=== PATIENT | female | born 1965 | race African-American/Black ===

== ENCOUNTER 2019-09-07 00:58 | Inpatient (IN) | payer MEDICAID ==
[~2019-09-07] VITALS: Ht 162.6 cm; Wt 121.7 kg
--- NOTE | 2019-09-07 01:00 | NUR ---
ED Nurse Note: Pt brought in by ambulance from home c/o SOB/resp distress, pt read her o2 at home @75% on NC, arrived on cpap @90% spo2. Pt awake and oriented x4, pt placed on court recording monitor, continuous o2 monitor and BP c Addendum: 09/07/19 at 0122 by KDEARING *cuff, IV inserted RAC 20g without complications, 16F stovall inserted, pt tolerated well. Blood and urine sent to lab. will continue to monitor.
--- NOTE | 2019-09-07 01:05 | NUR ---
RESPIRATORY NOTE: Pt arrived in ED with SOB. Placed pt on Bipap settings 10/5, back up rate 12, 60% FiO2 via Dr. Nicolas's orders. Vitals WNL. Alarms on and audible. Ambubag present at bedside. Will continue to monitor.
--- NOTE | 2019-09-07 01:13 | NUR ---
Patients son called left his and his brother phone numbers to be called if needed: Oskar AlejandreObdqm-[phone] [place] - [phone] They would like to know patients disposition/room location.
[2019-09-07 01:14] VITALS: BP 153/68
--- NOTE | 2019-09-07 01:14 | Emergency Room Report ---
History of Present Illness General Chief Complaint: Dyspnea/Respdistress Source: Patient, EMS Present Illness HPI Is a 63-year-old female who is morbidly obese. She has a history of CHF, high blood pressure and diabetes. She presents with chief complaint of shortness of breath. She had multiple admissions for shortness of breath and respiratory distress. She called 911 because she could not breathe tonight. Per EMS she was hypoxic and was wheezing. Also has some rales. EMS put her on CPAP and gave her breathing treatment. They also gave her a spray of nitroglycerin ( 0.4 mg). She says she felt better now. No fever chills but no nausea no vomiting. Has chest tightness because of this. Similar symptom in the past. Allergies: Coded Allergies: No Known Allergies (Unverified , 09/07/19) Patient History Past Medical History: see triage record, old chart reviewed, DM, HTN, CHF Past Surgical History: other Pertinent Family History: none Social History: Denies: smoking Last Menstrual Period: n/a Now: No Immunizations: other Reviewed Nursing Documentation: PMH: Agreed; PSxH: Agreed Nursing Documentation-PMH Past Medical History: No History, Except For Hx Hypertension: Yes Hx Diabetes: Yes Review of Systems Eye: Denies: eye pain, blurred vision ENT: Denies: ear pain, nose congestion, throat swelling Respiratory: Reports: cough, shortness of breath, wheezing Cardiovascular: Denies: chest pain, palpitations Gastrointestinal: Denies: abdominal pain, diarrhea, nausea, vomiting Musculoskeletal: Denies: back pain, joint pain Skin: Denies: rash Neurological: Denies: headache, numbness Endocrine: Denies: increased thirst, increased urine Hematologic/Lymphatic: Denies: easy bruising All Other Systems: negative except mentioned in HPI Physical Exam Vital Signs Date Time Temp Pulse Resp B/P (MAP) Pulse Ox O2 Delivery O2 Flow Rate FiO2 09/07/19 00:52 88 29 153/68 (96) 90 Non-Rebreather Vitals with hypoxia Sp02 EP Interpretation: reviewed, abnormal General Appearance: well appearing, alert, moderate distress, obese Head: normocephalic, atraumatic Eyes: bilateral eye PERRL, bilateral eye EOMI ENT: hearing grossly normal, normal pharynx Neck: full range of motion, supple, no meningismus Respiratory: chest non-tender, respiratory distress, decreased breath sounds, accessory muscle use, rales Cardiovascular #1: regular rate, rhythm, no murmur Gastrointestinal: normal bowel sounds, non tender, no mass, no organomegaly, no bruit, non-distended Musculoskeletal: back normal, normal range of motion, other - 2+ pitting edema Neurologic: alert, oriented x3 Psychiatric: mood/affect normal Procedures Critical Care Time Critical Care Time Critical care is mandated in this patient who presented with this with respiratory distress. Patient require my urgent intervention to attenuate the risks of metabolic collapse which may lead to cardiovascular collapse and . Critical care time is 35 minutes excluding any reportable procedure. Critical care time included evaluation, multiple reevaluation, looking at old charts, interpreting laboratory and diagnostic data, discussing case with patient and family and consultants, and charting. Medical Decision Making Diagnostic Impression: Primary Impression: Respiratory failure with hypoxia and hypercapnia Qualified Codes: J96.21 - Acute and chronic respiratory failure with hypoxia; J96.22 - Acute and chronic respiratory failure with hypercapnia Additional Impressions: Acute exacerbation of CHF (congestive heart failure) Qualified Codes: I50.9 - Heart failure, unspecified Hypertension Qualified Codes: I10 - Essential (primary) hypertension Morbid obesity with BMI of 40.0-44.9, adult Anemia Qualified Codes: D64.9 - Anemia, unspecified Hyperglycemia due to type 2 diabetes mellitus Qualified Codes: E11.65 - Type 2 diabetes mellitus with hyperglycemia ER Course Patient presents with acute on chronic respiratory failure. Clinically, she appeared to be in CHF with fluid overloaded. Chest x-ray showed cardiomegaly with CHF. She has rales and 2+ pitting edema. She diuresed well with Lasix. Her BNP is only 121. She is comfortable on BiPAP. I try to wean her off of it but she became dyspneic. She said she uses BiPAP at home. Because I am unable to wean her off of the BiPAP, she is unstable for transfer. Patient will be admitted here. No evidence of ACS, PE, dissection to name a few. Contacted Dr. Jacobo for admission. Lab Results Impression Labs unremarkable EKG Diagnostic Results Rate: normal Rhythm: NSR ST Segments: other - NSST changes Rhythm Strip Diag. Results EP Interpretation: yes Rate: 93 Rhythm: NSR, no PVC's, no ectopy Chest X-Ray Diagnostic Results Chest X-Ray Diagnostic Results : Chest X-Ray Ordered: Yes # of Views/Limited/Complete: 1 View Indication: Shortness of Breath EP Interpretation: Yes Interpretation: no consolidation, no pneumothorax, other - CM with chf Impression: Other - chf Electronically Signed by: Braden Nicolas MD Last Vital Signs Date Time Temp Pulse Resp B/P (MAP) Pulse Ox O2 Delivery O2 Flow Rate FiO2 09/07/19 00:52 88 29 153/68 (96) 90 Non-Rebreather Status: improved Disposition: ADMITTED INPATIENT Condition: Serious Braden Nicolas MD Sep 07, 2019 01:14
[2019-09-07 01:16] LABS: HEMATOCRIT 29.5 % (37.0-47.0); HEMOGLOBIN 9.8 G/DL (12.0-16.0); MEAN CORPUSCULAR VOLUME 90 FL (80-99); PLATELET COUNT 353 K/UL (150-450); RED BLOOD COUNT 3.27 M/UL (4.20-5.40); RED CELL DISTRIBUTION WIDTH 14.4 % (11.6-14.8); WHITE BLOOD COUNT 12.4 K/UL (4.8-10.8)
[2019-09-07 01:21] LABS: APPEARANCE,URINE CLEAR; BILIRUBIN, URINE NEGATIVE (NEGATIVE); COLOR,URINE PALE YELLOW; GLUCOSE, URINE (UA) 2+ (NEGATIVE); KETONES,URINE NEGATIVE (NEGATIVE); LEUKOCYTE ESTERASE ,URINE NEGATIVE (NEGATIVE); NITRITE,URINE NEGATIVE (NEGATIVE); PH,URINE 5 (4.5-8.0); UROBILINOGEN,URINE NORMAL MG/DL (0.0-1.0)
[2019-09-07 01:22] LABS: PROTEIN,URINE NEGATIVE (NEGATIVE)
[2019-09-07] MEDS ORDERED: DIGOXIN125 MCG ORAL (01:27)
[2019-09-07] MEDS ORDERED: GLUCOTROL10 MG ORAL (01:27)
[2019-09-07] MEDS ORDERED: HYDRALAZINE HCL50 MG ORAL (01:27)
[2019-09-07] MEDS ORDERED: FUROSEMIDE40 MG ORAL (01:27)
[2019-09-07] MEDS ORDERED: FERROUS SULFAT325 MG ORAL (01:27)
[2019-09-07] MEDS ORDERED: METOPROLOL SUCC25 MG ORAL (01:27)
[2019-09-07] MEDS ORDERED: ALLOPURINOL300 M1 ORAL (01:27)
[2019-09-07] MEDS ORDERED: CHLORTHALIDONE25 MG ORAL (01:27)
[2019-09-07] MEDS ORDERED: POTASSIUM CHLO10 MEQ ORAL (01:27)
[2019-09-07] MEDS ORDERED: METFORMIN HCL1000 M1 ORAL (01:27)
[2019-09-07] MEDS ORDERED: AMLODIPINE BESY10 MG ORAL (01:27)
[2019-09-07 01:29] LABS: ANION GAP 5 mmol/L (5-15); BLOOD UREA NITROGEN 17 mg/dL (7-18); CALCIUM 9.1 MG/DL (8.5-10.1); CARBON DIOXIDE 39 MMOL/L (21-32); CHLORIDE 97 MMOL/L (98-107); POTASSIUM 4.1 MMOL/L (3.5-5.1); SODIUM 141 MMOL/L (136-145)
[2019-09-07] MEDS ORDERED: ENTRESTO 24 MG1 EACH PO (01:32)
[2019-09-07] MEDS ORDERED: ASPIR 8181 MG ORAL (01:32)
[2019-09-07] MEDS ORDERED: CALCIUM 500 +1 EAC3 PO (01:32)
[2019-09-07 01:43] LABS: ALANINE AMINOTRANSFERASE 20 U/L (12-78); ALBUMIN 3.2 G/DL (3.4-5.0); ALBUMIN/GLOBULIN RATIO 0.7 (1.0-2.7); ALKALINE PHOSPHATASE 71 U/L (46-116); ASPARTATE AMINO TRANSFERASE 10 U/L (15-37); BILIRUBIN,TOTAL 0.3 MG/DL (0.2-1.0)
[2019-09-07] MEDS ORDERED: Insulin Human Regular 100units/ml 3ml SUBQ ONE (02:00)
[2019-09-07] MEDS ORDERED: Albuterol ud Inhalation HHN PRN (03:15)
--- NOTE | 2019-09-07 04:00 | NUR ---
TRANSFER TO FLOOR: Patient transferred to as ordered, per Dr Jacobo. Report given to TEDDY Gavin. Belongings and medications given to . Family and or S/O informed of transfer.
--- NOTE | 2019-09-07 04:40 | NUR ---
NURSE NOTES: Admitted pt from ED with SOB; CHF. Pt is awake, alert, oriented x4 currently on the Bipap but denies any chest pains.Obese. Pt has a HL on RAC g 20 which is patent. FC Fr [address] and draining pale yellow urine. c/o SOB on minimal exertion. Upon arriving pt refused the Bipap and RT placed her on Non rebreather mask. Sats 95-96%. Plan of care explained to pt. Call placed to Dr Jacobo, awaiting response.
[2019-09-07 04:45] VITALS: BP 151/75
--- NOTE | 2019-09-07 06:28 | NUR ---
NURSE NOTES: Dr Jacobo called back with orders.
[2019-09-07] MEDS ORDERED: HYDROcodone/Acetamin 5/325 tab ORAL PRN (06:30)
[2019-09-07] MEDS ORDERED: Morphine Sulfate 2mg/ml Inj(IV/IM USE ONLY) IVP PRN (06:30)
--- NOTE | 2019-09-07 07:13 | NUR ---
ELOPEMENT: Addendum: 09/07/19 at 0714 by MILLER DUMONT RN wrong entry
--- NOTE | 2019-09-07 07:14 | NUR ---
HAND-OFF: Report given to Scott Perdue RN.
--- NOTE | 2019-09-07 07:30 | NUR ---
NURSE NOTES: Received report from TEDDY Segura. Patient is sitting on side of bed, eating breakfast. Patient is refusing ordered Bipap, RT aware. Patient is on non rebreather 40% FiO2 SpO2 95%. Bed is in lowest position, brakes engaged. Call light is kept within easy reach. Will continue to monitor patient.
[2019-09-07 08:00] VITALS: BP 130/63
[2019-09-07] MEDS: NovoLOG Insulin Flexpen SUBQ SCH ×4 (08:25→21:19)
[2019-09-07] MEDS ORDERED: Metoprolol Succinate XL 25mg tab ORAL SCH (09:00)
[2019-09-07] MEDS ORDERED: Digoxin 0.125mg tab ORAL SCH (09:00)
[2019-09-07] MEDS ORDERED: Aspirin EC 81mg tab ORAL SCH (09:00)
[2019-09-07] MEDS ORDERED: Enoxaparin 40mg Inj SUBQ SCH (09:00)
--- NOTE | 2019-09-07 09:50 | NUR ---
NURSE NOTES: Dr. Aguirre seen and examined patient at bedside, explained to patient importance of BiPAP. Patient is agreeable to BiPAP. Dr. Aguirre ordered BiPAP 10/5 40% FiO2 QHS and PRN, no ABGs ordered at this time. Order entered, noted, and carried out. Made RT aware. Noted. Will continue to monitor patient.
[2019-09-07 10:15] LABS: CHOLESTEROL 130 MG/DL (< 200); HDL CHOLESTEROL 55 MG/DL (40-60); TRIGLYCERIDES 86 MG/DL (30-150)
[2019-09-07] MEDS ORDERED: Hydromorphone 0.5mg/0.5ml inj IVP PRN ×2 (10:45→15:30)
--- NOTE | 2019-09-07 10:46 | NUR ---
NURSE NOTES: Contacted and informed Dr. Jacobo that patient states they are allergic to morphine sulfate. Dr. Jacobo acknowledged and ordered Dilaudid 0.5 mg IV BID PRN for severe pain. Morphine Sulfate 2 mg IV PRN discontinued. Noted. Will continue to monitor patient.
--- NOTE | 2019-09-07 10:50 | Diagnostic Imaging Report ---
Indication: Shortness of breath for one day Technique: One view of the chest Comparison: none Findings: The heart is enlarged. There are bilateral right greater than left pleural effusions. There is fairly extensive bilateral interstitial and airspace opacities present. Surgical clips are seen in the lower neck Impression: Cardiomegaly Bilateral interstitial infiltrates infiltrates versus edema Bilateral right greater than left pleural effusions
--- NOTE | 2019-09-07 11:11 | NUR ---
*-* NO INSURANCE INFORMATION IN THE BAR UNABLE TO SEND CLINICALS OR REVIEWS *-*
--- NOTE | 2019-09-07 11:16 | Consultation ---
Consult Note Consult Note asked to eval at the request of Dr Jacobo Is a 63-year-old female who is morbidly obese. She has a history of CHF, high blood pressure and diabetes. She presents with chief complaint of shortness of breath. She had multiple admissions for shortness of breath and respiratory distress. She called 911 because she could not breathe tonight. Per EMS she was hypoxic and was wheezing. Also has some rales. EMS put her on CPAP and gave her breathing treatment. They also gave her a spray of nitroglycerin ( 0.4 mg). She says she felt better now. No fever chills but no nausea no vomiting. Has chest tightness because of this. Similar symptom in the past. No Known Allergies (Unverified , 09/07/19) Past Medical History: see triage record, old chart reviewed, DM, HTN, CHF Past Medical History: No History, Except For Hx Hypertension: Yes Hx Diabetes: Yes interviewed examined on BIPAP . Assessment/Plan Acute Respiratory Failure Morbid Obesity LAYO Anemia DM OOC HTN Respiratory support, BIPAP 2D Echo , BP and BS management monitor Gino Varela MD Sep 07, 2019 11:16
[2019-09-07 12:00] VITALS: BP 144/75
[2019-09-07] MEDS ORDERED: LEVOTHYROXINE175 MCG ORAL (12:09)
--- NOTE | 2019-09-07 14:23 | History & Physical ---
History and Physical History & Physicial seen and examined. Full Dictation completed Marcela Jacobo MD Sep 07, 2019 14:23
[2019-09-07] MEDS ORDERED: NIFEdipine 10mg cap ORAL SCH (14:30)
--- NOTE | 2019-09-07 14:47 | Infectious Diseases Prog Note ---
Assessment/Plan Problems: (1) Community acquired pneumonia Assessment & Plan: with productive cough tinged with blood , continue ceftriaxone and azithromycin empirically (2) Acute exacerbation of CHF (congestive heart failure) Assessment & Plan: continue dieuresis as per renal (3) Respiratory failure with hypoxia and hypercapnia Assessment & Plan: on BIPAP, continue nebulizers and diuretics (4) Hyperglycemia due to type 2 diabetes mellitus Assessment & Plan: poorly controled, continue insulin to achieve tight glycemic control to keep blood glucose between 100-140 Subjective Allergies: Uncoded Allergies: Morphine sulfate (Allergy, Severe, 09/07/19) Objective Vital Signs Last 24 Hour Vital Signs Date Time Temp Pulse Resp B/P (MAP) Pulse Ox O2 Delivery O2 Flow Rate FiO2 09/07/19 12:00 Bi-pap 09/07/19 12:00 87 09/07/19 12:00 40 09/07/19 12:00 98.1 91 29 144/75 (98) 95 09/07/19 10:54 87 09/07/19 10:39 90 33 92 Facial 60 09/07/19 09:40 80 21 93 Facial 60 09/07/19 08:24 102 130/63 09/07/19 08:23 102 130/63 09/07/19 08:00 40 09/07/19 08:00 Bi-pap 09/07/19 08:00 102 09/07/19 08:00 97.9 102 29 130/63 (85) 95 09/07/19 04:45 97.0 09/07/19 04:45 Bi-pap 09/07/19 04:45 98.2 97 28 151/75 (100) 93 09/07/19 04:31 97 09/07/19 04:00 98.8 88 38 153/68 91 40 09/07/19 03:25 99 38 91 Bi-Pap 40 09/07/19 03:15 99 38 91 Facial 40 09/07/19 01:14 98.8 88 29 153/68 90 Bi-pap 60 09/07/19 01:14 88 29 Bi-pap 60 09/07/19 01:05 88 35 92 Facial 60 09/07/19 00:52 98.8 88 29 153/68 (96) 90 Non-Rebreather Height (Feet): 5 Height (Inches): 4.00 Weight (Pounds): 268 Laboratory Tests Test 09/07/19 01:00 09/07/19 01:10 09/07/19 09:10 White Blood Count 12.4 K/UL (4.8-10.8) H Red Blood Count 3.27 M/UL (4.20-5.40) L Hemoglobin 9.8 G/DL (12.0-16.0) L Hematocrit 29.5 % (37.0-47.0) L Mean Corpuscular Volume 90 FL (80-99) Mean Corpuscular Hemoglobin 30.0 PG (27.0-31.0) Mean Corpuscular Hemoglobin Concent 33.3 G/DL (32.0-36.0) Red Cell Distribution Width 14.4 % (11.6-14.8) Platelet Count 353 K/UL (150-450) Mean Platelet Volume 5.5 FL (6.5-10.1) L Neutrophils (%) (Auto) % (45.0-75.0) Lymphocytes (%) (Auto) % (20.0-45.0) Monocytes (%) (Auto) % (1.0-10.0) Eosinophils (%) (Auto) % (0.0-3.0) Basophils (%) (Auto) % (0.0-2.0) Sodium Level 141 MMOL/L (136-145) Potassium Level 4.1 MMOL/L (3.5-5.1) Chloride Level 97 MMOL/L (98-107) L Carbon Dioxide Level 39 MMOL/L (21-32) H Anion Gap 5 mmol/L (5-15) Blood Urea Nitrogen 17 mg/dL (7-18) Creatinine 1.0 MG/DL (0.55-1.30) Estimat Glomerular Filtration Rate 56.4 mL/min (>60) Glucose Level 358 MG/DL (74-106) H Calcium Level 9.1 MG/DL (8.5-10.1) Total Bilirubin 0.3 MG/DL (0.2-1.0) Aspartate Amino Transf (AST/SGOT) 10 U/L (15-37) L Alanine Aminotransferase (ALT/SGPT) 20 U/L (12-78) Alkaline Phosphatase 71 U/L (46-116) Troponin I 0.000 ng/mL (0.000-0.056) 0.000 ng/mL (0.000-0.056) Pro-B-Type Natriuretic Peptide 121 pg/mL (0-125) Total Protein 8.0 G/DL (6.4-8.2) Albumin 3.2 G/DL (3.4-5.0) L Globulin 4.8 g/dL Albumin/Globulin Ratio 0.7 (1.0-2.7) L Urine Color Pale yellow Urine Appearance Clear Urine pH 5 (4.5-8.0) Urine Specific [place] 1.010 (1.005-1.035) Urine Protein Negative (NEGATIVE) Urine Glucose (UA) 2+ (NEGATIVE) H Urine Ketones Negative (NEGATIVE) Urine Blood Negative (NEGATIVE) Urine Nitrite Negative (NEGATIVE) Urine Bilirubin Negative (NEGATIVE) Urine Urobilinogen Normal MG/DL (0.0-1.0) Urine Leukocyte Esterase Negative (NEGATIVE) Urine Opiates Screen Negative (NEGATIVE) Urine Barbiturates Screen Negative (NEGATIVE) Phencyclidine (PCP) Screen Negative (NEGATIVE) Urine Amphetamines Screen Negative (NEGATIVE) Urine Benzodiazepines Screen Negative (NEGATIVE) Urine Cocaine Screen Negative (NEGATIVE) Urine Marijuana (THC) Screen Negative (NEGATIVE) Hemoglobin A1c 8.1 % (4.3-6.0) H Triglycerides Level 86 MG/DL (30-150) Cholesterol Level 130 MG/DL (< 200) LDL Cholesterol 49 mg/dL (<100) HDL Cholesterol 55 MG/DL (40-60) Cholesterol/HDL Ratio 2.4 (3.3-4.4) L Thyroid Stimulating Hormone (TSH) 2.134 uiU/mL (0.358-3.740) Digoxin Level 0.7 NG/ML (0.9-2.0) L Current Medications Medications (Trade) Dose Ordered Sig/Yue Route PRN Reason Start Time Stop Time Status Last Admin Dose Admin Acetaminophen (Tylenol) 650 mg Q6H PRN ORAL Mild Pain/Temp > 100.5 09/07/19 06:30 10/07/19 06:29 Acetaminophen/ Hydrocodone Bitart (Purchase 5/325) 1 tab Q6H PRN ORAL moderate pain, 4-6 09/07/19 06:30 09/14/19 06:29 Albuterol Sulfate (Proventil) 2.5 mg Q4HR PRN HHN Shortness of Breath 09/07/19 03:15 09/12/19 03:14 Allopurinol (Allopurinol) 300 mg DAILY ORAL 09/07/19 09:00 10/07/19 08:59 09/07/19 08:23 Aspirin (Ecotrin) 81 mg DAILY ORAL 09/07/19 09:00 10/07/19 08:59 09/07/19 08:23 Azithromycin 500 mg/Dextrose 275 ml @ 275 mls/hr Q24HRS IV 09/07/19 16:00 09/13/19 16:59 Ceftriaxone Sodium 2 gm/ Dextrose 55 ml @ 110 mls/hr Q24H IVPB 09/07/19 17:00 09/14/19 16:59 Dextrose (Dextrose 50%) 25 ml Q30M PRN IV Hypoglycemia 09/07/19 06:30 10/07/19 06:29 Dextrose (Dextrose 50%) 50 ml Q30M PRN IV Hypoglycemia 09/07/19 06:30 10/07/19 06:29 Digoxin (Lanoxin) 0.125 mg DAILY ORAL 09/07/19 09:00 10/07/19 08:59 09/07/19 10:54 Enoxaparin Sodium (Lovenox) 40 mg DAILY SUBQ 09/07/19 09:00 10/07/19 08:59 09/07/19 08:26 Furosemide (Lasix) 40 mg DAILY IV 09/07/19 09:00 10/07/19 08:59 09/07/19 08:29 Hydromorphone HCl (Dilaudid) 0.5 mg BID PRN IVP Severe Pain (Pain Scale 7-10) 09/07/19 10:45 09/14/19 10:44 Insulin Aspart (NovoLOG) BEFORE MEALS AND HS SUBQ 09/07/19 06:30 10/07/19 06:29 09/07/19 12:06 Insulin Detemir (Levemir) 12 units Q24H SUBQ 09/07/19 16:00 10/07/19 15:59 Levothyroxine Sodium (Synthroid) 150 mcg DAILY@0630 ORAL 09/08/19 06:30 10/08/19 06:29 Nateglinide (Starlix) 120 mg TIAC ORAL 09/07/19 11:30 10/07/19 11:29 09/07/19 12:05 Nifedipine (Adalat) 20 mg Q8HR ORAL 09/07/19 14:30 10/07/19 14:29 Katlyn Richard M.D. Sep 07, 2019 14:47
--- NOTE | 2019-09-07 15:10 | NUR ---
TRANSFER TO FLOOR: Patient transferred to Telemetry WH362-1, per Dr. Aguirre. Report given to TEDDY Kerns. Belongings and medications given to TEDDY Kerns. Endorsed to TEDDY Kerns that patient stated they came in with their personal oxygen tank, [facility], consulted belonging's list, none seen, informed TEDDY Kerns that this nurse inquired ER charge nurse, TEDDY Ashford - awaiting call back. TEDDY Kerns acknowledged. Son at bedside informed of transfer.
--- NOTE | 2019-09-07 15:15 | NUR ---
NURSE NOTES: Received report from TEDDY Alfaro. Patient in bed resting, no active s/s cardiac distress noticed at this time. Patient on 15L oxygen via non-rebreather. AOx4. Endorsed patient stating missing oxygen tank and awaiting for callback from ED nurse. BIPAP at the bedside. Belonging list checked. IV on right AC 20G, asymptomatic, patent, intact. Bed in lowest position, side rails upx3, call light within reach. Will continue to monitor.
[2019-09-07 16:00] VITALS: BP 126/65
[2019-09-07] MEDS ORDERED: Azithromycin 500 MG in D5W 275 ML IV SCH (16:00)
[2019-09-07] MEDS ORDERED: Levemir Flexpen SUBQ SCH (16:00)
--- NOTE | 2019-09-07 16:00 | History and Physical Report ---
DATE OF ADMISSION: 09/07/2019 SOURCE OF INFORMATION: Patient and EMR. HISTORY OF PRESENT ILLNESS: The patient is a 54-year-old female with a history of asthma, who presented with worsening of shortness of breath for the last three days. At the time of evaluation, the patient denies having any interruption in taking the medication. Heart failure in the past. Denies any nausea, vomiting, diarrhea, or constipation. Reported that shortness of breath does not make a difference with walking or sitting. Denies any fever, chills. PAST MEDICAL HISTORY: Including but not limited to asthma, hypertension, atrial fibrillation, CHF, hypothyroidism, hypertension. ALLERGIES: Morphine sulfate. MEDICATIONS: Current hospital medications including, but not limited to , amlodipine, digoxin, Lasix, sliding scale insulin, levothyroxine, metoprolol. FAMILY HISTORY: Reviewed, noncontributory. SOCIAL HISTORY: The patient reported that living with her children. Denies any smoking, illicit drug, or alcohol abuse. PHYSICAL EXAMINATION: VITAL SIGNS: Blood pressure 150/80, temperature 98.2, pulse rate 29, temperature 98.5. HEAD AND NECK: Atraumatic, normocephalic. CHEST: Clear to auscultation. HEART: S1, S2. Regular rate and rhythm. ABDOMEN: Soft. No organomegaly. MUSCULOSKELETAL: No gross focal deficit. NEUROLOGIC: The patient is awake, alert, oriented x3. LABORATORY DATA: Labs dated 09/07/2019 shows WBC 12.4, hemoglobin of 9.8. BUN 17, creatinine 1. AST 10 and TSH of 2.1. Glucose of 358, A1c 8.1. Chest x-ray dated 09/07/2019 shows cardiomegaly with bilateral interstitial infiltrates. ASSESSMENT: 1. Acute hypoxemic respiratory failure. 2. Community-acquired pneumonia. 3. CHF exacerbation. 4. Morbid obesity. 5. Asthma. 6. Severe pulmonary arterial hypertension. 7. GI and DVT prophylaxis. PLAN OF CARE: I will continue with breathing treatment. I will add the empiric antibiotic treatment. I will send the blood cultures. I will increase the Lasix and optimize the blood pressure. Pulmonary, Dr. Aguirre and Cardiology, Dr. Funez have been consulted. Marcela Jacobo M.D. DR: MEGAN JOB#: [id number] CC:
[2019-09-07] MEDS ORDERED: cefTRIAXone 2 GM in D5W 55 ML IVPB SCH (17:00)
[2019-09-07] MEDS: Azithromycin 500 MG in D5W 275 ML IV SCH (17:29)
[2019-09-07] MEDS: Levemir Flexpen SUBQ SCH (17:38)
[2019-09-07] MEDS: cefTRIAXone 2 GM in D5W 55 ML IVPB SCH (18:40)
[2019-09-07] MEDS: HYDROcodone/Acetamin 5/325 tab ORAL PRN (18:47)
--- NOTE | 2019-09-07 18:57 | NUR ---
CASE MANAGEMENT: REVIEW 54Y/FEMALE BIBA FROM HOME CC: SOB . SAT 75% ROOM AIR . PATIENT ARRIVED ON CPAP 90% SI: CHF T 98.8 HR 88 RR 29 BP 153/68 SAT 90% BIPAP FIO2 60 WBC 12.4 H/H 9.8/29.5 GLUCOSE 358 CO2 39 IS: LASIX IV X1 PATIENT ADMITTED TO TELEMETRY UNIT 09/07/2019 DCP: PATIENT IS FROM HOME
--- NOTE | 2019-09-07 19:36 | NUR ---
HAND-OFF: Report given to TEDDY Sheehan.
--- NOTE | 2019-09-07 19:42 | Cardiology Progress Note ---
Assessment/Plan Assessment/Plan The patient is seen and examined, full consult note will be dictated. Objective Last 24 Hour Vital Signs Date Time Temp Pulse Resp B/P (MAP) Pulse Ox O2 Delivery O2 Flow Rate FiO2 09/07/19 16:00 95 09/07/19 16:00 97.2 87 25 126/65 (85) 93 09/07/19 16:00 40 09/07/19 16:00 Bi-pap 09/07/19 14:48 87 144/75 09/07/19 12:00 Bi-pap 09/07/19 12:00 87 09/07/19 12:00 40 09/07/19 12:00 98.1 91 29 144/75 (98) 95 09/07/19 10:54 87 09/07/19 10:39 90 33 92 Facial 60 09/07/19 09:40 80 21 93 Facial 60 09/07/19 08:24 102 130/63 09/07/19 08:23 102 130/63 09/07/19 08:00 40 09/07/19 08:00 Bi-pap 09/07/19 08:00 102 09/07/19 08:00 97.9 102 29 130/63 (85) 95 09/07/19 04:45 97.0 09/07/19 04:45 Bi-pap 09/07/19 04:45 98.2 97 28 151/75 (100) 93 09/07/19 04:31 97 09/07/19 04:00 98.8 88 38 153/68 91 40 09/07/19 03:25 99 38 91 Bi-Pap 40 09/07/19 03:15 99 38 91 Facial 40 09/07/19 01:14 98.8 88 29 153/68 90 Bi-pap 60 09/07/19 01:14 88 29 Bi-pap 60 09/07/19 01:05 88 35 92 Facial 60 09/07/19 00:52 98.8 88 29 153/68 (96) 90 Non-Rebreather Intake and Output 09/06/19 09/07/19 18:59 06:59 Output Total 500 ml Balance -500 ml Output Urine Total 500 ml Laboratory Tests Test 09/07/19 01:00 09/07/19 01:10 09/07/19 09:10 09/07/19 17:15 White Blood Count 12.4 K/UL (4.8-10.8) H Red Blood Count 3.27 M/UL (4.20-5.40) L Hemoglobin 9.8 G/DL (12.0-16.0) L Hematocrit 29.5 % (37.0-47.0) L Mean Corpuscular Volume 90 FL (80-99) Mean Corpuscular Hemoglobin 30.0 PG (27.0-31.0) Mean Corpuscular Hemoglobin Concent 33.3 G/DL (32.0-36.0) Red Cell Distribution Width 14.4 % (11.6-14.8) Platelet Count 353 K/UL (150-450) Mean Platelet Volume 5.5 FL (6.5-10.1) L Neutrophils (%) (Auto) % (45.0-75.0) Lymphocytes (%) (Auto) % (20.0-45.0) Monocytes (%) (Auto) % (1.0-10.0) Eosinophils (%) (Auto) % (0.0-3.0) Basophils (%) (Auto) % (0.0-2.0) Sodium Level 141 MMOL/L (136-145) Potassium Level 4.1 MMOL/L (3.5-5.1) Chloride Level 97 MMOL/L (98-107) L Carbon Dioxide Level 39 MMOL/L (21-32) H Anion Gap 5 mmol/L (5-15) Blood Urea Nitrogen 17 mg/dL (7-18) Creatinine 1.0 MG/DL (0.55-1.30) Estimat Glomerular Filtration Rate 56.4 mL/min (>60) Glucose Level 358 MG/DL (74-106) H Calcium Level 9.1 MG/DL (8.5-10.1) Total Bilirubin 0.3 MG/DL (0.2-1.0) Aspartate Amino Transf (AST/SGOT) 10 U/L (15-37) L Alanine Aminotransferase (ALT/SGPT) 20 U/L (12-78) Alkaline Phosphatase 71 U/L (46-116) Troponin I 0.000 ng/mL (0.000-0.056) 0.000 ng/mL (0.000-0.056) 0.000 ng/mL (0.000-0.056) Pro-B-Type Natriuretic Peptide 121 pg/mL (0-125) Total Protein 8.0 G/DL (6.4-8.2) Albumin 3.2 G/DL (3.4-5.0) L Globulin 4.8 g/dL Albumin/Globulin Ratio 0.7 (1.0-2.7) L Urine Color Pale yellow Urine Appearance Clear Urine pH 5 (4.5-8.0) Urine Specific [place] 1.010 (1.005-1.035) Urine Protein Negative (NEGATIVE) Urine Glucose (UA) 2+ (NEGATIVE) H Urine Ketones Negative (NEGATIVE) Urine Blood Negative (NEGATIVE) Urine Nitrite Negative (NEGATIVE) Urine Bilirubin Negative (NEGATIVE) Urine Urobilinogen Normal MG/DL (0.0-1.0) Urine Leukocyte Esterase Negative (NEGATIVE) Urine Opiates Screen Negative (NEGATIVE) Urine Barbiturates Screen Negative (NEGATIVE) Phencyclidine (PCP) Screen Negative (NEGATIVE) Urine Amphetamines Screen Negative (NEGATIVE) Urine Benzodiazepines Screen Negative (NEGATIVE) Urine Cocaine Screen Negative (NEGATIVE) Urine Marijuana (THC) Screen Negative (NEGATIVE) Hemoglobin A1c 8.1 % (4.3-6.0) H Triglycerides Level 86 MG/DL (30-150) Cholesterol Level 130 MG/DL (< 200) LDL Cholesterol 49 mg/dL (<100) HDL Cholesterol 55 MG/DL (40-60) Cholesterol/HDL Ratio 2.4 (3.3-4.4) L Thyroid Stimulating Hormone (TSH) 2.134 uiU/mL (0.358-3.740) Digoxin Level 0.7 NG/ML (0.9-2.0) L Bryce Funez MD Sep 07, 2019 19:42
--- NOTE | 2019-09-07 19:54 | NUR ---
NURSE NOTES: Received report from TEDDY Kerns. Patient is in bed, awake and responsive. Breathing regular on a Non-rebreather mask with saturation between 94-96%. Patient denies any pain or discomfort at this time. Patient's IV is intact and saline locked at the moment. Patient stated that her son will be visiting because he cares for her at home and he will come in to assist her. Patient also previously told the morning RN that she brought the Oxygen tank along with her when she was in the ED, but when ED was contacted there was no records of that. Bed is in lowest position, breaks engaged, and call light within reach at all times. Will continue to monitor.
[2019-09-07 20:00] VITALS: BP 124/56
[2019-09-07] MEDS ORDERED: Metoprolol 25mg tab ORAL SCH (21:00)
[2019-09-07] MEDS: NIFEdipine 10mg cap ORAL SCH (21:18)
--- NOTE | 2019-09-07 21:30 | Consultation ---
DATE OF CONSULTATION: 09/07/2019 CARDIOLOGY CONSULTATION CONSULTING PHYSICIAN: Bryce Funez M.D. REFERRING PHYSICIAN: Marceal Jacobo M.D. REASON FOR CONSULTATION: Management of congestive heart failure/shortness of breath. HISTORY OF PRESENT ILLNESS: The patient is a very pleasant 54-year-old female morbidly obese with history of congestive heart failure, hypertension, and diabetes mellitus. She presents to this hospital with progressive worsening of shortness of breath. She has had multiple admissions for shortness of breath and respiratory distress in the past. At the time of arrival of EMS, she was hypoxic and was having respiratory rhonchi. The patient also had some crackles reported by EMS. She was placed on CPAP and breathing treatment as well as a spray of nitroglycerin, which helped her condition. At the time of arrival to the hospital, she was complaining of chest tightness. She had similar symptoms in the past. Blood pressure in the emergency department was 153/60 mmHg and heart rate was 88. She was on non-rebreather mask and pulse ox of 90%. PAST MEDICAL HISTORY: Includes congestive heart failure, hypertension, diabetes mellitus, morbid obesity. PAST SURGICAL HISTORY: None. FAMILY HISTORY: No premature coronary artery disease in the first-degree relatives. ALLERGIES: No known drug allergies. REVIEW OF SYSTEMS: A 12-system review done essentially negative except what was mentioned in the history of present illness. SOCIAL HISTORY: Denies any tobacco, alcohol, or illicit drug use. MEDICATIONS: List of medications at home allopurinol 300 mg p.o. daily, amlodipine 10 mg p.o. daily, aspirin 81 mg p.o. daily, calcium carbonate and vitamin D3 one tablet daily, chlorthalidone 25 mg p.o. daily, digoxin 125 mcg p.o. daily, ferrous sulfate 325 mg p.o. daily, Lasix 40 mg p.o. daily, glipizide 5 mg p.o. daily, hydralazine 50 mg p.o. q.8 hours, levothyroxine 150 mg p.o. daily, metformin 1000 mg p.o. daily, metoprolol 25 mg p.o. daily, potassium chloride 10 mEq p.o. daily, Entresto 24/26 one tablet twice daily. PHYSICAL EXAMINATION: VITAL SIGNS: Blood pressure is 153/68, pulse of 88, respirations 28, O2 saturation 98% on non-rebreather mask. GENERAL: The patient is a very unfortunate 54-year-old, morbidly obese lady, in mild respiratory distress on facemask. HEENT: Atraumatic and normocephalic. Anicteric. Pupils are equal, round, and reactive to light and accommodation. Extraocular muscles intact. NECK: Cannot assess JVP due to morbid obesity and short neck. CARDIOVASCULAR: Normal S1, S2. Regular rate and rhythm. No murmurs, gallops, or rubs. PMI is at fourth intercostal space in the midclavicular line. LUNGS: Bilateral basal crackles. EXTREMITIES: 1+ bilateral lower extremity edema. LABORATORY FINDINGS: WBC was 12.4, hemoglobin 9.8, hematocrit 29.5, and platelet count is 353. Sodium was 141, potassium is 4.1, chloride is 97, bicarbonate 39, BUN of 17, creatinine 1.0, glucose 358. Hemoglobin A1c is 8.1. Calcium is 9.1. Troponin I x3 is negative. LDL is 29, HDL is 55, triglycerides 86. Toxicology was negative. Chest x-ray, cardiomegaly with bilateral pulmonary edema, bilateral pleural effusion. Preliminary 2D echocardiography shows normal left ventricular systolic function with LVEF of about 60% with normal LV diastolic dysfunction. Mild to moderate tricuspid regurgitation with right ventricular systolic pressure measured 101 mmHg consistent with severe pulmonary hypertension. ASSESSMENT AND PLAN: The patient is a very unfortunate 54-year-old lady who is seen in Cardiology consultation. 1. Severe pulmonary hypertension with right ventricular systolic pressure as high as 101 mmHg. We will like to review 2D echocardiography. Apparently, this patient's proBNP is within normal limits. However she takes Lasix at home. 2. Morbid obesity. 3. Normal LV systolic function with LVEF approximately 60%. I do not note the role of Entresto, which was given to her as an outpatient. Again, we like to review of 2D echocardiography images before this had making decision about discontinuing Entresto. 4. History of diabetes mellitus. 5. History of hypertension. I would probably stay away from calcium channel abdiel as tend to cause peripheral edema. We will like to use a combination of diuretic, angiotensin receptor abdiel, beta-blockers, and possibly alpha blockers. I would like to thank, Dr. Jacobo, for the courtesy of this consultation. Bryce Funez M.D. DR: BETHANY JOB#: [id number] CC:
[2019-09-08] VITALS: BP 107/59
--- NOTE | 2019-09-08 00:25 | NUR ---
NURSE NOTES: Upon assessment of patient's vitals, patient was saturating between 90-91% on the BIPAP. Called respiratory to have them come in and adjust the BIPAP settings per the patient's request. Respiratory was not able to come in because they were busy on a different unit. Patient started complaining of SOB while on the BIPAP, sat the patient up, changed the patient from the BIPAP to the high flow mask she was on previously, had the patient do deep breathing and the oxygen saturation was between 94-96%. Patient requested to have a breathing treatment, called RT. Waiting for RT to give patient breathing treatment. Patient is not in acute distress and denies SOB at the moment. Will continue to monitor.
[2019-09-08] MEDS: Albuterol ud Inhalation HHN PRN ×2 (01:32→10:35)
--- NOTE | 2019-09-08 02:47 | NUR ---
NURSE NOTES: Patient requested to have her Stovall discontinued because she was uncomfortable with it. Explained to the patient of the reasons why the Stovall catheter was placed in the first place, but patient was adamant on having it removed. The charge nurse Kandace also spoke to the patient and explained the benefits as well, but patient still wanted it out and requested to have a bed-side commode instead. The charge nurse Kandace removed the stovall per the patient's request. Will notify the MD about the patient's wishes. Patient is in bed with no acute distress noted at this time. Will continue to monitor.
--- NOTE | 2019-09-08 03:30 | Consultation ---
DATE OF CONSULTATION: 09/07/2019 PULMONARY CONSULTATION HISTORY OF PRESENT ILLNESS: The patient is a 54-year-old female with morbid obesity and CHF. She was brought in from home with shortness of breath. The patient reported she could . In the ER, she was diuresed and placed on a BiPAP. The patient reports history of hypertension and diabetes as well. She also history of LAYO and is on CPAP at home. On my evaluation, she reports dyspnea but denies chest pain. REVIEW OF SYSTEMS: Denies any headaches, hematemesis, melena, hematochezia, night sweats, or weight loss. PAST MEDICAL HISTORY: Hypertension, CHF, diabetes mellitus, LAYO, obesity. PAST SURGICAL HISTORY: None reported. HOME MEDICATIONS: Reviewed and reconciled in the chart. PHYSICAL EXAMINATION: GENERAL: Reveals a 54-year-old female. VITAL SIGNS: Blood pressure 150/60, heart rate is 84, respirations 22, afebrile. HEENT: Unremarkable. CHEST: Clear breath sounds bilaterally. HEART: Normal heart sounds. ABDOMEN: Soft. EXTREMITIES: There is 2+ edema. NEUROLOGIC: Nonfocal. LABORATORY AND DIAGNOSTIC DATA: Lab testing shows white count 63818, hemoglobin 9.8. Creatinine of 1.0. Toxicology is negative. Urinalysis is negative. IMAGING STUDIES: X-ray of chest was obtained which shows bilateral pleural effusions, pulmonary edema. IMPRESSION: 1. Decompensated congestive heart failure, suspect acute on chronic systolic heart failure. 2. Respiratory failure on BiPAP. 3. Hypertension. 4. Diabetes mellitus. DISCUSSION: We will start on BiPAP. I agree with current medications and care. The patient will need aggressive diuresis, nitrates, breathing treatments. Avoidance of nephrotoxic medications. We will follow carefully. Sohail Aguirre M.D. DR: Homer JOB#: [id number] CC:
[2019-09-08 04:00] VITALS: BP 146/69
[2019-09-08] MEDS: NIFEdipine 10mg cap ORAL SCH ×3 (06:07→21:00)
[2019-09-08] MEDS: NovoLOG Insulin Flexpen SUBQ SCH ×4 (06:08→21:02)
[2019-09-08 06:32] LABS: HEMATOCRIT 28.7 % (37.0-47.0); HEMOGLOBIN 9.1 G/DL (12.0-16.0); MEAN CORPUSCULAR VOLUME 92 FL (80-99); PLATELET COUNT 292 K/UL (150-450); RED BLOOD COUNT 3.12 M/UL (4.20-5.40)
--- NOTE | 2019-09-08 06:36 | NUR ---
NURSE NOTES: Called Dr. Aguirre to inform him about the patient's Oxygen therapy orders that needed to be added or adjusted. Dr Aguirre said "I will do it when i make rounds."
--- NOTE | 2019-09-08 06:37 | NUR ---
NURSE NOTES: Notified Dr. Jacobo about patient's Piper catheter removal request, awaiting response. Will endorse to morning shift.
[2019-09-08 06:57] LABS: % IRON SATURATION 11 % (15-50); IRON 35 ug/dL (50-175); TOTAL IRON BINDING CAPACITY 312 ug/dL (250-450)
[2019-09-08 07:10] LABS: ALANINE AMINOTRANSFERASE 21 U/L (12-78); ALBUMIN 3.1 G/DL (3.4-5.0); ALBUMIN/GLOBULIN RATIO 0.6 (1.0-2.7); ALKALINE PHOSPHATASE 64 U/L (46-116); ANION GAP 6 mmol/L (5-15); ASPARTATE AMINO TRANSFERASE 13 U/L (15-37); BILIRUBIN,TOTAL 0.4 MG/DL (0.2-1.0); BLOOD UREA NITROGEN 22 mg/dL (7-18); CALCIUM 8.9 MG/DL (8.5-10.1); CARBON DIOXIDE 39 MMOL/L (21-32); CHLORIDE 97 MMOL/L (98-107); FERRITIN 74 NG/ML (8-388); POTASSIUM 3.8 MMOL/L (3.5-5.1); SODIUM 144 MMOL/L (136-145)
[2019-09-08 07:11] LABS: GAMMA GLUTAMYL TRANSPEPTIDASE 26 U/L (5-85); PHOSPHORUS 3.7 MG/DL (2.5-4.9)
--- NOTE | 2019-09-08 07:38 | NUR ---
NURSE NOTES: Dr. Jacobo said it was ok to DC the stovall, orders noted.
--- NOTE | 2019-09-08 07:39 | NUR ---
HAND-OFF: Report given to TEDDY Tony. Patient in stable condition.
--- NOTE | 2019-09-08 07:40 | NUR ---
NURSE NOTES: Received report from TEDDY Sheehan. sitting in bed, awake and responsive. Patient is breathing normal and regular on a Non-rebreather mask with saturation at 96%. Patient denies any pain or discomfort at this time. IV is intact and saline locked. Family at bedside. Bed is in lowest position, breaks engaged for safety.Call light within reach at all times. Will continue with the plan of care.
[2019-09-08 08:00] VITALS: BP 131/57
[2019-09-08] MEDS: Aspirin EC 81mg tab ORAL SCH (08:30)
[2019-09-08] MEDS: Enoxaparin 40mg Inj SUBQ SCH (08:32)
[2019-09-08] MEDS ORDERED: Digoxin 0.125mg tab ORAL SCH (09:00)
--- NOTE | 2019-09-08 10:18 | Pulmonology Progress Note ---
Assessment/Plan Assessment/Plan ASSESSMENT Pulmonary edema LAYO History of asthma DISCUSSION: Continue BiPAP q pm. I agree with current medications and care. The patient will need aggressive diuresis, nitrates, breathing treatments. Avoidance of nephrotoxic medications. I will follow carefully. Sohail Aguirre M.D. Subjective Interval Events: Feeling better; still on NRBM Constitutional: Reports: no symptoms HEENT: Repors: no symptoms Respiratory: Reports: no symptoms Cardiovascular: Reports: no symptoms Gastrointestinal/Abdominal: Reports: no symptoms Allergies: Uncoded Allergies: Morphine sulfate (Allergy, Severe, 09/07/19) Objective Last 24 Hour Vital Signs Date Time Temp Pulse Resp B/P (MAP) Pulse Ox O2 Delivery O2 Flow Rate FiO2 09/08/19 09:00 Bi-pap 09/08/19 08:31 89 09/08/19 08:00 40 09/08/19 08:00 97.9 89 18 131/57 (81) 98 09/08/19 08:00 86 09/08/19 06:07 89 144/73 09/08/19 04:00 98.4 89 18 146/69 (94) 97 09/08/19 04:00 40 09/08/19 04:00 87 09/08/19 01:37 88 20 93 Non-Rebreather 15.0 100 88 20 92 09/08/19 00:00 98.1 87 20 107/59 (75) 94 09/08/19 00:00 86 09/07/19 22:15 87 27 94 Facial 60 09/07/19 21:18 88 124/66 09/07/19 21:00 40 09/07/19 20:00 91 09/07/19 20:00 98.9 88 22 124/56 (78) 94 09/07/19 16:00 95 09/07/19 16:00 97.2 87 25 126/65 (85) 93 09/07/19 16:00 40 09/07/19 16:00 Bi-pap 09/07/19 14:48 87 144/75 09/07/19 12:00 Bi-pap 11/18/19 12:00 87 09/07/19 12:00 40 09/07/19 12:00 98.1 91 29 144/75 (98) 95 09/07/19 10:54 87 09/07/19 10:39 90 33 92 Facial 60 Intake and Output 09/07/19 09/08/19 19:00 07:00 Intake Total 150 ml 120 ml Output Total 1100 ml Balance -950 ml 120 ml Intake Oral 150 ml Other 120 ml Output Urine Total 1100 ml General Appearance: no acute distress HEENT: normocephalic Respiratory/Chest: chest wall non-tender, lungs clear Cardiovascular: normal peripheral pulses, normal rate Abdomen: normal bowel sounds Laboratory Tests 09/07/19 17:15: Troponin I 0.000 09/08/19 04:55: Troponin I 0.000, White Blood Count 10.0, Red Blood Count 3.12L, Hemoglobin 9.1L , Hematocrit 28.7L, Mean Corpuscular Volume 92, Mean Corpuscular Hemoglobin 29.3 , Mean Corpuscular Hemoglobin Concent 31.9L, Red Cell Distribution Width 14.0, Platelet Count 292, Mean Platelet Volume 5.6L, Neutrophils (%) (Auto) , Lymphocytes (%) (Auto) , Monocytes (%) (Auto) , Eosinophils (%) (Auto) , Basophils (%) (Auto) , Sodium Level 144, Potassium Level 3.8, Chloride Level 97L , Carbon Dioxide Level 39H, Anion Gap 6, Blood Urea Nitrogen 22H, Creatinine 1.0 , Estimat Glomerular Filtration Rate > 60, Glucose Level 222#H, Uric Acid 3.5, Calcium Level 8.9, Phosphorus Level 3.7, Magnesium Level 1.5L, Iron Level 35L, Total Iron Binding Capacity 312, Percent Iron Saturation 11L, Unsaturated Iron Binding 277, Ferritin 74, Total Bilirubin 0.4, Gamma Glutamyl Transpeptidase 26 , Aspartate Amino Transf (AST/SGOT) 13L, Alanine Aminotransferase (ALT/SGPT) 21 , Alkaline Phosphatase 64, C-Reactive Protein, Quantitative 6.9H, Pro-B-Type Natriuretic Peptide 264H, Total Protein 7.9, Albumin 3.1L, Globulin 4.8, Albumin /Globulin Ratio 0.6L, Vitamin B12 Level 431, Folate 17.9 Current Medications Medications (Trade) Dose Ordered Sig/Yue Route PRN Reason Start Time Stop Time Status Last Admin Dose Admin Acetaminophen (Tylenol) 650 mg Q6H PRN ORAL Mild Pain/Temp > 100.5 09/07/19 15:30 10/07/19 15:29 Acetaminophen/ Hydrocodone Bitart ([place] 5/325) 1 tab Q6H PRN ORAL moderate pain, 4-6 09/07/19 15:30 09/14/19 15:29 09/07/19 18:47 Albuterol Sulfate (Proventil) 2.5 mg Q4H PRN HHN Shortness of Breath 09/07/19 15:30 09/12/19 15:29 09/08/19 01:32 Allopurinol (Zyloprim) 100 mg DAILY ORAL 09/09/19 09:00 10/09/19 08:59 Aspirin (Ecotrin) 81 mg DAILY ORAL 09/08/19 09:00 10/07/19 08:59 09/08/19 08:30 Azithromycin 500 mg/Dextrose 275 ml @ 275 mls/hr Q24HRS IV 09/07/19 16:00 09/13/19 16:59 09/07/19 17:29 Ceftriaxone Sodium 2 gm/ Dextrose 55 ml @ 110 mls/hr Q24H IVPB 09/07/19 17:00 09/14/19 16:59 09/07/19 18:40 Dextrose (Dextrose 50%) 25 ml Q30M PRN IV Hypoglycemia 09/07/19 15:30 10/07/19 06:29 Dextrose (Dextrose 50%) 50 ml Q30M PRN IV Hypoglycemia 09/07/19 15:30 10/07/19 06:29 Digoxin (Lanoxin) 0.125 mg DAILY ORAL 09/08/19 09:00 10/07/19 08:59 09/08/19 08:31 Enoxaparin Sodium (Lovenox) 40 mg DAILY SUBQ 09/08/19 09:00 10/07/19 08:59 09/08/19 08:32 Furosemide (Lasix) 40 mg DAILY IV 09/08/19 09:00 10/07/19 08:59 09/08/19 09:01 Hydromorphone HCl (Dilaudid) 0.5 mg BIDPRN PRN IVP Severe Pain (Pain Scale 7-10) 09/07/19 15:30 09/14/19 15:29 Insulin Aspart (NovoLOG) BEFORE MEALS AND HS SUBQ 09/07/19 16:30 10/07/19 06:29 09/08/19 06:08 Insulin Detemir (Levemir) 12 units Q24H SUBQ 09/07/19 16:00 10/07/19 15:59 09/07/19 17:38 Levothyroxine Sodium (Synthroid) 150 mcg DAILY@0630 ORAL 09/08/19 06:30 10/08/19 06:29 09/08/19 06:06 Magnesium Sulfate 100 ml @ 100 mls/hr Q1H IVPB 09/08/19 10:00 09/08/19 13:59 Nateglinide (Starlix) 120 mg TIAC ORAL 09/07/19 16:30 10/07/19 11:29 09/08/19 06:07 Nifedipine (Adalat) 20 mg Q8HR ORAL 09/07/19 22:00 10/07/19 14:29 09/08/19 06:07 Sohail Aguirre MD Sep 08, 2019 10:18
--- NOTE | 2019-09-08 10:35 | General Progress Note ---
Assessment/Plan Assessment/Plan: S: I am feeling better O: on O2, denies chest pain . limited activity PHYSICAL EXAMINATION:HEAD AND NECK: Atraumatic, normocephalic. CHEST: Clear to auscultation.HEART: S1, S2. Regular rate and rhythm. ABDOMEN: Soft. No organomegaly.MUSCULOSKELETAL: No gross focal deficit. NEUROLOGIC: The patient is awake, alert, oriented x3. LABORATORY DATA: Labs dated 09/08 reviewed ASSESSMENT: 1. Acute Asthma exacerbation 2. Community-acquired pneumonia. 3. CHF exacerbation. 4. Morbid obesity. 5. Asthma. 6. Severe pulmonary arterial hypertension. 7. GI and DVT prophylaxis. Plan: current IV medication pending cultures Subjective Allergies: Uncoded Allergies: Morphine sulfate (Allergy, Severe, 09/07/19) Objective Last 24 Hour Vital Signs Date Time Temp Pulse Resp B/P (MAP) Pulse Ox O2 Delivery O2 Flow Rate FiO2 09/08/19 09:00 Bi-pap 09/08/19 08:31 89 09/08/19 08:00 40 09/08/19 08:00 97.9 89 18 131/57 (81) 98 09/08/19 08:00 86 09/08/19 06:07 89 144/73 09/08/19 04:00 98.4 89 18 146/69 (94) 97 09/08/19 04:00 40 09/08/19 04:00 87 09/08/19 01:37 88 20 93 Non-Rebreather 15.0 100 88 20 92 09/08/19 00:00 98.1 87 20 107/59 (75) 94 09/08/19 00:00 86 09/07/19 22:15 87 27 94 Facial 60 09/07/19 21:18 88 124/66 09/07/19 21:00 40 09/07/19 20:00 91 09/07/19 20:00 98.9 88 22 124/56 (78) 94 09/07/19 16:00 95 09/07/19 16:00 97.2 87 25 126/65 (85) 93 09/07/19 16:00 40 09/07/19 16:00 Bi-pap 09/07/19 14:48 87 144/75 09/07/19 12:00 Bi-pap 09/07/19 12:00 87 09/07/19 12:00 40 09/07/19 12:00 98.1 91 29 144/75 (98) 95 09/07/19 10:54 87 09/07/19 10:39 90 33 92 Facial 60 Intake and Output 09/07/19 09/08/19 19:00 07:00 Intake Total 150 ml 120 ml Output Total 1100 ml Balance -950 ml 120 ml Intake Oral 150 ml Other 120 ml Output Urine Total 1100 ml Laboratory Tests 09/07/19 17:15: Troponin I 0.000 09/08/19 04:55: Troponin I 0.000, White Blood Count 10.0, Red Blood Count 3.12L, Hemoglobin 9.1L , Hematocrit 28.7L, Mean Corpuscular Volume 92, Mean Corpuscular Hemoglobin 29.3 , Mean Corpuscular Hemoglobin Concent 31.9L, Red Cell Distribution Width 14.0, Platelet Count 292, Mean Platelet Volume 5.6L, Neutrophils (%) (Auto) , Lymphocytes (%) (Auto) , Monocytes (%) (Auto) , Eosinophils (%) (Auto) , Basophils (%) (Auto) , Sodium Level 144, Potassium Level 3.8, Chloride Level 97L , Carbon Dioxide Level 39H, Anion Gap 6, Blood Urea Nitrogen 22H, Creatinine 1.0 , Estimat Glomerular Filtration Rate > 60, Glucose Level 222#H, Uric Acid 3.5, Calcium Level 8.9, Phosphorus Level 3.7, Magnesium Level 1.5L, Iron Level 35L, Total Iron Binding Capacity 312, Percent Iron Saturation 11L, Unsaturated Iron Binding 277, Ferritin 74, Total Bilirubin 0.4, Gamma Glutamyl Transpeptidase 26 , Aspartate Amino Transf (AST/SGOT) 13L, Alanine Aminotransferase (ALT/SGPT) 21 , Alkaline Phosphatase 64, C-Reactive Protein, Quantitative 6.9H, Pro-B-Type Natriuretic Peptide 264H, Total Protein 7.9, Albumin 3.1L, Globulin 4.8, Albumin /Globulin Ratio 0.6L, Vitamin B12 Level 431, Folate 17.9 Height (Feet): 5 Height (Inches): 4.00 Weight (Pounds): 268 Marcela Jacobo MD Sep 08, 2019 10:35
--- NOTE | 2019-09-08 11:44 | NUR ---
*-* INSURANCE *-* ALL CLINICALS AND REVIEWS HAVE BEEN FAXED TO: [employer] Ref# [id number] CM: [place] ph#[phone] fax#[phone] also send to [employer] No ref# or CM yet fax#[phone] Addendum: 09/08/19 at 1611 by KAYLEIGH KIM CM [employer] Ref# [id number] CM: [place] ph#[phone] fax#[phone] also send to [employer] Ref#[id number] CM: Aleks [phone] fax#[phone]
[2019-09-08 12:00] VITALS: BP 135/55
--- NOTE | 2019-09-08 12:12 | Nephrology Progress Note ---
Assessment/Plan Problem List: (1) Morbid obesity with BMI of 40.0-44.9, adult (2) Anemia (3) Hyperglycemia due to type 2 diabetes mellitus (4) Hypertension (5) Respiratory failure with hypoxia and hypercapnia Assessment Acute Respiratory Failure Morbid Obesity LAYO Anemia DM OOC HTN Plan add metformin to starlix Respiratory support, BIPAP 2D Echo , BP and BS management monitor lytes Subjective ROS Limited/Unobtainable: No Constitutional: Reports: malaise Objective Objective Last 24 Hour Vital Signs Date Time Temp Pulse Resp B/P (MAP) Pulse Ox O2 Delivery O2 Flow Rate FiO2 09/08/19 10:35 94 20 93 Non-Rebreather 15.0 100 94 20 91 09/08/19 09:00 Bi-pap 09/08/19 08:31 89 09/08/19 08:00 40 09/08/19 08:00 97.9 89 18 131/57 (81) 98 09/08/19 08:00 86 09/08/19 06:07 89 144/73 09/08/19 04:00 98.4 89 18 146/69 (94) 97 09/08/19 04:00 40 09/08/19 04:00 87 09/08/19 01:37 88 20 93 Non-Rebreather 15.0 100 88 20 92 09/08/19 00:00 98.1 87 20 107/59 (75) 94 09/08/19 00:00 86 09/07/19 22:15 87 27 94 Facial 60 09/07/19 21:18 88 124/66 09/07/19 21:00 40 09/07/19 20:00 91 09/07/19 20:00 98.9 88 22 124/56 (78) 94 09/07/19 16:00 95 09/07/19 16:00 97.2 87 25 126/65 (85) 93 09/07/19 16:00 40 09/07/19 16:00 Bi-pap 09/07/19 14:48 87 144/75 Intake and Output 09/07/19 09/08/19 19:00 07:00 Intake Total 150 ml 120 ml Output Total 1100 ml Balance -950 ml 120 ml Intake Oral 150 ml Other 120 ml Output Urine Total 1100 ml Laboratory Tests 09/07/19 17:15: Troponin I 0.000 09/08/19 04:55: Troponin I 0.000, White Blood Count 10.0, Red Blood Count 3.12L, Hemoglobin 9.1L , Hematocrit 28.7L, Mean Corpuscular Volume 92, Mean Corpuscular Hemoglobin 29.3 , Mean Corpuscular Hemoglobin Concent 31.9L, Red Cell Distribution Width 14.0, Platelet Count 292, Mean Platelet Volume 5.6L, Neutrophils (%) (Auto) , Lymphocytes (%) (Auto) , Monocytes (%) (Auto) , Eosinophils (%) (Auto) , Basophils (%) (Auto) , Sodium Level 144, Potassium Level 3.8, Chloride Level 97L , Carbon Dioxide Level 39H, Anion Gap 6, Blood Urea Nitrogen 22H, Creatinine 1.0 , Estimat Glomerular Filtration Rate > 60, Glucose Level 222#H, Uric Acid 3.5, Calcium Level 8.9, Phosphorus Level 3.7, Magnesium Level 1.5L, Iron Level 35L, Total Iron Binding Capacity 312, Percent Iron Saturation 11L, Unsaturated Iron Binding 277, Ferritin 74, Total Bilirubin 0.4, Gamma Glutamyl Transpeptidase 26 , Aspartate Amino Transf (AST/SGOT) 13L, Alanine Aminotransferase (ALT/SGPT) 21 , Alkaline Phosphatase 64, C-Reactive Protein, Quantitative 6.9H, Pro-B-Type Natriuretic Peptide 264H, Total Protein 7.9, Albumin 3.1L, Globulin 4.8, Albumin /Globulin Ratio 0.6L, Vitamin B12 Level 431, Folate 17.9 Height (Feet): 5 Height (Inches): 4.00 Weight (Pounds): 268 General Appearance: mild distress Cardiovascular: tachycardia Respiratory/Chest: decreased breath sounds Abdomen: distended Gino Longoria MD Sep 08, 2019 12:12
--- NOTE | 2019-09-08 14:03 | Infectious Diseases Prog Note ---
Assessment/Plan Problems: (1) Community acquired pneumonia Assessment & Plan: with productive cough tinged with blood , continue ceftriaxone and azithromycin empirically (2) Acute exacerbation of CHF (congestive heart failure) Assessment & Plan: continue dieuresis as per renal (3) Respiratory failure with hypoxia and hypercapnia Assessment & Plan: on BIPAP, continue nebulizers and diuretics (4) Hyperglycemia due to type 2 diabetes mellitus Assessment & Plan: poorly controled, continue insulin to achieve tight glycemic control to keep blood glucose between 100-140 (5) Pleural effusion Assessment & Plan: R>L may benefit from thoracentesis Subjective Constitutional: Reports: fatigue HEENT: Reports: no symptoms Respiratory: Reports: productive cough Breasts: Reports: no symptoms Cardiovascular: Reports: no symptoms Gastrointestinal/Abdominal: Reports: no symptoms Genitourinary: Reports: no symptoms Neurologic: Reports: no symptoms Psychiatric: Reports: no symptoms Skin: Reports: no symptoms Endocrine: Reports: no symptoms Hematologic: Reports: no symptoms Musculoskeletal: Reports: no symptoms Allergies: Uncoded Allergies: Morphine sulfate (Allergy, Severe, 09/07/19) Objective Vital Signs Last 24 Hour Vital Signs Date Time Temp Pulse Resp B/P (MAP) Pulse Ox O2 Delivery O2 Flow Rate FiO2 09/08/19 13:19 95 135/55 09/08/19 12:00 40 09/08/19 12:00 98.2 95 20 135/55 (81) 95 09/08/19 12:00 95 09/08/19 10:35 94 20 93 Non-Rebreather 15.0 100 94 20 91 09/08/19 09:00 Bi-pap 09/08/19 08:31 89 09/08/19 08:00 40 09/08/19 08:00 97.9 89 18 131/57 (81) 98 09/08/19 08:00 86 09/08/19 06:07 89 144/73 09/08/19 04:00 98.4 89 18 146/69 (94) 97 09/08/19 04:00 40 09/08/19 04:00 87 09/08/19 01:37 88 20 93 Non-Rebreather 15.0 100 88 20 92 09/08/19 00:00 98.1 87 20 107/59 (75) 94 09/08/19 00:00 86 09/07/19 22:15 87 27 94 Facial 60 09/07/19 21:18 88 124/66 09/07/19 21:00 40 09/07/19 20:00 91 09/07/19 20:00 98.9 88 22 124/56 (78) 94 09/07/19 16:00 95 09/07/19 16:00 97.2 87 25 126/65 (85) 93 09/07/19 16:00 40 09/07/19 16:00 Bi-pap 09/07/19 14:48 87 144/75 Height (Feet): 5 Height (Inches): 4.00 Weight (Pounds): 268 General Appearance: WD/WN, no acute distress HEENT: normocephalic, atraumatic, anicteric, mucous membranes moist Respiratory/Chest: chest wall non-tender, lungs clear, normal breath sounds, no respiratory distress, no accessory muscle use Cardiovascular: normal peripheral pulses, normal rate, regular rhythm, no gallop/murmur, no JVD Abdomen: normal bowel sounds, soft, non tender, no organomegaly, non distended , no mass, no scars Extremities: no cyanosis, no clubbing Skin: no rash, no lesions, no ulcers 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, no motor/sensory deficits, alert, responsive Lymphatic: no neck adenopathy, no groin adenopathy Musculoskeletal: normal muscle bulk, no effusion Laboratory Tests Test 09/07/19 17:15 09/08/19 04:55 Troponin I 0.000 ng/mL (0.000-0.056) 0.000 ng/mL (0.000-0.056) White Blood Count 10.0 K/UL (4.8-10.8) Red Blood Count 3.12 M/UL (4.20-5.40) L Hemoglobin 9.1 G/DL (12.0-16.0) L Hematocrit 28.7 % (37.0-47.0) L Mean Corpuscular Volume 92 FL (80-99) Mean Corpuscular Hemoglobin 29.3 PG (27.0-31.0) Mean Corpuscular Hemoglobin Concent 31.9 G/DL (32.0-36.0) L Red Cell Distribution Width 14.0 % (11.6-14.8) Platelet Count 292 K/UL (150-450) Mean Platelet Volume 5.6 FL (6.5-10.1) L Neutrophils (%) (Auto) % (45.0-75.0) Lymphocytes (%) (Auto) % (20.0-45.0) Monocytes (%) (Auto) % (1.0-10.0) Eosinophils (%) (Auto) % (0.0-3.0) Basophils (%) (Auto) % (0.0-2.0) Sodium Level 144 MMOL/L (136-145) Potassium Level 3.8 MMOL/L (3.5-5.1) Chloride Level 97 MMOL/L (98-107) L Carbon Dioxide Level 39 MMOL/L (21-32) H Anion Gap 6 mmol/L (5-15) Blood Urea Nitrogen 22 mg/dL (7-18) H Creatinine 1.0 MG/DL (0.55-1.30) Estimat Glomerular Filtration Rate > 60 mL/min (>60) Glucose Level 222 MG/DL (74-106) #H Uric Acid 3.5 MG/DL (2.6-7.2) Calcium Level 8.9 MG/DL (8.5-10.1) Phosphorus Level 3.7 MG/DL (2.5-4.9) Magnesium Level 1.5 MG/DL (1.8-2.4) L Iron Level 35 ug/dL (50-175) L Total Iron Binding Capacity 312 ug/dL (250-450) Percent Iron Saturation 11 % (15-50) L Unsaturated Iron Binding 277 ug/dL (112-346) Ferritin 74 NG/ML (8-388) Total Bilirubin 0.4 MG/DL (0.2-1.0) Gamma Glutamyl Transpeptidase 26 U/L (5-85) Aspartate Amino Transf (AST/SGOT) 13 U/L (15-37) L Alanine Aminotransferase (ALT/SGPT) 21 U/L (12-78) Alkaline Phosphatase 64 U/L (46-116) C-Reactive Protein, Quantitative 6.9 mg/dL (0.00-0.90) H Pro-B-Type Natriuretic Peptide 264 pg/mL (0-125) H Total Protein 7.9 G/DL (6.4-8.2) Albumin 3.1 G/DL (3.4-5.0) L Globulin 4.8 g/dL Albumin/Globulin Ratio 0.6 (1.0-2.7) L Vitamin B12 Level 431 PG/ML (193-986) Folate 17.9 NG/ML (8.6-58.9) Current Medications Medications (Trade) Dose Ordered Sig/Yue Route PRN Reason Start Time Stop Time Status Last Admin Dose Admin Acetaminophen (Tylenol) 650 mg Q6H PRN ORAL Mild Pain/Temp > 100.5 09/07/19 15:30 10/07/19 15:29 Acetaminophen/ Hydrocodone Bitart ([place] 5/325) 1 tab Q6H PRN ORAL moderate pain, 4-6 09/07/19 15:30 09/14/19 15:29 09/07/19 18:47 Albuterol Sulfate (Proventil) 2.5 mg Q4H PRN HHN Shortness of Breath 09/07/19 15:30 09/12/19 15:29 09/08/19 10:35 Allopurinol (Zyloprim) 100 mg DAILY ORAL 09/09/19 09:00 10/09/19 08:59 Aspirin (Ecotrin) 81 mg DAILY ORAL 09/08/19 09:00 10/07/19 08:59 09/08/19 08:30 Azithromycin 500 mg/Dextrose 275 ml @ 275 mls/hr Q24HRS IV 09/07/19 16:00 09/13/19 16:59 09/07/19 17:29 Ceftriaxone Sodium 2 gm/ Dextrose 55 ml @ 110 mls/hr Q24H IVPB 09/07/19 17:00 09/14/19 16:59 09/07/19 18:40 Dextrose (Dextrose 50%) 25 ml Q30M PRN IV Hypoglycemia 09/07/19 15:30 10/07/19 06:29 Dextrose (Dextrose 50%) 50 ml Q30M PRN IV Hypoglycemia 09/07/19 15:30 10/07/19 06:29 Digoxin (Lanoxin) 0.125 mg DAILY ORAL 09/08/19 09:00 10/07/19 08:59 09/08/19 08:31 Enoxaparin Sodium (Lovenox) 40 mg DAILY SUBQ 09/08/19 09:00 10/07/19 08:59 09/08/19 08:32 Furosemide (Lasix) 40 mg DAILY IV 09/08/19 09:00 10/07/19 08:59 09/08/19 09:01 Hydromorphone HCl (Dilaudid) 0.5 mg BIDPRN PRN IVP Severe Pain (Pain Scale 7-10) 09/07/19 15:30 09/14/19 15:29 Insulin Aspart (NovoLOG) BEFORE MEALS AND HS SUBQ 09/07/19 16:30 10/07/19 06:29 09/08/19 12:08 Insulin Detemir (Levemir) 12 units Q24H SUBQ 09/07/19 16:00 10/07/19 15:59 09/07/19 17:38 Levothyroxine Sodium (Synthroid) 150 mcg DAILY@0630 ORAL 09/08/19 06:30 10/08/19 06:29 09/08/19 06:06 Magnesium Sulfate 100 ml @ 100 mls/hr Q1H IVPB 09/08/19 15:00 09/08/19 15:59 Metformin HCl (Glucophage) 500 mg TIAC ORAL 09/08/19 16:30 10/08/19 16:29 Nateglinide (Starlix) 120 mg TIAC ORAL 09/07/19 16:30 10/07/19 11:29 09/08/19 12:06 Nifedipine (Adalat) 20 mg Q8HR ORAL 09/07/19 22:00 10/07/19 14:29 09/08/19 13:19 Katlyn Richard M.D. Sep 08, 2019 14:03
--- NOTE | 2019-09-08 15:35 | NUR ---
CASE MANAGEMENT: REVIEW 09/08/19 SI: COMMUNITY ACQUIRED PNA. CHF . RESP FAILURE 97.9 89 18 131/57 98% BIPAP MG 1.5 FE 35 C- REC PROT 6.9 BNP 264 IS: IV AZITHROMYCIN Q24 x7 bags IV CEFTRIAXONE IV MG SULFATE X4 BAGS NIFEDIPINE PO Q8HR IV LASIX QD LOVENOX SQ QD DIGOXIN PO QD : 2TELE UNIT DCP: PATIENT IS FROM HOME PLAN: 2D ECHO CONT IV ABX BREATHING TX
[2019-09-08 16:00] VITALS: BP 143/69
[2019-09-08] MEDS: Azithromycin 500 MG in D5W 275 ML IV SCH (16:53)
[2019-09-08] MEDS: Levemir Flexpen SUBQ SCH (16:58)
[2019-09-08] MEDS: cefTRIAXone 2 GM in D5W 55 ML IVPB SCH (16:59)
[2019-09-08] MEDS: metFORMIN 500mg tab ORAL SCH (16:59)
--- NOTE | 2019-09-08 17:30 | Consultation ---
DATE OF CONSULTATION: 09/07/2019 INFECTIOUS DISEASE CONSULTATION CONSULTING PHYSICIAN: Katlyn Richard M.D. REQUESTING PHYSICIAN: Marcela Jacobo M.D. REASON FOR CONSULTATION: Pneumonia with bilateral interstitial infiltrates and productive cough tinged with blood. Recommendation for antibiotics treatment. HISTORY OF PRESENT ILLNESS: The patient is a 54-year-old female with past medical history significant for morbid obesity, congestive heart failure, asthma, diabetes, and hypertension, presented to [facility] emergency room with progressive shortness of breath associated with productive cough tinged with blood sometimes. The patient had no fever or chills. No runny nose or sore throat or earache. No recent travel or sick contact. She had multiple episodes of shortness of breath and exacerbation of her congestive heart failure and asthma recently, which required multiple hospitalizations. The patient was hypoxic and wheezy on the scene when paramedics arrived and she also had rales. She was started on CPAP and received nebulizer treatment, which improved her respiratory status and was feeling better by the time she arrived to the emergency room. The patient had some mild chest tightness at that time. In the ER, she was hypoxemic with pulse ox of 90% on non-rebreathable. Chest x-ray showed bilateral interstitial infiltrates concerning for pneumonia, so she was started on ceftriaxone and azithromycin by the admitting physician and Infectious Disease consultation was requested for antibiotics treatment and further care. REVIEW OF SYSTEMS: A 14-point of system reviewed were all negative apart from the one I mentioned above in my History and Physical. PAST MEDICAL HISTORY: Significant for congestive heart failure, morbid obesity, hypertension, diabetes, poorly controlled, and asthma. PAST SURGICAL HISTORY: Not on record. MEDICATIONS: Currently, she is on ceftriaxone and azithromycin. For the rest of her medications, please refer to MAR. ALLERGIES: No known drug allergy. FAMILY HISTORY: Not contributory. SOCIAL HISTORY: The patient is retired. Never smoked in the past. Denied using any drugs or tobacco. Lives with family. LABORATORY DATA: Labs showed white count of 12.4, hemoglobin of 9., and platelet count of 353,000. BUN of 22 and creatinine of 1. AST of 13 and ALT of 21. Urinalysis negative for infection. Toxicology screening was negative. IMAGING: Chest x-ray showed bilateral interstitial infiltrates versus edema and bilateral pleural effusion, right greater than left. PHYSICAL EXAMINATION: VITAL SIGNS: Temperature 97.2, pulse 87, respirations 25, blood pressure 126/65, and saturation 93% on BiPAP with FiO2 of 40%. GENERAL: Morbidly obese female, lying in bed with mild shortness of breath, not in acute distress, anxious a little. HEENT: Normocephalic and atraumatic. Pupils are reactive to light. Pale sclerae. Unable to assess oral mucosa due to BiPAP. NECK: Supple and obese. Midline trach. CARDIOVASCULAR: Regular rate and rhythm. No murmur or gallop. LUNGS: She had diminished breathing sounds on both lung mayer with wheezing at the bases and some crackles. Normal breathing efforts. ABDOMEN: Soft, obese, nontender, and nondistended. Normal bowel sounds. No hepatosplenomegaly or ascites. EXTREMITY: No edema or cyanosis. No clubbing. SKIN: No rash. No hives. No ulceration. GENITOURINARY: Normal genitalia. No Piper. MUSCULOSKELETAL: Normal muscle. ASSESSMENT AND RECOMMENDATION: 1. Community-acquired pneumonia with bilateral interstitial infiltrate and productive cough of phlegm tinged with blood. We will continue ceftriaxone and azithromycin empiric coverage for now. Send sputum culture. Monitor chest x-ray. Continue inhalers. 2. Acute exacerbation of congestive heart failure. Continue diuretics as per Renal. Monitor urine output. 3. Acute respiratory failure with hypoxemia and hypercapnia, on BiPAP. Continue nebulizer and diuretics as needed. Pulmonary is following. Monitor chest x-ray and ABG. 4. Hyperglycemia due to poorly controlled diabetes. Continue insulin to achieve tight glycemic control to keep blood glucose between 100 to 140. Thank you for the consult. ID will continue to follow. Please feel free to call with any question. Katlyn Richard M.D. DR: DENISE JOB#: [id number] CC:
--- NOTE | 2019-09-08 19:41 | NUR ---
HAND-OFF: Report given to TEDDY Gray.
--- NOTE | 2019-09-08 19:45 | NUR ---
NURSE NOTES: Received report from TEDDY Tony. Patient sitting up in bed side showing no signs of acute distress. Respiration even and non labored on non rebreathing mask. No sob noted. IV noted on right AC 20g SL patent and intact. Bed in lowest position, wheels locked and call button within reach. All needs attended and met. Will continue plan of care.
[2019-09-08 20:00] VITALS: BP 135/66
[2019-09-08] MEDS: HYDROcodone/Acetamin 5/325 tab ORAL PRN (21:01)
--- NOTE | 2019-09-08 23:45 | Cardiology Progress Note ---
Assessment/Plan Assessment/Plan 1. Severe pulmonary hypertension with right ventricular systolic pressure as high as 101 mmHg by echo. Probably needs right heart cath to confirm pulmonary HTN. RA/RV cavity is not enlarged. No evidence of RV failure. 2. Morbid obesity. 3. Normal LV systolic function with LVEF approximately 60%. 4. History of diabetes mellitus. 5. History of hypertension. Subjective Subjective Sinus rhythm at rate of 98. Objective Last 24 Hour Vital Signs Date Time Temp Pulse Resp B/P (MAP) Pulse Ox O2 Delivery O2 Flow Rate FiO2 09/08/19 21:00 98 135/66 09/08/19 21:00 Bi-pap 09/08/19 20:00 95 09/08/19 20:00 40 09/08/19 20:00 98.1 98 19 135/66 (89) 96 09/08/19 16:00 40 09/08/19 16:00 90 09/08/19 16:00 97.9 90 20 143/69 (93) 93 09/08/19 13:19 95 135/55 09/08/19 12:00 40 09/08/19 12:00 98.2 95 20 135/55 (81) 95 09/08/19 12:00 95 09/08/19 10:35 94 20 93 Non-Rebreather 15.0 100 94 20 91 09/08/19 09:00 Bi-pap 09/08/19 08:31 89 09/08/19 08:00 40 09/08/19 08:00 97.9 89 18 131/57 (81) 98 09/08/19 08:00 86 09/08/19 06:07 89 144/73 09/08/19 04:00 98.4 89 18 146/69 (94) 97 09/08/19 04:00 40 09/08/19 04:00 87 09/08/19 01:37 88 20 93 Non-Rebreather 15.0 100 88 20 92 09/08/19 00:00 98.1 87 20 107/59 (75) 94 09/08/19 00:00 86 Intake and Output 09/07/19 09/08/19 19:00 07:00 Intake Total 150 ml 120 ml Output Total 1100 ml Balance -950 ml 120 ml Intake Oral 150 ml Other 120 ml Output Urine Total 1100 ml 2D Echo: LVEF 60%, Hi RAP at 15 mmHg, RVSP 101 mmHg, Normal LV diastolic Fxn Laboratory Tests Test 09/08/19 04:55 White Blood Count 10.0 K/UL (4.8-10.8) Red Blood Count 3.12 M/UL (4.20-5.40) L Hemoglobin 9.1 G/DL (12.0-16.0) L Hematocrit 28.7 % (37.0-47.0) L Mean Corpuscular Volume 92 FL (80-99) Mean Corpuscular Hemoglobin 29.3 PG (27.0-31.0) Mean Corpuscular Hemoglobin Concent 31.9 G/DL (32.0-36.0) L Red Cell Distribution Width 14.0 % (11.6-14.8) Platelet Count 292 K/UL (150-450) Mean Platelet Volume 5.6 FL (6.5-10.1) L Neutrophils (%) (Auto) % (45.0-75.0) Lymphocytes (%) (Auto) % (20.0-45.0) Monocytes (%) (Auto) % (1.0-10.0) Eosinophils (%) (Auto) % (0.0-3.0) Basophils (%) (Auto) % (0.0-2.0) Sodium Level 144 MMOL/L (136-145) Potassium Level 3.8 MMOL/L (3.5-5.1) Chloride Level 97 MMOL/L (98-107) L Carbon Dioxide Level 39 MMOL/L (21-32) H Anion Gap 6 mmol/L (5-15) Blood Urea Nitrogen 22 mg/dL (7-18) H Creatinine 1.0 MG/DL (0.55-1.30) Estimat Glomerular Filtration Rate > 60 mL/min (>60) Glucose Level 222 MG/DL (74-106) #H Uric Acid 3.5 MG/DL (2.6-7.2) Calcium Level 8.9 MG/DL (8.5-10.1) Phosphorus Level 3.7 MG/DL (2.5-4.9) Magnesium Level 1.5 MG/DL (1.8-2.4) L Iron Level 35 ug/dL (50-175) L Total Iron Binding Capacity 312 ug/dL (250-450) Percent Iron Saturation 11 % (15-50) L Unsaturated Iron Binding 277 ug/dL (112-346) Ferritin 74 NG/ML (8-388) Total Bilirubin 0.4 MG/DL (0.2-1.0) Gamma Glutamyl Transpeptidase 26 U/L (5-85) Aspartate Amino Transf (AST/SGOT) 13 U/L (15-37) L Alanine Aminotransferase (ALT/SGPT) 21 U/L (12-78) Alkaline Phosphatase 64 U/L (46-116) Troponin I 0.000 ng/mL (0.000-0.056) C-Reactive Protein, Quantitative 6.9 mg/dL (0.00-0.90) H Pro-B-Type Natriuretic Peptide 264 pg/mL (0-125) H Total Protein 7.9 G/DL (6.4-8.2) Albumin 3.1 G/DL (3.4-5.0) L Globulin 4.8 g/dL Albumin/Globulin Ratio 0.6 (1.0-2.7) L Vitamin B12 Level 431 PG/ML (193-986) Folate 17.9 NG/ML (8.6-58.9) Objective HEENT: Atraumatic and normocephalic. Anicteric. Pupils are equal, round, and reactive to light and accommodation. Extraocular muscles intact. NECK: Cannot assess JVP due to morbid obesity and short neck. CARDIOVASCULAR: Normal S1, S2. Regular rate and rhythm. No murmurs, gallops, or rubs. PMI is at fourth intercostal space in the midclavicular line. LUNGS: Bilateral basal crackles. ABDOMEN: Soft, non-tender, non-distended, + BS. EXTREMITIES: 1+ bilateral lower extremity edema. Bryce Funez MD Sep 08, 2019 23:45
[2019-09-09] VITALS: BP 141/76
[2019-09-09 04:00] VITALS: BP 137/67
[2019-09-09] MEDS: metFORMIN 500mg tab ORAL SCH ×3 (05:28→16:44)
[2019-09-09] MEDS: NovoLOG Insulin Flexpen SUBQ SCH ×4 (06:38→21:00)
--- NOTE | 2019-09-09 07:17 | NUR ---
HAND-OFF: Report given to TEDDY Broussard.
--- NOTE | 2019-09-09 07:20 | NUR ---
NURSE NOTES: Received report from Isaac/RN, Patient is on 15L Non-rebreather mask, no distress at this time. AAO x 4, Able to make needs known. denies pain at this time. IV site on Left FA, patent, no bleeding or infiltration noted. Bed in low position and locked, Bed alarm engaged, side rails up x2. Call light within reach, Encouraged to use call light when needed. Will continue plan of care.
[2019-09-09 07:26] LABS: HEMATOCRIT 28.6 % (37.0-47.0); HEMOGLOBIN 8.9 G/DL (12.0-16.0); MEAN CORPUSCULAR VOLUME 94 FL (80-99); PLATELET COUNT 269 K/UL (150-450); RED BLOOD COUNT 3.05 M/UL (4.20-5.40); RED CELL DISTRIBUTION WIDTH 15.4 % (11.6-14.8); WHITE BLOOD COUNT 10.9 K/UL (4.8-10.8)
[2019-09-09 07:58] LABS: ALANINE AMINOTRANSFERASE 19 U/L (12-78); ALBUMIN/GLOBULIN RATIO 0.7 (1.0-2.7); ALKALINE PHOSPHATASE 61 U/L (46-116); ANION GAP 4 mmol/L (5-15); ASPARTATE AMINO TRANSFERASE 15 U/L (15-37); BILIRUBIN,TOTAL 0.4 MG/DL (0.2-1.0); BLOOD UREA NITROGEN 24 mg/dL (7-18); CALCIUM 8.8 MG/DL (8.5-10.1); CARBON DIOXIDE 39 MMOL/L (21-32); CHLORIDE 99 MMOL/L (98-107); CREATININE 0.8 MG/DL (0.55-1.30); POTASSIUM 3.5 MMOL/L (3.5-5.1); SODIUM 142 MMOL/L (136-145)
[2019-09-09 08:00] VITALS: BP 135/83
[2019-09-09 08:17] LABS: PHOSPHORUS 4.1 MG/DL (2.5-4.9)
--- NOTE | 2019-09-09 08:23 | Cardiology Report ---
APPROVED REPORT EXAM: Two-dimensional and M-mode echocardiogram with Doppler and color Doppler. INDICATION Congestive Heart Failure M-Mode DIMENSIONS IVSd1.3 (0.7-1.1cm)Left Atrium (MM)3.6 (1.6-4.0cm) LVDd4.5 (3.5-5.6cm)Aortic Root3.6 (2.0-3.7cm) PWd1.1 (0.7-1.1cm)Aortic Cusp Exc.1.7 (1.5-2.0cm) IVSs1.6 cm LVDs2.1 (2.5-4.0cm) PWs1.2 cm Technically difficult study due to poor acoustical windows. Normal left ventricular chamber size, systolic function and wall motion to extent visualized. Left ventricular ejection fraction estimated to be 60 %. No evidence of left ventricular hypertrophy. All other cardiac chamber sizes are within normal limits. Focal aortic valve sclerosis with adequate cusp excursion. Thickened mitral valve leaflets with normal excursion. Mitral annulus and aortic root calcification. Normal pulmonic valve structure. Normal tricuspid valve structure. IVC dilated at 2.2cm without physiologic collapse suggestive of increased RA pressure. A color flow and spectral Doppler study was performed and revealed: Trace mitral regurgitation. Mitral inflow indicates normal left ventricular diastolic function. Mild to moderate tricuspid regurgitation. Tricuspid systolic velocities suggests peak right ventricular systolic pressure of 101 mmHg,consistent with severe pulmonary hypertension.
--- NOTE | 2019-09-09 08:28 | Cardiology Report ---
APPROVED REPORT EKG Measurement Heart [id number] Sinus rhythm Septal infarct, age undetermined Prolonged QT Abnormal ECG
--- NOTE | 2019-09-09 08:43 | Pulmonology Progress Note ---
Assessment/Plan Assessment/Plan ASSESSMENT Pulmonary edema LAYO History of asthma DISCUSSION: Continue BiPAP q pm. I agree with current medications and care. The patient will need aggressive diuresis, nitrates, breathing treatments. Avoidance of nephrotoxic medications. I will follow carefully. Sohail Aguirre M.D. Subjective Interval Events: Remains on BiPAP or NRBM; overall better Constitutional: Reports: no symptoms HEENT: Repors: no symptoms Respiratory: Reports: no symptoms Cardiovascular: Reports: no symptoms Gastrointestinal/Abdominal: Reports: no symptoms Allergies: Uncoded Allergies: Morphine sulfate (Allergy, Severe, 09/07/19) Objective Last 24 Hour Vital Signs Date Time Temp Pulse Resp B/P (MAP) Pulse Ox O2 Delivery O2 Flow Rate FiO2 09/09/19 08:08 94 20 97 Non-Rebreather 15.0 100 09/09/19 08:00 98.1 86 19 135/83 (100) 97 09/09/19 04:00 91 09/09/19 04:00 40 09/09/19 04:00 98.2 97 21 137/67 (90) 92 09/09/19 00:00 98 09/09/19 00:00 98.1 101 22 141/76 (97) 96 09/08/19 23:10 89 26 95 Facial 60 09/08/19 21:00 98 135/66 09/08/19 21:00 Bi-pap 09/08/19 20:00 95 09/08/19 20:00 40 09/08/19 20:00 98.1 98 19 135/66 (89) 96 09/08/19 16:00 40 09/08/19 16:00 90 09/08/19 16:00 97.9 90 20 143/69 (93) 93 09/08/19 13:19 95 135/55 09/08/19 12:00 40 09/08/19 12:00 98.2 95 20 135/55 (81) 95 09/08/19 12:00 95 09/08/19 10:35 94 20 93 Non-Rebreather 15.0 100 94 20 91 09/08/19 09:00 Bi-pap Intake and Output 09/08/19 09/09/19 19:00 07:00 Intake Total 630 ml Output Total 900 ml Balance -270 ml Intake Oral 630 ml Output Urine Total 900 ml # Voids 2 General Appearance: no acute distress HEENT: normocephalic Respiratory/Chest: chest wall non-tender, lungs clear Cardiovascular: normal peripheral pulses Abdomen: normal bowel sounds Microbiology Date/Time Source Procedure Growth Status 09/07/19 17:35 Blood Blood Culture - Preliminary NO GROWTH AFTER 24 HOURS Resulted 09/07/19 17:15 Blood Blood Culture - Preliminary NO GROWTH AFTER 24 HOURS Resulted Laboratory Tests 09/09/19 06:50: White Blood Count 10.9H, Red Blood Count 3.05L, Hemoglobin 8.9L, Hematocrit 28.6L, Mean Corpuscular Volume 94, Mean Corpuscular Hemoglobin 29.3, Mean Corpuscular Hemoglobin Concent 31.2L, Red Cell Distribution Width 15.4H, Platelet Count 269, Mean Platelet Volume 6.1L, Neutrophils (%) (Auto) , Lymphocytes (%) (Auto) , Monocytes (%) (Auto) , Eosinophils (%) (Auto) , Basophils (%) (Auto) , Neutrophils % (Manual) [Pending], Lymphocytes % (Manual) [Pending], Platelet Estimate [Pending], Platelet Morphology [Pending], Sodium Level 142, Potassium Level 3.5, Chloride Level 99, Carbon Dioxide Level 39H, Anion Gap 4L, Blood Urea Nitrogen 24H, Creatinine 0.8, Estimat Glomerular Filtration Rate > 60, Glucose Level 237H, Calcium Level 8.8, Phosphorus Level 4.1, Magnesium Level 2.1, Total Bilirubin 0.4, Aspartate Amino Transf (AST/SGOT ) 15, Alanine Aminotransferase (ALT/SGPT) 19, Alkaline Phosphatase 61, Total Protein 7.6, Albumin 3.0L, Globulin 4.6, Albumin/Globulin Ratio 0.7L, Free Thyroxine 1.04, Free Triiodothyronine 1.2L Current Medications Medications (Trade) Dose Ordered Sig/Yue Route PRN Reason Start Time Stop Time Status Last Admin Dose Admin Acetaminophen (Tylenol) 650 mg Q6H PRN ORAL Mild Pain/Temp > 100.5 09/07/19 15:30 10/07/19 15:29 Acetaminophen/ Hydrocodone Bitart ([place] 5/325) 1 tab Q6H PRN ORAL moderate pain, 4-6 09/07/19 15:30 09/14/19 15:29 09/08/19 21:01 Albuterol Sulfate (Proventil) 2.5 mg Q4H PRN HHN Shortness of Breath 09/07/19 15:30 09/12/19 15:29 09/08/19 10:35 Allopurinol (Zyloprim) 100 mg DAILY ORAL 09/09/19 09:00 10/09/19 08:59 Aspirin (Ecotrin) 81 mg DAILY ORAL 09/08/19 09:00 10/07/19 08:59 09/08/19 08:30 Azithromycin 500 mg/Dextrose 275 ml @ 275 mls/hr Q24HRS IV 09/07/19 16:00 09/13/19 16:59 09/08/19 16:53 Ceftriaxone Sodium 2 gm/ Dextrose 55 ml @ 110 mls/hr Q24H IVPB 09/07/19 17:00 09/14/19 16:59 09/08/19 16:59 Chlorthalidone (Chlorthalidone) 25 mg DAILY ORAL 09/09/19 09:00 10/09/19 08:59 Dextrose (Dextrose 50%) 25 ml Q30M PRN IV Hypoglycemia 09/07/19 15:30 10/07/19 06:29 Dextrose (Dextrose 50%) 50 ml Q30M PRN IV Hypoglycemia 09/07/19 15:30 10/07/19 06:29 Enoxaparin Sodium (Lovenox) 40 mg DAILY SUBQ 09/08/19 09:00 10/07/19 08:59 09/08/19 08:32 Hydromorphone HCl (Dilaudid) 0.5 mg BIDPRN PRN IVP Severe Pain (Pain Scale 7-10) 09/07/19 15:30 09/14/19 15:29 Insulin Aspart (NovoLOG) BEFORE MEALS AND HS SUBQ 09/07/19 16:30 10/07/19 06:29 09/09/19 06:38 Insulin Detemir (Levemir) 12 units Q24H SUBQ 09/07/19 16:00 10/07/19 15:59 09/08/19 16:58 Irbesartan (Avapro) 150 mg DAILY ORAL 09/09/19 09:00 10/09/19 08:59 Levothyroxine Sodium (Synthroid) 150 mcg DAILY@0630 ORAL 09/08/19 06:30 10/08/19 06:29 09/09/19 05:28 Metformin HCl (Glucophage) 500 mg TIAC ORAL 09/08/19 16:30 10/08/19 16:29 09/09/19 05:28 Nateglinide (Starlix) 120 mg TIAC ORAL 09/07/19 16:30 10/07/19 11:29 09/09/19 05:28 Sohail Aguirre MD Sep 09, 2019 08:43
[2019-09-09] MEDS ORDERED: Irbesartan 150mg tablet ORAL SCH (09:00)
[2019-09-09] MEDS: Allopurinol 100mg Tab ORAL SCH (09:07)
[2019-09-09] MEDS: Aspirin EC 81mg tab ORAL SCH (09:08)
[2019-09-09] MEDS: Enoxaparin 40mg Inj SUBQ SCH (09:14)
--- NOTE | 2019-09-09 09:31 | General Progress Note ---
Assessment/Plan Assessment/Plan: S: I am feeling the same O: on O2, denies chest pain . limited activity reported. Low threshold for exertional sob. PHYSICAL EXAMINATION:HEAD AND NECK: Atraumatic, normocephalic. CHEST: Clear to auscultation.HEART: S1, S2. Regular rate and rhythm. ABDOMEN: Soft. No organomegaly.MUSCULOSKELETAL: No gross focal deficit. NEUROLOGIC: The patient is awake, alert, oriented x3. LABORATORY DATA: Labs dated 09/08 reviewed ASSESSMENT: 1. Acute Asthma exacerbation 2. Community-acquired pneumonia. 3. CHF exacerbation. 4. Morbid obesity. 5. Asthma. 6. Severe pulmonary arterial hypertension. 7. GI and DVT prophylaxis. Plan: current IV medication Electrolyte supplement Iron supply stool test OT/PT Subjective Allergies: Uncoded Allergies: Morphine sulfate (Allergy, Severe, 09/07/19) Objective Last 24 Hour Vital Signs Date Time Temp Pulse Resp B/P (MAP) Pulse Ox O2 Delivery O2 Flow Rate FiO2 09/09/19 09:08 135/83 09/09/19 08:08 94 20 97 Non-Rebreather 15.0 100 09/09/19 08:00 98.1 86 19 135/83 (100) 97 09/09/19 04:00 91 09/09/19 04:00 40 09/09/19 04:00 98.2 97 21 137/67 (90) 92 09/09/19 00:00 98 09/09/19 00:00 98.1 101 22 141/76 (97) 96 09/08/19 23:10 89 26 95 Facial 60 09/08/19 21:00 98 135/66 09/08/19 21:00 Bi-pap 09/08/19 20:00 95 09/08/19 20:00 40 09/08/19 20:00 98.1 98 19 135/66 (89) 96 09/08/19 16:00 40 09/08/19 16:00 90 09/08/19 16:00 97.9 90 20 143/69 (93) 93 09/08/19 13:19 95 135/55 09/08/19 12:00 40 09/08/19 12:00 98.2 95 20 135/55 (81) 95 09/08/19 12:00 95 09/08/19 10:35 94 20 93 Non-Rebreather 15.0 100 94 20 91 Intake and Output 09/08/19 09/09/19 19:00 07:00 Intake Total 630 ml Output Total 900 ml Balance -270 ml Intake Oral 630 ml Output Urine Total 900 ml # Voids 2 Laboratory Tests 09/09/19 06:50: White Blood Count 10.9H, Red Blood Count 3.05L, Hemoglobin 8.9L, Hematocrit 28.6L, Mean Corpuscular Volume 94, Mean Corpuscular Hemoglobin 29.3, Mean Corpuscular Hemoglobin Concent 31.2L, Red Cell Distribution Width 15.4H, Platelet Count 269, Mean Platelet Volume 6.1L, Neutrophils (%) (Auto) , Lymphocytes (%) (Auto) , Monocytes (%) (Auto) , Eosinophils (%) (Auto) , Basophils (%) (Auto) , Neutrophils % (Manual) [Pending], Lymphocytes % (Manual) [Pending], Platelet Estimate [Pending], Platelet Morphology [Pending], Sodium Level 142, Potassium Level 3.5, Chloride Level 99, Carbon Dioxide Level 39H, Anion Gap 4L, Blood Urea Nitrogen 24H, Creatinine 0.8, Estimat Glomerular Filtration Rate > 60, Glucose Level 237H, Calcium Level 8.8, Phosphorus Level 4.1, Magnesium Level 2.1, Total Bilirubin 0.4, Aspartate Amino Transf (AST/SGOT ) 15, Alanine Aminotransferase (ALT/SGPT) 19, Alkaline Phosphatase 61, Total Protein 7.6, Albumin 3.0L, Globulin 4.6, Albumin/Globulin Ratio 0.7L, Free Thyroxine 1.04, Free Triiodothyronine 1.2L Height (Feet): 5 Height (Inches): 4.00 Weight (Pounds): 267 Marcela Jacobo MD Sep 09, 2019 09:31
--- NOTE | 2019-09-09 11:49 | Nephrology Progress Note ---
Assessment/Plan Problem List: (1) Morbid obesity with BMI of 40.0-44.9, adult (2) Anemia (3) Hyperglycemia due to type 2 diabetes mellitus (4) Hypertension (5) Respiratory failure with hypoxia and hypercapnia Assessment Acute Respiratory Failure Morbid Obesity LAYO Anemia DM OOC HTN Plan add metformin to starlix add cytomel Respiratory support, BIPAP 2D Echo , BP and BS management monitor lytes Subjective ROS Limited/Unobtainable: No Constitutional: Reports: malaise Objective Objective Last 24 Hour Vital Signs Date Time Temp Pulse Resp B/P (MAP) Pulse Ox O2 Delivery O2 Flow Rate FiO2 09/09/19 09:08 135/83 09/09/19 08:08 94 20 97 Non-Rebreather 15.0 100 09/09/19 08:00 40 09/09/19 08:00 93 09/09/19 08:00 98.1 86 19 135/83 (100) 97 09/09/19 04:00 91 09/09/19 04:00 40 09/09/19 04:00 98.2 97 21 137/67 (90) 92 09/09/19 00:00 98 09/09/19 00:00 98.1 101 22 141/76 (97) 96 09/08/19 23:10 89 26 95 Facial 60 09/08/19 21:00 98 135/66 09/08/19 21:00 Bi-pap 09/08/19 20:00 95 09/08/19 20:00 40 09/08/19 20:00 98.1 98 19 135/66 (89) 96 09/08/19 16:00 40 09/08/19 16:00 90 09/08/19 16:00 97.9 90 20 143/69 (93) 93 09/08/19 13:19 95 135/55 09/08/19 12:00 40 09/08/19 12:00 98.2 95 20 135/55 (81) 95 09/08/19 12:00 95 Intake and Output 09/08/19 09/09/19 19:00 07:00 Intake Total 630 ml Output Total 900 ml Balance -270 ml Intake Oral 630 ml Output Urine Total 900 ml # Voids 2 Laboratory Tests 09/09/19 06:50: White Blood Count 10.9H, Red Blood Count 3.05L, Hemoglobin 8.9L, Hematocrit 28.6L, Mean Corpuscular Volume 94, Mean Corpuscular Hemoglobin 29.3, Mean Corpuscular Hemoglobin Concent 31.2L, Red Cell Distribution Width 15.4H, Platelet Count 269, Mean Platelet Volume 6.1L, Neutrophils (%) (Auto) , Lymphocytes (%) (Auto) , Monocytes (%) (Auto) , Eosinophils (%) (Auto) , Basophils (%) (Auto) , Differential Total Cells Counted 100, Neutrophils % ( Manual) 89H, Lymphocytes % (Manual) 4L, Monocytes % (Manual) 7, Eosinophils % ( Manual) 0, Basophils % (Manual) 0, Band Neutrophils 0, Platelet Estimate Adequate, Platelet Morphology Normal, Sodium Level 142, Potassium Level 3.5, Chloride Level 99, Carbon Dioxide Level 39H, Anion Gap 4L, Blood Urea Nitrogen 24H, Creatinine 0.8, Estimat Glomerular Filtration Rate > 60, Glucose Level 237H , Calcium Level 8.8, Phosphorus Level 4.1, Magnesium Level 2.1, Total Bilirubin 0.4, Aspartate Amino Transf (AST/SGOT) 15, Alanine Aminotransferase (ALT/SGPT) 19, Alkaline Phosphatase 61, Total Protein 7.6, Albumin 3.0L, Globulin 4.6, Albumin/Globulin Ratio 0.7L, Free Thyroxine 1.04, Free Triiodothyronine 1.2L Height (Feet): 5 Height (Inches): 4.00 Weight (Pounds): 267 EENT: other - BIPAP Respiratory/Chest: decreased breath sounds Abdomen: other - obese Gino Longoria MD Sep 09, 2019 11:49
--- NOTE | 2019-09-09 11:55 | NUR ---
PT EVALUATION NOTE Patient seen for initial evaluation, see complete evaluation for details. Patient presents with generalized weakness and decreased endurance which impairs patient's ability to perform mobility tasks safely. Patient requires SBA and cueing for safety with transfers. Gait deferred due to patient c/o SOB. Patient will benefit from skilled inpatient PT intervention to address strength, balance, endurance and safety with education in proper breathing techniques for improved level of functional mobility. Patient may benefit from use of FWW for ambulation for improved balance and energy conservation. Recommend discharge home once medically cleared by MD. Addendum: 09/09/19 at 1230 by HAKEEM WYATT PT Amended: Links added.
[2019-09-09 12:00] VITALS: BP 130/80
--- NOTE | 2019-09-09 12:00 | NUR ---
RD ASSESSMENT & RECOMMENDATIONS SEE CARE ACTIVITY FOR COMPLETE ASSESSMENT DAILY ESTIMATED NEEDS: Needs based on Pulmonarym cardiac, obese 71kg abw 20-25 kcals/kg 0499-3155 total kcals 1-1.5 g protein/kg 71-107 g total protein Fluid per MD, on diuretics NUTRITION DIAGNOSIS: Decreased fat and sodium needs r/t CHF and morbid obesity as evidenced by pt w/ edema, on diuretics, w/ severe pulmonary arterial hypertension per MD, BMI >40, @223% of [place] Body Weight (CURRENT DIET: Cardiac/ ccho med) PO DIET RECOMMENDATIONS: Cardiac (Low Fat, Low Na)/ CCHO LOW ADDITIONAL RECOMMENDATIONS: 1) Obtain daily weights on diuretics 2) Add B-complex qdaily 3) Add high protein snack in b/w meals w/ current fair po intake 4) Check lytes daily on diuretics/ replete as needed
--- NOTE | 2019-09-09 13:04 | NUR ---
CASE MANAGEMENT: REVIEW 09/09/19 SI: COMMUNITY ACQUIRED PNA. CHF . RESP FAILURE 98.1 86 19 135/83 97% BIPAP CO2 39 BUN 24 BG 237 IS: IV AZITHROMYCIN Q24 2 OF 7 BAG IV CEFTRIAXONE IV MG SULFATE X1 BAGS LOVENOX SQ QD DIGOXIN PO QD FEOSOL PO TID NOVOLOG SQ AC&HS STARLIX PO TIAC LEVEMIR SQ Q24HR METFORMIN PO TIAC ASPIRIN PO QD : 2TELE UNIT DCP: PATIENT IS FROM HOME PLAN: 2D ECHO-RESULT CONT IV ABX BREATHING TX OT/PT
--- NOTE | 2019-09-09 14:05 | Infectious Diseases Prog Note ---
Assessment/Plan Problems: (1) Community acquired pneumonia Assessment & Plan: with productive cough , now brownish , and not tinged with blood , continue ceftriaxone and azithromycin empirically , nebulizer treatment , titrate oxygen (2) Acute exacerbation of CHF (congestive heart failure) Assessment & Plan: continue dieuresis as per renal (3) Respiratory failure with hypoxia and hypercapnia Assessment & Plan: on BIPAP, continue nebulizers and diuretics (4) Hyperglycemia due to type 2 diabetes mellitus Assessment & Plan: poorly controled, continue insulin to achieve tight glycemic control to keep blood glucose between 100-140 (5) Pleural effusion Assessment & Plan: R>L may benefit from thoracentesis Subjective Constitutional: Reports: fatigue HEENT: Reports: no symptoms Respiratory: Reports: shortness of breath, productive cough Breasts: Reports: no symptoms Cardiovascular: Reports: no symptoms Gastrointestinal/Abdominal: Reports: no symptoms Genitourinary: Reports: no symptoms Neurologic: Reports: no symptoms Psychiatric: Reports: no symptoms Skin: Reports: no symptoms Endocrine: Reports: no symptoms Hematologic: Reports: no symptoms Musculoskeletal: Reports: no symptoms Allergies: Uncoded Allergies: Morphine sulfate (Allergy, Severe, 09/07/19) Objective Vital Signs Last 24 Hour Vital Signs Date Time Temp Pulse Resp B/P (MAP) Pulse Ox O2 Delivery O2 Flow Rate FiO2 09/09/19 12:38 79 21 94 Facial 60 09/09/19 12:00 94 09/09/19 12:00 97.8 83 17 130/80 (97) 98 09/09/19 12:00 40 09/09/19 09:08 135/83 09/09/19 09:00 Bi-pap 09/09/19 08:08 94 20 97 Non-Rebreather 15.0 100 09/09/19 08:00 40 09/09/19 08:00 93 09/09/19 08:00 98.1 86 19 135/83 (100) 97 09/09/19 04:00 91 09/09/19 04:00 40 09/09/19 04:00 98.2 97 21 137/67 (90) 92 09/09/19 00:00 98 09/09/19 00:00 98.1 101 22 141/76 (97) 96 09/08/19 23:10 89 26 95 Facial 60 09/08/19 21:00 98 135/66 09/08/19 21:00 Bi-pap 09/08/19 20:00 95 09/08/19 20:00 40 09/08/19 20:00 98.1 98 19 135/66 (89) 96 09/08/19 16:00 40 09/08/19 16:00 90 09/08/19 16:00 97.9 90 20 143/69 (93) 93 Height (Feet): 5 Height (Inches): 4.00 Weight (Pounds): 267 General Appearance: WD/WN, no acute distress HEENT: normocephalic, atraumatic, anicteric, mucous membranes moist, PERRL Respiratory/Chest: chest wall non-tender, no respiratory distress, no accessory muscle use, decreased breath sounds, expiratory wheezing Cardiovascular: normal peripheral pulses, normal rate, regular rhythm, no gallop/murmur, no JVD Abdomen: normal bowel sounds, soft, non tender, no organomegaly, non distended , no mass, no scars Genitourinary: normal external genitalia Extremities: no cyanosis, no clubbing Skin: no rash, no lesions, no ulcers Neurologic/Psychiatric: deputy assessor II-XII grossly normal, no motor/sensory deficits, alert, oriented x 3 Lymphatic: no neck adenopathy, no groin adenopathy Musculoskeletal: normal muscle bulk, no effusion Microbiology Date/Time Source Procedure Growth Status 09/07/19 17:35 Blood Blood Culture - Preliminary NO GROWTH AFTER 24 HOURS Resulted 09/07/19 17:15 Blood Blood Culture - Preliminary NO GROWTH AFTER 24 HOURS Resulted Laboratory Tests Test 09/09/19 06:50 White Blood Count 10.9 K/UL (4.8-10.8) H Red Blood Count 3.05 M/UL (4.20-5.40) L Hemoglobin 8.9 G/DL (12.0-16.0) L Hematocrit 28.6 % (37.0-47.0) L Mean Corpuscular Volume 94 FL (80-99) Mean Corpuscular Hemoglobin 29.3 PG (27.0-31.0) Mean Corpuscular Hemoglobin Concent 31.2 G/DL (32.0-36.0) L Red Cell Distribution Width 15.4 % (11.6-14.8) H Platelet Count 269 K/UL (150-450) Mean Platelet Volume 6.1 FL (6.5-10.1) L Neutrophils (%) (Auto) % (45.0-75.0) Lymphocytes (%) (Auto) % (20.0-45.0) Monocytes (%) (Auto) % (1.0-10.0) Eosinophils (%) (Auto) % (0.0-3.0) Basophils (%) (Auto) % (0.0-2.0) Differential Total Cells Counted 100 Neutrophils % (Manual) 89 % (45-75) H Lymphocytes % (Manual) 4 % (20-45) L Monocytes % (Manual) 7 % (1-10) Eosinophils % (Manual) 0 % (0-3) Basophils % (Manual) 0 % (0-2) Band Neutrophils 0 % (0-8) Platelet Estimate Adequate Platelet Morphology Normal Sodium Level 142 MMOL/L (136-145) Potassium Level 3.5 MMOL/L (3.5-5.1) Chloride Level 99 MMOL/L (98-107) Carbon Dioxide Level 39 MMOL/L (21-32) H Anion Gap 4 mmol/L (5-15) L Blood Urea Nitrogen 24 mg/dL (7-18) H Creatinine 0.8 MG/DL (0.55-1.30) Estimat Glomerular Filtration Rate > 60 mL/min (>60) Glucose Level 237 MG/DL (74-106) H Calcium Level 8.8 MG/DL (8.5-10.1) Phosphorus Level 4.1 MG/DL (2.5-4.9) Magnesium Level 2.1 MG/DL (1.8-2.4) Total Bilirubin 0.4 MG/DL (0.2-1.0) Aspartate Amino Transf (AST/SGOT) 15 U/L (15-37) Alanine Aminotransferase (ALT/SGPT) 19 U/L (12-78) Alkaline Phosphatase 61 U/L (46-116) Total Protein 7.6 G/DL (6.4-8.2) Albumin 3.0 G/DL (3.4-5.0) L Globulin 4.6 g/dL Albumin/Globulin Ratio 0.7 (1.0-2.7) L Free Thyroxine 1.04 NG/DL (0.76-1.46) Free Triiodothyronine 1.2 pg/mL (2.3-4.2) L Current Medications Medications (Trade) Dose Ordered Sig/Yue Route PRN Reason Start Time Stop Time Status Last Admin Dose Admin Acetaminophen (Tylenol) 650 mg Q6H PRN ORAL Mild Pain/Temp > 100.5 09/07/19 15:30 10/07/19 15:29 Acetaminophen/ Hydrocodone Bitart ([place] 5/325) 1 tab Q6H PRN ORAL moderate pain, 4-6 09/07/19 15:30 09/14/19 15:29 09/08/19 21:01 Albuterol Sulfate (Proventil) 2.5 mg Q4H PRN HHN Shortness of Breath 09/07/19 15:30 09/12/19 15:29 09/08/19 10:35 Allopurinol (Zyloprim) 100 mg DAILY ORAL 09/09/19 09:00 10/09/19 08:59 09/09/19 09:07 Aspirin (Ecotrin) 81 mg DAILY ORAL 09/08/19 09:00 10/07/19 08:59 09/09/19 09:08 Azithromycin 500 mg/Dextrose 275 ml @ 275 mls/hr Q24HRS IV 09/07/19 16:00 09/13/19 16:59 09/08/19 16:53 Ceftriaxone Sodium 2 gm/ Dextrose 55 ml @ 110 mls/hr Q24H IVPB 09/07/19 17:00 09/14/19 16:59 09/08/19 16:59 Chlorthalidone (Chlorthalidone) 25 mg DAILY ORAL 09/09/19 09:00 10/09/19 08:59 09/09/19 09:07 Dextrose (Dextrose 50%) 25 ml Q30M PRN IV Hypoglycemia 09/07/19 15:30 10/07/19 06:29 Dextrose (Dextrose 50%) 50 ml Q30M PRN IV Hypoglycemia 09/07/19 15:30 10/07/19 06:29 Enoxaparin Sodium (Lovenox) 40 mg DAILY SUBQ 09/08/19 09:00 10/07/19 08:59 09/09/19 09:14 Ferrous Sulfate (Feosol) 325 mg THREE TIMES A DAY ORAL 09/09/19 09:45 10/09/19 09:44 09/09/19 12:42 Hydromorphone HCl (Dilaudid) 0.5 mg BIDPRN PRN IVP Severe Pain (Pain Scale 7-10) 09/07/19 15:30 09/14/19 15:29 Insulin Aspart (NovoLOG) BEFORE MEALS AND HS SUBQ 09/07/19 16:30 10/07/19 06:29 09/09/19 12:41 Insulin Detemir (Levemir) 12 units Q24H SUBQ 09/07/19 16:00 10/07/19 15:59 09/08/19 16:58 Irbesartan (Avapro) 150 mg DAILY ORAL 09/09/19 09:00 10/09/19 08:59 09/09/19 09:08 Levothyroxine Sodium (Synthroid) 150 mcg DAILY@0630 ORAL 09/08/19 06:30 10/08/19 06:29 09/09/19 05:28 Liothyronine Sodium (Cytomel) 5 mcg DAILY ORAL 09/10/19 09:00 10/10/19 08:59 Metformin HCl (Glucophage) 500 mg TIAC ORAL 09/08/19 16:30 10/08/19 16:29 09/09/19 12:37 Nateglinide (Starlix) 120 mg TIAC ORAL 09/07/19 16:30 10/07/19 11:29 09/09/19 12:37 Katlyn Richard M.D. Sep 09, 2019 14:05
[2019-09-09 16:00] VITALS: BP 141/71
[2019-09-09] MEDS ORDERED: Azithromycin 500 MG in NS 275 ML IV SCH (16:00)
--- NOTE | 2019-09-09 16:01 | NUR ---
*-* INSURANCE *-* ALL CLINICALS AND REVIEWS HAVE BEEN FAXED TO: [employer] Ref# [id number] CM: [place] ph#[phone] fax#[phone] also send to [employer] No ref# or CM yet fax#[phone] Addendum: 09/08/19 at 1611 by KAYLEIGH KIM CM [employer] Ref# [id number] CM: [place] ph#[phone] fax#[phone] also send to [employer] Ref#[id number] CM: Aleks [phone] fax#[phone]
[2019-09-09] MEDS: Azithromycin 500 MG in D5W 275 ML IV SCH (16:44)
[2019-09-09] MEDS: Levemir Flexpen SUBQ SCH (16:47)
[2019-09-09] MEDS: cefTRIAXone 2 GM in NS 55 ML IVPB SCH (17:59)
[2019-09-09] MEDS: HYDROcodone/Acetamin 5/325 tab ORAL PRN (18:10)
--- NOTE | 2019-09-09 19:43 | NUR ---
HAND-OFF: Report given to Ed/RN, Patient is in stable condition. Endorsed plan of care.
--- NOTE | 2019-09-09 19:45 | NUR ---
NURSE NOTES: Pt received from TEDDY Broussard alert and oriented x4 with no acute s/s of distress. IV site asymptomatic and patent. Bed in lowest position, bed alarm on. Call light and belongings within reach.
[2019-09-09] MEDS: Albuterol ud Inhalation HHN PRN (19:46)
[2019-09-09 20:00] VITALS: BP 141/66
--- NOTE | 2019-09-09 23:55 | Cardiology Progress Note ---
Assessment/Plan Assessment/Plan 1. Severe pulmonary hypertension with right ventricular systolic pressure as high as 101 mmHg by echo. Probably needs right heart cath to confirm pulmonary HTN. RA/RV cavity not enlarged. No evidence of RV failure. 2. Morbid obesity. 3. Normal LV systolic function with LVEF approximately 60%. 4. History of diabetes mellitus. 5. History of hypertension, increase Irbesartan to 300mg daily, continue chlorthalidone. Subjective Subjective Sinus rhythm at rate of 94. Objective Last 24 Hour Vital Signs Date Time Temp Pulse Resp B/P (MAP) Pulse Ox O2 Delivery O2 Flow Rate FiO2 09/09/19 21:00 Bi-pap 09/09/19 20:00 89 09/09/19 20:00 98.2 92 19 141/66 (91) 92 09/09/19 20:00 40 09/09/19 19:55 93 20 96 Non-Rebreather 15.0 100 09/09/19 19:45 92 20 96 Non-Rebreather 15.0 100 09/09/19 19:45 96 Non-Rebreather 15.0 100 09/09/19 19:45 92 20 96 Non-Rebreather 15.0 100 09/09/19 16:00 97 09/09/19 16:00 99.0 93 18 141/71 (94) 95 09/09/19 16:00 40 09/09/19 12:38 79 21 94 Facial 60 09/09/19 12:00 94 09/09/19 12:00 97.8 83 17 130/80 (97) 98 09/09/19 12:00 40 09/09/19 09:08 135/83 09/09/19 09:00 Bi-pap 09/09/19 08:08 94 20 97 Non-Rebreather 15.0 100 09/09/19 08:00 40 09/09/19 08:00 93 09/09/19 08:00 98.1 86 19 135/83 (100) 97 09/09/19 04:00 91 09/09/19 04:00 40 09/09/19 04:00 98.2 97 21 137/67 (90) 92 09/09/19 00:00 98 09/09/19 00:00 98.1 101 22 141/76 (97) 96 Intake and Output 09/08/19 09/09/19 18:59 06:59 Intake Total 630 ml Output Total 900 ml Balance -270 ml Intake Oral 630 ml Output Urine Total 900 ml # Voids 2 2D Echo: LVEF 60%, Hi RAP at 15 mmHg, RVSP 101 mmHg, Normal LV diastolic Fxn Laboratory Tests Test 09/09/19 06:50 White Blood Count 10.9 K/UL (4.8-10.8) H Red Blood Count 3.05 M/UL (4.20-5.40) L Hemoglobin 8.9 G/DL (12.0-16.0) L Hematocrit 28.6 % (37.0-47.0) L Mean Corpuscular Volume 94 FL (80-99) Mean Corpuscular Hemoglobin 29.3 PG (27.0-31.0) Mean Corpuscular Hemoglobin Concent 31.2 G/DL (32.0-36.0) L Red Cell Distribution Width 15.4 % (11.6-14.8) H Platelet Count 269 K/UL (150-450) Mean Platelet Volume 6.1 FL (6.5-10.1) L Neutrophils (%) (Auto) % (45.0-75.0) Lymphocytes (%) (Auto) % (20.0-45.0) Monocytes (%) (Auto) % (1.0-10.0) Eosinophils (%) (Auto) % (0.0-3.0) Basophils (%) (Auto) % (0.0-2.0) Differential Total Cells Counted 100 Neutrophils % (Manual) 89 % (45-75) H Lymphocytes % (Manual) 4 % (20-45) L Monocytes % (Manual) 7 % (1-10) Eosinophils % (Manual) 0 % (0-3) Basophils % (Manual) 0 % (0-2) Band Neutrophils 0 % (0-8) Platelet Estimate Adequate Platelet Morphology Normal Sodium Level 142 MMOL/L (136-145) Potassium Level 3.5 MMOL/L (3.5-5.1) Chloride Level 99 MMOL/L (98-107) Carbon Dioxide Level 39 MMOL/L (21-32) H Anion Gap 4 mmol/L (5-15) L Blood Urea Nitrogen 24 mg/dL (7-18) H Creatinine 0.8 MG/DL (0.55-1.30) Estimat Glomerular Filtration Rate > 60 mL/min (>60) Glucose Level 237 MG/DL (74-106) H Calcium Level 8.8 MG/DL (8.5-10.1) Phosphorus Level 4.1 MG/DL (2.5-4.9) Magnesium Level 2.1 MG/DL (1.8-2.4) Total Bilirubin 0.4 MG/DL (0.2-1.0) Aspartate Amino Transf (AST/SGOT) 15 U/L (15-37) Alanine Aminotransferase (ALT/SGPT) 19 U/L (12-78) Alkaline Phosphatase 61 U/L (46-116) Total Protein 7.6 G/DL (6.4-8.2) Albumin 3.0 G/DL (3.4-5.0) L Globulin 4.6 g/dL Albumin/Globulin Ratio 0.7 (1.0-2.7) L Free Thyroxine 1.04 NG/DL (0.76-1.46) Free Triiodothyronine 1.2 pg/mL (2.3-4.2) L Microbiology Date/Time Source Procedure Growth Status 09/07/19 17:35 Blood Blood Culture - Preliminary NO GROWTH AFTER 24 HOURS Resulted 09/07/19 17:15 Blood Blood Culture - Preliminary NO GROWTH AFTER 24 HOURS Resulted Objective HEENT: Atraumatic and normocephalic. Anicteric. Pupils are equal, round, and reactive to light and accommodation. Extraocular muscles intact. NECK: Cannot assess JVP due to morbid obesity and short neck. CARDIOVASCULAR: Normal S1, S2. Regular rate and rhythm. No murmurs, gallops, or rubs. PMI is at fourth intercostal space in the midclavicular line. LUNGS: Bilateral basal crackles. ABDOMEN: Soft, non-tender, non-distended, + BS. EXTREMITIES: 1+ bilateral lower extremity edema. Bryce Funez MD Sep 09, 2019 23:55
[2019-09-10] VITALS: BP 136/70
[2019-09-10 04:00] VITALS: BP 146/70
[2019-09-10] MEDS: metFORMIN 500mg tab ORAL SCH ×3 (06:42→17:11)
[2019-09-10] MEDS: NovoLOG Insulin Flexpen SUBQ SCH ×4 (06:44→21:16)
[2019-09-10] MEDS: Albuterol ud Inhalation HHN PRN ×2 (06:50→13:38)
[2019-09-10 07:02] LABS: HEMATOCRIT 29.5 % (37.0-47.0); MEAN CORPUSCULAR VOLUME 95 FL (80-99); PLATELET COUNT 229 K/UL (150-450); RED CELL DISTRIBUTION WIDTH 15.8 % (11.6-14.8); WHITE BLOOD COUNT 12.1 K/UL (4.8-10.8)
[2019-09-10 07:24] LABS: ALANINE AMINOTRANSFERASE 20 U/L (12-78); ALBUMIN/GLOBULIN RATIO 0.6 (1.0-2.7); ALKALINE PHOSPHATASE 62 U/L (46-116); ANION GAP 2 mmol/L (5-15); ASPARTATE AMINO TRANSFERASE 14 U/L (15-37); BILIRUBIN,TOTAL 0.4 MG/DL (0.2-1.0); BLOOD UREA NITROGEN 20 mg/dL (7-18); CALCIUM 8.6 MG/DL (8.5-10.1); CARBON DIOXIDE 39 MMOL/L (21-32); CHLORIDE 101 MMOL/L (98-107); CREATININE 0.7 MG/DL (0.55-1.30); POTASSIUM 3.4 MMOL/L (3.5-5.1); SODIUM 142 MMOL/L (136-145)
--- NOTE | 2019-09-10 07:26 | NUR ---
NURSE NOTES: Received report from Ed/RN, Patient is on Non-rebreather mask, no distress/SOB noted at this time. AAO x 4, Able to make needs known. Denies pain at this time. IV site on Left FA, patent, no bleeding or infiltration noted. Bed in low position and locked, Bed alarm engaged, side rails up x2. Call light within reach, Encouraged to use call light when needed. Will continue plan of care.
--- NOTE | 2019-09-10 07:27 | NUR ---
HAND-OFF: Report given to TEDDY Broussard. Plan of care endorsed.
[2019-09-10 08:00] VITALS: BP 146/69
--- NOTE | 2019-09-10 08:22 | Cardiology Progress Note ---
Assessment/Plan Assessment/Plan 1. Severe pulmonary hypertension with right ventricular systolic pressure as high as 101 mmHg by echo. Needs right heart cath to confirm pulmonary HTN. RA/ RV cavity not enlarged. No evidence of RV failure. 2. Morbid obesity. 3. Normal LV systolic function with LVEF approximately 60%. 4. History of diabetes mellitus. 5. History of hypertension, continue Irbesartan and chlorthalidone. Subjective Subjective Sinus rhythm at rate of 88. Objective Last 24 Hour Vital Signs Date Time Temp Pulse Resp B/P (MAP) Pulse Ox O2 Delivery O2 Flow Rate FiO2 09/10/19 06:50 94 Non-Rebreather 15.0 100 09/10/19 04:45 98 27 97 Facial 80 09/10/19 04:00 40 09/10/19 04:00 80 09/10/19 04:00 97.0 91 22 146/70 (95) 97 09/10/19 00:05 93 27 99 Facial 80 09/10/19 00:00 98.2 82 19 136/70 (92) 98 09/10/19 00:00 91 09/09/19 21:00 Bi-pap 09/09/19 20:00 89 09/09/19 20:00 98.2 92 19 141/66 (91) 92 09/09/19 20:00 40 09/09/19 19:55 93 20 96 Non-Rebreather 15.0 100 09/09/19 19:45 92 20 96 Non-Rebreather 15.0 100 09/09/19 19:45 96 Non-Rebreather 15.0 100 09/09/19 19:45 92 20 96 Non-Rebreather 15.0 100 09/09/19 16:00 97 09/09/19 16:00 99.0 93 18 141/71 (94) 95 09/09/19 16:00 40 09/09/19 12:38 79 21 94 Facial 60 09/09/19 12:00 94 09/09/19 12:00 97.8 83 17 130/80 (97) 98 09/09/19 12:00 40 09/09/19 09:08 135/83 09/09/19 09:00 Bi-pap Intake and Output 09/09/19 09/10/19 19:00 07:00 Intake Total 200 ml 200 ml Balance 200 ml 200 ml Intake Oral 200 ml Other 200 ml # Voids 5 2D Echo: LVEF 60%, Hi RAP at 15 mmHg, RVSP 101 mmHg, Normal LV diastolic Fxn Laboratory Tests Test 09/10/19 05:44 White Blood Count 12.1 K/UL (4.8-10.8) H Red Blood Count 3.10 M/UL (4.20-5.40) L Hemoglobin 9.0 G/DL (12.0-16.0) L Hematocrit 29.5 % (37.0-47.0) L Mean Corpuscular Volume 95 FL (80-99) Mean Corpuscular Hemoglobin 29.0 PG (27.0-31.0) Mean Corpuscular Hemoglobin Concent 30.4 G/DL (32.0-36.0) L Red Cell Distribution Width 15.8 % (11.6-14.8) H Platelet Count 229 K/UL (150-450) Mean Platelet Volume 6.0 FL (6.5-10.1) L Neutrophils (%) (Auto) % (45.0-75.0) Lymphocytes (%) (Auto) % (20.0-45.0) Monocytes (%) (Auto) % (1.0-10.0) Eosinophils (%) (Auto) % (0.0-3.0) Basophils (%) (Auto) % (0.0-2.0) Neutrophils % (Manual) Pending Lymphocytes % (Manual) Pending Platelet Estimate Pending Platelet Morphology Pending Sodium Level 142 MMOL/L (136-145) Potassium Level 3.4 MMOL/L (3.5-5.1) L Chloride Level 101 MMOL/L (98-107) Carbon Dioxide Level 39 MMOL/L (21-32) H Anion Gap 2 mmol/L (5-15) L Blood Urea Nitrogen 20 mg/dL (7-18) H Creatinine 0.7 MG/DL (0.55-1.30) Estimat Glomerular Filtration Rate > 60 mL/min (>60) Glucose Level 217 MG/DL (74-106) H Calcium Level 8.6 MG/DL (8.5-10.1) Total Bilirubin 0.4 MG/DL (0.2-1.0) Aspartate Amino Transf (AST/SGOT) 14 U/L (15-37) L Alanine Aminotransferase (ALT/SGPT) 20 U/L (12-78) Alkaline Phosphatase 62 U/L (46-116) Total Protein 7.7 G/DL (6.4-8.2) Albumin 3.0 G/DL (3.4-5.0) L Globulin 4.7 g/dL Albumin/Globulin Ratio 0.6 (1.0-2.7) L Microbiology Date/Time Source Procedure Growth Status 09/07/19 17:35 Blood Blood Culture - Preliminary NO GROWTH AFTER 48 HOURS Resulted 09/07/19 17:15 Blood Blood Culture - Preliminary NO GROWTH AFTER 48 HOURS Resulted Objective HEENT: Atraumatic and normocephalic. Anicteric. Pupils are equal, round, and reactive to light and accommodation. Extraocular muscles intact. NECK: Cannot assess JVP due to morbid obesity and short neck. CARDIOVASCULAR: Normal S1, S2. Regular rate and rhythm. No murmurs, gallops, or rubs. PMI is at fourth intercostal space in the midclavicular line. LUNGS: Bilateral basal crackles. ABDOMEN: Soft, non-tender, non-distended, + BS. EXTREMITIES: 1+ bilateral lower extremity edema. Bryce Funez MD Sep 10, 2019 08:22
[2019-09-10] MEDS: Liothyronine 5mcg tab ORAL SCH (08:54)
[2019-09-10] MEDS: Irbesartan 150mg tablet ORAL SCH (08:55)
[2019-09-10] MEDS: Aspirin EC 81mg tab ORAL SCH (08:55)
[2019-09-10] MEDS: Allopurinol 100mg Tab ORAL SCH (08:57)
[2019-09-10] MEDS: Azithromycin 250mg tab ORAL SCH (08:57)
[2019-09-10] MEDS: Enoxaparin 40mg Inj SUBQ SCH (09:04)
--- NOTE | 2019-09-10 09:24 | General Progress Note ---
Assessment/Plan Assessment/Plan: S: I am feeling the same O: on O2, denies chest pain . limited activity reported. Low threshold for exertional sob. PHYSICAL EXAMINATION:HEAD AND NECK: Atraumatic, normocephalic. CHEST: Clear to auscultation.HEART: S1, S2. Regular rate and rhythm. ABDOMEN: Soft. No organomegaly.MUSCULOSKELETAL: No gross focal deficit. NEUROLOGIC: The patient is awake, alert, oriented x3. LABORATORY DATA: Labs dated 09/08 reviewed ASSESSMENT: 1. Acute Asthma exacerbation 2. Community-acquired pneumonia. 3. CHF exacerbation. 4. Morbid obesity. 5. Asthma. 6. Severe pulmonary arterial hypertension. 7. DM 2- uncontrolled 8. GI and DVT prophylaxis. Plan: Poor overall physicl performance, with limited ADLS Consult PMR Notes from Nephro and Pulmonary reviewed Subjective Allergies: Coded Allergies: MORPHINE (Verified Allergy, Intermediate, 09/09/19) Headach, Dizziness Objective Last 24 Hour Vital Signs Date Time Temp Pulse Resp B/P (MAP) Pulse Ox O2 Delivery O2 Flow Rate FiO2 09/10/19 08:55 146/69 09/10/19 08:00 98.4 92 20 146/69 (94) 95 09/10/19 06:50 94 Non-Rebreather 15.0 100 09/10/19 04:45 98 27 97 Facial 80 09/10/19 04:00 40 09/10/19 04:00 80 09/10/19 04:00 97.0 91 22 146/70 (95) 97 09/10/19 00:05 93 27 99 Facial 80 09/10/19 00:00 98.2 82 19 136/70 (92) 98 09/10/19 00:00 91 09/09/19 21:00 Bi-pap 09/09/19 20:00 89 09/09/19 20:00 98.2 92 19 141/66 (91) 92 09/09/19 20:00 40 09/09/19 19:55 93 20 96 Non-Rebreather 15.0 100 09/09/19 19:45 92 20 96 Non-Rebreather 15.0 100 09/09/19 19:45 96 Non-Rebreather 15.0 100 09/09/19 19:45 92 20 96 Non-Rebreather 15.0 100 09/09/19 16:00 97 09/09/19 16:00 99.0 93 18 141/71 (94) 95 09/09/19 16:00 40 09/09/19 12:38 79 21 94 Facial 60 09/09/19 12:00 94 09/09/19 12:00 97.8 83 17 130/80 (97) 98 09/09/19 12:00 40 Intake and Output 09/09/19 09/10/19 19:00 07:00 Intake Total 200 ml 200 ml Balance 200 ml 200 ml Intake Oral 200 ml Other 200 ml # Voids 5 Laboratory Tests 09/10/19 05:44: White Blood Count 12.1H, Red Blood Count 3.10L, Hemoglobin 9.0L, Hematocrit 29.5L, Mean Corpuscular Volume 95, Mean Corpuscular Hemoglobin 29.0, Mean Corpuscular Hemoglobin Concent 30.4L, Red Cell Distribution Width 15.8H, Platelet Count 229, Mean Platelet Volume 6.0L, Neutrophils (%) (Auto) , Lymphocytes (%) (Auto) , Monocytes (%) (Auto) , Eosinophils (%) (Auto) , Basophils (%) (Auto) , Neutrophils % (Manual) [Pending], Lymphocytes % (Manual) [Pending], Platelet Estimate [Pending], Platelet Morphology [Pending], Sodium Level 142, Potassium Level 3.4L, Chloride Level 101, Carbon Dioxide Level 39H, Anion Gap 2L, Blood Urea Nitrogen 20H, Creatinine 0.7, Estimat Glomerular Filtration Rate > 60, Glucose Level 217H, Uric Acid [Pending], Calcium Level 8.6 , Phosphorus Level [Pending], Magnesium Level [Pending], Total Bilirubin 0.4, Aspartate Amino Transf (AST/SGOT) 14L, Alanine Aminotransferase (ALT/SGPT) 20, Alkaline Phosphatase 62, Total Protein 7.7, Albumin 3.0L, Globulin 4.7, Albumin/ Globulin Ratio 0.6L Height (Feet): 5 Height (Inches): 4.00 Weight (Pounds): 267 Marcela Jacobo MD Sep 10, 2019 09:24
[2019-09-10 09:32] LABS: PHOSPHORUS 3.9 MG/DL (2.5-4.9)
--- NOTE | 2019-09-10 10:18 | Pulmonology Progress Note ---
Assessment/Plan Assessment/Plan ASSESSMENT Pulmonary edema LAYO History of asthma Pulmonary hypertension DISCUSSION: Continue BiPAP q pm. I agree with current medications and care. The patient will need aggressive diuresis, nitrates, breathing treatments. Consider heart cath per cardiology. Avoidance of nephrotoxic medications. I will follow carefully. Sohail Aguirre M.D. Subjective Interval Events: Moved to 205; Constitutional: Reports: no symptoms HEENT: Repors: no symptoms Respiratory: Reports: shortness of breath Cardiovascular: Reports: no symptoms Allergies: Coded Allergies: MORPHINE (Verified Allergy, Intermediate, 09/09/19) Headach, Dizziness Objective Last 24 Hour Vital Signs Date Time Temp Pulse Resp B/P (MAP) Pulse Ox O2 Delivery O2 Flow Rate FiO2 09/10/19 08:55 146/69 09/10/19 08:00 98.4 92 20 146/69 (94) 95 09/10/19 06:55 93 24 95 Non-Rebreather 15.0 100 92 24 94 09/10/19 06:50 94 Non-Rebreather 15.0 100 09/10/19 04:45 98 27 97 Facial 80 09/10/19 04:00 40 09/10/19 04:00 80 09/10/19 04:00 97.0 91 22 146/70 (95) 97 09/10/19 00:05 93 27 99 Facial 80 09/10/19 00:00 98.2 82 19 136/70 (92) 98 09/10/19 00:00 91 09/09/19 21:00 Bi-pap 09/09/19 20:00 89 09/09/19 20:00 98.2 92 19 141/66 (91) 92 09/09/19 20:00 40 09/09/19 19:55 93 20 96 Non-Rebreather 15.0 100 09/09/19 19:45 92 20 96 Non-Rebreather 15.0 100 09/09/19 19:45 96 Non-Rebreather 15.0 100 09/09/19 19:45 92 20 96 Non-Rebreather 15.0 100 09/09/19 16:00 97 09/09/19 16:00 99.0 93 18 141/71 (94) 95 09/09/19 16:00 40 09/09/19 12:38 79 21 94 Facial 60 09/09/19 12:00 94 09/09/19 12:00 97.8 83 17 130/80 (97) 98 09/09/19 12:00 40 Intake and Output 09/09/19 09/10/19 19:00 07:00 Intake Total 200 ml 200 ml Balance 200 ml 200 ml Intake Oral 200 ml Other 200 ml # Voids 5 General Appearance: no acute distress HEENT: normocephalic Respiratory/Chest: chest wall non-tender, decreased breath sounds Cardiovascular: normal peripheral pulses, normal rate Abdomen: normal bowel sounds Microbiology Date/Time Source Procedure Growth Status 09/07/19 17:35 Blood Blood Culture - Preliminary NO GROWTH AFTER 48 HOURS Resulted 09/07/19 17:15 Blood Blood Culture - Preliminary NO GROWTH AFTER 48 HOURS Resulted Laboratory Tests 09/10/19 05:44: White Blood Count 12.1H, Red Blood Count 3.10L, Hemoglobin 9.0L, Hematocrit 29.5L, Mean Corpuscular Volume 95, Mean Corpuscular Hemoglobin 29.0, Mean Corpuscular Hemoglobin Concent 30.4L, Red Cell Distribution Width 15.8H, Platelet Count 229, Mean Platelet Volume 6.0L, Neutrophils (%) (Auto) , Lymphocytes (%) (Auto) , Monocytes (%) (Auto) , Eosinophils (%) (Auto) , Basophils (%) (Auto) , Neutrophils % (Manual) [Pending], Lymphocytes % (Manual) [Pending], Platelet Estimate [Pending], Platelet Morphology [Pending], Sodium Level 142, Potassium Level 3.4L, Chloride Level 101, Carbon Dioxide Level 39H, Anion Gap 2L, Blood Urea Nitrogen 20H, Creatinine 0.7, Estimat Glomerular Filtration Rate > 60, Glucose Level 217H, Uric Acid 3.9, Calcium Level 8.6, Phosphorus Level 3.9, Magnesium Level 2.1, Total Bilirubin 0.4, Aspartate Amino Transf (AST/SGOT) 14L, Alanine Aminotransferase (ALT/SGPT) 20, Alkaline Phosphatase 62, Total Protein 7.7, Albumin 3.0L, Globulin 4.7, Albumin/Globulin Ratio 0.6L Current Medications Medications (Trade) Dose Ordered Sig/Yue Route PRN Reason Start Time Stop Time Status Last Admin Dose Admin Acetaminophen (Tylenol) 650 mg Q6H PRN ORAL Mild Pain/Temp > 100.5 09/07/19 15:30 10/07/19 15:29 Acetaminophen/ Hydrocodone Bitart ([place] 5/325) 1 tab Q6H PRN ORAL moderate pain, 4-6 09/07/19 15:30 09/14/19 15:29 09/09/19 18:10 Albuterol Sulfate (Proventil) 2.5 mg Q4H PRN HHN Shortness of Breath 09/07/19 15:30 09/12/19 15:29 09/10/19 06:50 Allopurinol (Zyloprim) 100 mg DAILY ORAL 09/09/19 09:00 10/09/19 08:59 09/10/19 08:57 Aspirin (Ecotrin) 81 mg DAILY ORAL 09/08/19 09:00 10/07/19 08:59 09/10/19 08:55 Azithromycin (Zithromax) 500 mg DAILY ORAL 09/10/19 09:00 09/13/19 23:59 09/10/19 08:57 Ceftriaxone Sodium 2 gm/ Sodium Chloride 55 ml @ 110 mls/hr Q24H IVPB 09/09/19 18:00 09/14/19 17:59 09/09/19 17:59 Chlorthalidone (Chlorthalidone) 25 mg DAILY ORAL 09/09/19 09:00 10/09/19 08:59 09/10/19 08:54 Dextrose (Dextrose 50%) 25 ml Q30M PRN IV Hypoglycemia 09/07/19 15:30 10/07/19 06:29 Dextrose (Dextrose 50%) 50 ml Q30M PRN IV Hypoglycemia 09/07/19 15:30 10/07/19 06:29 Enoxaparin Sodium (Lovenox) 40 mg DAILY SUBQ 09/08/19 09:00 10/07/19 08:59 09/10/19 09:04 Hydromorphone HCl (Dilaudid) 0.5 mg BIDPRN PRN IVP Severe Pain (Pain Scale 7-10) 09/07/19 15:30 09/14/19 15:29 Insulin Aspart (NovoLOG) BEFORE MEALS AND HS SUBQ 09/07/19 16:30 10/07/19 06:29 09/10/19 06:44 Insulin Detemir (Levemir) 12 units Q12H SUBQ 09/10/19 16:00 10/07/19 15:59 Irbesartan (Avapro) 300 mg DAILY ORAL 09/10/19 09:00 10/10/19 08:59 09/10/19 08:55 Levothyroxine Sodium (Synthroid) 150 mcg DAILY@0630 ORAL 09/08/19 06:30 10/08/19 06:29 09/10/19 06:42 Liothyronine Sodium (Cytomel) 5 mcg DAILY ORAL 09/10/19 09:00 10/10/19 08:59 09/10/19 08:54 Metformin HCl (Glucophage) 500 mg TIAC ORAL 09/08/19 16:30 10/08/19 16:29 09/10/19 06:42 Nateglinide (Starlix) 120 mg TIAC ORAL 09/07/19 16:30 10/07/19 11:29 09/10/19 06:42 Potassium Chloride (K-Dur) 20 meq TWICE A DAY ORAL 09/10/19 09:15 09/11/19 09:14 09/10/19 09:09 Sohail Aguirre MD Sep 10, 2019 10:18
[2019-09-10 12:00] VITALS: BP 135/69
--- NOTE | 2019-09-10 12:04 | NUR ---
CASE MANAGEMENT: REVIEW 09/10/19 SI: COMMUNITY ACQUIRED PNA. CHF . RESP FAILURE WITH HYPERCAPNIA. DM PLEURAL EFFUSION 98.4 92 20 146/69 95% BIPAP WBC 12.1 K+3.5 CO2 39 BUN 20 BG 217 IS: AZITHROMYCIN PO QD IV CEFTRIAXONE Q24HR K-DUR PO BID CHLORTHALIDONE PO QD AVAPRO PO QD LOVENOX SQ QD DIGOXIN PO QD NOVOLOG SQ AC&HS STARLIX PO TIAC METFORMIN PO TIAC ASPIRIN PO QD : 2TELE UNIT DCP: PATIENT IS FROM HOME PLAN: Consider heart cath per cardiology Continue BiPAP q pm
--- NOTE | 2019-09-10 12:32 | Nephrology Progress Note ---
Assessment/Plan Problem List: (1) Morbid obesity with BMI of 40.0-44.9, adult (2) Anemia (3) Hyperglycemia due to type 2 diabetes mellitus (4) Hypertension (5) Respiratory failure with hypoxia and hypercapnia Assessment Acute Respiratory Failure Morbid Obesity LAYO Anemia DM OOC HTN Plan add metformin to starlix adjust Levemir add cytomel Respiratory support, BIPAP 2D Echo , BP and BS management monitor lytes Subjective ROS Limited/Unobtainable: No Constitutional: Reports: malaise Objective Objective Last 24 Hour Vital Signs Date Time Temp Pulse Resp B/P (MAP) Pulse Ox O2 Delivery O2 Flow Rate FiO2 09/10/19 12:00 97.5 91 22 135/69 (91) 96 09/10/19 12:00 40 09/10/19 09:00 Bi-pap 09/10/19 08:55 146/69 09/10/19 08:00 98.4 92 20 146/69 (94) 95 09/10/19 08:00 86 09/10/19 08:00 40 09/10/19 06:55 93 24 95 Non-Rebreather 15.0 100 92 24 94 09/10/19 06:50 94 Non-Rebreather 15.0 100 09/10/19 04:45 98 27 97 Facial 80 09/10/19 04:00 40 09/10/19 04:00 80 09/10/19 04:00 97.0 91 22 146/70 (95) 97 09/10/19 00:05 93 27 99 Facial 80 09/10/19 00:00 98.2 82 19 136/70 (92) 98 09/10/19 00:00 91 09/09/19 21:00 Bi-pap 09/09/19 20:00 89 09/09/19 20:00 98.2 92 19 141/66 (91) 92 09/09/19 20:00 40 09/09/19 19:55 93 20 96 Non-Rebreather 15.0 100 09/09/19 19:45 92 20 96 Non-Rebreather 15.0 100 09/09/19 19:45 96 Non-Rebreather 15.0 100 09/09/19 19:45 92 20 96 Non-Rebreather 15.0 100 09/09/19 16:00 97 11/20/19 16:00 99.0 93 18 141/71 (94) 95 09/09/19 16:00 40 09/09/19 12:38 79 21 94 Facial 60 Intake and Output 09/09/19 09/10/19 19:00 07:00 Intake Total 200 ml 200 ml Balance 200 ml 200 ml Intake Oral 200 ml Other 200 ml # Voids 5 Laboratory Tests 09/10/19 05:44: White Blood Count 12.1H, Red Blood Count 3.10L, Hemoglobin 9.0L, Hematocrit 29.5L, Mean Corpuscular Volume 95, Mean Corpuscular Hemoglobin 29.0, Mean Corpuscular Hemoglobin Concent 30.4L, Red Cell Distribution Width 15.8H, Platelet Count 229, Mean Platelet Volume 6.0L, Neutrophils (%) (Auto) , Lymphocytes (%) (Auto) , Monocytes (%) (Auto) , Eosinophils (%) (Auto) , Basophils (%) (Auto) , Differential Total Cells Counted 100, Neutrophils % ( Manual) 91H, Lymphocytes % (Manual) 4L, Monocytes % (Manual) 5, Eosinophils % ( Manual) 0, Basophils % (Manual) 0, Band Neutrophils 0, Platelet Estimate Adequate, Platelet Morphology Normal, Hypochromasia 2+, Anisocytosis 1+, Sodium Level 142, Potassium Level 3.4L, Chloride Level 101, Carbon Dioxide Level 39H, Anion Gap 2L, Blood Urea Nitrogen 20H, Creatinine 0.7, Estimat Glomerular Filtration Rate > 60, Glucose Level 217H, Uric Acid 3.9, Calcium Level 8.6, Phosphorus Level 3.9, Magnesium Level 2.1, Total Bilirubin 0.4, Aspartate Amino Transf (AST/SGOT) 14L, Alanine Aminotransferase (ALT/SGPT) 20, Alkaline Phosphatase 62, Total Protein 7.7, Albumin 3.0L, Globulin 4.7, Albumin/Globulin Ratio 0.6L Height (Feet): 5 Height (Inches): 4.00 Weight (Pounds): 267 EENT: other - O2mask Cardiovascular: tachycardia Respiratory/Chest: decreased breath sounds Abdomen: other - obese Gino Longoria MD Sep 10, 2019 12:32
--- NOTE | 2019-09-10 13:19 | NUR ---
*-* INSURANCE *-* ALL CLINICALS AND REVIEWS HAVE BEEN FAXED TO: [employer] Ref# [id number] CM: [place] #[phone] fax#[phone] also send to [employer] [facility] ref# or ANSON maradiaga #[phone] fax#[phone]
--- NOTE | 2019-09-10 13:33 | Infectious Diseases Prog Note ---
Assessment/Plan Problems: (1) Leukocytosis Assessment & Plan: will send blood culture and repeat CXR , continue current antibiotics for now (2) Community acquired pneumonia Assessment & Plan: with productive cough , brownish , not tinged with blood , continue ceftriaxone and azithromycin empirically , nebulizer treatment , titrate oxygen , repeat CXR (3) Acute exacerbation of CHF (congestive heart failure) Assessment & Plan: continue dieuresis as per renal (4) Respiratory failure with hypoxia and hypercapnia Assessment & Plan: on BIPAP, continue nebulizers and diuretics (5) Hyperglycemia due to type 2 diabetes mellitus Assessment & Plan: poorly controled, continue insulin to achieve tight glycemic control to keep blood glucose between 100-140 (6) Pleural effusion Assessment & Plan: R>L may benefit from thoracentesis Subjective Constitutional: Reports: fatigue HEENT: Reports: no symptoms Respiratory: Reports: shortness of breath, productive cough Breasts: Reports: no symptoms Cardiovascular: Reports: no symptoms Gastrointestinal/Abdominal: Reports: no symptoms Genitourinary: Reports: no symptoms Neurologic: Reports: no symptoms Psychiatric: Reports: no symptoms Skin: Reports: no symptoms Endocrine: Reports: no symptoms Hematologic: Reports: no symptoms Musculoskeletal: Reports: no symptoms Allergies: Coded Allergies: MORPHINE (Verified Allergy, Intermediate, 09/09/19) Headach, Dizziness Objective Vital Signs Last 24 Hour Vital Signs Date Time Temp Pulse Resp B/P (MAP) Pulse Ox O2 Delivery O2 Flow Rate FiO2 09/10/19 12:00 97.5 91 22 135/69 (91) 96 09/10/19 12:00 40 09/10/19 12:00 96 09/10/19 09:00 Bi-pap 09/10/19 08:55 146/69 09/10/19 08:00 98.4 92 20 146/69 (94) 95 09/10/19 08:00 86 09/10/19 08:00 40 09/10/19 06:55 93 24 95 Non-Rebreather 15.0 100 92 24 94 09/10/19 06:50 94 Non-Rebreather 15.0 100 09/10/19 04:45 98 27 97 Facial 80 09/10/19 04:00 40 09/10/19 04:00 80 09/10/19 04:00 97.0 91 22 146/70 (95) 97 09/10/19 00:05 93 27 99 Facial 80 09/10/19 00:00 98.2 82 19 136/70 (92) 98 09/10/19 00:00 91 09/09/19 21:00 Bi-pap 09/09/19 20:00 89 09/09/19 20:00 98.2 92 19 141/66 (91) 92 09/09/19 20:00 40 09/09/19 19:55 93 20 96 Non-Rebreather 15.0 100 09/09/19 19:45 92 20 96 Non-Rebreather 15.0 100 09/09/19 19:45 96 Non-Rebreather 15.0 100 09/09/19 19:45 92 20 96 Non-Rebreather 15.0 100 09/09/19 16:00 97 09/09/19 16:00 99.0 93 18 141/71 (94) 95 09/09/19 16:00 40 Height (Feet): 5 Height (Inches): 4.00 Weight (Pounds): 267 General Appearance: WD/WN, no acute distress HEENT: normocephalic, atraumatic, anicteric, mucous membranes moist, PERRL Respiratory/Chest: chest wall non-tender, no respiratory distress, no accessory muscle use, decreased breath sounds, expiratory wheezing Cardiovascular: normal peripheral pulses, normal rate, regular rhythm, no gallop/murmur, no JVD Abdomen: normal bowel sounds, soft, non tender, no organomegaly, non distended , no mass, no scars Genitourinary: normal external genitalia Extremities: no cyanosis, no clubbing Skin: no rash, no lesions, no ulcers Neurologic/Psychiatric: track leader II-XII grossly normal, no motor/sensory deficits, alert, oriented x 3, responsive Lymphatic: no neck adenopathy, no groin adenopathy Musculoskeletal: normal muscle bulk, no effusion Microbiology Date/Time Source Procedure Growth Status 09/07/19 17:35 Blood Blood Culture - Preliminary NO GROWTH AFTER 48 HOURS Resulted 09/07/19 17:15 Blood Blood Culture - Preliminary NO GROWTH AFTER 48 HOURS Resulted Laboratory Tests Test 09/10/19 05:44 White Blood Count 12.1 K/UL (4.8-10.8) H Red Blood Count 3.10 M/UL (4.20-5.40) L Hemoglobin 9.0 G/DL (12.0-16.0) L Hematocrit 29.5 % (37.0-47.0) L Mean Corpuscular Volume 95 FL (80-99) Mean Corpuscular Hemoglobin 29.0 PG (27.0-31.0) Mean Corpuscular Hemoglobin Concent 30.4 G/DL (32.0-36.0) L Red Cell Distribution Width 15.8 % (11.6-14.8) H Platelet Count 229 K/UL (150-450) Mean Platelet Volume 6.0 FL (6.5-10.1) L Neutrophils (%) (Auto) % (45.0-75.0) Lymphocytes (%) (Auto) % (20.0-45.0) Monocytes (%) (Auto) % (1.0-10.0) Eosinophils (%) (Auto) % (0.0-3.0) Basophils (%) (Auto) % (0.0-2.0) Differential Total Cells Counted 100 Neutrophils % (Manual) 91 % (45-75) H Lymphocytes % (Manual) 4 % (20-45) L Monocytes % (Manual) 5 % (1-10) Eosinophils % (Manual) 0 % (0-3) Basophils % (Manual) 0 % (0-2) Band Neutrophils 0 % (0-8) Platelet Estimate Adequate Platelet Morphology Normal Hypochromasia 2+ Anisocytosis 1+ Sodium Level 142 MMOL/L (136-145) Potassium Level 3.4 MMOL/L (3.5-5.1) L Chloride Level 101 MMOL/L (98-107) Carbon Dioxide Level 39 MMOL/L (21-32) H Anion Gap 2 mmol/L (5-15) L Blood Urea Nitrogen 20 mg/dL (7-18) H Creatinine 0.7 MG/DL (0.55-1.30) Estimat Glomerular Filtration Rate > 60 mL/min (>60) Glucose Level 217 MG/DL (74-106) H Uric Acid 3.9 MG/DL (2.6-7.2) Calcium Level 8.6 MG/DL (8.5-10.1) Phosphorus Level 3.9 MG/DL (2.5-4.9) Magnesium Level 2.1 MG/DL (1.8-2.4) Total Bilirubin 0.4 MG/DL (0.2-1.0) Aspartate Amino Transf (AST/SGOT) 14 U/L (15-37) L Alanine Aminotransferase (ALT/SGPT) 20 U/L (12-78) Alkaline Phosphatase 62 U/L (46-116) Total Protein 7.7 G/DL (6.4-8.2) Albumin 3.0 G/DL (3.4-5.0) L Globulin 4.7 g/dL Albumin/Globulin Ratio 0.6 (1.0-2.7) L Current Medications Medications (Trade) Dose Ordered Sig/Yue Route PRN Reason Start Time Stop Time Status Last Admin Dose Admin Acetaminophen (Tylenol) 650 mg Q6H PRN ORAL Mild Pain/Temp > 100.5 09/07/19 15:30 10/07/19 15:29 Acetaminophen/ Hydrocodone Bitart ([place] 5/325) 1 tab Q6H PRN ORAL moderate pain, 4-6 09/07/19 15:30 09/14/19 15:29 09/09/19 18:10 Albuterol Sulfate (Proventil) 2.5 mg Q4H PRN HHN Shortness of Breath 09/07/19 15:30 09/12/19 15:29 09/10/19 06:50 Allopurinol (Zyloprim) 100 mg DAILY ORAL 09/09/19 09:00 10/09/19 08:59 09/10/19 08:57 Aspirin (Ecotrin) 81 mg DAILY ORAL 09/08/19 09:00 10/07/19 08:59 09/10/19 08:55 Azithromycin (Zithromax) 500 mg DAILY ORAL 09/10/19 09:00 09/13/19 23:59 09/10/19 08:57 Ceftriaxone Sodium 2 gm/ Sodium Chloride 55 ml @ 110 mls/hr Q24H IVPB 09/09/19 18:00 09/14/19 17:59 09/09/19 17:59 Chlorthalidone (Chlorthalidone) 25 mg DAILY ORAL 09/09/19 09:00 10/09/19 08:59 09/10/19 08:54 Dextrose (Dextrose 50%) 25 ml Q30M PRN IV Hypoglycemia 09/07/19 15:30 10/07/19 06:29 Dextrose (Dextrose 50%) 50 ml Q30M PRN IV Hypoglycemia 09/07/19 15:30 10/07/19 06:29 Enoxaparin Sodium (Lovenox) 40 mg DAILY SUBQ 09/08/19 09:00 10/07/19 08:59 09/10/19 09:04 Hydromorphone HCl (Dilaudid) 0.5 mg BIDPRN PRN IVP Severe Pain (Pain Scale 7-10) 09/07/19 15:30 09/14/19 15:29 Insulin Aspart (NovoLOG) BEFORE MEALS AND HS SUBQ 09/07/19 16:30 10/07/19 06:29 09/10/19 12:00 Insulin Detemir (Levemir) 12 units Q12H SUBQ 09/10/19 20:00 10/07/19 15:59 Irbesartan (Avapro) 300 mg DAILY ORAL 09/10/19 09:00 10/10/19 08:59 09/10/19 08:55 Levothyroxine Sodium (Synthroid) 150 mcg DAILY@0630 ORAL 09/08/19 06:30 10/08/19 06:29 09/10/19 06:42 Liothyronine Sodium (Cytomel) 5 mcg DAILY ORAL 09/10/19 09:00 10/10/19 08:59 09/10/19 08:54 Metformin HCl (Glucophage) 500 mg TIAC ORAL 09/08/19 16:30 10/08/19 16:29 09/10/19 11:55 Nateglinide (Starlix) 120 mg TIAC ORAL 09/07/19 16:30 10/07/19 11:29 09/10/19 11:55 Potassium Chloride (K-Dur) 20 meq TWICE A DAY ORAL 09/10/19 09:15 09/11/19 09:14 09/10/19 09:09 Katlyn Richard M.D. Sep 10, 2019 13:33
--- NOTE | 2019-09-10 13:48 | NUR ---
RESPIRATORY NOTE: Per pt's request, placed pt on Bipap with the current settings: 10/5- 80%FiO2 after breathing treatment prn given. Gel tape in place to prevent redness or skin breakdown. Alarms are set and audible, Bipap is plugged into the red outlet, ambu bag is at bedside. Pt's resting on the chair comfortably, no resp distress noted. PEGGY Caldwell made aware. Will continue to monitor.
[2019-09-10 16:00] VITALS: BP 126/57
[2019-09-10] MEDS ORDERED: Levemir Flexpen SUBQ SCH (16:00)
[2019-09-10] MEDS ORDERED: Azithromycin 500 MG in NS 275 ML IV SCH (16:00)
[2019-09-10] MEDS: cefTRIAXone 2 GM in NS 55 ML IVPB SCH (17:12)
[2019-09-10] MEDS: HYDROcodone/Acetamin 5/325 tab ORAL PRN (17:38)
--- NOTE | 2019-09-10 19:30 | NUR ---
HAND-OFF: Report given to Sissy/RN, Patient is sitting on chair, in stable condition. Endorsed plan of care.
--- NOTE | 2019-09-10 19:34 | NUR ---
NURSE NOTES: Received report from TEDDY Broussard. Patient is sitting in a chair, awake and responsive. Patient has the non-rebreather mask on, breathing regular and unlabored with no SOB noted at this time. Patient denies any pain or discomfort at this time. IV is intact and saline locked. Call light is within reach at all times, will continue to monitor.
[2019-09-10 20:00] VITALS: BP 137/66
[2019-09-10] MEDS: Levemir Flexpen SUBQ SCH (21:16)
--- NOTE | 2019-09-10 23:31 | NUR ---
RESPIRATORY NOTE: Pt placed on BiPAP for nightly use. Pt now on BiPAP 10/, backup rate 14, 100%. Pt on a Facial mask, skin intact, no redness/breakdowns noted. Pt refuses to use foam tape despite telling her pros & cons for wearing it. B/S shimon. diminished, nonproductive cough. Family present at bedside. BiPAP plugged into red outlet, alarms on & audible. Pt in no apparent distress at this time. Will continue plan of care.
[2019-09-11] VITALS: BP 142/69
[2019-09-11] MEDS: Albuterol ud Inhalation HHN PRN ×2 (00:22→18:43)
[2019-09-11 04:00] VITALS: BP 155/51
[2019-09-11] MEDS: metFORMIN 500mg tab ORAL SCH ×3 (06:14→17:19)
[2019-09-11] MEDS: NovoLOG Insulin Flexpen SUBQ SCH ×4 (06:16→21:21)
--- NOTE | 2019-09-11 07:14 | NUR ---
HAND-OFF: Report given to TEDDY Holm. Patient in stable condition.
--- NOTE | 2019-09-11 07:43 | NUR ---
NURSE NOTES: Received patient from Rashid Sheehan. Patient is awake sitting up in bed. Son at bedside. patient on non-rebreather mask 15 L. denies SOB. no complain of pain or discomfort at this time. Reminded patient re: safety precautions. will continue to monitor.
[2019-09-11] MEDS: Irbesartan 150mg tablet ORAL SCH (08:25)
[2019-09-11] MEDS: Aspirin EC 81mg tab ORAL SCH (08:25)
[2019-09-11] MEDS: Liothyronine 5mcg tab ORAL SCH (08:25)
[2019-09-11] MEDS: Azithromycin 250mg tab ORAL SCH (08:25)
[2019-09-11] MEDS: Allopurinol 100mg Tab ORAL SCH (08:26)
[2019-09-11] MEDS: Enoxaparin 40mg Inj SUBQ SCH (08:27)
[2019-09-11] MEDS: Levemir Flexpen SUBQ SCH ×2 (08:28→21:20)
[2019-09-11 09:00] VITALS: BP 136/70
--- NOTE | 2019-09-11 09:33 | NUR ---
RESPIRATORY NOTE: placed pt on bipap per pt request. bipap settings as followed 07/25 on fio2 50%. pt was currently on NRB with spo2 96% with no signs of resp distress. pt asked to be removed off bipap in 2 hours. she also refused foam tape and gel for skin barrier with facial mask. no redness or skin wounds prior to placing pt on bipap. will cont to monitor throughout the day.
--- NOTE | 2019-09-11 10:00 | NUR ---
DISCHARGE PLANNING: PATIENT IS REQUESTING DME ITEMS: [facility] PLEASE ASK MD TO REQUEST THIS ITEM SO I MAY PLACE AN ORDER
--- NOTE | 2019-09-11 10:07 | Diagnostic Imaging Report ---
Indication: Cough Technique: One view of the chest Comparison: 09/07/2019 Findings: The heart is enlarged. The aorta is tortuous and ectatic. There is bilateral interstitial and airspace infiltrates versus edema again demonstrated. This appears slightly worse on the right. Right-sided pleural effusion is probably unchanged. The heart is borderline enlarged. Impression: Bilateral right greater than left interstitial and airspace disease, worsening on the right since prior study.
--- NOTE | 2019-09-11 10:25 | NUR ---
CASE MANAGEMENT: REVIEW 09/11/19 SI: COMMUNITY ACQUIRED PNA. CHF . RESP FAILURE WITH HYPERCAPNIA. DM PLEURAL EFFUSION 96.8 69 33 136/70 96% ON NON-REBREATHER 15L IS: IV CEFTRIAXONE Q24HR AZITHROMYCIN PO QD CHLORTHALIDONE PO QD AVAPRO PO QD LOVENOX SQ QD DIGOXIN PO QD NOVOLOG SQ AC&HS STARLIX PO TIAC METFORMIN PO TIAC ASPIRIN PO QD PROVENTIL Q4HR/PRN : 2TELE UNIT DCP: PATIENT IS FROM HOME PLAN: BL CX- PENDING HEMATOLOGY CONSULT Consider heart cath per cardiology Continue BiPAP q pm
--- NOTE | 2019-09-11 11:43 | Pulmonology Progress Note ---
Assessment/Plan Assessment/Plan ASSESSMENT Pulmonary edema LAYO History of asthma Pulmonary hypertension DISCUSSION: Continue BiPAP q pm. I agree with current medications and care. The patient will need aggressive diuresis, nitrates, breathing treatments. Consider heart cath per cardiology. Avoidance of nephrotoxic medications. I will follow carefully. Sohail Aguirre M.D. Subjective Interval Events: None new; using BiPAP q pm; still on NRBM Constitutional: Reports: no symptoms HEENT: Repors: no symptoms Respiratory: Reports: no symptoms Cardiovascular: Reports: no symptoms Gastrointestinal/Abdominal: Reports: no symptoms Allergies: Coded Allergies: MORPHINE (Verified Allergy, Intermediate, 09/09/19) Headach, Dizziness Objective Last 24 Hour Vital Signs Date Time Temp Pulse Resp B/P (MAP) Pulse Ox O2 Delivery O2 Flow Rate FiO2 09/11/19 09:00 96.8 89 20 136/70 (92) 96 09/11/19 09:00 Bi-pap 09/11/19 08:38 69 33 96 Facial 50 09/11/19 08:38 96 Non-Rebreather 15.0 100 09/11/19 08:25 136/70 09/11/19 08:00 89 09/11/19 08:00 15.0 09/11/19 04:31 87 27 96 Facial 100 09/11/19 04:00 40 09/11/19 04:00 86 09/11/19 04:00 98.0 91 21 155/51 (85) 95 09/11/19 02:30 94 26 95 Facial 100 09/11/19 00:37 94 31 95 Facial 100 09/11/19 00:32 95 20 94 Non-Rebreather 15.0 100 09/11/19 00:22 95 20 95 Non-Rebreather 15.0 100 09/11/19 00:00 85 09/11/19 00:00 98.0 94 20 142/69 (93) 95 09/10/19 23:30 91 33 93 Facial 100 09/10/19 21:00 Bi-pap 09/10/19 20:00 40 09/10/19 20:00 92 09/10/19 20:00 98.2 91 24 137/66 (89) 95 09/10/19 19:30 93 Non-Rebreather 15.0 100 09/10/19 16:00 40 09/10/19 16:00 98.1 86 20 126/57 (80) 97 09/10/19 16:00 91 09/10/19 14:38 92 09/10/19 13:48 87 28 94 Facial 80 09/10/19 13:45 87 28 94 Non-Rebreather 15.0 100 91 32 91 09/10/19 12:00 97.5 91 22 135/69 (91) 96 09/10/19 12:00 40 09/10/19 12:00 96 Intake and Output 09/10/19 09/11/19 19:00 07:00 Intake Total 360 ml 380 ml Output Total 150 ml Balance 210 ml 380 ml Intake Oral 360 ml 380 ml Output Urine Total 150 ml # Voids 2 General Appearance: no acute distress HEENT: normocephalic Respiratory/Chest: chest wall non-tender, lungs clear Cardiovascular: normal peripheral pulses Abdomen: normal bowel sounds Current Medications Medications (Trade) Dose Ordered Sig/Yue Route PRN Reason Start Time Stop Time Status Last Admin Dose Admin Acetaminophen (Tylenol) 650 mg Q6H PRN ORAL Mild Pain/Temp > 100.5 09/07/19 15:30 10/07/19 15:29 Acetaminophen/ Hydrocodone Bitart ([place] 5/325) 1 tab Q6H PRN ORAL moderate pain, 4-6 09/07/19 15:30 09/14/19 15:29 09/10/19 17:38 Albuterol Sulfate (Proventil) 2.5 mg Q4H PRN HHN Shortness of Breath 09/07/19 15:30 09/12/19 15:29 09/11/19 00:22 Allopurinol (Zyloprim) 100 mg DAILY ORAL 09/09/19 09:00 10/09/19 08:59 09/11/19 08:26 Aspirin (Ecotrin) 81 mg DAILY ORAL 09/08/19 09:00 10/07/19 08:59 09/11/19 08:25 Azithromycin (Zithromax) 500 mg DAILY ORAL 09/10/19 09:00 09/13/19 23:59 09/11/19 08:25 Ceftriaxone Sodium 2 gm/ Sodium Chloride 55 ml @ 110 mls/hr Q24H IVPB 09/09/19 18:00 09/14/19 17:59 09/10/19 17:12 Chlorthalidone (Chlorthalidone) 25 mg DAILY ORAL 09/09/19 09:00 10/09/19 08:59 09/11/19 08:25 Dextrose (Dextrose 50%) 25 ml Q30M PRN IV Hypoglycemia 09/07/19 15:30 10/07/19 06:29 Dextrose (Dextrose 50%) 50 ml Q30M PRN IV Hypoglycemia 09/07/19 15:30 10/07/19 06:29 Enoxaparin Sodium (Lovenox) 40 mg DAILY SUBQ 09/08/19 09:00 10/07/19 08:59 09/11/19 08:27 Hydromorphone HCl (Dilaudid) 0.5 mg BIDPRN PRN IVP Severe Pain (Pain Scale 7-10) 09/07/19 15:30 09/14/19 15:29 Insulin Aspart (NovoLOG) BEFORE MEALS AND HS SUBQ 09/07/19 16:30 10/07/19 06:29 09/11/19 06:16 Insulin Detemir (Levemir) 12 units Q12H SUBQ 09/10/19 20:00 10/07/19 15:59 09/11/19 08:28 Irbesartan (Avapro) 300 mg DAILY ORAL 09/10/19 09:00 10/10/19 08:59 09/11/19 08:25 Levothyroxine Sodium (Synthroid) 150 mcg DAILY@0630 ORAL 09/08/19 06:30 10/08/19 06:29 09/11/19 06:14 Liothyronine Sodium (Cytomel) 5 mcg DAILY ORAL 09/10/19 09:00 10/10/19 08:59 09/11/19 08:25 Metformin HCl (Glucophage) 500 mg TIAC ORAL 09/08/19 16:30 10/08/19 16:29 09/11/19 06:14 Nateglinide (Starlix) 120 mg TIAC ORAL 09/07/19 16:30 10/07/19 11:29 09/11/19 06:14 Sohail Aguirre MD Sep 11, 2019 11:43
--- NOTE | 2019-09-11 11:47 | General Progress Note ---
Assessment/Plan Assessment/Plan: S: I am feeling the same O: on O2, denies chest pain . limited activity reported. Low threshold for exertional sob. PHYSICAL EXAMINATION:HEAD AND NECK: Atraumatic, normocephalic. CHEST: Clear to auscultation.HEART: S1, S2. Regular rate and rhythm. ABDOMEN: Soft. No organomegaly.MUSCULOSKELETAL: No gross focal deficit. NEUROLOGIC: The patient is awake, alert, oriented x3. LABORATORY DATA: Labs dated 09/08 reviewed ASSESSMENT: 1. Acute Asthma exacerbation 2. Community-acquired pneumonia. 3. CHF exacerbation. 4. Morbid obesity. 5. Asthma. 6. Severe pulmonary arterial hypertension. 7. DM 2- uncontrolled 8. GI and DVT prophylaxis. Plan: Poor overall physicl performance, with limited ADLS Reported that is not willing to go to Rehab Rebound Leukocytosis, Not clinically volume over load Notes from Nephro and Pulmonary reviewed Subjective Allergies: Coded Allergies: MORPHINE (Verified Allergy, Intermediate, 09/09/19) Headach, Dizziness Objective Last 24 Hour Vital Signs Date Time Temp Pulse Resp B/P (MAP) Pulse Ox O2 Delivery O2 Flow Rate FiO2 09/11/19 09:00 96.8 89 20 136/70 (92) 96 09/11/19 09:00 Bi-pap 09/11/19 08:38 69 33 96 Facial 50 09/11/19 08:38 96 Non-Rebreather 15.0 100 09/11/19 08:25 136/70 09/11/19 08:00 89 09/11/19 08:00 15.0 09/11/19 04:31 87 27 96 Facial 100 09/11/19 04:00 40 09/11/19 04:00 86 09/11/19 04:00 98.0 91 21 155/51 (85) 95 09/11/19 02:30 94 26 95 Facial 100 09/11/19 00:37 94 31 95 Facial 100 09/11/19 00:32 95 20 94 Non-Rebreather 15.0 100 09/11/19 00:22 95 20 95 Non-Rebreather 15.0 100 09/11/19 00:00 85 09/11/19 00:00 98.0 94 20 142/69 (93) 95 09/10/19 23:30 91 33 93 Facial 100 09/10/19 21:00 Bi-pap 09/10/19 20:00 40 09/10/19 20:00 92 09/10/19 20:00 98.2 91 24 137/66 (89) 95 09/10/19 19:30 93 Non-Rebreather 15.0 100 09/10/19 16:00 40 09/10/19 16:00 98.1 86 20 126/57 (80) 97 09/10/19 16:00 91 09/10/19 14:38 92 09/10/19 13:48 87 28 94 Facial 80 09/10/19 13:45 87 28 94 Non-Rebreather 15.0 100 91 32 91 09/10/19 12:00 97.5 91 22 135/69 (91) 96 09/10/19 12:00 40 09/10/19 12:00 96 Intake and Output 09/10/19 09/11/19 19:00 07:00 Intake Total 360 ml 380 ml Output Total 150 ml Balance 210 ml 380 ml Intake Oral 360 ml 380 ml Output Urine Total 150 ml # Voids 2 Height (Feet): 5 Height (Inches): 4.00 Weight (Pounds): 267 Marcela Jacobo MD Sep 11, 2019 11:47
[2019-09-11 12:00] VITALS: BP 134/74
--- NOTE | 2019-09-11 14:42 | Nephrology Progress Note ---
Assessment/Plan Problem List: (1) Morbid obesity with BMI of 40.0-44.9, adult (2) Anemia (3) Hyperglycemia due to type 2 diabetes mellitus (4) Hypertension (5) Respiratory failure with hypoxia and hypercapnia Assessment Acute Respiratory Failure Morbid Obesity LAYO Anemia DM OOC HTN Plan add metformin to starlix adjust Levemir to 15 Q12 add cytomel Respiratory support, BIPAP 2D Echo , BP and BS management monitor lytes Subjective ROS Limited/Unobtainable: No Constitutional: Reports: malaise Objective Objective Last 24 Hour Vital Signs Date Time Temp Pulse Resp B/P (MAP) Pulse Ox O2 Delivery O2 Flow Rate FiO2 09/11/19 12:00 96.8 88 19 134/74 (94) 94 09/11/19 09:00 96.8 89 20 136/70 (92) 96 09/11/19 09:00 Bi-pap 09/11/19 08:38 69 33 96 Facial 50 09/11/19 08:38 96 Non-Rebreather 15.0 100 09/11/19 08:25 136/70 09/11/19 08:00 89 09/11/19 08:00 15.0 09/11/19 04:31 87 27 96 Facial 100 09/11/19 04:00 40 09/11/19 04:00 86 09/11/19 04:00 98.0 91 21 155/51 (85) 95 09/11/19 02:30 94 26 95 Facial 100 09/11/19 00:37 94 31 95 Facial 100 09/11/19 00:32 95 20 94 Non-Rebreather 15.0 100 09/11/19 00:22 95 20 95 Non-Rebreather 15.0 100 09/11/19 00:00 85 09/11/19 00:00 98.0 94 20 142/69 (93) 95 09/10/19 23:30 91 33 93 Facial 100 09/10/19 21:00 Bi-pap 09/10/19 20:00 40 09/10/19 20:00 92 09/10/19 20:00 98.2 91 24 137/66 (89) 95 09/10/19 19:30 93 Non-Rebreather 15.0 100 09/10/19 16:00 40 09/10/19 16:00 98.1 86 20 126/57 (80) 97 11/21/19 16:00 91 Intake and Output 09/10/19 09/11/19 19:00 07:00 Intake Total 360 ml 380 ml Output Total 150 ml Balance 210 ml 380 ml Intake Oral 360 ml 380 ml Output Urine Total 150 ml # Voids 2 Height (Feet): 5 Height (Inches): 4.00 Weight (Pounds): 267 General Appearance: mild distress EENT: other - O2 Mask Respiratory/Chest: decreased breath sounds Abdomen: other - obese Gino Longoria MD Sep 11, 2019 14:42
--- NOTE | 2019-09-11 15:08 | NUR ---
*-* INSURANCE *-* ALL CLINICALS AND REVIEWS HAVE BEEN FAXED TO: [facility] Ref# [id number] CM: [place]ina #[phone] fax#[phone] also send to [facility] ref# or ANSON maradiaga #[phone] fax#[phone]
--- NOTE | 2019-09-11 15:40 | NUR ---
P.T. NOTES S/P: APPROACHED PATIENT'S ROOM IN THE PM. PATIENT FOUND SITTING UIC UPON ARRIVAL. PATIENT DECLINED P.T. TX. PATIENT STATED, "I'M NOT FEELING WELL.TODAY. I'LL TRY TOMORROW." RN AWARE OF PATIENT' S STATUS. WILL F/U NEXT TX. TIME AND CONT WITH P.T. PLAN. RSABADO.
[2019-09-11 16:30] VITALS: BP 138/66
[2019-09-11] MEDS: cefTRIAXone 2 GM in NS 55 ML IVPB SCH (17:29)
--- NOTE | 2019-09-11 18:55 | Cardiology Progress Note ---
Assessment/Plan Assessment/Plan 1. Severe pulmonary hypertension with right ventricular systolic pressure as high as 101 mmHg by echo. Discussed need of right heart cath as an outpatient. 2. Morbid obesity. 3. Normal LV systolic function with LVEF approximately 60%. 4. History of diabetes mellitus. 5. History of hypertension, stage I, continue Irbesartan and chlorthalidone. Will add metoprolol XL 25mg daily. Subjective Subjective Sinus rhythm at rate of 88. Objective Last 24 Hour Vital Signs Date Time Temp Pulse Resp B/P (MAP) Pulse Ox O2 Delivery O2 Flow Rate FiO2 09/11/19 18:46 88 20 98 Non-Rebreather 15.0 100 88 20 96 09/11/19 18:45 98 Non-Rebreather 15.0 100 09/11/19 16:30 96.6 88 18 138/66 (90) 96 09/11/19 12:00 96.8 88 19 134/74 (94) 94 09/11/19 09:00 96.8 89 20 136/70 (92) 96 09/11/19 09:00 Bi-pap 09/11/19 08:38 69 33 96 Facial 50 09/11/19 08:38 96 Non-Rebreather 15.0 100 09/11/19 08:25 136/70 09/11/19 08:00 89 09/11/19 08:00 15.0 09/11/19 04:31 87 27 96 Facial 100 09/11/19 04:00 40 09/11/19 04:00 86 09/11/19 04:00 98.0 91 21 155/51 (85) 95 09/11/19 02:30 94 26 95 Facial 100 09/11/19 00:37 94 31 95 Facial 100 09/11/19 00:32 95 20 94 Non-Rebreather 15.0 100 09/11/19 00:22 95 20 95 Non-Rebreather 15.0 100 09/11/19 00:00 85 09/11/19 00:00 98.0 94 20 142/69 (93) 95 09/10/19 23:30 91 33 93 Facial 100 09/10/19 21:00 Bi-pap 09/10/19 20:00 40 09/10/19 20:00 92 09/10/19 20:00 98.2 91 24 137/66 (89) 95 09/10/19 19:30 93 Non-Rebreather 15.0 100 Intake and Output 09/10/19 09/11/19 19:00 07:00 Intake Total 360 ml 380 ml Output Total 150 ml Balance 210 ml 380 ml Intake Oral 360 ml 380 ml Output Urine Total 150 ml # Voids 2 2D Echo: LVEF 60%, Hi RAP at 15 mmHg, RVSP 101 mmHg, Normal LV diastolic Fxn Objective HEENT: Atraumatic and normocephalic. Anicteric. Pupils are equal, round, and reactive to light and accommodation. Extraocular muscles intact. NECK: Cannot assess JVP due to morbid obesity and short neck. CARDIOVASCULAR: Normal S1, S2. Regular rate and rhythm. No murmurs, gallops, or rubs. PMI is at fourth intercostal space in the midclavicular line. LUNGS: Bilateral basal crackles. ABDOMEN: Soft, non-tender, non-distended, + BS. EXTREMITIES: 1+ bilateral lower extremity edema. Bryce Funez MD Sep 11, 2019 18:55
[2019-09-11] MEDS: Metoprolol Succinate XL 25mg tab ORAL SCH (19:07)
--- NOTE | 2019-09-11 19:38 | NUR ---
HAND-OFF: Report given to Rashid Sheehan. Plan of care endorsed.
--- NOTE | 2019-09-11 19:43 | NUR ---
NURSE NOTES: Received report from TEDDY Holm. Patient is sitting in the chair, awake and responsive. Breathing regular and unlabored with no s/s of SOB noted at this time. Patient denies pain at this time. IV is intact and saline locked at this time. Patient is on a non-rebreather at this time and saturations are between 94-96%. Will continue to monitor.
[2019-09-11 20:00] VITALS: BP 138/73
--- NOTE | 2019-09-11 20:48 | Infectious Diseases Prog Note ---
Assessment/Plan Problems: (1) Leukocytosis Assessment & Plan: with worsening right lung infiltrates , will switch her antibiotics to zosyn empirically and send sputum culture , await repeated blood culture , monitor CXR . (2) Community acquired pneumonia Assessment & Plan: with productive cough , brownish , not tinged with blood , will broden her coverage to zosyn and stop ceftriaxone and azithromycin empirically , continue nebulizer treatment , titrate oxygen , monitor CXR (3) Acute exacerbation of CHF (congestive heart failure) Assessment & Plan: continue dieuresis as per renal (4) Respiratory failure with hypoxia and hypercapnia Assessment & Plan: on BIPAP, continue nebulizers and diuretics (5) Hyperglycemia due to type 2 diabetes mellitus Assessment & Plan: poorly controled, continue insulin to achieve tight glycemic control to keep blood glucose between 100-140 (6) Pleural effusion Assessment & Plan: R>L may benefit from thoracentesis Subjective Constitutional: Reports: no symptoms HEENT: Reports: no symptoms Respiratory: Reports: productive cough Breasts: Reports: no symptoms Cardiovascular: Reports: no symptoms Gastrointestinal/Abdominal: Reports: no symptoms Genitourinary: Reports: no symptoms Neurologic: Reports: no symptoms Psychiatric: Reports: no symptoms Skin: Reports: no symptoms Endocrine: Reports: no symptoms Hematologic: Reports: no symptoms Musculoskeletal: Reports: no symptoms Allergies: Coded Allergies: MORPHINE (Verified Allergy, Intermediate, 09/09/19) Headach, Dizziness Objective Vital Signs Last 24 Hour Vital Signs Date Time Temp Pulse Resp B/P (MAP) Pulse Ox O2 Delivery O2 Flow Rate FiO2 09/11/19 19:07 88 138/66 09/11/19 18:46 88 20 98 Non-Rebreather 15.0 100 88 20 96 09/11/19 18:45 98 Non-Rebreather 15.0 100 09/11/19 16:30 96.6 88 18 138/66 (90) 96 09/11/19 16:00 15.0 09/11/19 16:00 96 09/11/19 12:00 96.8 88 19 134/74 (94) 94 09/11/19 12:00 93 09/11/19 09:00 96.8 89 20 136/70 (92) 96 09/11/19 09:00 Bi-pap 09/11/19 08:38 69 33 96 Facial 50 09/11/19 08:38 96 Non-Rebreather 15.0 100 09/11/19 08:25 136/70 09/11/19 08:00 89 09/11/19 08:00 15.0 09/11/19 04:31 87 27 96 Facial 100 09/11/19 04:00 40 09/11/19 04:00 86 09/11/19 04:00 98.0 91 21 155/51 (85) 95 09/11/19 02:30 94 26 95 Facial 100 09/11/19 00:37 94 31 95 Facial 100 09/11/19 00:32 95 20 94 Non-Rebreather 15.0 100 09/11/19 00:22 95 20 95 Non-Rebreather 15.0 100 09/11/19 00:00 85 09/11/19 00:00 98.0 94 20 142/69 (93) 95 09/10/19 23:30 91 33 93 Facial 100 09/10/19 21:00 Bi-pap Height (Feet): 5 Height (Inches): 4.00 Weight (Pounds): 267 General Appearance: WD/WN, no acute distress HEENT: normocephalic, atraumatic, anicteric, mucous membranes moist, PERRL Respiratory/Chest: chest wall non-tender, no respiratory distress, no accessory muscle use, decreased breath sounds, crackles/rales Cardiovascular: normal peripheral pulses, normal rate, regular rhythm, no gallop/murmur, no JVD Abdomen: normal bowel sounds, soft, non tender, no organomegaly, non distended , no mass, no scars Genitourinary: normal external genitalia Extremities: no cyanosis, no clubbing Skin: no rash, no lesions, no ulcers Neurologic/Psychiatric: line up worker II-XII grossly normal, no motor/sensory deficits, alert, oriented x 3, responsive Lymphatic: no neck adenopathy, no groin adenopathy Current Medications Medications (Trade) Dose Ordered Sig/Yue Route PRN Reason Start Time Stop Time Status Last Admin Dose Admin Acetaminophen (Tylenol) 650 mg Q6H PRN ORAL Mild Pain/Temp > 100.5 09/07/19 15:30 10/07/19 15:29 Acetaminophen/ Hydrocodone Bitart ([place] 5/325) 1 tab Q6H PRN ORAL moderate pain, 4-6 09/07/19 15:30 11/25/19 15:29 09/10/19 17:38 Albuterol Sulfate (Proventil) 2.5 mg Q4H PRN HHN Shortness of Breath 09/07/19 15:30 09/12/19 15:29 09/11/19 18:43 Allopurinol (Zyloprim) 100 mg DAILY ORAL 09/09/19 09:00 10/09/19 08:59 09/11/19 08:26 Aspirin (Ecotrin) 81 mg DAILY ORAL 09/08/19 09:00 10/07/19 08:59 09/11/19 08:25 Azithromycin (Zithromax) 500 mg DAILY ORAL 09/10/19 09:00 09/13/19 23:59 09/11/19 08:25 Ceftriaxone Sodium 2 gm/ Sodium Chloride 55 ml @ 110 mls/hr Q24H IVPB 09/09/19 18:00 09/14/19 17:59 09/11/19 17:29 Chlorthalidone (Chlorthalidone) 25 mg DAILY ORAL 09/09/19 09:00 10/09/19 08:59 09/11/19 08:25 Dextrose (Dextrose 50%) 25 ml Q30M PRN IV Hypoglycemia 09/07/19 15:30 10/07/19 06:29 Dextrose (Dextrose 50%) 50 ml Q30M PRN IV Hypoglycemia 09/07/19 15:30 10/07/19 06:29 Enoxaparin Sodium (Lovenox) 40 mg DAILY SUBQ 09/08/19 09:00 10/07/19 08:59 09/11/19 08:27 Hydromorphone HCl (Dilaudid) 0.5 mg BIDPRN PRN IVP Severe Pain (Pain Scale 7-10) 09/07/19 15:30 09/14/19 15:29 Insulin Aspart (NovoLOG) BEFORE MEALS AND HS SUBQ 09/07/19 16:30 10/07/19 06:29 09/11/19 17:23 Insulin Detemir (Levemir) 15 units Q12H SUBQ 09/11/19 20:00 10/07/19 15:59 Irbesartan (Avapro) 300 mg DAILY ORAL 09/10/19 09:00 10/10/19 08:59 09/11/19 08:25 Levothyroxine Sodium (Synthroid) 150 mcg DAILY@0630 ORAL 09/08/19 06:30 10/08/19 06:29 09/11/19 06:14 Liothyronine Sodium (Cytomel) 5 mcg DAILY ORAL 09/10/19 09:00 10/10/19 08:59 09/11/19 08:25 Metformin HCl (Glucophage) 500 mg TIAC ORAL 09/08/19 16:30 10/08/19 16:29 09/11/19 17:19 Metoprolol Succinate (Toprol XL) 25 mg DAILY ORAL 09/11/19 18:55 10/11/19 18:54 09/11/19 19:07 Nateglinide (Starlix) 120 mg TIAC ORAL 09/07/19 16:30 10/07/19 11:29 09/11/19 17:19 Katlyn Richard M.D. Sep 11, 2019 20:48
--- NOTE | 2019-09-11 21:30 | NUR ---
NURSE NOTES: Patient complained of not being able to have a bowel movement for a few days now. Contacted the doctor about the patient's concerns and received orders for the patient. Orders noted at carried out.
[2019-09-11] MEDS: Piperacillin/Tazobactam 3.375 GM in NS 110 ML IVPB SCH (22:20)
[2019-09-11] MEDS ORDERED: Docusate 250mg cap ORAL ONE (23:00)
[2019-09-12] VITALS: BP 136/57
--- NOTE | 2019-09-12 01:32 | NUR ---
NURSE NOTES: Patient is C/O cough and phlegm. Upon assessment of patient the phlegm was clean and no SOB was noted. Patient requested to have something to ease the cough so she can sleep better. Notified the doctor about the patient's concerns. Awaiting response.
[2019-09-12 04:00] VITALS: BP 150/70
[2019-09-12] MEDS: metFORMIN 500mg tab ORAL SCH ×3 (05:55→18:19)
[2019-09-12] MEDS: Piperacillin/Tazobactam 3.375 GM in NS 110 ML IVPB SCH ×3 (05:56→22:11)
[2019-09-12] MEDS: NovoLOG Insulin Flexpen SUBQ SCH ×4 (05:57→20:34)
--- NOTE | 2019-09-12 06:59 | NUR ---
HAND-OFF: Report given to TEDDY Holm. Patient in stable condition, plan of care endorsed.
--- NOTE | 2019-09-12 07:45 | NUR ---
NURSE NOTES: Received report from Rashid Sheehan. Patient sitting up in chair sleeping comfortably. non- rebreather @ 15L. no signs and symptoms of distress. son at bedside. call ayon placed within patients reach. will follow.
[2019-09-12 08:00] VITALS: BP 125/63
[2019-09-12 08:07] LABS: HEMATOCRIT 28.1 % (37.0-47.0); HEMOGLOBIN 8.7 G/DL (12.0-16.0); MEAN CORPUSCULAR VOLUME 95 FL (80-99); PLATELET COUNT 189 K/UL (150-450); RED BLOOD COUNT 2.95 M/UL (4.20-5.40); RED CELL DISTRIBUTION WIDTH 15.6 % (11.6-14.8); WHITE BLOOD COUNT 11.3 K/UL (4.8-10.8)
[2019-09-12 08:28] LABS: ANION GAP 1 mmol/L (5-15); BLOOD UREA NITROGEN 17 mg/dL (7-18); CALCIUM 8.9 MG/DL (8.5-10.1); CARBON DIOXIDE 40 MMOL/L (21-32); CHLORIDE 100 MMOL/L (98-107); CREATININE 0.8 MG/DL (0.55-1.30); POTASSIUM 3.5 MMOL/L (3.5-5.1); SODIUM 141 MMOL/L (136-145)
[2019-09-12] MEDS: Docusate 250mg cap ORAL SCH ×3 (09:39→18:19)
[2019-09-12] MEDS: Liothyronine 5mcg tab ORAL SCH (09:39)
[2019-09-12] MEDS: Aspirin EC 81mg tab ORAL SCH (09:40)
[2019-09-12] MEDS: Metoprolol Succinate XL 25mg tab ORAL SCH (09:40)
[2019-09-12] MEDS: Allopurinol 100mg Tab ORAL SCH (09:40)
[2019-09-12] MEDS: Irbesartan 150mg tablet ORAL SCH (09:40)
[2019-09-12] MEDS: Enoxaparin 40mg Inj SUBQ SCH (09:41)
[2019-09-12] MEDS: Levemir Flexpen SUBQ SCH ×2 (09:42→20:35)
--- NOTE | 2019-09-12 10:39 | Pulmonology Progress Note ---
Assessment/Plan Assessment/Plan ASSESSMENT Pulmonary edema LAYO History of asthma Pulmonary hypertension DISCUSSION: Continue BiPAP q pm. I agree with current medications and care. Continue diuresis, nitrates, breathing treatments. Consider heart cath per cardiology. Avoidance of nephrotoxic medications. Antibiotics broadened but no clear source on infection I will follow carefully. Sohail Aguirre M.D. Subjective Interval Events: Used BiPAP last night; feeling better Constitutional: Reports: no symptoms HEENT: Repors: no symptoms Respiratory: Reports: no symptoms Cardiovascular: Reports: no symptoms Gastrointestinal/Abdominal: Reports: no symptoms Allergies: Coded Allergies: MORPHINE (Verified Allergy, Intermediate, 09/09/19) Headach, Dizziness Objective Last 24 Hour Vital Signs Date Time Temp Pulse Resp B/P (MAP) Pulse Ox O2 Delivery O2 Flow Rate FiO2 09/12/19 09:40 78 125/63 09/12/19 09:40 125/63 09/12/19 09:00 Bi-pap 09/12/19 08:00 15.0 09/12/19 08:00 98.7 78 20 125/63 (83) 97 09/12/19 08:00 73 09/12/19 04:00 15.0 09/12/19 04:00 82 09/12/19 04:00 97.4 84 20 150/70 (96) 98 09/12/19 00:00 90 09/12/19 00:00 98.2 90 20 136/57 (83) 96 09/12/19 00:00 15.0 09/11/19 21:00 Bi-pap 09/11/19 20:00 15.0 09/11/19 20:00 97 09/11/19 20:00 99.4 98 20 138/73 (94) 94 09/11/19 19:07 88 138/66 09/11/19 18:46 88 20 98 Non-Rebreather 15.0 100 88 20 96 09/11/19 18:45 98 Non-Rebreather 15.0 100 09/11/19 16:30 96.6 88 18 138/66 (90) 96 09/11/19 16:00 15.0 09/11/19 16:00 96 09/11/19 12:00 96.8 88 19 134/74 (94) 94 09/11/19 12:00 93 Intake and Output 09/11/19 09/12/19 19:00 07:00 Intake Total 240 ml Balance 240 ml Intake Oral 240 ml # Voids 1 General Appearance: no acute distress HEENT: normocephalic Respiratory/Chest: chest wall non-tender Cardiovascular: normal peripheral pulses Abdomen: normal bowel sounds Microbiology Date/Time Source Procedure Growth Status 09/10/19 16:45 Blood Blood Culture - Preliminary NO GROWTH AFTER 24 HOURS Resulted 09/10/19 16:40 Blood Blood Culture - Preliminary NO GROWTH AFTER 24 HOURS Resulted Laboratory Tests 09/12/19 07:02: White Blood Count 11.3H, Red Blood Count 2.95L, Hemoglobin 8.7L, Hematocrit 28.1L, Mean Corpuscular Volume 95, Mean Corpuscular Hemoglobin 29.4, Mean Corpuscular Hemoglobin Concent 30.8L, Red Cell Distribution Width 15.6H, Platelet Count 189, Mean Platelet Volume 6.3L, Neutrophils (%) (Auto) , Lymphocytes (%) (Auto) , Monocytes (%) (Auto) , Eosinophils (%) (Auto) , Basophils (%) (Auto) , Neutrophils % (Manual) [Pending], Lymphocytes % (Manual) [Pending], Platelet Estimate [Pending], Platelet Morphology [Pending], Sodium Level 141, Potassium Level 3.5, Chloride Level 100, Carbon Dioxide Level 40H, Anion Gap 1L, Blood Urea Nitrogen 17, Creatinine 0.8, Estimat Glomerular Filtration Rate > 60, Glucose Level 188H, Calcium Level 8.9 Current Medications Medications (Trade) Dose Ordered Sig/Yue Route PRN Reason Start Time Stop Time Status Last Admin Dose Admin Acetaminophen (Tylenol) 650 mg Q6H PRN ORAL Mild Pain/Temp > 100.5 09/07/19 15:30 10/07/19 15:29 Acetaminophen/ Hydrocodone Bitart (Pierson 5/325) 1 tab Q6H PRN ORAL moderate pain, 4-6 09/07/19 15:30 09/14/19 15:29 09/10/19 17:38 Albuterol Sulfate (Proventil) 2.5 mg Q4H PRN HHN Shortness of Breath 09/07/19 15:30 09/12/19 15:29 09/11/19 18:43 Allopurinol (Zyloprim) 100 mg DAILY ORAL 09/09/19 09:00 10/09/19 08:59 09/12/19 09:40 Aspirin (Ecotrin) 81 mg DAILY ORAL 09/08/19 09:00 10/07/19 08:59 09/12/19 09:40 Chlorthalidone (Chlorthalidone) 25 mg DAILY ORAL 09/09/19 09:00 10/09/19 08:59 09/12/19 09:39 Dextrose (Dextrose 50%) 25 ml Q30M PRN IV Hypoglycemia 09/07/19 15:30 10/07/19 06:29 Dextrose (Dextrose 50%) 50 ml Q30M PRN IV Hypoglycemia 09/07/19 15:30 10/07/19 06:29 Docusate Sodium (Colace) 250 mg TID ORAL 09/12/19 09:00 10/12/19 08:59 09/12/19 09:39 Enoxaparin Sodium (Lovenox) 40 mg DAILY SUBQ 09/08/19 09:00 10/07/19 08:59 09/12/19 09:41 Hydromorphone HCl (Dilaudid) 0.5 mg BIDPRN PRN IVP Severe Pain (Pain Scale 7-10) 09/07/19 15:30 09/14/19 15:29 Insulin Aspart (NovoLOG) BEFORE MEALS AND HS SUBQ 09/07/19 16:30 10/07/19 06:29 09/12/19 05:57 Insulin Detemir (Levemir) 15 units Q12H SUBQ 09/11/19 20:00 10/07/19 15:59 09/12/19 09:42 Irbesartan (Avapro) 300 mg DAILY ORAL 09/10/19 09:00 10/10/19 08:59 09/12/19 09:40 Levothyroxine Sodium (Synthroid) 150 mcg DAILY@0630 ORAL 09/08/19 06:30 10/08/19 06:29 09/12/19 05:55 Liothyronine Sodium (Cytomel) 5 mcg DAILY ORAL 09/10/19 09:00 10/10/19 08:59 09/12/19 09:39 Metformin HCl (Glucophage) 500 mg TIAC ORAL 09/08/19 16:30 10/08/19 16:29 09/12/19 05:55 Metoprolol Succinate (Toprol XL) 25 mg DAILY ORAL 09/11/19 18:55 10/11/19 18:54 09/12/19 09:40 Nateglinide (Starlix) 120 mg TIAC ORAL 09/07/19 16:30 10/07/19 11:29 09/12/19 05:55 Piperacillin Sod/ Tazobactam Sod 3.375 gm/Sodium Chloride 110 ml @ 27.5 mls/hr EVERY 8 HOURS IVPB 09/11/19 22:00 09/18/19 21:59 09/12/19 05:56 Sohail Aguirre MD Sep 12, 2019 10:39
[2019-09-12 12:00] VITALS: BP 139/68
[2019-09-12] MEDS: HYDROcodone/Acetamin 5/325 tab ORAL PRN (12:18)
--- NOTE | 2019-09-12 13:33 | Infectious Diseases Prog Note ---
Assessment/Plan Problems: (1) Leukocytosis Assessment & Plan: with worsening right lung infiltrates , continue zosyn empirically to cover for pneumonia pending sputum culture , repeated blood culture is negative on 09/10 , monitor CXR . (2) Community acquired pneumonia Assessment & Plan: with productive cough , now on zosyn empirically due to worsening right side lung infiltrates and WBC , continue nebulizer treatment , titrate oxygen , monitor CXR (3) Acute exacerbation of CHF (congestive heart failure) Assessment & Plan: continue dieuresis as per renal (4) Respiratory failure with hypoxia and hypercapnia Assessment & Plan: on BIPAP, continue nebulizers and diuretics (5) Hyperglycemia due to type 2 diabetes mellitus Assessment & Plan: poorly controled, continue insulin to achieve tight glycemic control to keep blood glucose between 100-140 (6) Pleural effusion Assessment & Plan: R>L may benefit from thoracentesis Subjective Constitutional: Reports: no symptoms HEENT: Reports: no symptoms Respiratory: Reports: shortness of breath, productive cough Breasts: Reports: no symptoms Cardiovascular: Reports: no symptoms Gastrointestinal/Abdominal: Reports: no symptoms Genitourinary: Reports: no symptoms Neurologic: Reports: no symptoms Psychiatric: Reports: no symptoms Skin: Reports: no symptoms Endocrine: Reports: no symptoms Hematologic: Reports: no symptoms Musculoskeletal: Reports: no symptoms Allergies: Coded Allergies: MORPHINE (Verified Allergy, Intermediate, 09/09/19) Headach, Dizziness Objective Vital Signs Last 24 Hour Vital Signs Date Time Temp Pulse Resp B/P (MAP) Pulse Ox O2 Delivery O2 Flow Rate FiO2 09/12/19 12:48 98.7 09/12/19 12:00 15.0 09/12/19 12:00 97.8 78 18 139/68 (91) 99 09/12/19 09:40 78 125/63 09/12/19 09:40 125/63 09/12/19 09:00 Bi-pap 09/12/19 08:00 15.0 09/12/19 08:00 98.7 78 20 125/63 (83) 97 09/12/19 08:00 73 09/12/19 04:00 15.0 09/12/19 04:00 82 09/12/19 04:00 97.4 84 20 150/70 (96) 98 09/12/19 00:00 90 09/12/19 00:00 98.2 90 20 136/57 (83) 96 09/12/19 00:00 15.0 09/11/19 21:00 Bi-pap 09/11/19 20:00 15.0 09/11/19 20:00 97 09/11/19 20:00 99.4 98 20 138/73 (94) 94 09/11/19 19:07 88 138/66 09/11/19 18:46 88 20 98 Non-Rebreather 15.0 100 88 20 96 09/11/19 18:45 98 Non-Rebreather 15.0 100 09/11/19 16:30 96.6 88 18 138/66 (90) 96 09/11/19 16:00 15.0 09/11/19 16:00 96 Height (Feet): 5 Height (Inches): 4.00 Weight (Pounds): 267 General Appearance: WD/WN, no acute distress HEENT: normocephalic, atraumatic, anicteric, mucous membranes moist, PERRL Respiratory/Chest: chest wall non-tender, no respiratory distress, no accessory muscle use, decreased breath sounds, crackles/rales Cardiovascular: normal peripheral pulses, normal rate, regular rhythm, no gallop/murmur, no JVD Abdomen: normal bowel sounds, soft, non tender, no organomegaly, non distended , no mass, no scars Genitourinary: normal external genitalia Extremities: no cyanosis, no clubbing Skin: no rash, no lesions, no ulcers Neurologic/Psychiatric: vice president of engineering II-XII grossly normal, no motor/sensory deficits, alert, oriented x 3, responsive Lymphatic: no neck adenopathy, no groin adenopathy Musculoskeletal: normal muscle bulk, no effusion Microbiology Date/Time Source Procedure Growth Status 09/10/19 16:45 Blood Blood Culture - Preliminary NO GROWTH AFTER 24 HOURS Resulted 09/10/19 16:40 Blood Blood Culture - Preliminary NO GROWTH AFTER 24 HOURS Resulted Laboratory Tests Test 09/12/19 07:02 White Blood Count 11.3 K/UL (4.8-10.8) H Red Blood Count 2.95 M/UL (4.20-5.40) L Hemoglobin 8.7 G/DL (12.0-16.0) L Hematocrit 28.1 % (37.0-47.0) L Mean Corpuscular Volume 95 FL (80-99) Mean Corpuscular Hemoglobin 29.4 PG (27.0-31.0) Mean Corpuscular Hemoglobin Concent 30.8 G/DL (32.0-36.0) L Red Cell Distribution Width 15.6 % (11.6-14.8) H Platelet Count 189 K/UL (150-450) Mean Platelet Volume 6.3 FL (6.5-10.1) L Neutrophils (%) (Auto) % (45.0-75.0) Lymphocytes (%) (Auto) % (20.0-45.0) Monocytes (%) (Auto) % (1.0-10.0) Eosinophils (%) (Auto) % (0.0-3.0) Basophils (%) (Auto) % (0.0-2.0) Differential Total Cells Counted 100 Neutrophils % (Manual) 92 % (45-75) H Lymphocytes % (Manual) 3 % (20-45) L Monocytes % (Manual) 4 % (1-10) Eosinophils % (Manual) 1 % (0-3) Basophils % (Manual) 0 % (0-2) Band Neutrophils 0 % (0-8) Platelet Estimate Adequate Platelet Morphology Normal Hypochromasia 2+ Anisocytosis 1+ Sodium Level 141 MMOL/L (136-145) Potassium Level 3.5 MMOL/L (3.5-5.1) Chloride Level 100 MMOL/L (98-107) Carbon Dioxide Level 40 MMOL/L (21-32) H Anion Gap 1 mmol/L (5-15) L Blood Urea Nitrogen 17 mg/dL (7-18) Creatinine 0.8 MG/DL (0.55-1.30) Estimat Glomerular Filtration Rate > 60 mL/min (>60) Glucose Level 188 MG/DL (74-106) H Calcium Level 8.9 MG/DL (8.5-10.1) Current Medications Medications (Trade) Dose Ordered Sig/Yue Route PRN Reason Start Time Stop Time Status Last Admin Dose Admin Acetaminophen (Tylenol) 650 mg Q6H PRN ORAL Mild Pain/Temp > 100.5 09/07/19 15:30 10/07/19 15:29 Acetaminophen/ Hydrocodone Bitart (Waddy 5/325) 1 tab Q6H PRN ORAL moderate pain, 4-6 09/07/19 15:30 09/14/19 15:29 09/12/19 12:18 Albuterol Sulfate (Proventil) 2.5 mg Q4H PRN HHN Shortness of Breath 09/07/19 15:30 09/12/19 15:29 09/11/19 18:43 Allopurinol (Zyloprim) 100 mg DAILY ORAL 09/09/19 09:00 10/09/19 08:59 09/12/19 09:40 Aspirin (Ecotrin) 81 mg DAILY ORAL 09/08/19 09:00 10/07/19 08:59 09/12/19 09:40 Chlorthalidone (Chlorthalidone) 25 mg DAILY ORAL 09/09/19 09:00 10/09/19 08:59 09/12/19 09:39 Dextrose (Dextrose 50%) 25 ml Q30M PRN IV Hypoglycemia 09/07/19 15:30 10/07/19 06:29 Dextrose (Dextrose 50%) 50 ml Q30M PRN IV Hypoglycemia 09/07/19 15:30 10/07/19 06:29 Docusate Sodium (Colace) 250 mg TID ORAL 09/12/19 09:00 10/12/19 08:59 09/12/19 13:24 Enoxaparin Sodium (Lovenox) 40 mg DAILY SUBQ 09/08/19 09:00 10/07/19 08:59 09/12/19 09:41 Hydromorphone HCl (Dilaudid) 0.5 mg BIDPRN PRN IVP Severe Pain (Pain Scale 7-10) 09/07/19 15:30 09/14/19 15:29 Insulin Aspart (NovoLOG) BEFORE MEALS AND HS SUBQ 09/07/19 16:30 10/07/19 06:29 09/12/19 12:20 Insulin Detemir (Levemir) 15 units Q12H SUBQ 09/11/19 20:00 10/07/19 15:59 09/12/19 09:42 Irbesartan (Avapro) 300 mg DAILY ORAL 09/10/19 09:00 10/10/19 08:59 09/12/19 09:40 Levothyroxine Sodium (Synthroid) 150 mcg DAILY@0630 ORAL 09/08/19 06:30 10/08/19 06:29 09/12/19 05:55 Liothyronine Sodium (Cytomel) 5 mcg DAILY ORAL 09/10/19 09:00 10/10/19 08:59 09/12/19 09:39 Metformin HCl (Glucophage) 500 mg TIAC ORAL 09/08/19 16:30 10/08/19 16:29 09/12/19 12:17 Metoprolol Succinate (Toprol XL) 25 mg DAILY ORAL 09/11/19 18:55 10/11/19 18:54 09/12/19 09:40 Nateglinide (Starlix) 120 mg TIAC ORAL 09/07/19 16:30 10/07/19 11:29 09/12/19 12:17 Piperacillin Sod/ Tazobactam Sod 3.375 gm/Sodium Chloride 110 ml @ 27.5 mls/hr EVERY 8 HOURS IVPB 09/11/19 22:00 09/18/19 21:59 09/12/19 05:56 Katlyn Richard M.D. Sep 12, 2019 13:33
--- NOTE | 2019-09-12 15:40 | Nephrology Progress Note ---
Assessment/Plan Problem List: (1) Morbid obesity with BMI of 40.0-44.9, adult (2) Anemia (3) Hyperglycemia due to type 2 diabetes mellitus (4) Hypertension (5) Respiratory failure with hypoxia and hypercapnia Assessment Acute Respiratory Failure Morbid Obesity LAYO Anemia DM OOC HTN Plan add metformin to starlix adjust Levemir to 15 Q12 add cytomel Respiratory support, BIPAP 2D Echo , BP and BS management monitor lytes Subjective ROS Limited/Unobtainable: No Constitutional: Reports: malaise Objective Objective Last 24 Hour Vital Signs Date Time Temp Pulse Resp B/P (MAP) Pulse Ox O2 Delivery O2 Flow Rate FiO2 09/12/19 12:48 98.7 09/12/19 12:00 15.0 09/12/19 12:00 97.8 78 18 139/68 (91) 99 09/12/19 09:40 78 125/63 09/12/19 09:40 125/63 09/12/19 09:00 Bi-pap 09/12/19 08:00 15.0 09/12/19 08:00 98.7 78 20 125/63 (83) 97 09/12/19 08:00 73 09/12/19 04:00 15.0 09/12/19 04:00 82 09/12/19 04:00 97.4 84 20 150/70 (96) 98 09/12/19 00:00 90 09/12/19 00:00 98.2 90 20 136/57 (83) 96 09/12/19 00:00 15.0 09/11/19 21:00 Bi-pap 09/11/19 20:00 15.0 09/11/19 20:00 97 09/11/19 20:00 99.4 98 20 138/73 (94) 94 09/11/19 19:07 88 138/66 09/11/19 18:46 88 20 98 Non-Rebreather 15.0 100 88 20 96 09/11/19 18:45 98 Non-Rebreather 15.0 100 09/11/19 16:30 96.6 88 18 138/66 (90) 96 09/11/19 16:00 15.0 09/11/19 16:00 96 Intake and Output 09/11/19 09/12/19 19:00 07:00 Intake Total 240 ml Balance 240 ml Intake Oral 240 ml # Voids 1 Laboratory Tests 09/12/19 07:02: White Blood Count 11.3H, Red Blood Count 2.95L, Hemoglobin 8.7L, Hematocrit 28.1L, Mean Corpuscular Volume 95, Mean Corpuscular Hemoglobin 29.4, Mean Corpuscular Hemoglobin Concent 30.8L, Red Cell Distribution Width 15.6H, Platelet Count 189, Mean Platelet Volume 6.3L, Neutrophils (%) (Auto) , Lymphocytes (%) (Auto) , Monocytes (%) (Auto) , Eosinophils (%) (Auto) , Basophils (%) (Auto) , Differential Total Cells Counted 100, Neutrophils % ( Manual) 92H, Lymphocytes % (Manual) 3L, Monocytes % (Manual) 4, Eosinophils % ( Manual) 1, Basophils % (Manual) 0, Band Neutrophils 0, Platelet Estimate Adequate, Platelet Morphology Normal, Hypochromasia 2+, Anisocytosis 1+, Sodium Level 141, Potassium Level 3.5, Chloride Level 100, Carbon Dioxide Level 40H, Anion Gap 1L, Blood Urea Nitrogen 17, Creatinine 0.8, Estimat Glomerular Filtration Rate > 60, Glucose Level 188H, Calcium Level 8.9 Height (Feet): 5 Height (Inches): 4.00 Weight (Pounds): 267 General Appearance: no apparent distress Cardiovascular: normal rate Respiratory/Chest: decreased breath sounds Abdomen: other - obese Gino Longoria MD Sep 12, 2019 15:40
[2019-09-12 16:00] VITALS: BP 133/59
--- NOTE | 2019-09-12 16:39 | General Progress Note ---
Assessment/Plan Assessment/Plan: S: I am feeling the same O: on O2, denies chest pain . limited activity reported. Low threshold for exertional sob. PHYSICAL EXAMINATION:HEAD AND NECK: Atraumatic, normocephalic. CHEST: Clear to auscultation.HEART: S1, S2. Regular rate and rhythm. ABDOMEN: Soft. No organomegaly.MUSCULOSKELETAL: No gross focal deficit. NEUROLOGIC: The patient is awake, alert, oriented x3. LABORATORY and Imaging DATA: dated 09/11 reviewed ASSESSMENT: 1. Acute Asthma exacerbation 2. Community-acquired pneumonia. 3. CHF exacerbation. 4. Morbid obesity. 5. Asthma. 6. Severe pulmonary arterial hypertension. 7. DM 2- uncontrolled 8. GI and DVT prophylaxis. Plan: Poor overall physial performance, with limited ADLS Reported that is not willing to go to Rehab Rebound Leukocytosis, Not clinically volume over load Notes from Nephro and Pulmonary reviewed Given new leukocytosis, Abx is optimized Negative culture as of yet Subjective Allergies: Coded Allergies: MORPHINE (Verified Allergy, Intermediate, 09/09/19) Headach, Dizziness Objective Last 24 Hour Vital Signs Date Time Temp Pulse Resp B/P (MAP) Pulse Ox O2 Delivery O2 Flow Rate FiO2 09/12/19 16:00 98.5 84 20 133/59 (83) 99 09/12/19 16:00 15.0 09/12/19 12:48 98.7 09/12/19 12:00 15.0 09/12/19 12:00 97.8 78 18 139/68 (91) 99 09/12/19 09:40 78 125/63 09/12/19 09:40 125/63 09/12/19 09:00 Bi-pap 09/12/19 08:00 15.0 09/12/19 08:00 98.7 78 20 125/63 (83) 97 09/12/19 08:00 73 09/12/19 07:00 95 Non-Rebreather 15.0 100 09/12/19 07:00 89 22 95 Non-Rebreather 15.0 100 09/12/19 04:00 15.0 09/12/19 04:00 82 09/12/19 04:00 97.4 84 20 150/70 (96) 98 09/12/19 00:00 90 09/12/19 00:00 98.2 90 20 136/57 (83) 96 09/12/19 00:00 15.0 09/11/19 21:00 Bi-pap 09/11/19 20:00 15.0 09/11/19 20:00 97 09/11/19 20:00 99.4 98 20 138/73 (94) 94 09/11/19 19:07 88 138/66 09/11/19 18:46 88 20 98 Non-Rebreather 15.0 100 88 20 96 09/11/19 18:45 98 Non-Rebreather 15.0 100 Intake and Output 09/11/19 09/12/19 19:00 07:00 Intake Total 240 ml Balance 240 ml Intake Oral 240 ml # Voids 1 Laboratory Tests 09/12/19 07:02: White Blood Count 11.3H, Red Blood Count 2.95L, Hemoglobin 8.7L, Hematocrit 28.1L, Mean Corpuscular Volume 95, Mean Corpuscular Hemoglobin 29.4, Mean Corpuscular Hemoglobin Concent 30.8L, Red Cell Distribution Width 15.6H, Platelet Count 189, Mean Platelet Volume 6.3L, Neutrophils (%) (Auto) , Lymphocytes (%) (Auto) , Monocytes (%) (Auto) , Eosinophils (%) (Auto) , Basophils (%) (Auto) , Differential Total Cells Counted 100, Neutrophils % ( Manual) 92H, Lymphocytes % (Manual) 3L, Monocytes % (Manual) 4, Eosinophils % ( Manual) 1, Basophils % (Manual) 0, Band Neutrophils 0, Platelet Estimate Adequate, Platelet Morphology Normal, Hypochromasia 2+, Anisocytosis 1+, Sodium Level 141, Potassium Level 3.5, Chloride Level 100, Carbon Dioxide Level 40H, Anion Gap 1L, Blood Urea Nitrogen 17, Creatinine 0.8, Estimat Glomerular Filtration Rate > 60, Glucose Level 188H, Calcium Level 8.9 Height (Feet): 5 Height (Inches): 4.00 Weight (Pounds): 267 Marcela Jacobo MD Sep 12, 2019 16:38
--- NOTE | 2019-09-12 19:44 | NUR ---
HAND-OFF: Report given to Rashid Muro. Plan of care endorsed.
--- NOTE | 2019-09-12 19:45 | NUR ---
NURSE NOTES: Received patient from TEDDY Holm. Patient sitting in chair, awake and talkative. No signs of distress, shortness of breath, or pain noted. Patient able to make needs known. Son at bedside. IV site checked, intact and patent, no signs of redness, infiltration, or bleeding noted. Call light within reach. Will continue with plan of care.
[2019-09-12 20:00] VITALS: BP 129/65
--- NOTE | 2019-09-12 20:10 | NUR ---
CASE MANAGEMENT: REVIEW SI: PNA . CHF EXACERBATION . ACUTE ASTHMA EXACERBATION T 98.5 HR 76 RR 20 BP 133/59 SAT 97% BIPAP FLOW RATE 15.0 WBC 11.3 H/H 8.7/28.1 IS: ZOSYN IV Q8HR LOVENOX SQ QD NOVOLOG SUBQ AC+HS ALBUTEROL HHN Q4HR CHLORTHALIDONE PO QD TELEMETRY UNIT STATUS DCP: PATIENT IS FROM HOME
[2019-09-12] MEDS: Albuterol ud Inhalation HHN PRN (20:34)
--- NOTE | 2019-09-12 21:47 | NUR ---
NURSE NOTES: Attempted to give night time meds to patient 3 times, but patient refused each time, stating "Leave me alone! Leave me alone!" each time with increased agitation. Patient physically use hands to push nurse hands away. Will continue to monitor. Addendum: 09/12/19 at 2150 by Jina De La Paz RN WRONG PATIENT.
--- NOTE | 2019-09-12 23:17 | Cardiology Progress Note ---
Assessment/Plan Assessment/Plan 1. Severe pulmonary hypertension with right ventricular systolic pressure as high as 101 mmHg by echo. Discussed need of right heart cath as an outpatient. 2. Morbid obesity. 3. Normal LV systolic function with LVEF approximately 60%. 4. History of diabetes mellitus. 5. History of hypertension, stage I, continue Irbesartan and chlorthalidone. Optimize metoprolol XL. Subjective Subjective Sinus rhythm at rate of 91. Objective Last 24 Hour Vital Signs Date Time Temp Pulse Resp B/P (MAP) Pulse Ox O2 Delivery O2 Flow Rate FiO2 09/12/19 21:00 Non-Rebreather 09/12/19 20:34 91 20 97 Non-Rebreather 15.0 100 88 20 94 09/12/19 20:00 15.0 09/12/19 20:00 98.9 87 20 129/65 (86) 93 09/12/19 20:00 87 09/12/19 19:33 88 20 94 Non-Rebreather 15.0 100 09/12/19 19:33 94 Non-Rebreather 15.0 100 09/12/19 16:00 98.5 84 20 133/59 (83) 99 09/12/19 16:00 76 09/12/19 16:00 15.0 09/12/19 12:48 98.7 09/12/19 12:00 78 09/12/19 12:00 15.0 09/12/19 12:00 97.8 78 18 139/68 (91) 99 09/12/19 09:40 78 125/63 09/12/19 09:40 125/63 09/12/19 09:00 Bi-pap 09/12/19 08:00 15.0 09/12/19 08:00 98.7 78 20 125/63 (83) 97 09/12/19 08:00 73 09/12/19 07:00 95 Non-Rebreather 15.0 100 09/12/19 07:00 89 22 95 Non-Rebreather 15.0 100 09/12/19 04:00 15.0 09/12/19 04:00 82 09/12/19 04:00 97.4 84 20 150/70 (96) 98 09/12/19 00:00 90 09/12/19 00:00 98.2 90 20 136/57 (83) 96 09/12/19 00:00 15.0 Intake and Output 09/11/19 09/12/19 19:00 07:00 Intake Total 240 ml Balance 240 ml Intake Oral 240 ml # Voids 1 2D Echo: LVEF 60%, Hi RAP at 15 mmHg, RVSP 101 mmHg, Normal LV diastolic Fxn Laboratory Tests Test 09/12/19 07:02 White Blood Count 11.3 K/UL (4.8-10.8) H Red Blood Count 2.95 M/UL (4.20-5.40) L Hemoglobin 8.7 G/DL (12.0-16.0) L Hematocrit 28.1 % (37.0-47.0) L Mean Corpuscular Volume 95 FL (80-99) Mean Corpuscular Hemoglobin 29.4 PG (27.0-31.0) Mean Corpuscular Hemoglobin Concent 30.8 G/DL (32.0-36.0) L Red Cell Distribution Width 15.6 % (11.6-14.8) H Platelet Count 189 K/UL (150-450) Mean Platelet Volume 6.3 FL (6.5-10.1) L Neutrophils (%) (Auto) % (45.0-75.0) Lymphocytes (%) (Auto) % (20.0-45.0) Monocytes (%) (Auto) % (1.0-10.0) Eosinophils (%) (Auto) % (0.0-3.0) Basophils (%) (Auto) % (0.0-2.0) Differential Total Cells Counted 100 Neutrophils % (Manual) 92 % (45-75) H Lymphocytes % (Manual) 3 % (20-45) L Monocytes % (Manual) 4 % (1-10) Eosinophils % (Manual) 1 % (0-3) Basophils % (Manual) 0 % (0-2) Band Neutrophils 0 % (0-8) Platelet Estimate Adequate Platelet Morphology Normal Hypochromasia 2+ Anisocytosis 1+ Sodium Level 141 MMOL/L (136-145) Potassium Level 3.5 MMOL/L (3.5-5.1) Chloride Level 100 MMOL/L (98-107) Carbon Dioxide Level 40 MMOL/L (21-32) H Anion Gap 1 mmol/L (5-15) L Blood Urea Nitrogen 17 mg/dL (7-18) Creatinine 0.8 MG/DL (0.55-1.30) Estimat Glomerular Filtration Rate > 60 mL/min (>60) Glucose Level 188 MG/DL (74-106) H Calcium Level 8.9 MG/DL (8.5-10.1) Microbiology Date/Time Source Procedure Growth Status 09/10/19 16:45 Blood Blood Culture - Preliminary NO GROWTH AFTER 24 HOURS Resulted 09/10/19 16:40 Blood Blood Culture - Preliminary NO GROWTH AFTER 24 HOURS Resulted Objective HEENT: Atraumatic and normocephalic. Anicteric. Pupils are equal, round, and reactive to light and accommodation. Extraocular muscles intact. NECK: Cannot assess JVP due to morbid obesity and short neck. CARDIOVASCULAR: Normal S1, S2. Regular rate and rhythm. No murmurs, gallops, or rubs. PMI is at fourth intercostal space in the midclavicular line. LUNGS: Bilateral basal crackles. ABDOMEN: Soft, non-tender, non-distended, + BS. EXTREMITIES: 1+ bilateral lower extremity edema. Bryce Funez MD Sep 12, 2019 23:17
[2019-09-13] VITALS: BP 140/71
[2019-09-13] MEDS: HYDROcodone/Acetamin 5/325 tab ORAL PRN ×2 (00:13→11:19)
[2019-09-13 04:00] VITALS: BP 130/76
[2019-09-13] MEDS: Piperacillin/Tazobactam 3.375 GM in NS 110 ML IVPB SCH ×3 (05:51→21:11)
[2019-09-13] MEDS: metFORMIN 500mg tab ORAL SCH ×3 (05:51→16:55)
[2019-09-13] MEDS: NovoLOG Insulin Flexpen SUBQ SCH ×4 (06:50→20:16)
--- NOTE | 2019-09-13 07:10 | NUR ---
NURSE NOTES: Nurse report given by TEDDY Muro. Patient's sleeping in chair with her nonrebreather mask on. Patient's easily awake, eyes open spontaneously. Refused to get back to bed to sleep. AO x3, denies pain, no s/s of distress or SOB. Call light within reach, bed low and locked, side rails x 2. Bed side commode within reach. IV is saline locked, patent and asymptomatic. Will continue to monitor.
--- NOTE | 2019-09-13 07:22 | NUR ---
HAND-OFF: Report given to TEDDY Wilkins. Patient in stable condition, plan of care endorsed.
[2019-09-13 07:27] LABS: HEMATOCRIT 28.4 % (37.0-47.0); HEMOGLOBIN 8.7 G/DL (12.0-16.0); MEAN CORPUSCULAR VOLUME 95 FL (80-99); PLATELET COUNT 190 K/UL (150-450); RED BLOOD COUNT 2.98 M/UL (4.20-5.40); RED CELL DISTRIBUTION WIDTH 15.8 % (11.6-14.8); WHITE BLOOD COUNT 10.9 K/UL (4.8-10.8)
[2019-09-13 07:41] LABS: BLOOD UREA NITROGEN 17 mg/dL (7-18); CALCIUM 9.2 MG/DL (8.5-10.1); CHLORIDE 101 MMOL/L (98-107); CREATININE 0.9 MG/DL (0.55-1.30); POTASSIUM 3.8 MMOL/L (3.5-5.1); SODIUM 142 MMOL/L (136-145)
[2019-09-13 07:45] LABS: CARBON DIOXIDE > 45 MMOL/L (21-32)
[2019-09-13 08:00] VITALS: BP 141/67
--- NOTE | 2019-09-13 08:01 | NUR ---
NURSE NOTES: Left message to Dr. Aguirre's office to report critical Carbon Dioxide value at 45. Awaiting for response.
[2019-09-13] MEDS: Liothyronine 5mcg tab ORAL SCH (08:35)
[2019-09-13] MEDS: Metoprolol Succinate XL 25mg tab ORAL SCH (08:35)
[2019-09-13] MEDS: Irbesartan 150mg tablet ORAL SCH (08:36)
[2019-09-13] MEDS: Allopurinol 100mg Tab ORAL SCH (08:36)
[2019-09-13] MEDS: Docusate 250mg cap ORAL SCH ×3 (08:36→16:56)
[2019-09-13] MEDS: Aspirin EC 81mg tab ORAL SCH (08:36)
[2019-09-13] MEDS: Enoxaparin 40mg Inj SUBQ SCH (08:37)
[2019-09-13] MEDS: Levemir Flexpen SUBQ SCH ×2 (08:38→20:15)
--- NOTE | 2019-09-13 09:15 | NUR ---
NURSE NOTES: Contacted Dr. Funez regarding patient's new dose of Metoprolol of 50mg when nurse already gave the old schedule Metoprolol 25mg. Asked MD if he's still ok to give the new schedule order of 50mg and MD said ok to give it. Order acknowledged and carried out.
[2019-09-13] MEDS: Metoprolol Succinate XL 50mg tab ORAL SCH (09:25)
--- NOTE | 2019-09-13 09:45 | NUR ---
NURSE NOTES: Spoke to Dr. Aguirre again regarding patient's carbon dioxide is 45. MD aware and no new order at this moment.
--- NOTE | 2019-09-13 09:47 | Pulmonology Progress Note ---
Assessment/Plan Assessment/Plan ASSESSMENT Pulmonary edema LAYO History of asthma Pulmonary hypertension DISCUSSION: Continue BiPAP q pm. Continue diuresis, nitrates, breathing treatments. Consider heart cath per cardiology. Avoidance of nephrotoxic medications. Will add Diamox Antibiotics broadened but no clear source on infection Do not suspect new or active pneumonia I will follow carefully. Sohail Aguirre M.D. Subjective Interval Events: Serum HCO3 is >45; is diuresing however cumulative I/O is positive Constitutional: Reports: no symptoms HEENT: Repors: no symptoms Respiratory: Reports: shortness of breath Cardiovascular: Reports: no symptoms Gastrointestinal/Abdominal: Reports: no symptoms Allergies: Coded Allergies: MORPHINE (Verified Allergy, Intermediate, 09/09/19) Headach, Dizziness Objective Last 24 Hour Vital Signs Date Time Temp Pulse Resp B/P (MAP) Pulse Ox O2 Delivery O2 Flow Rate FiO2 09/13/19 09:25 89 141/67 09/13/19 08:36 141/67 09/13/19 08:35 89 141/67 09/13/19 08:00 97.5 89 20 141/67 (91) 94 09/13/19 08:00 90 09/13/19 04:00 15.0 09/13/19 04:00 97.6 90 20 130/76 (94) 98 09/13/19 04:00 85 09/13/19 00:00 93 09/13/19 00:00 98.6 94 20 140/71 (94) 98 09/13/19 00:00 15.0 09/12/19 21:00 Non-Rebreather 09/12/19 20:34 91 20 97 Non-Rebreather 15.0 100 88 20 94 09/12/19 20:00 15.0 09/12/19 20:00 98.9 87 20 129/65 (86) 93 09/12/19 20:00 87 09/12/19 19:33 88 20 94 Non-Rebreather 15.0 100 09/12/19 19:33 94 Non-Rebreather 15.0 100 09/12/19 16:00 98.5 84 20 133/59 (83) 99 09/12/19 16:00 76 09/12/19 16:00 15.0 09/12/19 12:48 98.7 09/12/19 12:00 78 09/12/19 12:00 15.0 09/12/19 12:00 97.8 78 18 139/68 (91) 99 Intake and Output 09/12/19 09/13/19 18:59 06:59 Intake Total 720 ml 120 ml Balance 720 ml 120 ml Intake Oral 720 ml 120 ml # Voids 5 1 General Appearance: no acute distress HEENT: normocephalic Respiratory/Chest: chest wall non-tender Cardiovascular: normal peripheral pulses, normal rate Abdomen: normal bowel sounds Microbiology Date/Time Source Procedure Growth Status 09/10/19 16:45 Blood Blood Culture - Preliminary NO GROWTH AFTER 48 HOURS Resulted 09/10/19 16:40 Blood Blood Culture - Preliminary NO GROWTH AFTER 48 HOURS Resulted Laboratory Tests 09/13/19 05:20: White Blood Count 10.9H, Red Blood Count 2.98L, Hemoglobin 8.7L, Hematocrit 28.4L, Mean Corpuscular Volume 95, Mean Corpuscular Hemoglobin 29.0, Mean Corpuscular Hemoglobin Concent 30.5L, Red Cell Distribution Width 15.8H, Platelet Count 190, Mean Platelet Volume 6.1L, Neutrophils (%) (Auto) , Lymphocytes (%) (Auto) , Monocytes (%) (Auto) , Eosinophils (%) (Auto) , Basophils (%) (Auto) , Differential Total Cells Counted 100, Neutrophils % ( Manual) 92H, Lymphocytes % (Manual) 3L, Monocytes % (Manual) 3, Eosinophils % ( Manual) 1, Basophils % (Manual) 0, Band Neutrophils 1, Platelet Estimate Adequate, Platelet Morphology Normal, Hypochromasia 1+, Anisocytosis 1+, Sodium Level 142, Potassium Level 3.8, Chloride Level 101, Carbon Dioxide Level > 45*H , Blood Urea Nitrogen 17, Creatinine 0.9, Estimat Glomerular Filtration Rate > 60, Glucose Level 229H, Calcium Level 9.2 Current Medications Medications (Trade) Dose Ordered Sig/Yue Route PRN Reason Start Time Stop Time Status Last Admin Dose Admin Acetaminophen (Tylenol) 650 mg Q6H PRN ORAL Mild Pain/Temp > 100.5 09/07/19 15:30 10/07/19 15:29 Acetaminophen/ Hydrocodone Bitart ([place] 5/325) 1 tab Q6H PRN ORAL moderate pain, 4-6 09/07/19 15:30 09/14/19 15:29 09/13/19 00:13 Albuterol Sulfate (Proventil) 2.5 mg Q4HRT PRN HHN Shortness of Breath 09/12/19 19:45 09/17/19 19:44 09/12/19 20:34 Allopurinol (Zyloprim) 100 mg DAILY ORAL 09/09/19 09:00 10/09/19 08:59 09/13/19 08:36 Aspirin (Ecotrin) 81 mg DAILY ORAL 09/08/19 09:00 10/07/19 08:59 09/13/19 08:36 Chlorthalidone (Chlorthalidone) 25 mg DAILY ORAL 09/09/19 09:00 10/09/19 08:59 09/13/19 08:35 Dextrose (Dextrose 50%) 25 ml Q30M PRN IV Hypoglycemia 09/07/19 15:30 10/07/19 06:29 Dextrose (Dextrose 50%) 50 ml Q30M PRN IV Hypoglycemia 09/07/19 15:30 10/07/19 06:29 Docusate Sodium (Colace) 250 mg TID ORAL 09/12/19 09:00 10/12/19 08:59 09/13/19 08:36 Enoxaparin Sodium (Lovenox) 40 mg DAILY SUBQ 09/08/19 09:00 10/07/19 08:59 09/13/19 08:37 Hydromorphone HCl (Dilaudid) 0.5 mg BIDPRN PRN IVP Severe Pain (Pain Scale 7-10) 09/07/19 15:30 09/14/19 15:29 Insulin Aspart (NovoLOG) BEFORE MEALS AND HS SUBQ 09/07/19 16:30 10/07/19 06:29 09/13/19 06:50 Insulin Detemir (Levemir) 15 units Q12H SUBQ 09/11/19 20:00 10/07/19 15:59 09/13/19 08:38 Irbesartan (Avapro) 300 mg DAILY ORAL 09/10/19 09:00 10/10/19 08:59 09/13/19 08:36 Levothyroxine Sodium (Synthroid) 150 mcg DAILY@0630 ORAL 09/08/19 06:30 10/08/19 06:29 09/13/19 05:51 Liothyronine Sodium (Cytomel) 5 mcg DAILY ORAL 09/10/19 09:00 10/10/19 08:59 09/13/19 08:35 Metformin HCl (Glucophage) 500 mg TIAC ORAL 09/08/19 16:30 10/08/19 16:29 09/13/19 05:51 Metoprolol Succinate (Toprol XL) 50 mg DAILY ORAL 09/13/19 09:00 10/13/19 08:59 09/13/19 09:25 Nateglinide (Starlix) 120 mg TIAC ORAL 09/07/19 16:30 10/07/19 11:29 09/13/19 05:51 Piperacillin Sod/ Tazobactam Sod 3.375 gm/Sodium Chloride 110 ml @ 27.5 mls/hr EVERY 8 HOURS IVPB 09/11/19 22:00 09/18/19 21:59 09/13/19 05:51 Shoail Aguirre MD Sep 13, 2019 09:47
--- NOTE | 2019-09-13 11:02 | Nephrology Progress Note ---
Assessment/Plan Problem List: (1) Morbid obesity with BMI of 40.0-44.9, adult (2) Anemia (3) Hyperglycemia due to type 2 diabetes mellitus (4) Hypertension (5) Respiratory failure with hypoxia and hypercapnia Assessment Acute Respiratory Failure Morbid Obesity LAYO Anemia DM OOC HTN Plan add metformin to starlix one dose diamox adjust Levemir to 20 Q12 add cytomel Respiratory support, BIPAP 2D Echo , BP and BS management monitor lytes Subjective ROS Limited/Unobtainable: No Constitutional: Reports: malaise, weakness Objective Objective Last 24 Hour Vital Signs Date Time Temp Pulse Resp B/P (MAP) Pulse Ox O2 Delivery O2 Flow Rate FiO2 09/13/19 09:25 89 141/67 09/13/19 09:00 Non-Rebreather 09/13/19 08:36 141/67 09/13/19 08:35 89 141/67 09/13/19 08:00 97.5 89 20 141/67 (91) 94 09/13/19 08:00 87 09/13/19 08:00 15.0 09/13/19 04:00 15.0 09/13/19 04:00 97.6 90 20 130/76 (94) 98 09/13/19 04:00 85 09/13/19 00:00 93 09/13/19 00:00 98.6 94 20 140/71 (94) 98 09/13/19 00:00 15.0 09/12/19 21:00 Non-Rebreather 09/12/19 20:34 91 20 97 Non-Rebreather 15.0 100 88 20 94 09/12/19 20:00 15.0 09/12/19 20:00 98.9 87 20 129/65 (86) 93 09/12/19 20:00 87 09/12/19 19:33 88 20 94 Non-Rebreather 15.0 100 09/12/19 19:33 94 Non-Rebreather 15.0 100 09/12/19 16:00 98.5 84 20 133/59 (83) 99 09/12/19 16:00 76 09/12/19 16:00 15.0 09/12/19 12:48 98.7 09/12/19 12:00 78 09/12/19 12:00 15.0 09/12/19 12:00 97.8 78 18 139/68 (91) 99 Intake and Output 09/12/19 09/13/19 18:59 06:59 Intake Total 720 ml 120 ml Balance 720 ml 120 ml Intake Oral 720 ml 120 ml # Voids 5 1 Laboratory Tests 09/13/19 05:20: White Blood Count 10.9H, Red Blood Count 2.98L, Hemoglobin 8.7L, Hematocrit 28.4L, Mean Corpuscular Volume 95, Mean Corpuscular Hemoglobin 29.0, Mean Corpuscular Hemoglobin Concent 30.5L, Red Cell Distribution Width 15.8H, Platelet Count 190, Mean Platelet Volume 6.1L, Neutrophils (%) (Auto) , Lymphocytes (%) (Auto) , Monocytes (%) (Auto) , Eosinophils (%) (Auto) , Basophils (%) (Auto) , Differential Total Cells Counted 100, Neutrophils % ( Manual) 92H, Lymphocytes % (Manual) 3L, Monocytes % (Manual) 3, Eosinophils % ( Manual) 1, Basophils % (Manual) 0, Band Neutrophils 1, Platelet Estimate Adequate, Platelet Morphology Normal, Hypochromasia 1+, Anisocytosis 1+, Sodium Level 142, Potassium Level 3.8, Chloride Level 101, Carbon Dioxide Level > 45*H , Blood Urea Nitrogen 17, Creatinine 0.9, Estimat Glomerular Filtration Rate > 60, Glucose Level 229H, Calcium Level 9.2 Height (Feet): 5 Height (Inches): 4.00 Weight (Pounds): 267 General Appearance: mild distress Cardiovascular: tachycardia Respiratory/Chest: decreased breath sounds Abdomen: other - obese Gino Longoria MD Sep 13, 2019 11:02
[2019-09-13 12:00] VITALS: BP 142/68
[2019-09-13 16:00] VITALS: BP_SYST 115; BP_SYST 128; BP_DIAS 59; BP_DIAS 83
--- NOTE | 2019-09-13 18:51 | Infectious Diseases Prog Note ---
Assessment/Plan Problems: (1) Leukocytosis Assessment & Plan: with worsening right lung infiltrates , continue zosyn empirically to cover for pneumonia pending sputum culture , repeated blood culture is negative on 09/10 , monitor CXR . (2) Community acquired pneumonia Assessment & Plan: with productive cough , now on zosyn empirically due to worsening right side lung infiltrates and WBC , continue nebulizer treatment , titrate oxygen , monitor CXR (3) Acute exacerbation of CHF (congestive heart failure) Assessment & Plan: continue dieuresis as per renal (4) Respiratory failure with hypoxia and hypercapnia Assessment & Plan: on BIPAP, continue nebulizers and diuretics (5) Hyperglycemia due to type 2 diabetes mellitus Assessment & Plan: poorly controled, continue insulin to achieve tight glycemic control to keep blood glucose between 100-140 (6) Pleural effusion Assessment & Plan: R>L may benefit from thoracentesis Subjective Constitutional: Reports: no symptoms HEENT: Reports: no symptoms Respiratory: Reports: shortness of breath, productive cough Breasts: Reports: no symptoms Cardiovascular: Reports: no symptoms Gastrointestinal/Abdominal: Reports: no symptoms Genitourinary: Reports: no symptoms Neurologic: Reports: no symptoms Psychiatric: Reports: no symptoms Skin: Reports: no symptoms Endocrine: Reports: no symptoms Hematologic: Reports: no symptoms Musculoskeletal: Reports: no symptoms Allergies: Coded Allergies: MORPHINE (Verified Allergy, Intermediate, 09/09/19) Headach, Dizziness Objective Vital Signs Last 24 Hour Vital Signs Date Time Temp Pulse Resp B/P (MAP) Pulse Ox O2 Delivery O2 Flow Rate FiO2 09/13/19 16:00 98.2 83 20 128/59 (82) 94 09/13/19 16:00 15.0 09/13/19 16:00 85 09/13/19 12:00 15.0 09/13/19 12:00 78 09/13/19 12:00 98.2 82 20 142/68 (92) 95 09/13/19 09:25 89 141/67 09/13/19 09:00 Non-Rebreather 09/13/19 08:36 141/67 09/13/19 08:35 89 141/67 09/13/19 08:00 97.5 89 20 141/67 (91) 94 09/13/19 08:00 87 09/13/19 08:00 15.0 09/13/19 07:00 97 Non-Rebreather 15.0 100 09/13/19 07:00 84 24 97 Non-Rebreather 15.0 100 09/13/19 04:00 15.0 09/13/19 04:00 97.6 90 20 130/76 (94) 98 09/13/19 04:00 85 09/13/19 00:00 93 09/13/19 00:00 98.6 94 20 140/71 (94) 98 09/13/19 00:00 15.0 09/12/19 21:00 Non-Rebreather 09/12/19 20:34 91 20 97 Non-Rebreather 15.0 100 88 20 94 09/12/19 20:00 15.0 09/12/19 20:00 98.9 87 20 129/65 (86) 93 09/12/19 20:00 87 09/12/19 19:33 88 20 94 Non-Rebreather 15.0 100 09/12/19 19:33 94 Non-Rebreather 15.0 100 Height (Feet): 5 Height (Inches): 4.00 Weight (Pounds): 267 General Appearance: WD/WN, no acute distress HEENT: normocephalic, atraumatic, anicteric, mucous membranes moist, PERRL Respiratory/Chest: chest wall non-tender, no respiratory distress, no accessory muscle use, decreased breath sounds, crackles/rales Cardiovascular: normal peripheral pulses, normal rate, regular rhythm, no gallop/murmur, no JVD Abdomen: normal bowel sounds, soft, non tender, no organomegaly, non distended , no mass, no scars Genitourinary: normal external genitalia Extremities: no cyanosis, no clubbing Skin: no rash, no lesions, no ulcers Neurologic/Psychiatric: gleason operator II-XII grossly normal, no motor/sensory deficits, alert, oriented x 3, responsive Lymphatic: no neck adenopathy, no groin adenopathy Musculoskeletal: normal muscle bulk, no effusion Laboratory Tests Test 09/13/19 05:20 White Blood Count 10.9 K/UL (4.8-10.8) H Red Blood Count 2.98 M/UL (4.20-5.40) L Hemoglobin 8.7 G/DL (12.0-16.0) L Hematocrit 28.4 % (37.0-47.0) L Mean Corpuscular Volume 95 FL (80-99) Mean Corpuscular Hemoglobin 29.0 PG (27.0-31.0) Mean Corpuscular Hemoglobin Concent 30.5 G/DL (32.0-36.0) L Red Cell Distribution Width 15.8 % (11.6-14.8) H Platelet Count 190 K/UL (150-450) Mean Platelet Volume 6.1 FL (6.5-10.1) L Neutrophils (%) (Auto) % (45.0-75.0) Lymphocytes (%) (Auto) % (20.0-45.0) Monocytes (%) (Auto) % (1.0-10.0) Eosinophils (%) (Auto) % (0.0-3.0) Basophils (%) (Auto) % (0.0-2.0) Differential Total Cells Counted 100 Neutrophils % (Manual) 92 % (45-75) H Lymphocytes % (Manual) 3 % (20-45) L Monocytes % (Manual) 3 % (1-10) Eosinophils % (Manual) 1 % (0-3) Basophils % (Manual) 0 % (0-2) Band Neutrophils 1 % (0-8) Platelet Estimate Adequate Platelet Morphology Normal Hypochromasia 1+ Anisocytosis 1+ Sodium Level 142 MMOL/L (136-145) Potassium Level 3.8 MMOL/L (3.5-5.1) Chloride Level 101 MMOL/L (98-107) Carbon Dioxide Level > 45 MMOL/L (21-32) *H Blood Urea Nitrogen 17 mg/dL (7-18) Creatinine 0.9 MG/DL (0.55-1.30) Estimat Glomerular Filtration Rate > 60 mL/min (>60) Glucose Level 229 MG/DL (74-106) H Calcium Level 9.2 MG/DL (8.5-10.1) Current Medications Medications (Trade) Dose Ordered Sig/Yue Route PRN Reason Start Time Stop Time Status Last Admin Dose Admin Acetaminophen (Tylenol) 650 mg Q6H PRN ORAL Mild Pain/Temp > 100.5 09/07/19 15:30 10/07/19 15:29 Acetaminophen/ Hydrocodone Bitart ([place] 5/325) 1 tab Q6H PRN ORAL moderate pain, 4-6 11/18/19 15:30 09/14/19 15:29 09/13/19 11:19 Acetazolamide (Diamox) 250 mg EVERY 8 HOURS ORAL 09/13/19 14:00 09/15/19 06:01 09/13/19 14:05 Albuterol Sulfate (Proventil) 2.5 mg Q4HRT PRN HHN Shortness of Breath 09/12/19 19:45 09/17/19 19:44 09/12/19 20:34 Allopurinol (Zyloprim) 100 mg DAILY ORAL 09/09/19 09:00 10/09/19 08:59 09/13/19 08:36 Aspirin (Ecotrin) 81 mg DAILY ORAL 09/08/19 09:00 10/07/19 08:59 09/13/19 08:36 Chlorthalidone (Chlorthalidone) 25 mg DAILY ORAL 09/09/19 09:00 10/09/19 08:59 09/13/19 08:35 Dextrose (Dextrose 50%) 25 ml Q30M PRN IV Hypoglycemia 09/07/19 15:30 10/07/19 06:29 Dextrose (Dextrose 50%) 50 ml Q30M PRN IV Hypoglycemia 09/07/19 15:30 10/07/19 06:29 Docusate Sodium (Colace) 250 mg TID ORAL 09/12/19 09:00 10/12/19 08:59 09/13/19 16:56 Enoxaparin Sodium (Lovenox) 40 mg DAILY SUBQ 09/08/19 09:00 10/07/19 08:59 09/13/19 08:37 Furosemide (Lasix) 40 mg Q8HR IV 09/13/19 11:00 10/13/19 10:59 09/13/19 11:13 Hydromorphone HCl (Dilaudid) 0.5 mg BIDPRN PRN IVP Severe Pain (Pain Scale 7-10) 09/07/19 15:30 09/14/19 15:29 Insulin Aspart (NovoLOG) BEFORE MEALS AND HS SUBQ 09/07/19 16:30 10/07/19 06:29 09/13/19 16:58 Insulin Detemir (Levemir) 20 units Q12H SUBQ 09/13/19 20:00 10/07/19 15:59 Irbesartan (Avapro) 300 mg DAILY ORAL 09/10/19 09:00 10/10/19 08:59 09/13/19 08:36 Levothyroxine Sodium (Synthroid) 150 mcg DAILY@0630 ORAL 09/08/19 06:30 10/08/19 06:29 09/13/19 05:51 Liothyronine Sodium (Cytomel) 5 mcg DAILY ORAL 09/10/19 09:00 10/10/19 08:59 09/13/19 08:35 Metformin HCl (Glucophage) 500 mg TIAC ORAL 09/08/19 16:30 10/08/19 16:29 09/13/19 16:55 Metoprolol Succinate (Toprol XL) 50 mg DAILY ORAL 09/13/19 09:00 10/13/19 08:59 09/13/19 09:25 Nateglinide (Starlix) 120 mg TIAC ORAL 09/07/19 16:30 10/07/19 11:29 09/13/19 16:55 Piperacillin Sod/ Tazobactam Sod 3.375 gm/Sodium Chloride 110 ml @ 27.5 mls/hr EVERY 8 HOURS IVPB 09/11/19 22:00 09/18/19 21:59 09/13/19 12:59 Katlyn Richard M.D. Sep 13, 2019 18:51
--- NOTE | 2019-09-13 19:00 | NUR ---
HAND-OFF: Report given to TEDDY Muro. Patient's stable. Plan of care endorsed.
--- NOTE | 2019-09-13 19:05 | NUR ---
NURSE NOTES: Received patient from TEDDY Wilkins. Patient sitting in chair, talkative, and alert. No signs of shortness of breath, distress, or pain noted. Patient able to make needs known. Son at bedside. IV site checked, no signs of redness, bleeding, or infiltration noted. Nonrebreather mask in use. Call light within reach, will continue with plan of care.
--- NOTE | 2019-09-13 19:47 | General Progress Note ---
Assessment/Plan Assessment/Plan: S: I am feeling the same O: on O2, denies chest pain . limited activity reported. Low threshold for exertional sob. PHYSICAL EXAMINATION:HEAD AND NECK: Atraumatic, normocephalic. CHEST: Clear to auscultation.HEART: S1, S2. Regular rate and rhythm. ABDOMEN: Soft. No organomegaly.MUSCULOSKELETAL: No gross focal deficit. NEUROLOGIC: The patient is awake, alert, oriented x3. LABORATORY and Imaging DATA: dated 09/11 reviewed ASSESSMENT: 1. Acute Asthma exacerbation 2. Community-acquired pneumonia. 3. CHF exacerbation. 4. Morbid obesity. 5. Asthma. 6. Severe pulmonary arterial hypertension. 7. DM 2- uncontrolled 8. GI and DVT prophylaxis. Plan: Poor overall physial performance, with limited ADLS Reported that is not willing to go to Rehab Rebound Leukocytosis, Not clinically volume over load Notes from Nephro and Pulmonary reviewed Given new leukocytosis, Abx is optimized Negative culture as of yet Discussed the care with Pulmonary. Will start diuretic challenge Subjective Allergies: Coded Allergies: MORPHINE (Verified Allergy, Intermediate, 09/09/19) Headach, Dizziness Objective Last 24 Hour Vital Signs Date Time Temp Pulse Resp B/P (MAP) Pulse Ox O2 Delivery O2 Flow Rate FiO2 09/13/19 16:00 98.2 83 20 128/59 (82) 94 09/13/19 16:00 15.0 09/13/19 16:00 85 09/13/19 12:00 15.0 09/13/19 12:00 78 09/13/19 12:00 98.2 82 20 142/68 (92) 95 09/13/19 09:25 89 141/67 09/13/19 09:00 Non-Rebreather 09/13/19 08:36 141/67 09/13/19 08:35 89 141/67 09/13/19 08:00 97.5 89 20 141/67 (91) 94 09/13/19 08:00 87 09/13/19 08:00 15.0 09/13/19 07:00 97 Non-Rebreather 15.0 100 09/13/19 07:00 84 24 97 Non-Rebreather 15.0 100 09/13/19 04:00 15.0 09/13/19 04:00 97.6 90 20 130/76 (94) 98 09/13/19 04:00 85 09/13/19 00:00 93 09/13/19 00:00 98.6 94 20 140/71 (94) 98 09/13/19 00:00 15.0 09/12/19 21:00 Non-Rebreather 09/12/19 20:34 91 20 97 Non-Rebreather 15.0 100 88 20 94 09/12/19 20:00 15.0 09/12/19 20:00 98.9 87 20 129/65 (86) 93 09/12/19 20:00 87 Intake and Output 09/12/19 09/13/19 19:00 07:00 Intake Total 720 ml 120 ml Balance 720 ml 120 ml Intake Oral 720 ml 120 ml # Voids 5 1 Laboratory Tests 09/13/19 05:20: White Blood Count 10.9H, Red Blood Count 2.98L, Hemoglobin 8.7L, Hematocrit 28.4L, Mean Corpuscular Volume 95, Mean Corpuscular Hemoglobin 29.0, Mean Corpuscular Hemoglobin Concent 30.5L, Red Cell Distribution Width 15.8H, Platelet Count 190, Mean Platelet Volume 6.1L, Neutrophils (%) (Auto) , Lymphocytes (%) (Auto) , Monocytes (%) (Auto) , Eosinophils (%) (Auto) , Basophils (%) (Auto) , Differential Total Cells Counted 100, Neutrophils % ( Manual) 92H, Lymphocytes % (Manual) 3L, Monocytes % (Manual) 3, Eosinophils % ( Manual) 1, Basophils % (Manual) 0, Band Neutrophils 1, Platelet Estimate Adequate, Platelet Morphology Normal, Hypochromasia 1+, Anisocytosis 1+, Sodium Level 142, Potassium Level 3.8, Chloride Level 101, Carbon Dioxide Level > 45*H , Blood Urea Nitrogen 17, Creatinine 0.9, Estimat Glomerular Filtration Rate > 60, Glucose Level 229H, Calcium Level 9.2 Height (Feet): 5 Height (Inches): 4.00 Weight (Pounds): 267 Marcela Jacobo MD Sep 13, 2019 19:47
[2019-09-13 20:00] VITALS: BP 131/62
[2019-09-13] MEDS: Albuterol ud Inhalation HHN PRN (20:09)
--- NOTE | 2019-09-13 22:54 | Cardiology Progress Note ---
Assessment/Plan Assessment/Plan 1. Severe pulmonary hypertension with right ventricular systolic pressure as high as 101 mmHg by echo. Discussed need of right heart cath as an outpatient. 2. Morbid obesity. 3. Normal LV systolic function with LVEF approximately 60%. 4. History of diabetes mellitus. 5. History of hypertension, well controlled, continue Irbesartan, chlorthalidone and metoprolol XL. Subjective Subjective Sinus rhythm at rate of 87. On non-rebreather mask at 15 l/min. Objective Last 24 Hour Vital Signs Date Time Temp Pulse Resp B/P (MAP) Pulse Ox O2 Delivery O2 Flow Rate FiO2 09/13/19 21:00 Non-Rebreather 09/13/19 20:10 87 20 98 Non-Rebreather 15.0 100 88 22 95 09/13/19 20:08 95 Non-Rebreather 15.0 100 09/13/19 20:08 88 22 95 Non-Rebreather 15.0 100 09/13/19 20:00 15.0 09/13/19 20:00 83 09/13/19 20:00 98.1 89 21 131/62 (85) 92 09/13/19 16:00 98.2 83 20 128/59 (82) 94 09/13/19 16:00 15.0 09/13/19 16:00 85 09/13/19 12:00 15.0 09/13/19 12:00 78 09/13/19 12:00 98.2 82 20 142/68 (92) 95 09/13/19 09:25 89 141/67 09/13/19 09:00 Non-Rebreather 09/13/19 08:36 141/67 09/13/19 08:35 89 141/67 09/13/19 08:00 97.5 89 20 141/67 (91) 94 09/13/19 08:00 87 09/13/19 08:00 15.0 09/13/19 07:00 97 Non-Rebreather 15.0 100 09/13/19 07:00 84 24 97 Non-Rebreather 15.0 100 09/13/19 04:00 15.0 09/13/19 04:00 97.6 90 20 130/76 (94) 98 09/13/19 04:00 85 09/13/19 00:00 93 09/13/19 00:00 98.6 94 20 140/71 (94) 98 09/13/19 00:00 15.0 Intake and Output 09/12/19 09/13/19 19:00 07:00 Intake Total 720 ml 120 ml Balance 720 ml 120 ml Intake Oral 720 ml 120 ml # Voids 5 1 2D Echo: LVEF 60%, Hi RAP at 15 mmHg, RVSP 101 mmHg, Normal LV diastolic Fxn Laboratory Tests Test 09/13/19 05:20 White Blood Count 10.9 K/UL (4.8-10.8) H Red Blood Count 2.98 M/UL (4.20-5.40) L Hemoglobin 8.7 G/DL (12.0-16.0) L Hematocrit 28.4 % (37.0-47.0) L Mean Corpuscular Volume 95 FL (80-99) Mean Corpuscular Hemoglobin 29.0 PG (27.0-31.0) Mean Corpuscular Hemoglobin Concent 30.5 G/DL (32.0-36.0) L Red Cell Distribution Width 15.8 % (11.6-14.8) H Platelet Count 190 K/UL (150-450) Mean Platelet Volume 6.1 FL (6.5-10.1) L Neutrophils (%) (Auto) % (45.0-75.0) Lymphocytes (%) (Auto) % (20.0-45.0) Monocytes (%) (Auto) % (1.0-10.0) Eosinophils (%) (Auto) % (0.0-3.0) Basophils (%) (Auto) % (0.0-2.0) Differential Total Cells Counted 100 Neutrophils % (Manual) 92 % (45-75) H Lymphocytes % (Manual) 3 % (20-45) L Monocytes % (Manual) 3 % (1-10) Eosinophils % (Manual) 1 % (0-3) Basophils % (Manual) 0 % (0-2) Band Neutrophils 1 % (0-8) Platelet Estimate Adequate Platelet Morphology Normal Hypochromasia 1+ Anisocytosis 1+ Sodium Level 142 MMOL/L (136-145) Potassium Level 3.8 MMOL/L (3.5-5.1) Chloride Level 101 MMOL/L (98-107) Carbon Dioxide Level > 45 MMOL/L (21-32) *H Blood Urea Nitrogen 17 mg/dL (7-18) Creatinine 0.9 MG/DL (0.55-1.30) Estimat Glomerular Filtration Rate > 60 mL/min (>60) Glucose Level 229 MG/DL (74-106) H Calcium Level 9.2 MG/DL (8.5-10.1) Objective HEENT: Atraumatic and normocephalic. Anicteric. Pupils are equal, round, and reactive to light and accommodation. Extraocular muscles intact. NECK: Cannot assess JVP due to morbid obesity and short neck. CARDIOVASCULAR: Normal S1, S2. Regular rate and rhythm. No murmurs, gallops, or rubs. PMI is at fourth intercostal space in the midclavicular line. LUNGS: Bilateral basal crackles. ABDOMEN: Soft, non-tender, non-distended, + BS. EXTREMITIES: 1+ bilateral lower extremity edema. Bryce Funez MD Sep 13, 2019 22:54
[2019-09-14] VITALS: BP 132/62
--- NOTE | 2019-09-14 00:13 | NUR ---
NURSE NOTES: Paged Dr. Jacobo regarding patient's complaint of eye irritation/dryness. Awaiting callback. Will continue to monitor.
[2019-09-14 04:00] VITALS: BP 139/62
[2019-09-14] MEDS: Albuterol ud Inhalation HHN PRN (05:26)
[2019-09-14] MEDS: Piperacillin/Tazobactam 3.375 GM in NS 110 ML IVPB SCH ×3 (06:19→22:15)
[2019-09-14] MEDS: metFORMIN 500mg tab ORAL SCH ×3 (06:20→17:59)
[2019-09-14] MEDS: NovoLOG Insulin Flexpen SUBQ SCH ×4 (06:21→20:57)
[2019-09-14 06:45] LABS: HEMATOCRIT 26.2 % (37.0-47.0); MEAN CORPUSCULAR VOLUME 95 FL (80-99); PLATELET COUNT 179 K/UL (150-450); RED BLOOD COUNT 2.75 M/UL (4.20-5.40); RED CELL DISTRIBUTION WIDTH 15.7 % (11.6-14.8); WHITE BLOOD COUNT 13.3 K/UL (4.8-10.8)
[2019-09-14 07:11] LABS: PHOSPHORUS 4.3 MG/DL (2.5-4.9)
[2019-09-14 07:20] LABS: ALANINE AMINOTRANSFERASE 23 U/L (12-78); ALBUMIN 2.8 G/DL (3.4-5.0); ALBUMIN/GLOBULIN RATIO 0.6 (1.0-2.7); ALKALINE PHOSPHATASE 71 U/L (46-116); ANION GAP -3 mmol/L (5-15); ASPARTATE AMINO TRANSFERASE 15 U/L (15-37); BILIRUBIN,TOTAL 0.5 MG/DL (0.2-1.0); BLOOD UREA NITROGEN 19 mg/dL (7-18); CALCIUM 8.8 MG/DL (8.5-10.1); CHLORIDE 99 MMOL/L (98-107); POTASSIUM 3.2 MMOL/L (3.5-5.1); SODIUM 141 MMOL/L (136-145)
[2019-09-14 07:25] LABS: CARBON DIOXIDE 45 MMOL/L (21-32)
--- NOTE | 2019-09-14 07:40 | NUR ---
HAND-OFF: Report given to TEDDY Mg. Plan of care endorsed, patient in stable condition.
--- NOTE | 2019-09-14 07:46 | NUR ---
NURSE NOTES: pt sitting in chair having breakfast and on a non-rebreather. AOx4. Pt on equipment monitor phototypesetting, no signs of cardiac or respiratory distress at this time. Bed is locked and in lowest position. Call light within reach. Son is at bedside. Will continue to monitor pt and follow plans of care.
[2019-09-14 08:03] VITALS: BP 125/55
--- NOTE | 2019-09-14 08:46 | General Progress Note ---
Assessment/Plan Assessment/Plan: S: I am feeling the same O: on Non rebreather O2, denies chest pain . limited activity reported. Low threshold for exertional sob. PHYSICAL EXAMINATION:HEAD AND NECK: Atraumatic, normocephalic. CHEST: Clear to auscultation.HEART: S1, S2. Regular rate and rhythm. ABDOMEN: Soft. No organomegaly.MUSCULOSKELETAL: No gross focal deficit. NEUROLOGIC: The patient is awake, alert, oriented x3. LABORATORY and Imaging DATA: dated 09/11 reviewed ASSESSMENT: 1. Acute Asthma exacerbation 2. Pulmonary infiltrate, Atelectasis vs Community-acquired pneumonia. 3. CHF exacerbation. 4. Morbid obesity. 5. Asthma. 6. Severe pulmonary arterial hypertension. 7. DM 2- uncontrolled 8. GI and DVT prophylaxis. Plan: Poor overall physial performance, with limited ADLS Reported that is not willing to go to Rehab Rebound Leukocytosis, Not clinically volume over load Notes from Nephro and Pulmonary reviewed Given new leukocytosis, Abx is optimized Negative culture as of yet Discussed the care with Pulmonary. Will start diuretic challenge Subjective Allergies: Coded Allergies: MORPHINE (Verified Allergy, Intermediate, 09/09/19) Headach, Dizziness Objective Last 24 Hour Vital Signs Date Time Temp Pulse Resp B/P (MAP) Pulse Ox O2 Delivery O2 Flow Rate FiO2 09/14/19 08:06 15.0 09/14/19 08:03 96.2 85 18 125/55 (78) 92 09/14/19 07:46 91 Non-Rebreather 15.0 100 09/14/19 07:45 86 20 91 Non-Rebreather 15.0 100 09/14/19 05:26 89 20 99 Non-Rebreather 15.0 100 91 20 96 09/14/19 04:00 85 09/14/19 04:00 15.0 09/14/19 04:00 98.5 77 20 139/62 (87) 94 09/14/19 00:00 99.5 91 20 132/62 (85) 95 09/14/19 00:00 90 09/13/19 21:00 Non-Rebreather 09/13/19 20:10 88 20 98 Non-Rebreather 15.0 100 84 22 94 09/13/19 20:08 95 Non-Rebreather 15.0 100 09/13/19 20:08 88 22 95 Non-Rebreather 15.0 100 09/13/19 20:00 15.0 09/13/19 20:00 83 09/13/19 20:00 98.1 89 21 131/62 (85) 92 09/13/19 16:00 98.2 83 20 128/59 (82) 94 09/13/19 16:00 15.0 09/13/19 16:00 85 09/13/19 12:00 15.0 09/13/19 12:00 78 09/13/19 12:00 98.2 82 20 142/68 (92) 95 09/13/19 09:25 89 141/67 09/13/19 09:00 Non-Rebreather Intake and Output 09/13/19 09/14/19 19:00 07:00 Intake Total 550 ml 500 ml Balance 550 ml 500 ml Intake Oral 550 ml 500 ml # Voids 2 3 Laboratory Tests 09/14/19 05:52: White Blood Count 13.3H, Red Blood Count 2.75L, Hemoglobin 8.0L, Hematocrit 26.2L, Mean Corpuscular Volume 95, Mean Corpuscular Hemoglobin 29.2, Mean Corpuscular Hemoglobin Concent 30.7L, Red Cell Distribution Width 15.7H, Platelet Count 179, Mean Platelet Volume 6.4L, Neutrophils (%) (Auto) , Lymphocytes (%) (Auto) , Monocytes (%) (Auto) , Eosinophils (%) (Auto) , Basophils (%) (Auto) , Neutrophils % (Manual) [Pending], Lymphocytes % (Manual) [Pending], Platelet Estimate [Pending], Platelet Morphology [Pending], Sodium Level 141, Potassium Level 3.2L, Chloride Level 99, Carbon Dioxide Level 45*H, Anion Gap -3L, Blood Urea Nitrogen 19H, Creatinine 1.0, Estimat Glomerular Filtration Rate > 60, Glucose Level 245H, Uric Acid 3.9, Calcium Level 8.8, Phosphorus Level 4.3, Magnesium Level 1.7L, Total Bilirubin 0.5, Aspartate Amino Transf (AST/SGOT) 15, Alanine Aminotransferase (ALT/SGPT) 23, Alkaline Phosphatase 71, Total Protein 7.7, Albumin 2.8L, Globulin 4.9, Albumin/Globulin Ratio 0.6L Height (Feet): 5 Height (Inches): 4.00 Weight (Pounds): 267 Marcela Jacobo MD Sep 14, 2019 08:46
[2019-09-14] MEDS: Levemir Flexpen SUBQ SCH ×2 (08:58→20:00)
[2019-09-14] MEDS: Liothyronine 5mcg tab ORAL SCH (09:00)
[2019-09-14] MEDS: Aspirin EC 81mg tab ORAL SCH (09:00)
[2019-09-14] MEDS: Enoxaparin 40mg Inj SUBQ SCH (09:00)
[2019-09-14] MEDS: Metoprolol Succinate XL 50mg tab ORAL SCH ×2 (09:01→10:07)
[2019-09-14] MEDS: Irbesartan 150mg tablet ORAL SCH ×2 (09:01→10:06)
[2019-09-14] MEDS: Allopurinol 100mg Tab ORAL SCH (09:02)
[2019-09-14] MEDS: Docusate 250mg cap ORAL SCH ×3 (09:02→17:58)
--- NOTE | 2019-09-14 09:58 | Pulmonology Progress Note ---
Assessment/Plan Assessment/Plan ASSESSMENT Pulmonary edema LAYO History of asthma Pulmonary hypertension DISCUSSION: Continue BiPAP q pm. Continue diuresis, nitrates, breathing treatments. Consider heart cath per cardiology. Avoidance of nephrotoxic medications. Will add Diamox Antibiotics broadened but no clear source on infection Do not suspect new or active pneumonia I will follow carefully. Patient declines BiPAP I/O inaccurate Sohail Aguirre M.D. Subjective Interval Events: On Lasix and Diamox however I/O charting is inaccurate due to commode usage Constitutional: Reports: no symptoms HEENT: Repors: no symptoms Respiratory: Reports: shortness of breath Cardiovascular: Reports: no symptoms Gastrointestinal/Abdominal: Reports: no symptoms Allergies: Coded Allergies: MORPHINE (Verified Allergy, Intermediate, 09/09/19) Headach, Dizziness Objective Last 24 Hour Vital Signs Date Time Temp Pulse Resp B/P (MAP) Pulse Ox O2 Delivery O2 Flow Rate FiO2 09/14/19 08:06 15.0 09/14/19 08:03 96.2 85 18 125/55 (78) 92 09/14/19 07:46 91 Non-Rebreather 15.0 100 09/14/19 07:45 86 20 91 Non-Rebreather 15.0 100 09/14/19 05:26 89 20 99 Non-Rebreather 15.0 100 91 20 96 09/14/19 04:00 85 09/14/19 04:00 15.0 09/14/19 04:00 98.5 77 20 139/62 (87) 94 09/14/19 00:00 99.5 91 20 132/62 (85) 95 09/14/19 00:00 90 09/13/19 21:00 Non-Rebreather 09/13/19 20:10 88 20 98 Non-Rebreather 15.0 100 84 22 94 09/13/19 20:08 95 Non-Rebreather 15.0 100 09/13/19 20:08 88 22 95 Non-Rebreather 15.0 100 09/13/19 20:00 15.0 09/13/19 20:00 83 09/13/19 20:00 98.1 89 21 131/62 (85) 92 09/13/19 16:00 98.2 83 20 128/59 (82) 94 09/13/19 16:00 15.0 09/13/19 16:00 85 09/13/19 12:00 15.0 09/13/19 12:00 78 09/13/19 12:00 98.2 82 20 142/68 (92) 95 Intake and Output 09/13/19 09/14/19 19:00 07:00 Intake Total 550 ml 500 ml Balance 550 ml 500 ml Intake Oral 550 ml 500 ml # Voids 2 3 General Appearance: no acute distress HEENT: normocephalic Respiratory/Chest: chest wall non-tender, decreased breath sounds Cardiovascular: normal peripheral pulses, normal rate Abdomen: normal bowel sounds Laboratory Tests 09/14/19 05:52: White Blood Count 13.3H, Red Blood Count 2.75L, Hemoglobin 8.0L, Hematocrit 26.2L, Mean Corpuscular Volume 95, Mean Corpuscular Hemoglobin 29.2, Mean Corpuscular Hemoglobin Concent 30.7L, Red Cell Distribution Width 15.7H, Platelet Count 179, Mean Platelet Volume 6.4L, Neutrophils (%) (Auto) , Lymphocytes (%) (Auto) , Monocytes (%) (Auto) , Eosinophils (%) (Auto) , Basophils (%) (Auto) , Neutrophils % (Manual) [Pending], Lymphocytes % (Manual) [Pending], Platelet Estimate [Pending], Platelet Morphology [Pending], Sodium Level 141, Potassium Level 3.2L, Chloride Level 99, Carbon Dioxide Level 45*H, Anion Gap -3L, Blood Urea Nitrogen 19H, Creatinine 1.0, Estimat Glomerular Filtration Rate > 60, Glucose Level 245H, Uric Acid 3.9, Calcium Level 8.8, Phosphorus Level 4.3, Magnesium Level 1.7L, Total Bilirubin 0.5, Aspartate Amino Transf (AST/SGOT) 15, Alanine Aminotransferase (ALT/SGPT) 23, Alkaline Phosphatase 71, Total Protein 7.7, Albumin 2.8L, Globulin 4.9, Albumin/Globulin Ratio 0.6L Current Medications Medications (Trade) Dose Ordered Sig/Yue Route PRN Reason Start Time Stop Time Status Last Admin Dose Admin Acetaminophen (Tylenol) 650 mg Q6H PRN ORAL Mild Pain/Temp > 100.5 09/07/19 15:30 10/07/19 15:29 09/14/19 03:56 Acetaminophen/ Hydrocodone Bitart ([place] 5/325) 1 tab Q6H PRN ORAL moderate pain, 4-6 09/07/19 15:30 09/14/19 15:29 09/13/19 11:19 Acetazolamide (Diamox) 250 mg EVERY 8 HOURS ORAL 09/13/19 14:00 09/15/19 06:01 09/14/19 06:20 Albuterol Sulfate (Proventil) 2.5 mg Q4HRT PRN HHN Shortness of Breath 09/12/19 19:45 09/17/19 19:44 09/14/19 05:26 Allopurinol (Zyloprim) 100 mg DAILY ORAL 09/09/19 09:00 10/09/19 08:59 09/14/19 09:02 Aspirin (Ecotrin) 81 mg DAILY ORAL 09/08/19 09:00 10/07/19 08:59 09/14/19 09:00 Chlorthalidone (Chlorthalidone) 25 mg DAILY ORAL 09/09/19 09:00 10/09/19 08:59 09/13/19 08:35 Dextrose (Dextrose 50%) 25 ml Q30M PRN IV Hypoglycemia 09/07/19 15:30 10/07/19 06:29 Dextrose (Dextrose 50%) 50 ml Q30M PRN IV Hypoglycemia 09/07/19 15:30 10/07/19 06:29 Docusate Sodium (Colace) 250 mg TID ORAL 09/12/19 09:00 10/12/19 08:59 09/14/19 09:02 Enoxaparin Sodium (Lovenox) 40 mg DAILY SUBQ 09/08/19 09:00 10/07/19 08:59 09/14/19 09:00 Furosemide (Lasix) 40 mg Q8HR IV 09/13/19 11:00 10/13/19 10:59 09/14/19 06:19 Hydromorphone HCl (Dilaudid) 0.5 mg BIDPRN PRN IVP Severe Pain (Pain Scale 7-10) 09/07/19 15:30 09/14/19 15:29 Insulin Aspart (NovoLOG) BEFORE MEALS AND HS SUBQ 09/07/19 16:30 10/07/19 06:29 09/14/19 06:21 Insulin Detemir (Levemir) 20 units Q12H SUBQ 09/13/19 20:00 10/07/19 15:59 09/14/19 08:58 Irbesartan (Avapro) 300 mg DAILY ORAL 09/10/19 09:00 10/10/19 08:59 09/13/19 08:36 Levothyroxine Sodium (Synthroid) 150 mcg DAILY@0630 ORAL 09/08/19 06:30 10/08/19 06:29 09/14/19 06:20 Liothyronine Sodium (Cytomel) 5 mcg DAILY ORAL 09/10/19 09:00 10/10/19 08:59 09/14/19 09:00 Magnesium Sulfate 100 ml @ 100 mls/hr ONCE ONCE IVPB 09/14/19 09:00 09/14/19 09:59 Metformin HCl (Glucophage) 500 mg TIAC ORAL 09/08/19 16:30 10/08/19 16:29 09/14/19 06:20 Metoprolol Succinate (Toprol XL) 50 mg DAILY ORAL 09/13/19 09:00 10/13/19 08:59 09/13/19 09:25 Nateglinide (Starlix) 120 mg TIAC ORAL 09/07/19 16:30 10/07/19 11:29 09/14/19 06:19 Piperacillin Sod/ Tazobactam Sod 3.375 gm/Sodium Chloride 110 ml @ 27.5 mls/hr EVERY 8 HOURS IVPB 09/11/19 22:00 09/18/19 21:59 09/14/19 06:19 Sohail Aguirre MD Sep 14, 2019 09:58
--- NOTE | 2019-09-14 10:04 | NUR ---
CASE MANAGEMENT: REVIEW 09/14/19 SI: PNA . CHF EXACERBATION . ACUTE ASTHMA EXACERBATION. PULMONARY HTN 96.2 85 18 125/55 92% NON-REBREATHER MASK 15.0L WBC 13.3 RBC 2.75 H/H 8.0/26.2 CO2 45 BG 245 K+3.2 MG 1.7 ANION GAP(-3) IS: IV ZOSYN Q8HR IV LASIX Q8HR METOPROLOL PO QD AVARPO PO QD LOVENOX SQ QD NOVOLOG SUBQ AC+HS STARLIX PO TIAC LEVEMIR SQ Q12HR METFORMIN PO QD ALBUTEROL HHN Q4HR CHLORTHALIDONE PO QD : 2E TELE UNIT DCP: RETURN HOME WHEN MEDICALLY CLEARED
--- NOTE | 2019-09-14 10:18 | NUR ---
NURSE NOTES: Doctor Carla order to decrease the O2 on Non-rebreather. Pt to be at least 91% pulse ox. Pt must use bipap every night. Notified Respiratory therapy of the above noted orders, so they can be carried out.
--- NOTE | 2019-09-14 11:46 | NUR ---
NURSE NOTES: RT changed Non-rebreather mask to ventury mask, however, O2 sat decreased to 78. RT decided to put pt back on non rebreather mask. O2 sat is 94-95 now.
[2019-09-14 12:04] VITALS: BP 121/64
--- NOTE | 2019-09-14 12:05 | NUR ---
RD ASSESSMENT & RECOMMENDATIONS SEE CARE ACTIVITY FOR COMPLETE ASSESSMENT DAILY ESTIMATED NEEDS: Needs based on Pulmonarym cardiac, obese 71kg abw 20-25 kcals/kg 9230-3893 total kcals 1-1.5 g protein/kg 71-107 g total protein Fluid per MD, on diuretics mL/kg total fluid mLs NUTRITION DIAGNOSIS: Decreased fat and sodium needs r/t CHF and morbid obesity as evidenced by pt w/ edema, on diuretics, w/ severe pulmonary arterial hypertension per MD, BMI >40, @223% of [place] Body Weight CURRENT DIET:Cardiac/ CCHO Med PO DIET RECOMMENDATIONS: CARDIAC + CCHO LOW ADDITIONAL RECOMMENDATIONS: 1) Obtain daily weights on diuretics 2) Check lytes daily on diuretics/ replete as needed (low mag and K) 3) Monitor and record BM regularity: last recorded 09/07
--- NOTE | 2019-09-14 12:18 | Nephrology Progress Note ---
Assessment/Plan Problem List: (1) Morbid obesity with BMI of 40.0-44.9, adult (2) Anemia (3) Hyperglycemia due to type 2 diabetes mellitus (4) Hypertension (5) Respiratory failure with hypoxia and hypercapnia Assessment Acute Respiratory Failure Morbid Obesity LAYO Anemia DM OOC HTN Plan now on Lasix and Diamox K Supplement add metformin to starlix one dose diamox adjust Levemir to 20 Q12 add cytomel Respiratory support, BIPAP 2D Echo , BP and BS management monitor lytes Subjective ROS Limited/Unobtainable: No Constitutional: Reports: malaise Objective Objective Last 24 Hour Vital Signs Date Time Temp Pulse Resp B/P (MAP) Pulse Ox O2 Delivery O2 Flow Rate FiO2 09/14/19 12:06 15.0 09/14/19 12:04 96.4 72 20 121/64 (83) 93 09/14/19 11:57 86 09/14/19 10:07 81 143/62 09/14/19 10:06 143/62 09/14/19 08:06 15.0 09/14/19 08:03 96.2 85 18 125/55 (78) 92 09/14/19 07:46 91 Non-Rebreather 15.0 100 09/14/19 07:45 86 20 91 Non-Rebreather 15.0 100 09/14/19 05:26 89 20 99 Non-Rebreather 15.0 100 91 20 96 09/14/19 04:00 85 09/14/19 04:00 15.0 09/14/19 04:00 98.5 77 20 139/62 (87) 94 09/14/19 00:00 99.5 91 20 132/62 (85) 95 09/14/19 00:00 90 09/13/19 21:00 Non-Rebreather 09/13/19 20:10 88 20 98 Non-Rebreather 15.0 100 84 22 94 09/13/19 20:08 95 Non-Rebreather 15.0 100 09/13/19 20:08 88 22 95 Non-Rebreather 15.0 100 09/13/19 20:00 15.0 09/13/19 20:00 83 09/13/19 20:00 98.1 89 21 131/62 (85) 92 09/13/19 16:00 98.2 83 20 128/59 (82) 94 09/13/19 16:00 15.0 09/13/19 16:00 85 Intake and Output 09/13/19 09/14/19 18:59 06:59 Intake Total 550 ml 360 ml Balance 550 ml 360 ml Intake Oral 550 ml 360 ml # Voids 2 3 Laboratory Tests 09/14/19 05:52: White Blood Count 13.3H, Red Blood Count 2.75L, Hemoglobin 8.0L, Hematocrit 26.2L, Mean Corpuscular Volume 95, Mean Corpuscular Hemoglobin 29.2, Mean Corpuscular Hemoglobin Concent 30.7L, Red Cell Distribution Width 15.7H, Platelet Count 179, Mean Platelet Volume 6.4L, Neutrophils (%) (Auto) , Lymphocytes (%) (Auto) , Monocytes (%) (Auto) , Eosinophils (%) (Auto) , Basophils (%) (Auto) , Differential Total Cells Counted 100, Neutrophils % ( Manual) 85H, Lymphocytes % (Manual) 8L, Monocytes % (Manual) 7, Eosinophils % ( Manual) 0, Basophils % (Manual) 0, Band Neutrophils 0, Platelet Estimate Adequate, Platelet Morphology Normal, Polychromasia 1+, Hypochromasia 1+, Anisocytosis 1+, Sodium Level 141, Potassium Level 3.2L, Chloride Level 99, Carbon Dioxide Level 45*H, Anion Gap -3L, Blood Urea Nitrogen 19H, Creatinine 1.0, Estimat Glomerular Filtration Rate > 60, Glucose Level 245H, Uric Acid 3.9 , Calcium Level 8.8, Phosphorus Level 4.3, Magnesium Level 1.7L, Total Bilirubin 0.5, Aspartate Amino Transf (AST/SGOT) 15, Alanine Aminotransferase ( ALT/SGPT) 23, Alkaline Phosphatase 71, Total Protein 7.7, Albumin 2.8L, Globulin 4.9, Albumin/Globulin Ratio 0.6L Height (Feet): 5 Height (Inches): 4.00 Weight (Pounds): 267 General Appearance: no apparent distress, lethargic Cardiovascular: normal rate Respiratory/Chest: decreased breath sounds Abdomen: other - obese Gino Longoria MD Sep 14, 2019 12:18
--- NOTE | 2019-09-14 13:44 | Infectious Diseases Prog Note ---
Assessment/Plan Problems: (1) Leukocytosis Assessment & Plan: with worsening lungs infiltrates , on zosyn empirically to cover for pneumonia pending sputum culture , repeated blood culture is negative on 09/10 , monitor CXR . (2) Community acquired pneumonia Assessment & Plan: with productive cough , now on zosyn empirically due to worsening right side lung infiltrates and WBC , continue nebulizer treatment , titrate oxygen , monitor CXR (3) Acute exacerbation of CHF (congestive heart failure) Assessment & Plan: continue dieuresis as per renal (4) Respiratory failure with hypoxia and hypercapnia Assessment & Plan: on high flow oxygen via mask , continue nebulizers and diuretics (5) Hyperglycemia due to type 2 diabetes mellitus Assessment & Plan: poorly controled, continue insulin to achieve tight glycemic control to keep blood glucose between 100-140 (6) Pleural effusion Assessment & Plan: R>L may benefit from thoracentesis Subjective Constitutional: Reports: fatigue HEENT: Reports: no symptoms Respiratory: Reports: productive cough Breasts: Reports: no symptoms Cardiovascular: Reports: no symptoms Gastrointestinal/Abdominal: Reports: no symptoms Genitourinary: Reports: no symptoms Neurologic: Reports: no symptoms Psychiatric: Reports: no symptoms Skin: Reports: no symptoms Endocrine: Reports: no symptoms Hematologic: Reports: no symptoms Musculoskeletal: Reports: swelling Allergies: Coded Allergies: MORPHINE (Verified Allergy, Intermediate, 09/09/19) Headach, Dizziness Objective Vital Signs Last 24 Hour Vital Signs Date Time Temp Pulse Resp B/P (MAP) Pulse Ox O2 Delivery O2 Flow Rate FiO2 09/14/19 12:06 15.0 09/14/19 12:04 96.4 72 20 121/64 (83) 93 09/14/19 11:57 86 09/14/19 10:07 81 143/62 09/14/19 10:06 143/62 09/14/19 08:06 15.0 09/14/19 08:03 96.2 85 18 125/55 (78) 92 09/14/19 07:46 91 Non-Rebreather 15.0 100 09/14/19 07:45 86 20 91 Non-Rebreather 15.0 100 09/14/19 05:26 89 20 99 Non-Rebreather 15.0 100 91 20 96 09/14/19 04:00 85 09/14/19 04:00 15.0 09/14/19 04:00 98.5 77 20 139/62 (87) 94 09/14/19 00:00 99.5 91 20 132/62 (85) 95 09/14/19 00:00 90 09/13/19 21:00 Non-Rebreather 09/13/19 20:10 88 20 98 Non-Rebreather 15.0 100 84 22 94 09/13/19 20:08 95 Non-Rebreather 15.0 100 09/13/19 20:08 88 22 95 Non-Rebreather 15.0 100 09/13/19 20:00 15.0 09/13/19 20:00 83 09/13/19 20:00 98.1 89 21 131/62 (85) 92 09/13/19 16:00 98.2 83 20 128/59 (82) 94 09/13/19 16:00 15.0 09/13/19 16:00 85 Height (Feet): 5 Height (Inches): 4.00 Weight (Pounds): 267 General Appearance: WD/WN, no acute distress HEENT: normocephalic, atraumatic, anicteric, mucous membranes moist, PERRL Respiratory/Chest: chest wall non-tender, normal breath sounds, no respiratory distress, no accessory muscle use, decreased breath sounds Cardiovascular: normal peripheral pulses, normal rate, regular rhythm, no gallop/murmur, no JVD Abdomen: normal bowel sounds, soft, non tender, no organomegaly, non distended , no mass, no scars Genitourinary: normal external genitalia Extremities: no cyanosis, no clubbing Skin: no rash, no lesions, no ulcers 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, no motor/sensory deficits, alert, oriented x 3, responsive Lymphatic: no neck adenopathy, no groin adenopathy Musculoskeletal: normal muscle bulk, no effusion Laboratory Tests Test 09/14/19 05:52 White Blood Count 13.3 K/UL (4.8-10.8) H Red Blood Count 2.75 M/UL (4.20-5.40) L Hemoglobin 8.0 G/DL (12.0-16.0) L Hematocrit 26.2 % (37.0-47.0) L Mean Corpuscular Volume 95 FL (80-99) Mean Corpuscular Hemoglobin 29.2 PG (27.0-31.0) Mean Corpuscular Hemoglobin Concent 30.7 G/DL (32.0-36.0) L Red Cell Distribution Width 15.7 % (11.6-14.8) H Platelet Count 179 K/UL (150-450) Mean Platelet Volume 6.4 FL (6.5-10.1) L Neutrophils (%) (Auto) % (45.0-75.0) Lymphocytes (%) (Auto) % (20.0-45.0) Monocytes (%) (Auto) % (1.0-10.0) Eosinophils (%) (Auto) % (0.0-3.0) Basophils (%) (Auto) % (0.0-2.0) Differential Total Cells Counted 100 Neutrophils % (Manual) 85 % (45-75) H Lymphocytes % (Manual) 8 % (20-45) L Monocytes % (Manual) 7 % (1-10) Eosinophils % (Manual) 0 % (0-3) Basophils % (Manual) 0 % (0-2) Band Neutrophils 0 % (0-8) Platelet Estimate Adequate Platelet Morphology Normal Polychromasia 1+ Hypochromasia 1+ Anisocytosis 1+ Sodium Level 141 MMOL/L (136-145) Potassium Level 3.2 MMOL/L (3.5-5.1) L Chloride Level 99 MMOL/L (98-107) Carbon Dioxide Level 45 MMOL/L (21-32) *H Anion Gap -3 mmol/L (5-15) L Blood Urea Nitrogen 19 mg/dL (7-18) H Creatinine 1.0 MG/DL (0.55-1.30) Estimat Glomerular Filtration Rate > 60 mL/min (>60) Glucose Level 245 MG/DL (74-106) H Uric Acid 3.9 MG/DL (2.6-7.2) Calcium Level 8.8 MG/DL (8.5-10.1) Phosphorus Level 4.3 MG/DL (2.5-4.9) Magnesium Level 1.7 MG/DL (1.8-2.4) L Total Bilirubin 0.5 MG/DL (0.2-1.0) Aspartate Amino Transf (AST/SGOT) 15 U/L (15-37) Alanine Aminotransferase (ALT/SGPT) 23 U/L (12-78) Alkaline Phosphatase 71 U/L (46-116) C-Reactive Protein, Quantitative 17.7 mg/dL (0.00-0.90) H Total Protein 7.7 G/DL (6.4-8.2) Albumin 2.8 G/DL (3.4-5.0) L Globulin 4.9 g/dL Albumin/Globulin Ratio 0.6 (1.0-2.7) L Current Medications Medications (Trade) Dose Ordered Sig/Yue Route PRN Reason Start Time Stop Time Status Last Admin Dose Admin Acetaminophen (Tylenol) 650 mg Q6H PRN ORAL Mild Pain/Temp > 100.5 09/07/19 15:30 10/07/19 15:29 09/14/19 03:56 Acetaminophen/ Hydrocodone Bitart ([place] 5/325) 1 tab Q6H PRN ORAL moderate pain, 4-6 09/07/19 15:30 09/14/19 15:29 09/13/19 11:19 Acetazolamide (Diamox) 250 mg EVERY 8 HOURS ORAL 09/13/19 14:00 09/15/19 06:01 09/14/19 06:20 Albuterol Sulfate (Proventil) 2.5 mg Q4HRT PRN HHN Shortness of Breath 09/12/19 19:45 09/17/19 19:44 09/14/19 05:26 Allopurinol (Zyloprim) 100 mg DAILY ORAL 09/09/19 09:00 10/09/19 08:59 09/14/19 09:02 Aspirin (Ecotrin) 81 mg DAILY ORAL 09/08/19 09:00 10/07/19 08:59 09/14/19 09:00 Dextrose (Dextrose 50%) 25 ml Q30M PRN IV Hypoglycemia 09/07/19 15:30 10/07/19 06:29 Dextrose (Dextrose 50%) 50 ml Q30M PRN IV Hypoglycemia 09/07/19 15:30 10/07/19 06:29 Docusate Sodium (Colace) 250 mg TID ORAL 09/12/19 09:00 10/12/19 08:59 09/14/19 09:02 Enoxaparin Sodium (Lovenox) 40 mg DAILY SUBQ 09/08/19 09:00 10/07/19 08:59 09/14/19 09:00 Furosemide (Lasix) 40 mg Q8HR IV 09/13/19 11:00 10/13/19 10:59 09/14/19 06:19 Hydromorphone HCl (Dilaudid) 0.5 mg BIDPRN PRN IVP Severe Pain (Pain Scale 7-10) 09/07/19 15:30 09/14/19 15:29 Insulin Aspart (NovoLOG) BEFORE MEALS AND HS SUBQ 09/07/19 16:30 10/07/19 06:29 09/14/19 06:21 Insulin Detemir (Levemir) 20 units Q12H SUBQ 09/13/19 20:00 10/07/19 15:59 09/14/19 08:58 Irbesartan (Avapro) 300 mg DAILY ORAL 09/10/19 09:00 10/10/19 08:59 09/14/19 10:06 Levothyroxine Sodium (Synthroid) 150 mcg DAILY@0630 ORAL 09/08/19 06:30 10/08/19 06:29 09/14/19 06:20 Liothyronine Sodium (Cytomel) 5 mcg DAILY ORAL 09/10/19 09:00 10/10/19 08:59 09/14/19 09:00 Magnesium Oxide (Mag-Ox 400mg) 400 mg THREE TIMES A DAY ORAL 09/14/19 13:00 10/14/19 12:59 Metformin HCl (Glucophage) 500 mg TIAC ORAL 09/08/19 16:30 10/08/19 16:29 09/14/19 11:30 Metoprolol Succinate (Toprol XL) 50 mg DAILY ORAL 09/13/19 09:00 10/13/19 08:59 09/14/19 10:07 Nateglinide (Starlix) 120 mg TIAC ORAL 09/07/19 16:30 10/07/19 11:29 09/14/19 11:30 Piperacillin Sod/ Tazobactam Sod 3.375 gm/Sodium Chloride 110 ml @ 27.5 mls/hr EVERY 8 HOURS IVPB 09/11/19 22:00 09/18/19 21:59 09/14/19 06:19 Potassium Chloride (K-Dur) 40 meq BID ORAL 09/14/19 12:45 10/14/19 12:44 Katlyn Richard M.D. Sep 14, 2019 13:44
[2019-09-14] MEDS: Magnesium Oxide 400mg tab ORAL SCH ×2 (14:21→17:59)
--- NOTE | 2019-09-14 15:50 | NUR ---
*-* INSURANCE *-* ALL CLINICALS AND REVIEWS HAVE BEEN FAXED TO: [employer] [employer] Ref# [id number] CM: [place]ina #[phone] fax#[phone] also send to [facility] ref# or ANSON maradiaga #[phone] fax#[phone]
[2019-09-14 16:00] VITALS: BP 131/62
--- NOTE | 2019-09-14 17:08 | NUR ---
NURSE NOTES: pt hasn't had a BM since 09/07 doctor Odalsi T/O Lactulose 20mg TID PRN.
[2019-09-14] MEDS ORDERED: Lactulose 20gm/30ml UDC ORAL PRN (17:15)
--- NOTE | 2019-09-14 18:59 | NUR ---
HAND-OFF: Report given to charge nurse rocio Limon in stable condition.
--- NOTE | 2019-09-14 19:09 | Cardiology Progress Note ---
Assessment/Plan Assessment/Plan 1. Severe pulmonary hypertension with right ventricular systolic pressure as high as 101 mmHg by echo. Discussed need of right heart cath as an outpatient. 2. Morbid obesity. 3. Normal LV systolic function with LVEF approximately 60%. 4. History of diabetes mellitus. 5. History of hypertension, well controlled, continue Irbesartan, chlorthalidone and metoprolol XL. Subjective Subjective Sinus rhythm at rate of 80. On non-rebreather mask at 15 l/min. Objective Last 24 Hour Vital Signs Date Time Temp Pulse Resp B/P (MAP) Pulse Ox O2 Delivery O2 Flow Rate FiO2 09/14/19 16:00 80 09/14/19 16:00 15.0 09/14/19 16:00 98.8 77 20 131/62 (85) 97 09/14/19 15:25 Non-Rebreather 09/14/19 12:06 15.0 09/14/19 12:04 96.4 72 20 121/64 (83) 93 09/14/19 12:00 78 09/14/19 10:07 81 143/62 09/14/19 10:06 143/62 09/14/19 09:00 Non-Rebreather 09/14/19 08:06 15.0 09/14/19 08:03 96.2 85 18 125/55 (78) 92 09/14/19 08:00 86 09/14/19 07:46 91 Non-Rebreather 15.0 100 09/14/19 07:45 86 20 91 Non-Rebreather 15.0 100 09/14/19 05:26 89 20 99 Non-Rebreather 15.0 100 91 20 96 09/14/19 04:00 85 09/14/19 04:00 15.0 09/14/19 04:00 98.5 77 20 139/62 (87) 94 09/14/19 00:00 99.5 91 20 132/62 (85) 95 09/14/19 00:00 90 09/13/19 21:00 Non-Rebreather 09/13/19 20:10 88 20 98 Non-Rebreather 15.0 100 84 22 94 09/13/19 20:08 95 Non-Rebreather 15.0 100 09/13/19 20:08 88 22 95 Non-Rebreather 15.0 100 09/13/19 20:00 15.0 09/13/19 20:00 83 09/13/19 20:00 98.1 89 21 131/62 (85) 92 Intake and Output 09/13/19 09/14/19 19:00 07:00 Intake Total 550 ml 500 ml Balance 550 ml 500 ml Intake Oral 550 ml 500 ml # Voids 2 3 2D Echo: LVEF 60%, Hi RAP at 15 mmHg, RVSP 101 mmHg, Normal LV diastolic Fxn Laboratory Tests Test 09/14/19 05:52 White Blood Count 13.3 K/UL (4.8-10.8) H Red Blood Count 2.75 M/UL (4.20-5.40) L Hemoglobin 8.0 G/DL (12.0-16.0) L Hematocrit 26.2 % (37.0-47.0) L Mean Corpuscular Volume 95 FL (80-99) Mean Corpuscular Hemoglobin 29.2 PG (27.0-31.0) Mean Corpuscular Hemoglobin Concent 30.7 G/DL (32.0-36.0) L Red Cell Distribution Width 15.7 % (11.6-14.8) H Platelet Count 179 K/UL (150-450) Mean Platelet Volume 6.4 FL (6.5-10.1) L Neutrophils (%) (Auto) % (45.0-75.0) Lymphocytes (%) (Auto) % (20.0-45.0) Monocytes (%) (Auto) % (1.0-10.0) Eosinophils (%) (Auto) % (0.0-3.0) Basophils (%) (Auto) % (0.0-2.0) Differential Total Cells Counted 100 Neutrophils % (Manual) 85 % (45-75) H Lymphocytes % (Manual) 8 % (20-45) L Monocytes % (Manual) 7 % (1-10) Eosinophils % (Manual) 0 % (0-3) Basophils % (Manual) 0 % (0-2) Band Neutrophils 0 % (0-8) Platelet Estimate Adequate Platelet Morphology Normal Polychromasia 1+ Hypochromasia 1+ Anisocytosis 1+ Sodium Level 141 MMOL/L (136-145) Potassium Level 3.2 MMOL/L (3.5-5.1) L Chloride Level 99 MMOL/L (98-107) Carbon Dioxide Level 45 MMOL/L (21-32) *H Anion Gap -3 mmol/L (5-15) L Blood Urea Nitrogen 19 mg/dL (7-18) H Creatinine 1.0 MG/DL (0.55-1.30) Estimat Glomerular Filtration Rate > 60 mL/min (>60) Glucose Level 245 MG/DL (74-106) H Uric Acid 3.9 MG/DL (2.6-7.2) Calcium Level 8.8 MG/DL (8.5-10.1) Phosphorus Level 4.3 MG/DL (2.5-4.9) Magnesium Level 1.7 MG/DL (1.8-2.4) L Total Bilirubin 0.5 MG/DL (0.2-1.0) Aspartate Amino Transf (AST/SGOT) 15 U/L (15-37) Alanine Aminotransferase (ALT/SGPT) 23 U/L (12-78) Alkaline Phosphatase 71 U/L (46-116) C-Reactive Protein, Quantitative 17.7 mg/dL (0.00-0.90) H Total Protein 7.7 G/DL (6.4-8.2) Albumin 2.8 G/DL (3.4-5.0) L Globulin 4.9 g/dL Albumin/Globulin Ratio 0.6 (1.0-2.7) L Objective HEENT: Atraumatic and normocephalic. Anicteric. Pupils are equal, round, and reactive to light and accommodation. Extraocular muscles intact. NECK: Cannot assess JVP due to morbid obesity and short neck. CARDIOVASCULAR: Normal S1, S2. Regular rate and rhythm. No murmurs, gallops, or rubs. PMI is at fourth intercostal space in the midclavicular line. LUNGS: Bilateral basal crackles. ABDOMEN: Soft, non-tender, non-distended, + BS. EXTREMITIES: 1+ bilateral lower extremity edema. Bryce Funez MD Sep 14, 2019 19:09
--- NOTE | 2019-09-14 19:20 | NUR ---
NURSE NOTES: Patient received from TEDDY Shipley alert and oriented x4 with no acute s/s of distress noted. IV site asymptomatic and patent on R fa 22g, saline lock. Bed in lowest position, bed alarm on. Call light and belongings within reach.
[2019-09-14 20:00] VITALS: BP 132/61
[2019-09-15] VITALS (7 sets, daily range): BP systolic 105–188; BP diastolic 53–78
[2019-09-15] MEDS: Piperacillin/Tazobactam 3.375 GM in NS 110 ML IVPB SCH ×2 (06:05→16:03)
[2019-09-15] MEDS: metFORMIN 500mg tab ORAL SCH ×3 (06:05→16:02)
[2019-09-15] MEDS: NovoLOG Insulin Flexpen SUBQ SCH ×4 (06:08→21:00)
[2019-09-15 06:37] LABS: HEMATOCRIT 27.8 % (37.0-47.0); HEMOGLOBIN 8.3 G/DL (12.0-16.0); MEAN CORPUSCULAR VOLUME 96 FL (80-99); PLATELET COUNT 211 K/UL (150-450); RED CELL DISTRIBUTION WIDTH 15.6 % (11.6-14.8); WHITE BLOOD COUNT 12.9 K/UL (4.8-10.8)
--- NOTE | 2019-09-15 07:09 | NUR ---
HAND-OFF: Report given to TEDDY Roth. Plan of care endorsed.
--- NOTE | 2019-09-15 07:10 | NUR ---
NURSE NOTES: HANDOFF RECEIVED FROM TEDDY STODDARD. PATIENT AWAKE AND ALERT AND ABLE TO MAKE NEEDS KNOWN. PATIENT IS ON NON-REBREATHER AT 15 LITERS. IV RUNNING ANTIBIOTICS, IV SITE IS CLEAN DRY AND INTACT. NO OBVIOUS SIGNS OF DISTRESS NOTED. PATIENT'S SON IS AT BEDSIDE. WILL CONTINUE TO MONITOR PATIENT.
[2019-09-15 07:14] LABS: ALANINE AMINOTRANSFERASE 23 U/L (12-78); ALBUMIN 2.8 G/DL (3.4-5.0); ALBUMIN/GLOBULIN RATIO 0.5 (1.0-2.7); ALKALINE PHOSPHATASE 77 U/L (46-116); ANION GAP 8 mmol/L (5-15); ASPARTATE AMINO TRANSFERASE 17 U/L (15-37); BILIRUBIN,TOTAL 0.5 MG/DL (0.2-1.0); BLOOD UREA NITROGEN 22 mg/dL (7-18); CALCIUM 9.1 MG/DL (8.5-10.1); CARBON DIOXIDE 38 MMOL/L (21-32); CHLORIDE 99 MMOL/L (98-107); PHOSPHORUS 4.2 MG/DL (2.5-4.9); POTASSIUM 3.2 MMOL/L (3.5-5.1); SODIUM 144 MMOL/L (136-145)
[2019-09-15] MEDS: Levemir Flexpen SUBQ SCH ×2 (08:37→20:00)
[2019-09-15] MEDS: Docusate 250mg cap ORAL SCH ×3 (08:41→18:42)
[2019-09-15] MEDS: Magnesium Oxide 400mg tab ORAL SCH ×3 (08:41→18:42)
[2019-09-15] MEDS: Metoprolol Succinate XL 50mg tab ORAL SCH (08:41)
[2019-09-15] MEDS: Aspirin EC 81mg tab ORAL SCH (08:41)
[2019-09-15] MEDS: Irbesartan 150mg tablet ORAL SCH (08:42)
[2019-09-15] MEDS: Allopurinol 100mg Tab ORAL SCH (08:43)
[2019-09-15] MEDS: Liothyronine 5mcg tab ORAL SCH (08:43)
[2019-09-15] MEDS: Enoxaparin 40mg Inj SUBQ SCH (08:47)
--- NOTE | 2019-09-15 09:18 | General Progress Note ---
Assessment/Plan Assessment/Plan: S: I am feeling the same O: on Non rebreather O2, denies chest pain . limited activity reported. Low threshold for exertional sob. PHYSICAL EXAMINATION:HEAD AND NECK: Atraumatic, normocephalic. CHEST: Clear to auscultation.HEART: S1, S2. Regular rate and rhythm. ABDOMEN: Soft. No organomegaly.MUSCULOSKELETAL: No gross focal deficit. NEUROLOGIC: The patient is awake, alert, oriented x3. LABORATORY and Imaging DATA: dated 09/15 reviewed ASSESSMENT: 1. Acute Asthma exacerbation 2. Pulmonary infiltrate, Atelectasis vs Community-acquired pneumonia. 3. CHF exacerbation. 4. Morbid obesity. 5. Asthma. 6. Severe pulmonary arterial hypertension. 7. DM 2- uncontrolled 8. GI and DVT prophylaxis. 9. Acute on chronic anemia. Plan: Poor overall physial performance, with limited ADLS Reported that is not willing to go to Rehab Notes from Nephro and Pulmonary reviewed Given new leukocytosis, Abx is optimized Negative culture as of yet Refusing BIPAP recheck Stool OB Subjective Allergies: Coded Allergies: MORPHINE (Verified Allergy, Intermediate, 09/09/19) Headach, Dizziness Objective Last 24 Hour Vital Signs Date Time Temp Pulse Resp B/P (MAP) Pulse Ox O2 Delivery O2 Flow Rate FiO2 09/15/19 08:55 Non-Rebreather 09/15/19 08:42 128/58 09/15/19 08:41 85 128/58 09/15/19 08:35 95 Non-Rebreather 15.0 100 09/15/19 08:34 85 20 95 Non-Rebreather 15.0 100 09/15/19 08:00 15.0 09/15/19 08:00 97.9 83 20 128/58 (81) 96 09/15/19 04:00 97.5 83 20 127/78 (94) 96 09/15/19 04:00 95 09/15/19 04:00 15.0 09/15/19 00:00 97.5 80 20 130/75 (93) 95 09/15/19 00:00 97 09/14/19 22:34 78 37 96 Facial 50 09/14/19 21:00 Non-Rebreather 09/14/19 20:00 87 09/14/19 20:00 99.3 87 20 132/61 (84) 97 09/14/19 20:00 15.0 09/14/19 19:46 94 Non-Rebreather 15.0 100 09/14/19 19:46 82 20 94 Non-Rebreather 15.0 100 09/14/19 16:00 80 09/14/19 16:00 15.0 09/14/19 16:00 98.8 77 20 131/62 (85) 97 09/14/19 15:25 Non-Rebreather 09/14/19 12:06 15.0 09/14/19 12:04 96.4 72 20 121/64 (83) 93 09/14/19 12:00 78 09/14/19 10:07 81 143/62 09/14/19 10:06 143/62 Intake and Output 09/14/19 09/15/19 19:00 07:00 Intake Total 280 ml 327.5 ml Output Total 400 ml Balance -120 ml 327.5 ml Intake Oral 280 ml 300 ml IV Total 27.5 ml Output Urine Total 400 ml # Voids 3 5 # Bowel Movements 4 Laboratory Tests 09/14/19 20:49: Stool Occult Blood [Pending] 09/15/19 05:34: White Blood Count 12.9H, Red Blood Count 2.90L, Hemoglobin 8.3L, Hematocrit 27.8L, Mean Corpuscular Volume 96, Mean Corpuscular Hemoglobin 28.7, Mean Corpuscular Hemoglobin Concent 30.0L, Red Cell Distribution Width 15.6H, Platelet Count 211, Mean Platelet Volume 6.2L, Neutrophils (%) (Auto) , Lymphocytes (%) (Auto) , Monocytes (%) (Auto) , Eosinophils (%) (Auto) , Basophils (%) (Auto) , Differential Total Cells Counted 100, Neutrophils % ( Manual) 94H, Lymphocytes % (Manual) 3L, Monocytes % (Manual) 2, Eosinophils % ( Manual) 1, Basophils % (Manual) 0, Band Neutrophils 0, Platelet Estimate Adequate, Platelet Morphology Normal, Sodium Level 144, Potassium Level 3.2L, Chloride Level 99, Carbon Dioxide Level 38H, Anion Gap 8, Blood Urea Nitrogen 22H, Creatinine 1.0, Estimat Glomerular Filtration Rate > 60, Glucose Level 256H , Uric Acid 4.8, Calcium Level 9.1, Phosphorus Level 4.2, Magnesium Level 1.9, Total Bilirubin 0.5, Aspartate Amino Transf (AST/SGOT) 17, Alanine Aminotransferase (ALT/SGPT) 23, Alkaline Phosphatase 77, Pro-B-Type Natriuretic Peptide 93, Total Protein 8.0, Albumin 2.8L, Globulin 5.2, Albumin/Globulin Ratio 0.5L Height (Feet): 5 Height (Inches): 4.00 Weight (Pounds): 267 Marcela Jacobo MD Sep 15, 2019 09:18
--- NOTE | 2019-09-15 09:20 | NUR ---
NURSE NOTES: PATIENT COMPLAINED THAT THERE WAS BLOOD ON THE CLEAN BLANKET I GAVE HER. I THEN NOTICED HER IV WAS OUT AND ON THE FLOOR, EXPLAINED TO PATIENT THAT THE BLOOD LIKELY CAME FROM HER IV THAT MUST HAVE SOMEHOW GOT PULLED OUT.
--- NOTE | 2019-09-15 10:44 | NUR ---
CASE MANAGEMENT: REVIEW 09/14/19 SI: PNA . CHF EXACERBATION . ACUTE EXACERBATION CHF . PULMONARY HTN . LEUKOCYTOSIS 97.9 83 20 128/58 96 % NON-REBREATHER MASK 15.0L WBC 12.9 RBC 2.90 H/H 8.3/27.8 CO2 38 BG 256 K+3.2 IS: IV ZOSYN Q8HR IV LASIX Q8HR LACTULOSE PO TID/PRN MG OXIDE PO TID K-DUR PO BID METOPROLOL XL PO QD AVARPO PO QD LOVENOX SQ QD NOVOLOG SUBQ AC+HS STARLIX PO TIAC LEVEMIR SQ Q12HR METFORMIN PO QD ALBUTEROL HHN Q4HR CHLORTHALIDONE PO QD ASPIRIN PO QD : 2E TELE UNIT DCP: RETURN HOME WHEN MEDICALLY CLEARED
--- NOTE | 2019-09-15 11:00 | NUR ---
PT NOTE Attempted to see patient for PT treatment. Patient sitting up in chair sleeping, arouseable to verbal stimuli. Patient declining to participate with PT, states she doesn't feel well, falls asleep while engaging with therapist. Gonzalez ESPINAL notified.
--- NOTE | 2019-09-15 11:57 | NUR ---
*-* INSURANCE *-* ALL CLINICALS AND REVIEWS HAVE BEEN FAXED TO: [employer] Ref# [id number] CM: [place]ina #[phone] fax#[phone] also send to [facility] ref# or ANSON maradiaga #[phone] fax#[phone]
--- NOTE | 2019-09-15 11:58 | Nephrology Progress Note ---
Assessment/Plan Problem List: (1) Morbid obesity with BMI of 40.0-44.9, adult (2) Anemia (3) Hyperglycemia due to type 2 diabetes mellitus (4) Hypertension (5) Respiratory failure with hypoxia and hypercapnia Assessment Acute Respiratory Failure Morbid Obesity LAYO Anemia DM OOC HTN Plan now on Lasix and Diamox K Supplement add metformin to starlix one dose diamox adjust Levemir to 20 Q12 add cytomel Respiratory support, BIPAP 2D Echo , BP and BS management monitor lytes Subjective ROS Limited/Unobtainable: No Constitutional: Reports: malaise, weakness Objective Objective Last 24 Hour Vital Signs Date Time Temp Pulse Resp B/P (MAP) Pulse Ox O2 Delivery O2 Flow Rate FiO2 09/15/19 08:55 Non-Rebreather 09/15/19 08:42 128/58 09/15/19 08:41 85 128/58 09/15/19 08:35 95 Non-Rebreather 15.0 100 09/15/19 08:34 85 20 95 Non-Rebreather 15.0 100 09/15/19 08:00 15.0 09/15/19 08:00 97.9 83 20 128/58 (81) 96 09/15/19 08:00 85 09/15/19 04:00 97.5 83 20 127/78 (94) 96 09/15/19 04:00 95 09/15/19 04:00 15.0 09/15/19 00:00 97.5 80 20 130/75 (93) 95 09/15/19 00:00 97 09/14/19 22:34 78 37 96 Facial 50 09/14/19 21:00 Non-Rebreather 09/14/19 20:00 87 09/14/19 20:00 99.3 87 20 132/61 (84) 97 09/14/19 20:00 15.0 09/14/19 19:46 94 Non-Rebreather 15.0 100 09/14/19 19:46 82 20 94 Non-Rebreather 15.0 100 09/14/19 16:00 80 09/14/19 16:00 15.0 09/14/19 16:00 98.8 77 20 131/62 (85) 97 09/14/19 15:25 Non-Rebreather 11/25/19 12:06 15.0 09/14/19 12:04 96.4 72 20 121/64 (83) 93 09/14/19 12:00 78 Intake and Output 09/14/19 09/15/19 19:00 07:00 Intake Total 280 ml 327.5 ml Output Total 400 ml Balance -120 ml 327.5 ml Intake Oral 280 ml 300 ml IV Total 27.5 ml Output Urine Total 400 ml # Voids 3 5 # Bowel Movements 4 Laboratory Tests 09/14/19 20:49: Stool Occult Blood Negative 09/15/19 05:34: White Blood Count 12.9H, Red Blood Count 2.90L, Hemoglobin 8.3L, Hematocrit 27.8L, Mean Corpuscular Volume 96, Mean Corpuscular Hemoglobin 28.7, Mean Corpuscular Hemoglobin Concent 30.0L, Red Cell Distribution Width 15.6H, Platelet Count 211, Mean Platelet Volume 6.2L, Neutrophils (%) (Auto) , Lymphocytes (%) (Auto) , Monocytes (%) (Auto) , Eosinophils (%) (Auto) , Basophils (%) (Auto) , Differential Total Cells Counted 100, Neutrophils % ( Manual) 94H, Lymphocytes % (Manual) 3L, Monocytes % (Manual) 2, Eosinophils % ( Manual) 1, Basophils % (Manual) 0, Band Neutrophils 0, Platelet Estimate Adequate, Platelet Morphology Normal, Sodium Level 144, Potassium Level 3.2L, Chloride Level 99, Carbon Dioxide Level 38H, Anion Gap 8, Blood Urea Nitrogen 22H, Creatinine 1.0, Estimat Glomerular Filtration Rate > 60, Glucose Level 256H , Uric Acid 4.8, Calcium Level 9.1, Phosphorus Level 4.2, Magnesium Level 1.9, Total Bilirubin 0.5, Aspartate Amino Transf (AST/SGOT) 17, Alanine Aminotransferase (ALT/SGPT) 23, Alkaline Phosphatase 77, Pro-B-Type Natriuretic Peptide 93, Total Protein 8.0, Albumin 2.8L, Globulin 5.2, Albumin/Globulin Ratio 0.5L Height (Feet): 5 Height (Inches): 4.00 Weight (Pounds): 267 General Appearance: mild distress Cardiovascular: normal rate Respiratory/Chest: decreased breath sounds Abdomen: distended Gino Longoria MD Sep 15, 2019 11:58
--- NOTE | 2019-09-15 12:31 | NUR ---
NURSE NOTES: CHECKED PATIENTS BP READING WAS HIGH PER FOAM MOLDER. BLOOD PRESSURE WAS 105/66.
--- NOTE | 2019-09-15 12:54 | NUR ---
NURSE NOTES: WENT INTO PATIENTS ROOM TO ATTEMPT TO PLACE AN IV. PLACED IV START KIT ON PATIENTS TRAY WHICH WAS ON THE BEDSIDE TABLE. PATIENT STATED " DON'T PLACE THAT ON MY TRAY, I COULD PICK THAT UP WITH MY FOOD AND EAT IT" TOLD PATIENT I WOULD REMOVE FROM THE TRAY, SHE THEN STATED THAT " BLOOD COULD GET IN MY FOOD, I DON'T WANT BLOOD IN MY FOOD. PATIENT THEN ASKED TO SPEAK TO THE CHARGE NURSE. NOTIFIED CHARGE NURSE ABOUT THE SITUATION.
--- NOTE | 2019-09-15 13:13 | NUR ---
NURSE NOTES: ADMINISTERED SCHEDULED PO MEDICATION. PATIENT STATED "TAKE MY LUNCH TRAY AWAY, I CANT FINISH THAT PEOPLE ADMINISTERED MEDICINE AROUND MY FOOD" LUNCH TRAY REMOVED PER PATIENT REQUEST.
--- NOTE | 2019-09-15 13:48 | Infectious Diseases Prog Note ---
Assessment/Plan Problems: (1) Leukocytosis Assessment & Plan: with worsening lungs infiltrates , on zosyn empirically to cover for pneumonia , no sputum was collected for culture , repeated blood culture is negative on 09/10 , monitor CXR . (2) Community acquired pneumonia Assessment & Plan: with productive cough , now on zosyn empirically due to worsening right side lung infiltrates and WBC , continue nebulizer treatment , titrate oxygen , monitor CXR (3) Acute exacerbation of CHF (congestive heart failure) Assessment & Plan: continue dieuresis as per renal (4) Respiratory failure with hypoxia and hypercapnia Assessment & Plan: on high flow oxygen via mask , continue nebulizers and diuretics (5) Hyperglycemia due to type 2 diabetes mellitus Assessment & Plan: poorly controled, continue insulin to achieve tight glycemic control to keep blood glucose between 100-140 (6) Pleural effusion Assessment & Plan: R>L may benefit from thoracentesis Subjective Constitutional: Reports: no symptoms HEENT: Reports: no symptoms Respiratory: Reports: shortness of breath Breasts: Reports: no symptoms Cardiovascular: Reports: no symptoms Gastrointestinal/Abdominal: Reports: no symptoms Genitourinary: Reports: no symptoms Neurologic: Reports: no symptoms Psychiatric: Reports: no symptoms Skin: Reports: no symptoms Endocrine: Reports: no symptoms Hematologic: Reports: no symptoms Musculoskeletal: Reports: no symptoms Allergies: Coded Allergies: MORPHINE (Verified Allergy, Intermediate, 09/09/19) Headach, Dizziness Objective Vital Signs Last 24 Hour Vital Signs Date Time Temp Pulse Resp B/P (MAP) Pulse Ox O2 Delivery O2 Flow Rate FiO2 09/15/19 12:32 97.7 81 20 105/66 (79) 99 09/15/19 12:00 97.7 81 20 188/53 (98) 99 09/15/19 12:00 81 09/15/19 12:00 15.0 09/15/19 08:55 Non-Rebreather 09/15/19 08:42 128/58 09/15/19 08:41 85 128/58 09/15/19 08:35 95 Non-Rebreather 15.0 100 09/15/19 08:34 85 20 95 Non-Rebreather 15.0 100 09/15/19 08:00 15.0 09/15/19 08:00 97.9 83 20 128/58 (81) 96 09/15/19 08:00 85 09/15/19 04:00 97.5 83 20 127/78 (94) 96 09/15/19 04:00 95 09/15/19 04:00 15.0 09/15/19 00:00 97.5 80 20 130/75 (93) 95 09/15/19 00:00 97 09/14/19 22:34 78 37 96 Facial 50 09/14/19 21:00 Non-Rebreather 09/14/19 20:00 87 09/14/19 20:00 99.3 87 20 132/61 (84) 97 09/14/19 20:00 15.0 09/14/19 19:46 94 Non-Rebreather 15.0 100 09/14/19 19:46 82 20 94 Non-Rebreather 15.0 100 09/14/19 16:00 80 09/14/19 16:00 15.0 09/14/19 16:00 98.8 77 20 131/62 (85) 97 09/14/19 15:25 Non-Rebreather Height (Feet): 5 Height (Inches): 4.00 Weight (Pounds): 267 General Appearance: WD/WN, no acute distress HEENT: normocephalic, atraumatic, anicteric, mucous membranes moist, PERRL Respiratory/Chest: chest wall non-tender, no respiratory distress, no accessory muscle use, decreased breath sounds Cardiovascular: normal peripheral pulses, normal rate, regular rhythm, no gallop/murmur, no JVD Abdomen: normal bowel sounds, soft, non tender, no organomegaly, non distended , no mass, no scars Extremities: no cyanosis, no clubbing Skin: no rash, no lesions, no ulcers Neurologic/Psychiatric: alert, responsive Lymphatic: no neck adenopathy, no groin adenopathy Musculoskeletal: normal muscle bulk, no effusion Laboratory Tests Test 09/14/19 20:49 09/15/19 05:34 Stool Occult Blood Negative (NEGATIVE) White Blood Count 12.9 K/UL (4.8-10.8) H Red Blood Count 2.90 M/UL (4.20-5.40) L Hemoglobin 8.3 G/DL (12.0-16.0) L Hematocrit 27.8 % (37.0-47.0) L Mean Corpuscular Volume 96 FL (80-99) Mean Corpuscular Hemoglobin 28.7 PG (27.0-31.0) Mean Corpuscular Hemoglobin Concent 30.0 G/DL (32.0-36.0) L Red Cell Distribution Width 15.6 % (11.6-14.8) H Platelet Count 211 K/UL (150-450) Mean Platelet Volume 6.2 FL (6.5-10.1) L Neutrophils (%) (Auto) % (45.0-75.0) Lymphocytes (%) (Auto) % (20.0-45.0) Monocytes (%) (Auto) % (1.0-10.0) Eosinophils (%) (Auto) % (0.0-3.0) Basophils (%) (Auto) % (0.0-2.0) Differential Total Cells Counted 100 Neutrophils % (Manual) 94 % (45-75) H Lymphocytes % (Manual) 3 % (20-45) L Monocytes % (Manual) 2 % (1-10) Eosinophils % (Manual) 1 % (0-3) Basophils % (Manual) 0 % (0-2) Band Neutrophils 0 % (0-8) Platelet Estimate Adequate Platelet Morphology Normal Sodium Level 144 MMOL/L (136-145) Potassium Level 3.2 MMOL/L (3.5-5.1) L Chloride Level 99 MMOL/L (98-107) Carbon Dioxide Level 38 MMOL/L (21-32) H Anion Gap 8 mmol/L (5-15) Blood Urea Nitrogen 22 mg/dL (7-18) H Creatinine 1.0 MG/DL (0.55-1.30) Estimat Glomerular Filtration Rate > 60 mL/min (>60) Glucose Level 256 MG/DL (74-106) H Uric Acid 4.8 MG/DL (2.6-7.2) Calcium Level 9.1 MG/DL (8.5-10.1) Phosphorus Level 4.2 MG/DL (2.5-4.9) Magnesium Level 1.9 MG/DL (1.8-2.4) Total Bilirubin 0.5 MG/DL (0.2-1.0) Aspartate Amino Transf (AST/SGOT) 17 U/L (15-37) Alanine Aminotransferase (ALT/SGPT) 23 U/L (12-78) Alkaline Phosphatase 77 U/L (46-116) Pro-B-Type Natriuretic Peptide 93 pg/mL (0-125) Total Protein 8.0 G/DL (6.4-8.2) Albumin 2.8 G/DL (3.4-5.0) L Globulin 5.2 g/dL Albumin/Globulin Ratio 0.5 (1.0-2.7) L Current Medications Medications (Trade) Dose Ordered Sig/Yue Route PRN Reason Start Time Stop Time Status Last Admin Dose Admin Acetaminophen (Tylenol) 650 mg Q6H PRN ORAL Mild Pain/Temp > 100.5 09/07/19 15:30 10/07/19 15:29 09/15/19 08:39 Albuterol Sulfate (Proventil) 2.5 mg Q4HRT PRN HHN Shortness of Breath 09/12/19 19:45 09/17/19 19:44 09/14/19 05:26 Allopurinol (Zyloprim) 100 mg DAILY ORAL 09/09/19 09:00 10/09/19 08:59 09/15/19 08:43 Aspirin (Ecotrin) 81 mg DAILY ORAL 09/08/19 09:00 10/07/19 08:59 09/15/19 08:41 Dextrose (Dextrose 50%) 25 ml Q30M PRN IV Hypoglycemia 09/07/19 15:30 10/07/19 06:29 Dextrose (Dextrose 50%) 50 ml Q30M PRN IV Hypoglycemia 09/07/19 15:30 10/07/19 06:29 Docusate Sodium (Colace) 250 mg TID ORAL 09/12/19 09:00 10/12/19 08:59 09/15/19 13:02 Enoxaparin Sodium (Lovenox) 40 mg DAILY SUBQ 09/08/19 09:00 10/07/19 08:59 09/15/19 08:47 Furosemide (Lasix) 40 mg Q8HR IV 09/13/19 11:00 10/13/19 10:59 09/15/19 06:06 Insulin Aspart (NovoLOG) BEFORE MEALS AND HS SUBQ 09/07/19 16:30 10/07/19 06:29 09/15/19 11:46 Insulin Detemir (Levemir) 20 units Q12H SUBQ 09/13/19 20:00 10/07/19 15:59 09/15/19 08:37 Irbesartan (Avapro) 300 mg DAILY ORAL 09/10/19 09:00 10/10/19 08:59 09/15/19 08:42 Iron Sucrose 100 mg/Sodium Chloride 60 ml @ 240 mls/hr BEDTIME IV 09/15/19 21:00 09/19/19 21:14 Lactulose (Cephulac) 20 gm TIDPRN PRN ORAL Constipation 09/14/19 17:15 10/14/19 17:14 09/14/19 18:01 Levothyroxine Sodium (Synthroid) 150 mcg DAILY@0630 ORAL 09/08/19 06:30 10/08/19 06:29 09/15/19 06:05 Liothyronine Sodium (Cytomel) 5 mcg DAILY ORAL 09/10/19 09:00 10/10/19 08:59 09/15/19 08:43 Magnesium Oxide (Mag-Ox 400mg) 400 mg THREE TIMES A DAY ORAL 09/14/19 13:00 10/14/19 12:59 09/15/19 13:02 Metformin HCl (Glucophage) 500 mg TIAC ORAL 09/08/19 16:30 10/08/19 16:29 09/15/19 11:44 Metoprolol Succinate (Toprol XL) 50 mg DAILY ORAL 09/13/19 09:00 10/13/19 08:59 09/15/19 08:41 Nateglinide (Starlix) 120 mg TIAC ORAL 09/07/19 16:30 10/07/19 11:29 09/15/19 11:44 Piperacillin Sod/ Tazobactam Sod 3.375 gm/Sodium Chloride 110 ml @ 27.5 mls/hr EVERY 8 HOURS IVPB 09/11/19 22:00 09/18/19 21:59 09/15/19 06:05 Potassium Chloride (K-Dur) 40 meq TID ORAL 09/15/19 13:00 10/14/19 12:44 09/15/19 13:03 aKtlyn Richard M.D. Sep 15, 2019 13:48
--- NOTE | 2019-09-15 13:58 | Pulmonology Progress Note ---
Assessment/Plan Assessment/Plan ASSESSMENT Pulmonary edema LAYO History of asthma Pulmonary hypertension DISCUSSION: Continue BiPAP q pm. Continue diuresis, nitrates, breathing treatments. Consider heart cath per cardiology. Avoidance of nephrotoxic medications. Will add Diamox Antibiotics broadened but no clear source on infection Do not suspect new or active pneumonia I will follow carefully. Patient declines BiPAP I/O inaccurate Sohail Aguirre M.D. Subjective Interval Events: states she is better Constitutional: Reports: no symptoms HEENT: Repors: no symptoms Respiratory: Reports: shortness of breath Cardiovascular: Reports: no symptoms Gastrointestinal/Abdominal: Reports: no symptoms Genitourinary: Reports: no symptoms Allergies: Coded Allergies: MORPHINE (Verified Allergy, Intermediate, 09/09/19) Headach, Dizziness Objective Last 24 Hour Vital Signs Date Time Temp Pulse Resp B/P (MAP) Pulse Ox O2 Delivery O2 Flow Rate FiO2 09/15/19 12:32 97.7 81 20 105/66 (79) 99 09/15/19 12:00 97.7 81 20 188/53 (98) 99 09/15/19 12:00 81 09/15/19 12:00 15.0 09/15/19 08:55 Non-Rebreather 09/15/19 08:42 128/58 09/15/19 08:41 85 128/58 09/15/19 08:35 95 Non-Rebreather 15.0 100 09/15/19 08:34 85 20 95 Non-Rebreather 15.0 100 09/15/19 08:00 15.0 09/15/19 08:00 97.9 83 20 128/58 (81) 96 09/15/19 08:00 85 09/15/19 04:00 97.5 83 20 127/78 (94) 96 09/15/19 04:00 95 09/15/19 04:00 15.0 09/15/19 00:00 97.5 80 20 130/75 (93) 95 09/15/19 00:00 97 09/14/19 22:34 78 37 96 Facial 50 09/14/19 21:00 Non-Rebreather 09/14/19 20:00 87 09/14/19 20:00 99.3 87 20 132/61 (84) 97 09/14/19 20:00 15.0 09/14/19 19:46 94 Non-Rebreather 15.0 100 09/14/19 19:46 82 20 94 Non-Rebreather 15.0 100 09/14/19 16:00 80 09/14/19 16:00 15.0 09/14/19 16:00 98.8 77 20 131/62 (85) 97 09/14/19 15:25 Non-Rebreather Intake and Output 09/14/19 09/15/19 18:59 06:59 Intake Total 420 ml 327.5 ml Output Total 400 ml Balance 20 ml 327.5 ml Intake Oral 420 ml 300 ml IV Total 27.5 ml Output Urine Total 400 ml # Voids 3 5 # Bowel Movements 4 General Appearance: no acute distress HEENT: normocephalic Respiratory/Chest: chest wall non-tender, lungs clear Cardiovascular: normal peripheral pulses Abdomen: normal bowel sounds Laboratory Tests 09/14/19 20:49: Stool Occult Blood Negative 09/15/19 05:34: White Blood Count 12.9H, Red Blood Count 2.90L, Hemoglobin 8.3L, Hematocrit 27.8L, Mean Corpuscular Volume 96, Mean Corpuscular Hemoglobin 28.7, Mean Corpuscular Hemoglobin Concent 30.0L, Red Cell Distribution Width 15.6H, Platelet Count 211, Mean Platelet Volume 6.2L, Neutrophils (%) (Auto) , Lymphocytes (%) (Auto) , Monocytes (%) (Auto) , Eosinophils (%) (Auto) , Basophils (%) (Auto) , Differential Total Cells Counted 100, Neutrophils % ( Manual) 94H, Lymphocytes % (Manual) 3L, Monocytes % (Manual) 2, Eosinophils % ( Manual) 1, Basophils % (Manual) 0, Band Neutrophils 0, Platelet Estimate Adequate, Platelet Morphology Normal, Sodium Level 144, Potassium Level 3.2L, Chloride Level 99, Carbon Dioxide Level 38H, Anion Gap 8, Blood Urea Nitrogen 22H, Creatinine 1.0, Estimat Glomerular Filtration Rate > 60, Glucose Level 256H , Uric Acid 4.8, Calcium Level 9.1, Phosphorus Level 4.2, Magnesium Level 1.9, Total Bilirubin 0.5, Aspartate Amino Transf (AST/SGOT) 17, Alanine Aminotransferase (ALT/SGPT) 23, Alkaline Phosphatase 77, Pro-B-Type Natriuretic Peptide 93, Total Protein 8.0, Albumin 2.8L, Globulin 5.2, Albumin/Globulin Ratio 0.5L Current Medications Medications (Trade) Dose Ordered Sig/Yue Route PRN Reason Start Time Stop Time Status Last Admin Dose Admin Acetaminophen (Tylenol) 650 mg Q6H PRN ORAL Mild Pain/Temp > 100.5 09/07/19 15:30 10/07/19 15:29 09/15/19 08:39 Albuterol Sulfate (Proventil) 2.5 mg Q4HRT PRN HHN Shortness of Breath 09/12/19 19:45 09/17/19 19:44 09/14/19 05:26 Allopurinol (Zyloprim) 100 mg DAILY ORAL 09/09/19 09:00 10/09/19 08:59 09/15/19 08:43 Aspirin (Ecotrin) 81 mg DAILY ORAL 09/08/19 09:00 10/07/19 08:59 09/15/19 08:41 Dextrose (Dextrose 50%) 25 ml Q30M PRN IV Hypoglycemia 09/07/19 15:30 10/07/19 06:29 Dextrose (Dextrose 50%) 50 ml Q30M PRN IV Hypoglycemia 09/07/19 15:30 10/07/19 06:29 Docusate Sodium (Colace) 250 mg TID ORAL 09/12/19 09:00 10/12/19 08:59 09/15/19 13:02 Enoxaparin Sodium (Lovenox) 40 mg DAILY SUBQ 09/08/19 09:00 10/07/19 08:59 09/15/19 08:47 Furosemide (Lasix) 40 mg Q8HR IV 09/13/19 11:00 10/13/19 10:59 09/15/19 06:06 Insulin Aspart (NovoLOG) BEFORE MEALS AND HS SUBQ 09/07/19 16:30 10/07/19 06:29 09/15/19 11:46 Insulin Detemir (Levemir) 20 units Q12H SUBQ 09/13/19 20:00 10/07/19 15:59 09/15/19 08:37 Irbesartan (Avapro) 300 mg DAILY ORAL 09/10/19 09:00 10/10/19 08:59 09/15/19 08:42 Iron Sucrose 100 mg/Sodium Chloride 60 ml @ 240 mls/hr BEDTIME IV 09/15/19 21:00 09/19/19 21:14 Lactulose (Cephulac) 20 gm TIDPRN PRN ORAL Constipation 09/14/19 17:15 10/14/19 17:14 09/14/19 18:01 Levothyroxine Sodium (Synthroid) 150 mcg DAILY@0630 ORAL 09/08/19 06:30 10/08/19 06:29 09/15/19 06:05 Liothyronine Sodium (Cytomel) 5 mcg DAILY ORAL 09/10/19 09:00 10/10/19 08:59 09/15/19 08:43 Magnesium Oxide (Mag-Ox 400mg) 400 mg THREE TIMES A DAY ORAL 09/14/19 13:00 10/14/19 12:59 09/15/19 13:02 Metformin HCl (Glucophage) 500 mg TIAC ORAL 09/08/19 16:30 10/08/19 16:29 09/15/19 11:44 Metoprolol Succinate (Toprol XL) 50 mg DAILY ORAL 09/13/19 09:00 10/13/19 08:59 09/15/19 08:41 Nateglinide (Starlix) 120 mg TIAC ORAL 09/07/19 16:30 10/07/19 11:29 09/15/19 11:44 Piperacillin Sod/ Tazobactam Sod 3.375 gm/Sodium Chloride 110 ml @ 27.5 mls/hr EVERY 8 HOURS IVPB 09/11/19 22:00 09/18/19 21:59 09/15/19 06:05 Potassium Chloride (K-Dur) 40 meq TID ORAL 09/15/19 13:00 10/14/19 12:44 09/15/19 13:03 Sohail Aguirre MD Sep 15, 2019 13:58
--- NOTE | 2019-09-15 15:27 | NUR ---
NURSE NOTES: CAME BACK FROM LUNCH BREAK AND PATIENT STATES " I HAVE BEEN CALLING FOR AGES BUT NO NONE CAME" PATIENT SAYS SHE NEEDED THE COMMODE BUT IT WAS TOO FAR AWAY SO PATIENT WENT IN THE CHAIR. PATIENT SAYS SHE IS BEING NEGLECTED IN THE HOSPITAL. [facility] [employer]ER ARRIVED AND CLEANED THE PATIENT.
--- NOTE | 2019-09-15 16:00 | NUR ---
NURSE NOTES: IV MEDICATIONS ADMINISTERED LATE DUE TO PATIENT NOT HAVING IV ACCESS.
--- NOTE | 2019-09-15 19:20 | Cardiology Progress Note ---
Assessment/Plan Assessment/Plan 1. Severe pulmonary hypertension with right ventricular systolic pressure as high as 101 mmHg by echo. Discussed need of right heart cath as an outpatient. 2. Morbid obesity. 3. Normal LV systolic function with LVEF approximately 60%. 4. History of diabetes mellitus. 5. History of hypertension, well controlled, continue Irbesartan, chlorthalidone and metoprolol XL. Subjective Subjective Sinus rhythm at rate of 79. On non-rebreather mask at 15 l/min. Objective Last 24 Hour Vital Signs Date Time Temp Pulse Resp B/P (MAP) Pulse Ox O2 Delivery O2 Flow Rate FiO2 09/15/19 16:00 15.0 09/15/19 16:00 98.1 79 20 133/71 (91) 98 09/15/19 16:00 86 09/15/19 12:32 97.7 81 20 105/66 (79) 99 09/15/19 12:00 97.7 81 20 188/53 (98) 99 09/15/19 12:00 81 09/15/19 12:00 15.0 09/15/19 08:55 Non-Rebreather 09/15/19 08:42 128/58 09/15/19 08:41 85 128/58 09/15/19 08:35 95 Non-Rebreather 15.0 100 09/15/19 08:34 85 20 95 Non-Rebreather 15.0 100 09/15/19 08:00 15.0 09/15/19 08:00 97.9 83 20 128/58 (81) 96 09/15/19 08:00 85 09/15/19 04:00 97.5 83 20 127/78 (94) 96 09/15/19 04:00 95 09/15/19 04:00 15.0 09/15/19 00:00 97.5 80 20 130/75 (93) 95 09/15/19 00:00 97 09/14/19 22:34 78 37 96 Facial 50 09/14/19 21:00 Non-Rebreather 09/14/19 20:00 87 09/14/19 20:00 99.3 87 20 132/61 (84) 97 09/14/19 20:00 15.0 09/14/19 19:46 94 Non-Rebreather 15.0 100 11/25/19 19:46 82 20 94 Non-Rebreather 15.0 100 Intake and Output 09/14/19 09/15/19 18:59 06:59 Intake Total 420 ml 327.5 ml Output Total 400 ml Balance 20 ml 327.5 ml Intake Oral 420 ml 300 ml IV Total 27.5 ml Output Urine Total 400 ml # Voids 3 5 # Bowel Movements 4 2D Echo: LVEF 60%, Hi RAP at 15 mmHg, RVSP 101 mmHg, Normal LV diastolic Fxn Laboratory Tests Test 09/14/19 20:49 09/15/19 05:34 Stool Occult Blood Negative (NEGATIVE) White Blood Count 12.9 K/UL (4.8-10.8) H Red Blood Count 2.90 M/UL (4.20-5.40) L Hemoglobin 8.3 G/DL (12.0-16.0) L Hematocrit 27.8 % (37.0-47.0) L Mean Corpuscular Volume 96 FL (80-99) Mean Corpuscular Hemoglobin 28.7 PG (27.0-31.0) Mean Corpuscular Hemoglobin Concent 30.0 G/DL (32.0-36.0) L Red Cell Distribution Width 15.6 % (11.6-14.8) H Platelet Count 211 K/UL (150-450) Mean Platelet Volume 6.2 FL (6.5-10.1) L Neutrophils (%) (Auto) % (45.0-75.0) Lymphocytes (%) (Auto) % (20.0-45.0) Monocytes (%) (Auto) % (1.0-10.0) Eosinophils (%) (Auto) % (0.0-3.0) Basophils (%) (Auto) % (0.0-2.0) Differential Total Cells Counted 100 Neutrophils % (Manual) 94 % (45-75) H Lymphocytes % (Manual) 3 % (20-45) L Monocytes % (Manual) 2 % (1-10) Eosinophils % (Manual) 1 % (0-3) Basophils % (Manual) 0 % (0-2) Band Neutrophils 0 % (0-8) Platelet Estimate Adequate Platelet Morphology Normal Sodium Level 144 MMOL/L (136-145) Potassium Level 3.2 MMOL/L (3.5-5.1) L Chloride Level 99 MMOL/L (98-107) Carbon Dioxide Level 38 MMOL/L (21-32) H Anion Gap 8 mmol/L (5-15) Blood Urea Nitrogen 22 mg/dL (7-18) H Creatinine 1.0 MG/DL (0.55-1.30) Estimat Glomerular Filtration Rate > 60 mL/min (>60) Glucose Level 256 MG/DL (74-106) H Uric Acid 4.8 MG/DL (2.6-7.2) Calcium Level 9.1 MG/DL (8.5-10.1) Phosphorus Level 4.2 MG/DL (2.5-4.9) Magnesium Level 1.9 MG/DL (1.8-2.4) Total Bilirubin 0.5 MG/DL (0.2-1.0) Aspartate Amino Transf (AST/SGOT) 17 U/L (15-37) Alanine Aminotransferase (ALT/SGPT) 23 U/L (12-78) Alkaline Phosphatase 77 U/L (46-116) Pro-B-Type Natriuretic Peptide 93 pg/mL (0-125) Total Protein 8.0 G/DL (6.4-8.2) Albumin 2.8 G/DL (3.4-5.0) L Globulin 5.2 g/dL Albumin/Globulin Ratio 0.5 (1.0-2.7) L Objective HEENT: Atraumatic and normocephalic. Anicteric. Pupils are equal, round, and reactive to light and accommodation. Extraocular muscles intact. NECK: Cannot assess JVP due to morbid obesity and short neck. CARDIOVASCULAR: Normal S1, S2. Regular rate and rhythm. No murmurs, gallops, or rubs. PMI is at fourth intercostal space in the midclavicular line. LUNGS: Bilateral basal crackles. ABDOMEN: Soft, non-tender, non-distended, + BS. EXTREMITIES: 1+ bilateral lower extremity edema. Bryce Funez MD Sep 15, 2019 19:20
--- NOTE | 2019-09-15 19:26 | NUR ---
HAND-OFF: Report given to TEDDY ARANGO
--- NOTE | 2019-09-15 19:36 | NUR ---
NURSE NOTES: Pt received from TEDDY Roth alert and oriented x4 with no acute s/s of distress noted. IV site asymptomatic and patent. Bed in lowest position, bed alarm on. Call light and belongings within reach.
--- NOTE | 2019-09-15 21:35 | NUR ---
RESPIRATORY NOTE: During pt assessment, pt was non-compliant and refused being assessed. TEDDY Ward notified. Addendum: 09/15/19 at 2248 by RT Stephanie Educated pt on the importance of using bipap.
[2019-09-15] MEDS: Iron Sucrose 100 MG in NS 55 ML IV SCH (21:42)
[2019-09-16] VITALS: BP 110/78
[2019-09-16] MEDS: Piperacillin/Tazobactam 3.375 GM in NS 110 ML IVPB SCH ×4 (00:11→22:14)
[2019-09-16 04:00] VITALS: BP 116/74
[2019-09-16] MEDS: metFORMIN 500mg tab ORAL SCH ×3 (06:13→16:34)
[2019-09-16] MEDS: NovoLOG Insulin Flexpen SUBQ SCH ×4 (06:23→21:13)
--- NOTE | 2019-09-16 07:15 | NUR ---
NURSE NOTES: Report received from TEDDY Bejarano. Pt. AOx4, per Pt. sitting on a chair the whole night. Informed she can be on a bed with the OBO at 90 for comfort, Pt. replied she knows what's best for her. On non rebreather mask. Denies any SOB. R AC 24g IV running Zosyn with 3hrs and 10min left. Call light placed next to Pt's left hand.
--- NOTE | 2019-09-16 07:15 | NUR ---
HAND-OFF: Report given to TEDDY Lopez. Plan of care endorsed.
[2019-09-16 07:34] LABS: ALANINE AMINOTRANSFERASE 22 U/L (12-78); ALBUMIN/GLOBULIN RATIO 0.5 (1.0-2.7); ALKALINE PHOSPHATASE 75 U/L (46-116); ANION GAP 6 mmol/L (5-15); ASPARTATE AMINO TRANSFERASE 16 U/L (15-37); BILIRUBIN,TOTAL 0.3 MG/DL (0.2-1.0); BLOOD UREA NITROGEN 27 mg/dL (7-18); CALCIUM 9.7 MG/DL (8.5-10.1); CARBON DIOXIDE 39 MMOL/L (21-32); CHLORIDE 100 MMOL/L (98-107); PHOSPHORUS 3.1 MG/DL (2.5-4.9); SODIUM 145 MMOL/L (136-145)
[2019-09-16 08:00] VITALS: BP 108/53
--- NOTE | 2019-09-16 08:49 | General Progress Note ---
Marcela Jacobo MD 09/16/19 0849: Assessment/Plan Assessment/Plan: S: I am feeling the same O: on Non rebreather O2, denies chest pain . limited activity reported. Low threshold for exertional sob. PHYSICAL EXAMINATION:HEAD AND NECK: Atraumatic, normocephalic. CHEST: Clear to auscultation.HEART: S1, S2. Regular rate and rhythm. ABDOMEN: Soft. No organomegaly.MUSCULOSKELETAL: No gross focal deficit. NEUROLOGIC: The patient is awake, alert, oriented x3. LABORATORY and Imaging DATA: dated 09/16 reviewed ASSESSMENT: 1. Acute Asthma exacerbation 2. Pulmonary infiltrate, Atelectasis vs Community-acquired pneumonia. 3. CHF exacerbation. 4. Morbid obesity. 5. Asthma. 6. Severe pulmonary arterial hypertension. 7. DM 2- uncontrolled 8. GI and DVT prophylaxis. 9. Acute on chronic anemia. Plan: Poor overall physial performance, with limited ADLS Notes from Nephro and Pulmonary reviewed Given new leukocytosis, Abx is optimized Negative culture as of yet On high rate Oxygen flow recheck Stool OB started Iron supplementation Once Ok from pulmonary stand point may followup as op patient refuses Rehab/SNIF at this time. Subjective Allergies: Coded Allergies: MORPHINE (Verified Allergy, Intermediate, 09/09/19) Headach, Dizziness Objective Last 24 Hour Vital Signs Date Time Temp Pulse Resp B/P (MAP) Pulse Ox O2 Delivery O2 Flow Rate FiO2 09/16/19 08:00 96.7 87 20 108/53 (71) 99 09/16/19 04:00 91 09/16/19 04:00 98.7 84 20 116/74 (88) 96 09/16/19 04:00 15.0 09/16/19 00:00 97.8 78 20 110/78 (89) 97 09/16/19 00:00 86 09/15/19 21:00 Non-Rebreather 09/15/19 20:00 98.6 85 20 114/68 (83) 96 09/15/19 20:00 86 09/15/19 20:00 15.0 09/15/19 19:56 96 Non-Rebreather 15.0 100 09/15/19 19:56 86 20 96 Non-Rebreather 15.0 100 09/15/19 16:00 15.0 09/15/19 16:00 98.1 79 20 133/71 (91) 98 09/15/19 16:00 86 09/15/19 12:32 97.7 81 20 105/66 (79) 99 09/15/19 12:00 97.7 81 20 188/53 (98) 99 09/15/19 12:00 81 09/15/19 12:00 15.0 09/15/19 08:55 Non-Rebreather Intake and Output 09/15/19 09/16/19 19:00 07:00 Intake Total 860 ml 407.5 ml Balance 860 ml 407.5 ml Intake Oral 860 ml 140 ml IV Total 267.5 ml # Voids 6 2 # Bowel Movements 2 2 Laboratory Tests 09/16/19 05:27: Sodium Level 145, Potassium Level 4.0, Chloride Level 100, Carbon Dioxide Level 39H, Anion Gap 6, Blood Urea Nitrogen 27H, Creatinine 1.0, Estimat Glomerular Filtration Rate > 60, Glucose Level 169H, Calcium Level 9.7, Phosphorus Level 3.1, Total Bilirubin 0.3, Aspartate Amino Transf (AST/SGOT) 16, Alanine Aminotransferase (ALT/SGPT) 22, Alkaline Phosphatase 75, Pro-B-Type Natriuretic Peptide 83, Total Protein 8.5H, Albumin 3.0L, Globulin 5.5, Albumin/Globulin Ratio 0.5L Height (Feet): 5 Height (Inches): 4.00 Weight (Pounds): 268 Todd Montiel MD 09/17/19 1158: Subjective Date patient seen: Sep 17, 2019 ROS Limited/Unobtainable: No Constitutional: Reports: no symptoms HEENT: Reports: no symptoms Cardiovascular: Reports: no symptoms Respiratory: Reports: shortness of breath Gastrointestinal/Abdominal: Reports: no symptoms Genitourinary: Reports: no symptoms Neurologic/Psychiatric: Reports: no symptoms Endocrine: Reports: no symptoms Hematologic/Lymphatic: Reports: no symptoms Allergies: Coded Allergies: MORPHINE (Verified Allergy, Intermediate, 09/09/19) Headach, Marcela Joshua MD Sep 16, 2019 08:49 Todd Montiel MD Sep 17, 2019 11:58
[2019-09-16] MEDS: Irbesartan 150mg tablet ORAL SCH (08:50)
[2019-09-16] MEDS: Metoprolol Succinate XL 50mg tab ORAL SCH (08:50)
[2019-09-16] MEDS: Liothyronine 5mcg tab ORAL SCH (08:50)
[2019-09-16] MEDS: Docusate 250mg cap ORAL SCH ×3 (08:50→17:23)
[2019-09-16] MEDS: Aspirin EC 81mg tab ORAL SCH (08:50)
[2019-09-16] MEDS: Magnesium Oxide 400mg tab ORAL SCH ×3 (08:51→17:23)
[2019-09-16] MEDS: Allopurinol 100mg Tab ORAL SCH (08:51)
[2019-09-16] MEDS: Enoxaparin 40mg Inj SUBQ SCH (08:55)
--- NOTE | 2019-09-16 08:59 | Pulmonology Progress Note ---
Assessment/Plan Assessment/Plan ASSESSMENT Pulmonary edema LAYO History of asthma Pulmonary hypertension DISCUSSION: Continue BiPAP q pm. Continue diuresis, nitrates, breathing treatments. Consider heart cath per cardiology. Avoidance of nephrotoxic medications. Will dc Diamox now Antibiotics broadened but no clear source on infection Do not suspect new or active pneumonia I will follow carefully. Patient declines BiPAP uses consistently I/O inaccurate Sohail Aguirre M.D. Subjective Interval Events: No weight change documented; remains off and on on BiPAP Constitutional: Reports: no symptoms HEENT: Repors: no symptoms Respiratory: Reports: no symptoms Cardiovascular: Reports: no symptoms Gastrointestinal/Abdominal: Reports: no symptoms Allergies: Coded Allergies: MORPHINE (Verified Allergy, Intermediate, 09/09/19) Headach, Dizziness Objective Last 24 Hour Vital Signs Date Time Temp Pulse Resp B/P (MAP) Pulse Ox O2 Delivery O2 Flow Rate FiO2 09/16/19 08:00 96.7 87 20 108/53 (71) 99 09/16/19 04:00 91 09/16/19 04:00 98.7 84 20 116/74 (88) 96 09/16/19 04:00 15.0 09/16/19 00:00 97.8 78 20 110/78 (89) 97 09/16/19 00:00 86 09/15/19 21:00 Non-Rebreather 09/15/19 20:00 98.6 85 20 114/68 (83) 96 09/15/19 20:00 86 09/15/19 20:00 15.0 09/15/19 19:56 96 Non-Rebreather 15.0 100 09/15/19 19:56 86 20 96 Non-Rebreather 15.0 100 09/15/19 16:00 15.0 09/15/19 16:00 98.1 79 20 133/71 (91) 98 09/15/19 16:00 86 09/15/19 12:32 97.7 81 20 105/66 (79) 99 09/15/19 12:00 97.7 81 20 188/53 (98) 99 11/26/19 12:00 81 09/15/19 12:00 15.0 Intake and Output 09/15/19 09/16/19 19:00 07:00 Intake Total 860 ml 407.5 ml Balance 860 ml 407.5 ml Intake Oral 860 ml 140 ml IV Total 267.5 ml # Voids 6 2 # Bowel Movements 2 2 General Appearance: no acute distress HEENT: normocephalic Respiratory/Chest: chest wall non-tender, decreased breath sounds Cardiovascular: normal peripheral pulses Abdomen: normal bowel sounds Laboratory Tests 09/16/19 05:27: Sodium Level 145, Potassium Level 4.0, Chloride Level 100, Carbon Dioxide Level 39H, Anion Gap 6, Blood Urea Nitrogen 27H, Creatinine 1.0, Estimat Glomerular Filtration Rate > 60, Glucose Level 169H, Calcium Level 9.7, Phosphorus Level 3.1, Total Bilirubin 0.3, Aspartate Amino Transf (AST/SGOT) 16, Alanine Aminotransferase (ALT/SGPT) 22, Alkaline Phosphatase 75, Pro-B-Type Natriuretic Peptide 83, Total Protein 8.5H, Albumin 3.0L, Globulin 5.5, Albumin/Globulin Ratio 0.5L Current Medications Medications (Trade) Dose Ordered Sig/Yue Route PRN Reason Start Time Stop Time Status Last Admin Dose Admin Acetaminophen (Tylenol) 650 mg Q6H PRN ORAL Mild Pain/Temp > 100.5 09/07/19 15:30 10/07/19 15:29 09/15/19 18:47 Albuterol Sulfate (Proventil) 2.5 mg Q4HRT PRN HHN Shortness of Breath 09/12/19 19:45 09/17/19 19:44 09/14/19 05:26 Allopurinol (Zyloprim) 100 mg DAILY ORAL 09/09/19 09:00 10/09/19 08:59 09/15/19 08:43 Aspirin (Ecotrin) 81 mg DAILY ORAL 09/08/19 09:00 10/07/19 08:59 09/15/19 08:41 Dextrose (Dextrose 50%) 25 ml Q30M PRN IV Hypoglycemia 09/07/19 15:30 10/07/19 06:29 Dextrose (Dextrose 50%) 50 ml Q30M PRN IV Hypoglycemia 09/07/19 15:30 10/07/19 06:29 Docusate Sodium (Colace) 250 mg TID ORAL 09/12/19 09:00 10/12/19 08:59 09/15/19 18:42 Enoxaparin Sodium (Lovenox) 40 mg DAILY SUBQ 09/08/19 09:00 10/07/19 08:59 09/15/19 08:47 Furosemide (Lasix) 40 mg Q8HR IV 09/13/19 11:00 10/13/19 10:59 09/16/19 06:14 Insulin Aspart (NovoLOG) BEFORE MEALS AND HS SUBQ 09/07/19 16:30 10/07/19 06:29 09/16/19 06:23 Insulin Detemir (Levemir) 20 units Q12H SUBQ 09/13/19 20:00 10/07/19 15:59 09/15/19 08:37 Irbesartan (Avapro) 300 mg DAILY ORAL 09/10/19 09:00 10/10/19 08:59 09/15/19 08:42 Iron Sucrose 100 mg/Sodium Chloride 60 ml @ 240 mls/hr BEDTIME IV 09/15/19 21:00 09/19/19 21:14 09/15/19 21:42 Lactulose (Cephulac) 20 gm TIDPRN PRN ORAL Constipation 09/14/19 17:15 10/14/19 17:14 09/14/19 18:01 Levothyroxine Sodium (Synthroid) 150 mcg DAILY@0630 ORAL 09/08/19 06:30 10/08/19 06:29 09/16/19 06:13 Liothyronine Sodium (Cytomel) 5 mcg DAILY ORAL 09/10/19 09:00 10/10/19 08:59 09/15/19 08:43 Magnesium Oxide (Mag-Ox 400mg) 400 mg THREE TIMES A DAY ORAL 09/14/19 13:00 10/14/19 12:59 09/15/19 18:42 Metformin HCl (Glucophage) 500 mg TIAC ORAL 09/08/19 16:30 10/08/19 16:29 09/16/19 06:13 Metoprolol Succinate (Toprol XL) 50 mg DAILY ORAL 09/13/19 09:00 10/13/19 08:59 09/15/19 08:41 Nateglinide (Starlix) 120 mg TIAC ORAL 09/07/19 16:30 10/07/19 11:29 09/16/19 06:13 Piperacillin Sod/ Tazobactam Sod 3.375 gm/Sodium Chloride 110 ml @ 27.5 mls/hr EVERY 8 HOURS IVPB 09/11/19 22:00 09/18/19 21:59 09/16/19 06:13 Potassium Chloride (K-Dur) 40 meq TID ORAL 09/15/19 13:00 10/14/19 12:44 09/15/19 18:41 Sohail Aguirre MD Sep 16, 2019 08:59
[2019-09-16] MEDS: Levemir Flexpen SUBQ SCH ×2 (09:05→21:14)
--- NOTE | 2019-09-16 09:17 | NUR ---
CASE MANAGEMENT: REVIEW 09/16/19 SI: PNA . CHF EXACERBATION . ACUTE ASTHMA EXACERBATION. PULMONARY HTN 96.7 87 20 108/53 99% NON-REBREATHER MASK 15.0L BUN 27 CO2 39 BG 169 IS: IV IRON SUCROSE [id number] K-DUR PO TID IV ZOSYN Q8HR IV LASIX Q8HR METOPROLOL PO QD AVARPO PO QD LOVENOX SQ QD NOVOLOG SUBQ AC+HS STARLIX PO TIAC LEVEMIR SQ Q12HR METFORMIN PO QD ALBUTEROL HHN Q4HR CHLORTHALIDONE PO QD LACTULOSE PO TID/PRN : 2E TELE UNIT DCP: RETURN HOME WHEN MEDICALLY CLEARED PLAN: HOME ON BIPAP AND 02 WHEN CLEARED BY PULMONARY
--- NOTE | 2019-09-16 10:04 | NUR ---
*-* INSURANCE *-* ALL CLINICALS AND REVIEWS HAVE BEEN FAXED TO: [employer] Ref# [id number] CM: [place]ina #[phone] fax#[phone] also send to [facility] ref# or ANSON maradiaga #[phone] fax#[phone]
--- NOTE | 2019-09-16 10:35 | Nephrology Progress Note ---
Assessment/Plan Problem List: (1) Morbid obesity with BMI of 40.0-44.9, adult (2) Anemia (3) Hyperglycemia due to type 2 diabetes mellitus (4) Hypertension (5) Respiratory failure with hypoxia and hypercapnia Assessment Acute Respiratory Failure Morbid Obesity LAYO Anemia DM OOC HTN Plan now on Lasix and Diamox K Supplement add metformin to starlix one dose diamox adjust Levemir to 20 Q12 add cytomel Respiratory support, BIPAP 2D Echo , BP and BS management monitor lytes Subjective ROS Limited/Unobtainable: No Constitutional: Reports: malaise Objective Objective Last 24 Hour Vital Signs Date Time Temp Pulse Resp B/P (MAP) Pulse Ox O2 Delivery O2 Flow Rate FiO2 09/16/19 08:50 87 108/53 09/16/19 08:50 108/53 09/16/19 08:00 92 09/16/19 08:00 96.7 87 20 108/53 (71) 99 09/16/19 08:00 15.0 09/16/19 04:00 91 09/16/19 04:00 98.7 84 20 116/74 (88) 96 09/16/19 04:00 15.0 09/16/19 00:00 97.8 78 20 110/78 (89) 97 09/16/19 00:00 86 09/15/19 21:00 Non-Rebreather 09/15/19 20:00 98.6 85 20 114/68 (83) 96 09/15/19 20:00 86 09/15/19 20:00 15.0 09/15/19 19:56 96 Non-Rebreather 15.0 100 09/15/19 19:56 86 20 96 Non-Rebreather 15.0 100 09/15/19 16:00 15.0 09/15/19 16:00 98.1 79 20 133/71 (91) 98 09/15/19 16:00 86 09/15/19 12:32 97.7 81 20 105/66 (79) 99 09/15/19 12:00 97.7 81 20 188/53 (98) 99 09/15/19 12:00 81 09/15/19 12:00 15.0 Intake and Output 09/15/19 09/16/19 19:00 07:00 Intake Total 860 ml 407.5 ml Balance 860 ml 407.5 ml Intake Oral 860 ml 140 ml IV Total 267.5 ml # Voids 6 2 # Bowel Movements 2 2 Laboratory Tests 09/16/19 05:27: Sodium Level 145, Potassium Level 4.0, Chloride Level 100, Carbon Dioxide Level 39H, Anion Gap 6, Blood Urea Nitrogen 27H, Creatinine 1.0, Estimat Glomerular Filtration Rate > 60, Glucose Level 169H, Calcium Level 9.7, Phosphorus Level 3.1, Total Bilirubin 0.3, Aspartate Amino Transf (AST/SGOT) 16, Alanine Aminotransferase (ALT/SGPT) 22, Alkaline Phosphatase 75, Pro-B-Type Natriuretic Peptide 83, Total Protein 8.5H, Albumin 3.0L, Globulin 5.5, Albumin/Globulin Ratio 0.5L Height (Feet): 5 Height (Inches): 4.00 Weight (Pounds): 268 General Appearance: no apparent distress Cardiovascular: normal rate Respiratory/Chest: decreased breath sounds Abdomen: other - obese Gino Longoria MD Sep 16, 2019 10:35
--- NOTE | 2019-09-16 11:55 | NUR ---
NURSE NOTES: Refused BS check. Will try again.
[2019-09-16 12:00] VITALS: BP 125/62
--- NOTE | 2019-09-16 12:20 | NUR ---
PT WEEKLY PROGRESS NOTE Patient being seen for therapeutic exercises and therapeutic activities incorporating proper breathing techniques. Patient requires SBA/CGA for transfers with FWW and requires rest breaks throughout therapy session. Patient will benefit from continued skilled inpatient PT intervention to address strength, endurance and mobility to return to prior level of function.
--- NOTE | 2019-09-16 12:57 | Infectious Diseases Prog Note ---
Assessment/Plan Problems: (1) Leukocytosis Assessment & Plan: with worsening lungs infiltrates , on zosyn empirically to cover for pneumonia , no sputum was collected for culture , repeated blood culture is negative on 09/10 , monitor CXR . (2) Community acquired pneumonia Assessment & Plan: with productive cough , now on zosyn empirically due to worsening right side lung infiltrates and WBC , continue nebulizer treatment , titrate oxygen , monitor CXR (3) Acute exacerbation of CHF (congestive heart failure) Assessment & Plan: continue dieuresis as per renal (4) Respiratory failure with hypoxia and hypercapnia Assessment & Plan: on high flow oxygen via mask , continue nebulizers and diuretics (5) Hyperglycemia due to type 2 diabetes mellitus Assessment & Plan: poorly controled, continue insulin to achieve tight glycemic control to keep blood glucose between 100-140 (6) Pleural effusion Assessment & Plan: R>L may benefit from thoracentesis Subjective Constitutional: Reports: no symptoms HEENT: Reports: no symptoms Respiratory: Reports: no symptoms Breasts: Reports: no symptoms Cardiovascular: Reports: no symptoms Gastrointestinal/Abdominal: Reports: no symptoms Genitourinary: Reports: no symptoms Neurologic: Reports: no symptoms Psychiatric: Reports: no symptoms Skin: Reports: no symptoms Endocrine: Reports: no symptoms Hematologic: Reports: no symptoms Musculoskeletal: Reports: no symptoms Allergies: Coded Allergies: MORPHINE (Verified Allergy, Intermediate, 09/09/19) Headach, Dizziness Objective Vital Signs Last 24 Hour Vital Signs Date Time Temp Pulse Resp B/P (MAP) Pulse Ox O2 Delivery O2 Flow Rate FiO2 09/16/19 09:00 Non-Rebreather 09/16/19 08:50 87 108/53 09/16/19 08:50 108/53 09/16/19 08:00 92 09/16/19 08:00 96.7 87 20 108/53 (71) 99 09/16/19 08:00 15.0 09/16/19 04:00 91 09/16/19 04:00 98.7 84 20 116/74 (88) 96 09/16/19 04:00 15.0 09/16/19 00:00 97.8 78 20 110/78 (89) 97 09/16/19 00:00 86 09/15/19 21:00 Non-Rebreather 09/15/19 20:00 98.6 85 20 114/68 (83) 96 09/15/19 20:00 86 09/15/19 20:00 15.0 09/15/19 19:56 96 Non-Rebreather 15.0 100 09/15/19 19:56 86 20 96 Non-Rebreather 15.0 100 09/15/19 16:00 15.0 09/15/19 16:00 98.1 79 20 133/71 (91) 98 09/15/19 16:00 86 Height (Feet): 5 Height (Inches): 4.00 Weight (Pounds): 268 General Appearance: WD/WN, no acute distress HEENT: normocephalic, atraumatic, anicteric, mucous membranes moist, PERRL Respiratory/Chest: chest wall non-tender, normal breath sounds, no respiratory distress, no accessory muscle use, decreased breath sounds Cardiovascular: normal peripheral pulses, normal rate, regular rhythm, no gallop/murmur, no JVD Abdomen: normal bowel sounds, soft, non tender, no organomegaly, non distended , no mass, no scars Genitourinary: normal external genitalia Extremities: no cyanosis, no clubbing Skin: no rash, no lesions, no ulcers Neurologic/Psychiatric: 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, no motor/sensory deficits, alert, oriented x 3, responsive Lymphatic: no neck adenopathy, no groin adenopathy Laboratory Tests Test 09/16/19 05:27 Sodium Level 145 MMOL/L (136-145) Potassium Level 4.0 MMOL/L (3.5-5.1) Chloride Level 100 MMOL/L (98-107) Carbon Dioxide Level 39 MMOL/L (21-32) H Anion Gap 6 mmol/L (5-15) Blood Urea Nitrogen 27 mg/dL (7-18) H Creatinine 1.0 MG/DL (0.55-1.30) Estimat Glomerular Filtration Rate > 60 mL/min (>60) Glucose Level 169 MG/DL (74-106) H Calcium Level 9.7 MG/DL (8.5-10.1) Phosphorus Level 3.1 MG/DL (2.5-4.9) Total Bilirubin 0.3 MG/DL (0.2-1.0) Aspartate Amino Transf (AST/SGOT) 16 U/L (15-37) Alanine Aminotransferase (ALT/SGPT) 22 U/L (12-78) Alkaline Phosphatase 75 U/L (46-116) Pro-B-Type Natriuretic Peptide 83 pg/mL (0-125) Total Protein 8.5 G/DL (6.4-8.2) H Albumin 3.0 G/DL (3.4-5.0) L Globulin 5.5 g/dL Albumin/Globulin Ratio 0.5 (1.0-2.7) L Current Medications Medications (Trade) Dose Ordered Sig/Yue Route PRN Reason Start Time Stop Time Status Last Admin Dose Admin Acetaminophen (Tylenol) 650 mg Q6H PRN ORAL Mild Pain/Temp > 100.5 09/07/19 15:30 10/07/19 15:29 09/16/19 11:22 Albuterol Sulfate (Proventil) 2.5 mg Q4HRT PRN HHN Shortness of Breath 09/12/19 19:45 09/17/19 19:44 09/14/19 05:26 Allopurinol (Zyloprim) 100 mg DAILY ORAL 09/09/19 09:00 10/09/19 08:59 09/16/19 08:51 Aspirin (Ecotrin) 81 mg DAILY ORAL 09/08/19 09:00 10/07/19 08:59 09/16/19 08:50 Dextrose (Dextrose 50%) 25 ml Q30M PRN IV Hypoglycemia 09/07/19 15:30 10/07/19 06:29 Dextrose (Dextrose 50%) 50 ml Q30M PRN IV Hypoglycemia 09/07/19 15:30 10/07/19 06:29 Docusate Sodium (Colace) 250 mg TID ORAL 09/12/19 09:00 10/12/19 08:59 09/16/19 12:35 Enoxaparin Sodium (Lovenox) 40 mg DAILY SUBQ 09/08/19 09:00 10/07/19 08:59 09/16/19 08:55 Furosemide (Lasix) 40 mg Q8HR IV 09/13/19 11:00 10/13/19 10:59 09/16/19 12:35 Insulin Aspart (NovoLOG) BEFORE MEALS AND HS SUBQ 09/07/19 16:30 10/07/19 06:29 09/16/19 12:55 Insulin Detemir (Levemir) 20 units Q12H SUBQ 09/13/19 20:00 10/07/19 15:59 09/16/19 09:05 Irbesartan (Avapro) 300 mg DAILY ORAL 09/10/19 09:00 10/10/19 08:59 09/16/19 08:50 Iron Sucrose 100 mg/Sodium Chloride 60 ml @ 240 mls/hr BEDTIME IV 09/15/19 21:00 09/19/19 21:14 09/15/19 21:42 Lactulose (Cephulac) 20 gm TIDPRN PRN ORAL Constipation 09/14/19 17:15 10/14/19 17:14 09/14/19 18:01 Levothyroxine Sodium (Synthroid) 150 mcg DAILY@0630 ORAL 09/08/19 06:30 10/08/19 06:29 09/16/19 06:13 Liothyronine Sodium (Cytomel) 5 mcg DAILY ORAL 09/10/19 09:00 10/10/19 08:59 09/16/19 08:50 Magnesium Oxide (Mag-Ox 400mg) 400 mg THREE TIMES A DAY ORAL 09/14/19 13:00 10/14/19 12:59 09/16/19 12:35 Metformin HCl (Glucophage) 500 mg TIAC ORAL 09/08/19 16:30 10/08/19 16:29 09/16/19 11:22 Metoprolol Succinate (Toprol XL) 50 mg DAILY ORAL 09/13/19 09:00 10/13/19 08:59 09/16/19 08:50 Nateglinide (Starlix) 120 mg TIAC ORAL 09/07/19 16:30 10/07/19 11:29 09/16/19 11:22 Piperacillin Sod/ Tazobactam Sod 3.375 gm/Sodium Chloride 110 ml @ 27.5 mls/hr EVERY 8 HOURS IVPB 09/11/19 22:00 09/18/19 21:59 09/16/19 06:13 Potassium Chloride (K-Dur) 40 meq TID ORAL 09/15/19 13:00 10/14/19 12:44 09/16/19 12:35 Katlyn Richard M.D. Sep 16, 2019 12:57
--- NOTE | 2019-09-16 14:29 | NUR ---
DISCHARGE PLANNING: PATIENT CURRENTLY HAS O2 AND BIPAP SET UP AT HOME. PATIENT CURRENTLY USES [employer] FOR OXYGEN SUPPLY T: [phone]
[2019-09-16 16:00] VITALS: BP 128/65
--- NOTE | 2019-09-16 19:36 | NUR ---
NURSE NOTES: Received report from TEDDY Lopez. Patient is in the chair, awake and responsive. Breathing regular and unlabored with no SOB noted at this time. Patient denies any pain or discomfort at this time. Patient is on a venturi mask per orders on 50%. IV is intact and saline locked. Call light is within reach at all times. Will continue to monitor.
--- NOTE | 2019-09-16 19:43 | NUR ---
HAND-OFF: Report given to TEDDY Blair. Plan of care endorsed.
[2019-09-16 20:00] VITALS: BP 131/56
[2019-09-16] MEDS: Iron Sucrose 100 MG in NS 55 ML IV SCH (21:12)
--- NOTE | 2019-09-16 23:04 | Cardiology Progress Note ---
Assessment/Plan Assessment/Plan 1. Severe pulmonary hypertension with right ventricular systolic pressure as high as 101 mmHg by echo. Discussed need of right heart cath as an outpatient. 2. Morbid obesity. 3. Normal LV systolic function with LVEF approximately 60%. 4. History of diabetes mellitus. 5. History of hypertension, well controlled, continue Irbesartan, chlorthalidone and metoprolol XL. Subjective Subjective Sinus rhythm at rate of 81. On non-rebreather mask at 15 l/min. Objective Last 24 Hour Vital Signs Date Time Temp Pulse Resp B/P (MAP) Pulse Ox O2 Delivery O2 Flow Rate FiO2 09/16/19 22:25 81 24 97 09/16/19 20:00 15.0 09/16/19 20:00 98.3 85 21 131/56 (81) 94 09/16/19 19:20 98 Venturi Mask 12.0 50 09/16/19 19:20 84 20 98 Venturi Mask 12.0 50 09/16/19 16:00 15.0 09/16/19 16:00 97.5 76 18 128/65 (86) 98 09/16/19 13:18 86 09/16/19 12:00 15.0 09/16/19 12:00 96.6 85 20 125/62 (83) 98 09/16/19 11:42 98 Venturi Mask 14.0 55 09/16/19 09:00 Non-Rebreather 09/16/19 08:50 87 108/53 09/16/19 08:50 108/53 09/16/19 08:00 92 09/16/19 08:00 96.7 87 20 108/53 (71) 99 09/16/19 08:00 15.0 09/16/19 07:50 82 20 100 Non-Rebreather 15.0 100 09/16/19 07:50 100 Non-Rebreather 15.0 100 09/16/19 04:00 91 09/16/19 04:00 98.7 84 20 116/74 (88) 96 09/16/19 04:00 15.0 09/16/19 00:00 97.8 78 20 110/78 (89) 97 09/16/19 00:00 86 Intake and Output 09/15/19 09/16/19 19:00 07:00 Intake Total 860 ml 407.5 ml Balance 860 ml 407.5 ml Intake Oral 860 ml 140 ml IV Total 267.5 ml # Voids 6 2 # Bowel Movements 2 2 2D Echo: LVEF 60%, Hi RAP at 15 mmHg, RVSP 101 mmHg, Normal LV diastolic Fxn Laboratory Tests Test 09/16/19 05:27 Sodium Level 145 MMOL/L (136-145) Potassium Level 4.0 MMOL/L (3.5-5.1) Chloride Level 100 MMOL/L (98-107) Carbon Dioxide Level 39 MMOL/L (21-32) H Anion Gap 6 mmol/L (5-15) Blood Urea Nitrogen 27 mg/dL (7-18) H Creatinine 1.0 MG/DL (0.55-1.30) Estimat Glomerular Filtration Rate > 60 mL/min (>60) Glucose Level 169 MG/DL (74-106) H Calcium Level 9.7 MG/DL (8.5-10.1) Phosphorus Level 3.1 MG/DL (2.5-4.9) Total Bilirubin 0.3 MG/DL (0.2-1.0) Aspartate Amino Transf (AST/SGOT) 16 U/L (15-37) Alanine Aminotransferase (ALT/SGPT) 22 U/L (12-78) Alkaline Phosphatase 75 U/L (46-116) Pro-B-Type Natriuretic Peptide 83 pg/mL (0-125) Total Protein 8.5 G/DL (6.4-8.2) H Albumin 3.0 G/DL (3.4-5.0) L Globulin 5.5 g/dL Albumin/Globulin Ratio 0.5 (1.0-2.7) L Objective HEENT: Atraumatic and normocephalic. Anicteric. Pupils are equal, round, and reactive to light and accommodation. Extraocular muscles intact. NECK: Cannot assess JVP due to morbid obesity and short neck. CARDIOVASCULAR: Normal S1, S2. Regular rate and rhythm. No murmurs, gallops, or rubs. PMI is at fourth intercostal space in the midclavicular line. LUNGS: Bilateral basal crackles. ABDOMEN: Soft, non-tender, non-distended, + BS. EXTREMITIES: 1+ bilateral lower extremity edema. Bryce Funez MD Sep 16, 2019 23:04
[2019-09-17] VITALS: BP 125/63
[2019-09-17 04:00] VITALS: BP 121/64
--- NOTE | 2019-09-17 05:30 | NUR ---
NURSE NOTES: When giving patient morning medications, noticed that patient was coughing. This nurse asked her if it was okay to collect the sputum for culture because the cough was deep enough and it would be sufficient for the culture collection. Patient refused to have it collected. Explained that it was needed for culture purposes, but patient still refused.
[2019-09-17] MEDS: metFORMIN 500mg tab ORAL SCH ×3 (05:48→17:16)
[2019-09-17] MEDS: Piperacillin/Tazobactam 3.375 GM in NS 110 ML IVPB SCH ×3 (05:48→21:16)
[2019-09-17] MEDS: NovoLOG Insulin Flexpen SUBQ SCH ×4 (05:50→21:13)
--- NOTE | 2019-09-17 07:12 | NUR ---
HAND-OFF: Report given to TEDDY Lopez. Plan of care endorsed.
[2019-09-17 08:00] VITALS: BP 119/60
--- NOTE | 2019-09-17 08:51 | Pulmonology Progress Note ---
Assessment/Plan Assessment/Plan ASSESSMENT Pulmonary edema LAYO History of asthma Pulmonary hypertension DISCUSSION: Continue BiPAP q pm. Advised consistent use Continue diuresis, nitrates, breathing treatments. Consider heart cath per cardiology. Avoidance of nephrotoxic medications. Off Diamox now; HCO3 37 Antibiotics broadened but no clear source on infection Do not suspect new or active pneumonia I will follow carefully. Patient declines BiPAP uses consistently I/O inaccurate Will titrate FiO2 down Sohail Aguirre M.D. Subjective Interval Events: None new reported Constitutional: Reports: no symptoms HEENT: Repors: no symptoms Respiratory: Reports: shortness of breath Cardiovascular: Reports: no symptoms Gastrointestinal/Abdominal: Reports: no symptoms Allergies: Coded Allergies: MORPHINE (Verified Allergy, Intermediate, 09/09/19) Headach, Dizziness Objective Last 24 Hour Vital Signs Date Time Temp Pulse Resp B/P (MAP) Pulse Ox O2 Delivery O2 Flow Rate FiO2 09/17/19 08:00 97.3 95 18 119/60 (79) 95 09/17/19 07:00 97 Venturi Mask 12.0 50 09/17/19 07:00 82 22 97 Venturi Mask 12.0 50 09/17/19 05:30 78 22 99 Facial 50 09/17/19 04:00 70 09/17/19 04:00 98.3 86 20 121/64 (83) 95 09/17/19 04:00 15.0 09/17/19 02:31 81 24 98 Facial 50 09/17/19 01:19 84 26 97 Facial 50 09/17/19 00:00 98.0 84 20 125/63 (83) 94 09/17/19 00:00 86 09/16/19 22:25 81 24 97 09/16/19 21:00 Non-Rebreather 09/16/19 20:00 84 09/16/19 20:00 15.0 09/16/19 20:00 98.3 85 21 131/56 (81) 94 09/16/19 19:20 98 Venturi Mask 12.0 50 09/16/19 19:20 84 20 98 Venturi Mask 12.0 50 09/16/19 16:00 15.0 09/16/19 16:00 97.5 76 18 128/65 (86) 98 09/16/19 13:18 86 09/16/19 12:00 15.0 09/16/19 12:00 96.6 85 20 125/62 (83) 98 09/16/19 11:42 98 Venturi Mask 14.0 55 09/16/19 09:00 Non-Rebreather 09/16/19 08:50 87 108/53 09/16/19 08:50 108/53 Intake and Output 09/16/19 09/17/19 19:00 07:00 Intake Total 140 ml Balance 140 ml Intake Oral 140 ml # Voids 3 # Bowel Movements 1 1 General Appearance: no acute distress HEENT: normocephalic Respiratory/Chest: chest wall non-tender, decreased breath sounds Cardiovascular: normal peripheral pulses, normal rate Abdomen: normal bowel sounds Current Medications Medications (Trade) Dose Ordered Sig/Yue Route PRN Reason Start Time Stop Time Status Last Admin Dose Admin Acetaminophen (Tylenol) 650 mg Q6H PRN ORAL Mild Pain/Temp > 100.5 09/07/19 15:30 10/07/19 15:29 09/16/19 23:23 Albuterol Sulfate (Proventil) 2.5 mg Q4HRT PRN HHN Shortness of Breath 09/12/19 19:45 09/17/19 19:44 09/14/19 05:26 Allopurinol (Zyloprim) 100 mg DAILY ORAL 09/09/19 09:00 10/09/19 08:59 09/16/19 08:51 Aspirin (Ecotrin) 81 mg DAILY ORAL 09/08/19 09:00 10/07/19 08:59 09/16/19 08:50 Dextrose (Dextrose 50%) 25 ml Q30M PRN IV Hypoglycemia 09/07/19 15:30 10/07/19 06:29 Dextrose (Dextrose 50%) 50 ml Q30M PRN IV Hypoglycemia 09/07/19 15:30 10/07/19 06:29 Docusate Sodium (Colace) 250 mg TID ORAL 09/12/19 09:00 10/12/19 08:59 09/16/19 17:23 Enoxaparin Sodium (Lovenox) 40 mg DAILY SUBQ 09/08/19 09:00 10/07/19 08:59 09/16/19 08:55 Furosemide (Lasix) 40 mg Q8HR IV 09/13/19 11:00 10/13/19 10:59 09/17/19 05:48 Insulin Aspart (NovoLOG) BEFORE MEALS AND HS SUBQ 09/07/19 16:30 10/07/19 06:29 09/17/19 05:50 Insulin Detemir (Levemir) 20 units Q12H SUBQ 09/13/19 20:00 10/07/19 15:59 09/16/19 21:14 Irbesartan (Avapro) 300 mg DAILY ORAL 09/10/19 09:00 10/10/19 08:59 09/16/19 08:50 Iron Sucrose 100 mg/Sodium Chloride 60 ml @ 240 mls/hr BEDTIME IV 09/15/19 21:00 09/19/19 21:14 09/16/19 21:12 Lactulose (Cephulac) 20 gm TIDPRN PRN ORAL Constipation 09/14/19 17:15 10/14/19 17:14 09/14/19 18:01 Levothyroxine Sodium (Synthroid) 150 mcg DAILY@0630 ORAL 09/08/19 06:30 10/08/19 06:29 09/17/19 05:48 Liothyronine Sodium (Cytomel) 5 mcg DAILY ORAL 09/10/19 09:00 10/10/19 08:59 09/16/19 08:50 Magnesium Oxide (Mag-Ox 400mg) 400 mg THREE TIMES A DAY ORAL 09/14/19 13:00 10/14/19 12:59 09/16/19 17:23 Metformin HCl (Glucophage) 500 mg TIAC ORAL 09/08/19 16:30 10/08/19 16:29 09/17/19 05:48 Metoprolol Succinate (Toprol XL) 50 mg DAILY ORAL 09/13/19 09:00 10/13/19 08:59 09/16/19 08:50 Nateglinide (Starlix) 120 mg TIAC ORAL 09/07/19 16:30 10/07/19 11:29 09/17/19 05:48 Piperacillin Sod/ Tazobactam Sod 3.375 gm/Sodium Chloride 110 ml @ 27.5 mls/hr EVERY 8 HOURS IVPB 09/11/19 22:00 09/18/19 21:59 09/17/19 05:48 Potassium Chloride (K-Dur) 40 meq TID ORAL 09/15/19 13:00 10/14/19 12:44 09/16/19 17:24 Sohail Aguirre MD Sep 17, 2019 08:51
[2019-09-17] MEDS: Liothyronine 5mcg tab ORAL SCH (08:58)
[2019-09-17] MEDS: Docusate 250mg cap ORAL SCH ×3 (08:58→17:16)
[2019-09-17] MEDS: Aspirin EC 81mg tab ORAL SCH (08:58)
[2019-09-17] MEDS: Magnesium Oxide 400mg tab ORAL SCH ×3 (08:59→17:16)
[2019-09-17] MEDS: Irbesartan 150mg tablet ORAL SCH (08:59)
[2019-09-17] MEDS: Allopurinol 100mg Tab ORAL SCH (08:59)
[2019-09-17] MEDS: Metoprolol Succinate XL 50mg tab ORAL SCH (08:59)
[2019-09-17] MEDS: Enoxaparin 40mg Inj SUBQ SCH (09:01)
--- NOTE | 2019-09-17 09:01 | NUR ---
NURSE NOTES: pt SR in the monitor, no respiratory distress, spoke with dr luciano and received an order to transfer to [facility].
[2019-09-17] MEDS: Levemir Flexpen SUBQ SCH ×2 (09:11→21:10)
--- NOTE | 2019-09-17 10:51 | Nephrology Progress Note ---
Assessment/Plan Problem List: (1) Morbid obesity with BMI of 40.0-44.9, adult (2) Anemia (3) Hyperglycemia due to type 2 diabetes mellitus (4) Hypertension (5) Respiratory failure with hypoxia and hypercapnia Assessment Acute Respiratory Failure Morbid Obesity LAYO Anemia DM OOC HTN Plan no labs today now on Lasix K Supplement add metformin to starlix one dose diamox adjust Levemir to 20 Q12 add cytomel Respiratory support, BIPAP 2D Echo , BP and BS management monitor lytes Subjective Constitutional: Reports: malaise Objective Objective Last 24 Hour Vital Signs Date Time Temp Pulse Resp B/P (MAP) Pulse Ox O2 Delivery O2 Flow Rate FiO2 09/17/19 08:59 95 119/60 09/17/19 08:59 119/60 09/17/19 08:00 97.3 95 18 119/60 (79) 95 09/17/19 07:00 97 Venturi Mask 12.0 50 09/17/19 07:00 82 22 97 Venturi Mask 12.0 50 09/17/19 05:30 78 22 99 Facial 50 09/17/19 04:00 70 09/17/19 04:00 98.3 86 20 121/64 (83) 95 09/17/19 04:00 15.0 09/17/19 02:31 81 24 98 Facial 50 09/17/19 01:19 84 26 97 Facial 50 09/17/19 00:00 98.0 84 20 125/63 (83) 94 09/17/19 00:00 86 09/16/19 22:25 81 24 97 09/16/19 21:00 Non-Rebreather 09/16/19 20:00 84 09/16/19 20:00 15.0 09/16/19 20:00 98.3 85 21 131/56 (81) 94 09/16/19 19:20 98 Venturi Mask 12.0 50 09/16/19 19:20 84 20 98 Venturi Mask 12.0 50 09/16/19 16:00 15.0 09/16/19 16:00 97.5 76 18 128/65 (86) 98 09/16/19 13:18 86 09/16/19 12:00 15.0 09/16/19 12:00 96.6 85 20 125/62 (83) 98 09/16/19 11:42 98 Venturi Mask 14.0 55 Intake and Output 09/16/19 09/17/19 19:00 07:00 Intake Total 140 ml Balance 140 ml Intake Oral 140 ml # Voids 3 # Bowel Movements 1 1 Height (Feet): 5 Height (Inches): 4.00 Weight (Pounds): 268 General Appearance: mild distress Respiratory/Chest: decreased breath sounds Abdomen: distended Gino Longoria MD Sep 17, 2019 10:51
[2019-09-17] MEDS: Flonase Nasal Inhaler 16gm NASAL SCH ×2 (11:20→17:17)
[2019-09-17 12:00] VITALS: BP 113/58
--- NOTE | 2019-09-17 12:00 | NUR ---
HAND-OFF: Report given to TEDDY Kerns. Plan of care endorsed.
--- NOTE | 2019-09-17 12:04 | Internal Med Progress Note ---
Subjective Date of Service: Sep 17, 2019 Physician Name Todd Montiel Attending Physician Marcela aJcobo MD Current Medications Medications (Trade) Dose Ordered Sig/Yue Route PRN Reason Start Time Stop Time Status Last Admin Dose Admin Acetaminophen (Tylenol) 650 mg Q6H PRN ORAL Mild Pain/Temp > 100.5 09/07/19 15:30 10/07/19 15:29 09/17/19 11:24 Albuterol Sulfate (Proventil) 2.5 mg Q4HRT PRN HHN Shortness of Breath 09/12/19 19:45 09/17/19 19:44 09/14/19 05:26 Allopurinol (Zyloprim) 100 mg DAILY ORAL 09/09/19 09:00 10/09/19 08:59 09/17/19 08:59 Aspirin (Ecotrin) 81 mg DAILY ORAL 09/08/19 09:00 10/07/19 08:59 09/17/19 08:58 Dextrose (Dextrose 50%) 25 ml Q30M PRN IV Hypoglycemia 09/07/19 15:30 10/07/19 06:29 Dextrose (Dextrose 50%) 50 ml Q30M PRN IV Hypoglycemia 09/07/19 15:30 10/07/19 06:29 Docusate Sodium (Colace) 250 mg TID ORAL 09/12/19 09:00 10/12/19 08:59 09/17/19 08:58 Enoxaparin Sodium (Lovenox) 40 mg DAILY SUBQ 09/08/19 09:00 10/07/19 08:59 09/17/19 09:01 Fluticasone Propionate (Flonase) 1 spray TWICE A DAY NASAL 09/17/19 11:00 10/17/19 10:59 09/17/19 11:20 Furosemide (Lasix) 40 mg Q8HR IV 09/13/19 11:00 10/13/19 10:59 09/17/19 05:48 Insulin Aspart (NovoLOG) BEFORE MEALS AND HS SUBQ 09/07/19 16:30 10/07/19 06:29 09/17/19 05:50 Insulin Detemir (Levemir) 20 units Q12H SUBQ 09/13/19 20:00 10/07/19 15:59 09/17/19 09:11 Irbesartan (Avapro) 300 mg DAILY ORAL 09/10/19 09:00 10/10/19 08:59 09/17/19 08:59 Iron Sucrose 100 mg/Sodium Chloride 60 ml @ 240 mls/hr BEDTIME IV 09/15/19 21:00 09/19/19 21:14 09/16/19 21:12 Lactulose (Cephulac) 20 gm TIDPRN PRN ORAL Constipation 09/14/19 17:15 10/14/19 17:14 09/14/19 18:01 Levothyroxine Sodium (Synthroid) 150 mcg DAILY@0630 ORAL 09/08/19 06:30 10/08/19 06:29 09/17/19 05:48 Liothyronine Sodium (Cytomel) 5 mcg DAILY ORAL 09/10/19 09:00 10/10/19 08:59 09/17/19 08:58 Magnesium Oxide (Mag-Ox 400mg) 400 mg THREE TIMES A DAY ORAL 09/14/19 13:00 10/14/19 12:59 09/17/19 08:59 Metformin HCl (Glucophage) 500 mg TIAC ORAL 09/08/19 16:30 10/08/19 16:29 09/17/19 11:20 Metoprolol Succinate (Toprol XL) 50 mg DAILY ORAL 09/13/19 09:00 10/13/19 08:59 09/17/19 08:59 Nateglinide (Starlix) 120 mg TIAC ORAL 09/07/19 16:30 10/07/19 11:29 09/17/19 11:20 Piperacillin Sod/ Tazobactam Sod 3.375 gm/Sodium Chloride 110 ml @ 27.5 mls/hr EVERY 8 HOURS IVPB 09/11/19 22:00 09/18/19 21:59 09/17/19 05:48 Potassium Chloride (K-Dur) 40 meq TID ORAL 09/15/19 13:00 10/14/19 12:44 09/17/19 09:00 Allergies: Coded Allergies: MORPHINE (Verified Allergy, Intermediate, 09/09/19) Headach, Dizziness ROS Limited/Unobtainable: No Constitutional: Reports: no symptoms HEENT: Reports: no symptoms Cardiovascular: Reports: no symptoms Respiratory: Reports: shortness of breath Gastrointestinal/Abdominal: Reports: no symptoms Genitourinary: Reports: no symptoms Neurologic/Psychiatric: Reports: no symptoms Subjective 54 YO F admitted with shortness of breath. Now asthma exacerbation and pneumonia. Cover for Int Esdras-Dr Jacobo Objective Last Vital Signs Date Time Temp Pulse Resp B/P (MAP) Pulse Ox O2 Delivery O2 Flow Rate FiO2 09/17/19 08:59 95 119/60 09/17/19 08:00 97.3 18 95 09/17/19 07:00 Venturi Mask 12.0 50 General Appearance: no apparent distress, alert, obese EENT: PERRL/EOMI, normal ENT inspection Neck: non-tender, normal alignment, supple, normal inspection Cardiovascular: normal peripheral pulses, normal rate, regular rhythm, no gallop/murmur, no JVD Respiratory/Chest: crackles/rales, rhonchi - bilaterally, expiratory wheezing Abdomen: normal bowel sounds, non tender, soft, no organomegaly, no mass Extremities: normal range of motion, non-tender Neurologic: warp hand II-XII grossly normal Skin: normal pigmentation, warm/dry Intake and Output 09/16/19 09/17/19 19:00 07:00 Intake Total 140 ml Balance 140 ml Intake Oral 140 ml # Voids 3 # Bowel Movements 1 1 Assessment/Plan Problem List: (1) CHF (congestive heart failure) Assessment & Plan: See cardiology note. (2) Morbid obesity (3) Pulmonary hypertension (4) Diabetes mellitus Assessment & Plan: Continue metformin and starlix (5) Respiratory failure with hypoxia and hypercapnia (6) Community acquired pneumonia Assessment & Plan: See pulmonary note. Continue zosyn (7) Anemia (8) Hypothyroidism Assessment & Plan: Continue levoxyl (9) Hypertension Assessment & Plan: Continue avapro, chlorthalidone and metoprolol (10) Sleep apnea, obstructive Status: progressing Todd Montiel MD Sep 17, 2019 12:04
[2019-09-17] MEDS ORDERED: Nitroglycerin Subl 0.4mg tab SL PRN (12:30)
--- NOTE | 2019-09-17 12:31 | NUR ---
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
--- NOTE | 2019-09-17 12:35 | NUR ---
NURSE NOTES: Received report from TEDDY Lopez. Patient in chair resting, no active s/s cardiac, respiratory distress noticed at this time. Family member at the bedside. Patient on Venturi mask tolerating. IV on left AC 20G, asymptomatic, patent, intact. Bed in lowest position, side rails upx2, call light with reach. Educated to call staff when ambulating or change position to bed. Will continue to monitor.
[2019-09-17 16:00] VITALS: BP 125/60
--- NOTE | 2019-09-17 19:00 | NUR ---
NURSE NOTES: Received patient from TEDDY [employer], in stable condition, AOx4, denies pain at this time, sitting in chair, talkative in good mood, son at bedside. IV on R AC g20 asymptomatic, intact, patent, call light within reach will continue to monitor and reassess
--- NOTE | 2019-09-17 19:32 | Infectious Diseases Prog Note ---
Assessment/Plan Problems: (1) Leukocytosis Assessment & Plan: with worsening lungs infiltrates , on zosyn empirically to cover for pneumonia , no sputum was collected for culture , repeated blood culture is negative on 09/10 , monitor CXR . will treat with zosyn for 7-10 days (2) Community acquired pneumonia Assessment & Plan: with productive cough , now on zosyn empirically due to worsening right side lung infiltrates and WBC , continue nebulizer treatment , titrate oxygen , monitor CXR (3) Acute exacerbation of CHF (congestive heart failure) Assessment & Plan: continue dieuresis as per renal (4) Respiratory failure with hypoxia and hypercapnia Assessment & Plan: on high flow oxygen via mask , continue nebulizers and diuretics (5) Hyperglycemia due to type 2 diabetes mellitus Assessment & Plan: poorly controled, continue insulin to achieve tight glycemic control to keep blood glucose between 100-140 (6) Pleural effusion Assessment & Plan: R>L may benefit from thoracentesis Subjective Constitutional: Reports: no symptoms HEENT: Reports: no symptoms Respiratory: Reports: no symptoms Breasts: Reports: no symptoms Cardiovascular: Reports: no symptoms Gastrointestinal/Abdominal: Reports: no symptoms Genitourinary: Reports: no symptoms Neurologic: Reports: no symptoms Psychiatric: Reports: no symptoms Skin: Reports: no symptoms Endocrine: Reports: no symptoms Hematologic: Reports: no symptoms Musculoskeletal: Reports: no symptoms Allergies: Coded Allergies: MORPHINE (Verified Allergy, Intermediate, 09/09/19) Headach, Dizziness Objective Vital Signs Last 24 Hour Vital Signs Date Time Temp Pulse Resp B/P (MAP) Pulse Ox O2 Delivery O2 Flow Rate FiO2 09/17/19 16:00 79 09/17/19 16:00 15.0 09/17/19 16:00 97.3 81 20 125/60 (81) 96 09/17/19 12:00 87 09/17/19 12:00 15.0 09/17/19 12:00 98.1 93 22 113/58 (76) 93 09/17/19 09:00 Non-Rebreather 09/17/19 08:59 95 119/60 09/17/19 08:59 119/60 09/17/19 08:00 97.3 95 18 119/60 (79) 95 09/17/19 08:00 87 09/17/19 08:00 15.0 09/17/19 07:00 97 Venturi Mask 12.0 50 09/17/19 07:00 82 22 97 Venturi Mask 12.0 50 09/17/19 05:30 78 22 99 Facial 50 09/17/19 04:00 70 09/17/19 04:00 98.3 86 20 121/64 (83) 95 09/17/19 04:00 15.0 09/17/19 02:31 81 24 98 Facial 50 09/17/19 01:19 84 26 97 Facial 50 09/17/19 00:00 98.0 84 20 125/63 (83) 94 09/17/19 00:00 86 09/16/19 22:25 81 24 97 09/16/19 21:00 Non-Rebreather 09/16/19 20:00 84 09/16/19 20:00 15.0 09/16/19 20:00 98.3 85 21 131/56 (81) 94 Height (Feet): 5 Height (Inches): 4.00 Weight (Pounds): 268 General Appearance: WD/WN, no acute distress HEENT: normocephalic, atraumatic, anicteric, mucous membranes moist, PERRL Respiratory/Chest: chest wall non-tender, lungs clear, normal breath sounds, no respiratory distress, no accessory muscle use Cardiovascular: normal peripheral pulses, normal rate, regular rhythm, no gallop/murmur, no JVD Abdomen: normal bowel sounds, soft, non tender, no organomegaly, non distended , no mass, no scars Genitourinary: normal external genitalia Extremities: no cyanosis, no clubbing Skin: no rash, no lesions, no ulcers Neurologic/Psychiatric: 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 grossly normal, no motor/sensory deficits, alert, oriented x 3, responsive Lymphatic: no neck adenopathy, no groin adenopathy Musculoskeletal: normal muscle bulk, no effusion Current Medications Medications (Trade) Dose Ordered Sig/Yue Route PRN Reason Start Time Stop Time Status Last Admin Dose Admin Acetaminophen (Tylenol) 650 mg Q6H PRN ORAL Mild Pain/Temp > 100.5 09/07/19 15:30 10/07/19 15:29 09/17/19 11:24 Albuterol Sulfate (Proventil) 2.5 mg Q4HRT PRN HHN Shortness of Breath 09/12/19 19:45 09/17/19 19:44 09/14/19 05:26 Allopurinol (Zyloprim) 100 mg DAILY ORAL 09/09/19 09:00 10/09/19 08:59 09/17/19 08:59 Aspirin (Ecotrin) 81 mg DAILY ORAL 09/08/19 09:00 10/07/19 08:59 09/17/19 08:58 Dextrose (Dextrose 50%) 25 ml Q30M PRN IV Hypoglycemia 09/07/19 15:30 10/07/19 06:29 Dextrose (Dextrose 50%) 50 ml Q30M PRN IV Hypoglycemia 09/07/19 15:30 10/07/19 06:29 Docusate Sodium (Colace) 250 mg TID ORAL 09/12/19 09:00 10/12/19 08:59 09/17/19 17:16 Enoxaparin Sodium (Lovenox) 40 mg DAILY SUBQ 09/08/19 09:00 10/07/19 08:59 09/17/19 09:01 Fluticasone Propionate (Flonase) 1 spray TWICE A DAY NASAL 09/17/19 11:00 10/17/19 10:59 09/17/19 17:17 Furosemide (Lasix) 40 mg Q8HR IV 09/13/19 11:00 10/13/19 10:59 09/17/19 13:25 Insulin Aspart (NovoLOG) BEFORE MEALS AND HS SUBQ 09/07/19 16:30 10/07/19 06:29 09/17/19 12:18 Insulin Detemir (Levemir) 20 units Q12H SUBQ 09/13/19 20:00 10/07/19 15:59 09/17/19 09:11 Irbesartan (Avapro) 300 mg DAILY ORAL 09/10/19 09:00 10/10/19 08:59 09/17/19 08:59 Iron Sucrose 100 mg/Sodium Chloride 60 ml @ 240 mls/hr BEDTIME IV 09/15/19 21:00 09/19/19 21:14 09/16/19 21:12 Lactulose (Cephulac) 20 gm TIDPRN PRN ORAL Constipation 09/14/19 17:15 10/14/19 17:14 09/14/19 18:01 Levothyroxine Sodium (Synthroid) 150 mcg DAILY@0630 ORAL 09/08/19 06:30 10/08/19 06:29 09/17/19 05:48 Liothyronine Sodium (Cytomel) 5 mcg DAILY ORAL 09/10/19 09:00 10/10/19 08:59 09/17/19 08:58 Magnesium Oxide (Mag-Ox 400mg) 400 mg THREE TIMES A DAY ORAL 09/14/19 13:00 10/14/19 12:59 09/17/19 17:16 Metformin HCl (Glucophage) 500 mg TIAC ORAL 09/08/19 16:30 10/08/19 16:29 09/17/19 17:16 Metoprolol Succinate (Toprol XL) 50 mg DAILY ORAL 09/13/19 09:00 10/13/19 08:59 09/17/19 08:59 Nateglinide (Starlix) 120 mg TIAC ORAL 09/07/19 16:30 10/07/19 11:29 09/17/19 17:16 Nitroglycerin (Ntg) 0.4 mg Q5M PRN SL Prn Chest Pain 09/17/19 12:30 10/17/19 12:29 Piperacillin Sod/ Tazobactam Sod 3.375 gm/Sodium Chloride 110 ml @ 27.5 mls/hr EVERY 8 HOURS IVPB 09/11/19 22:00 09/18/19 21:59 09/17/19 13:25 Potassium Chloride (K-Dur) 40 meq TID ORAL 09/15/19 13:00 10/14/19 12:44 09/17/19 17:16 Katlyn Richard M.D. Sep 17, 2019 19:32
--- NOTE | 2019-09-17 19:38 | NUR ---
HAND-OFF: Report given to TEDDY Zarate.
[2019-09-17 20:00] VITALS: BP 132/65
[2019-09-17] MEDS: Iron Sucrose 100 MG in NS 55 ML IV SCH (21:09)
--- NOTE | 2019-09-17 23:18 | Cardiology Progress Note ---
Assessment/Plan Assessment/Plan 1. Severe pulmonary hypertension with right ventricular systolic pressure as high as 101 mmHg by echo. Discussed need of right heart cath as an outpatient. 2. Morbid obesity. 3. Normal LV systolic function with LVEF approximately 60%. 4. History of diabetes mellitus. 5. History of hypertension, well controlled, continue Irbesartan, chlorthalidone and metoprolol XL. Subjective Subjective Sinus rhythm at rate of 79. On non-rebreather mask at 15 l/min. Objective Last 24 Hour Vital Signs Date Time Temp Pulse Resp B/P (MAP) Pulse Ox O2 Delivery O2 Flow Rate FiO2 09/17/19 16:00 79 09/17/19 16:00 15.0 09/17/19 16:00 97.3 81 20 125/60 (81) 96 09/17/19 12:00 87 09/17/19 12:00 15.0 09/17/19 12:00 98.1 93 22 113/58 (76) 93 09/17/19 09:00 Non-Rebreather 09/17/19 08:59 95 119/60 09/17/19 08:59 119/60 09/17/19 08:00 97.3 95 18 119/60 (79) 95 09/17/19 08:00 87 09/17/19 08:00 15.0 09/17/19 07:00 97 Venturi Mask 12.0 50 09/17/19 07:00 82 22 97 Venturi Mask 12.0 50 09/17/19 05:30 78 22 99 Facial 50 09/17/19 04:00 70 09/17/19 04:00 98.3 86 20 121/64 (83) 95 09/17/19 04:00 15.0 09/17/19 02:31 81 24 98 Facial 50 09/17/19 01:19 84 26 97 Facial 50 09/17/19 00:00 98.0 84 20 125/63 (83) 94 09/17/19 00:00 86 Intake and Output 09/16/19 09/17/19 18:59 06:59 Intake Total 280 ml Balance 280 ml Intake Oral 280 ml # Voids 3 # Bowel Movements 1 1 2D Echo: LVEF 60%, Hi RAP at 15 mmHg, RVSP 101 mmHg, Normal LV diastolic Fxn Objective HEENT: Atraumatic and normocephalic. Anicteric. Pupils are equal, round, and reactive to light and accommodation. Extraocular muscles intact. NECK: Cannot assess JVP due to morbid obesity and short neck. CARDIOVASCULAR: Normal S1, S2. Regular rate and rhythm. No murmurs, gallops, or rubs. PMI is at fourth intercostal space in the midclavicular line. LUNGS: Bilateral basal crackles. ABDOMEN: Soft, non-tender, non-distended, + BS. EXTREMITIES: 1+ bilateral lower extremity edema. Bryce Funez MD Sep 17, 2019 23:18
[2019-09-18] VITALS: BP 150/63
[2019-09-18 04:00] VITALS: BP 135/64
[2019-09-18] MEDS: Piperacillin/Tazobactam 3.375 GM in NS 110 ML IVPB SCH ×3 (05:32→21:08)
[2019-09-18] MEDS: metFORMIN 500mg tab ORAL SCH ×3 (05:32→17:23)
--- NOTE | 2019-09-18 05:56 | NUR ---
NURSE NOTES: Patient wants Lasix after Potassium is drawn
[2019-09-18 06:40] LABS: HEMATOCRIT 28.2 % (37.0-47.0); HEMOGLOBIN 8.7 G/DL (12.0-16.0); MEAN CORPUSCULAR VOLUME 94 FL (80-99); PLATELET COUNT 402 K/UL (150-450); RED BLOOD COUNT 3.01 M/UL (4.20-5.40); WHITE BLOOD COUNT 11.6 K/UL (4.8-10.8)
[2019-09-18] MEDS: NovoLOG Insulin Flexpen SUBQ SCH ×4 (06:41→21:07)
[2019-09-18 07:12] LABS: ALANINE AMINOTRANSFERASE 21 U/L (12-78); ALBUMIN/GLOBULIN RATIO 0.6 (1.0-2.7); ALKALINE PHOSPHATASE 72 U/L (46-116); ANION GAP 5 mmol/L (5-15); ASPARTATE AMINO TRANSFERASE 14 U/L (15-37); BILIRUBIN,TOTAL 0.4 MG/DL (0.2-1.0); BLOOD UREA NITROGEN 27 mg/dL (7-18); CALCIUM 9.4 MG/DL (8.5-10.1); CARBON DIOXIDE 39 MMOL/L (21-32); CHLORIDE 99 MMOL/L (98-107); CREATININE 1.1 MG/DL (0.55-1.30); PHOSPHORUS 2.4 MG/DL (2.5-4.9); POTASSIUM 3.9 MMOL/L (3.5-5.1); SODIUM 143 MMOL/L (136-145)
--- NOTE | 2019-09-18 07:15 | NUR ---
HAND-OFF: Report given to TEDDY Broussard, patient in stable condition, plan of care endorsed.
--- NOTE | 2019-09-18 07:30 | NUR ---
NURSE NOTES: Received report from Barbara/RN, Patient is sitting up on chair, having breakfast. on 15L Non-rebreather mask, No acute distress/SOB noted. AAO x 4, Able to make needs known. denies pain at this time. IV site on Right AC, patent, no bleeding or infiltration noted. Son at bedside. Bed in low position and locked, Bed alarm engaged, side rails up x2. Call light within reach, Encouraged to use call light when needed. Will continue plan of care.
[2019-09-18 08:00] VITALS: BP 129/64
--- NOTE | 2019-09-18 08:24 | NUR ---
CASE MANAGEMENT: REVIEW 09/17/19 SI: PULMONARY HTN . PNA . CHF EXACERBATION . ACUTE ASTHMA EXACERBATION. 97.8 89 20 135/64 94% VENTURI MASK 12.0L BUN 27 CO2 39 PHOS 2.4 H/H 8.7/28.2 IS: IV ZOSYN Q8HR IV LASIX Q8HR IV IRON SUCROSE X5BAGS MG OXIDE PO TID K-DUR PO TID METOPROLOL PO QD AVARPO PO QD LOVENOX SQ QD NOVOLOG SUBQ AC+HS STARLIX PO TIAC LEVEMIR SQ Q12HR METFORMIN PO QD ALBUTEROL HHN Q4HR CHLORTHALIDONE PO QD LACTULOSE PO TID/PRN : 2E TELE UNIT DCP: RETURN HOME WHEN MEDICALLY CLEARED PLAN: HOME ON BIPAP AND 02 WHEN CLEARED BY PULMONARY PATIENT UNABLE TO WEAN OFF VENTURI MASK Addendum: 09/18/19 at 0834 by ANNEMARIE PATTON LVN CASE MANAGEMENT: REVIEW 09/18/19 SI: PULMONARY HTN . PNA . CHF EXACERBATION . ACUTE ASTHMA EXACERBATION. 97.8 89 20 135/64 94% VENTURI MASK 12.0L BUN 27 CO2 39 PHOS 2.4 H/H 8.7/28.2 IS: IV ZOSYN Q8HR IV LASIX Q8HR IV IRON SUCROSE X5BAGS MG OXIDE PO TID K-DUR PO TID METOPROLOL PO QD AVARPO PO QD LOVENOX SQ QD NOVOLOG SUBQ AC+HS STARLIX PO TIAC LEVEMIR SQ Q12HR METFORMIN PO QD ALBUTEROL HHN Q4HR CHLORTHALIDONE PO QD LACTULOSE PO TID/PRN : 2E TELE UNIT DCP: RETURN HOME WHEN MEDICALLY CLEARED PLAN: HOME ON BIPAP AND 02 WHEN CLEARED BY PULMONARY PATIENT UNABLE TO WEAN OFF VENTURI MASK CASE MANAGEMENT: REVIEW 09/17/19 SI: PULMONARY HTN . PNA . CHF EXACERBATION . ACUTE ASTHMA EXACERBATION. 97.3 95 18 119/60 95% VENTURI MASK 15.0L IS: IV ZOSYN Q8HR IV LASIX Q8HR IV IRON SUCROSE X5BAGS MG OXIDE PO TID K-DUR PO TID METOPROLOL PO QD AVARPO PO QD LOVENOX SQ QD NOVOLOG SUBQ AC+HS STARLIX PO TIAC LEVEMIR SQ Q12HR METFORMIN PO QD ALBUTEROL HHN Q4HR CHLORTHALIDONE PO QD LACTULOSE PO TID/PRN : 2E TELE UNIT DCP: RETURN HOME WHEN MEDICALLY CLEARED PLAN: HOME ON BIPAP AND 02 WHEN CLEARED BY PULMONARY PATIENT UNABLE TO WEAN OFF VENTURI MASK
--- NOTE | 2019-09-18 08:46 | Pulmonology Progress Note ---
Assessment/Plan Assessment/Plan ASSESSMENT Pulmonary edema LAYO History of asthma Pulmonary hypertension DISCUSSION: Continue BiPAP q pm. Advised consistent use Continue diuresis, nitrates, breathing treatments. Consider heart cath per cardiology. Avoidance of nephrotoxic medications. Off Diamox now; HCO3 37 Antibiotics broadened but no clear source on infection Do not suspect new or active pneumonia I will follow carefully. Patient declines BiPAP uses consistently I/O inaccurate Will titrate FiO2 down as tolerated Sohail Aguirre M.D. Subjective Interval Events: Now on 40-50% ventimask; SaO2 94% Constitutional: Reports: no symptoms HEENT: Repors: no symptoms Respiratory: Reports: shortness of breath Cardiovascular: Reports: no symptoms Gastrointestinal/Abdominal: Reports: no symptoms Allergies: Coded Allergies: MORPHINE (Verified Allergy, Intermediate, 09/09/19) Headach, Dizziness Objective Last 24 Hour Vital Signs Date Time Temp Pulse Resp B/P (MAP) Pulse Ox O2 Delivery O2 Flow Rate FiO2 09/18/19 08:09 94 Venturi Mask 12.0 50 09/18/19 08:08 89 20 94 Venturi Mask 12.0 50 09/18/19 04:00 97.8 84 20 135/64 (87) 98 09/18/19 04:00 15.0 40 09/18/19 04:00 91 09/18/19 00:00 98.2 89 20 150/63 (92) 98 09/18/19 00:00 88 09/17/19 21:00 15.0 09/17/19 21:00 Non-Rebreather 09/17/19 20:00 97.8 78 20 132/65 (87) 96 09/17/19 20:00 84 09/17/19 16:00 79 09/17/19 16:00 15.0 09/17/19 16:00 97.3 81 20 125/60 (81) 96 09/17/19 12:00 87 09/17/19 12:00 15.0 09/17/19 12:00 98.1 93 22 113/58 (76) 93 09/17/19 10:40 80 20 98 Venturi Mask 12.0 50 09/17/19 10:40 98 Venturi Mask 12.0 50 09/17/19 09:00 Non-Rebreather 09/17/19 08:59 95 119/60 09/17/19 08:59 119/60 Intake and Output 09/17/19 09/18/19 19:00 07:00 Intake Total 360 ml Output Total 450 ml Balance -90 ml Intake Oral 360 ml Output Urine Total 450 ml # Voids 2 # Bowel Movements 3 1 General Appearance: no acute distress HEENT: normocephalic Respiratory/Chest: chest wall non-tender, decreased breath sounds Cardiovascular: normal peripheral pulses, normal rate Abdomen: normal bowel sounds Laboratory Tests 09/18/19 05:35: White Blood Count 11.6H, Red Blood Count 3.01L, Hemoglobin 8.7L, Hematocrit 28.2L, Mean Corpuscular Volume 94, Mean Corpuscular Hemoglobin 28.9, Mean Corpuscular Hemoglobin Concent 30.9L, Red Cell Distribution Width 16.0H, Platelet Count 402, Mean Platelet Volume 5.7L, Neutrophils (%) (Auto) , Lymphocytes (%) (Auto) , Monocytes (%) (Auto) , Eosinophils (%) (Auto) , Basophils (%) (Auto) , Sodium Level 143, Potassium Level 3.9, Chloride Level 99 , Carbon Dioxide Level 39H, Anion Gap 5, Blood Urea Nitrogen 27H, Creatinine 1.1 , Estimat Glomerular Filtration Rate > 60, Glucose Level 108H, Calcium Level 9.4 , Phosphorus Level 2.4L, Magnesium Level 2.4, Total Bilirubin 0.4, Aspartate Amino Transf (AST/SGOT) 14L, Alanine Aminotransferase (ALT/SGPT) 21, Alkaline Phosphatase 72, C-Reactive Protein, Quantitative 7.8H, Pro-B-Type Natriuretic Peptide 48, Total Protein 8.4H, Albumin 3.0L, Globulin 5.4, Albumin/Globulin Ratio 0.6L Current Medications Medications (Trade) Dose Ordered Sig/Yue Route PRN Reason Start Time Stop Time Status Last Admin Dose Admin Acetaminophen (Tylenol) 650 mg Q6H PRN ORAL Mild Pain/Temp > 100.5 09/07/19 15:30 10/07/19 15:29 09/18/19 04:13 Allopurinol (Zyloprim) 100 mg DAILY ORAL 09/09/19 09:00 10/09/19 08:59 09/17/19 08:59 Aspirin (Ecotrin) 81 mg DAILY ORAL 09/08/19 09:00 10/07/19 08:59 09/17/19 08:58 Dextrose (Dextrose 50%) 25 ml Q30M PRN IV Hypoglycemia 09/07/19 15:30 10/07/19 06:29 Dextrose (Dextrose 50%) 50 ml Q30M PRN IV Hypoglycemia 09/07/19 15:30 10/07/19 06:29 Docusate Sodium (Colace) 250 mg TID ORAL 09/12/19 09:00 10/12/19 08:59 09/17/19 17:16 Enoxaparin Sodium (Lovenox) 40 mg DAILY SUBQ 09/08/19 09:00 10/07/19 08:59 09/17/19 09:01 Fluticasone Propionate (Flonase) 1 spray TWICE A DAY NASAL 09/17/19 11:00 10/17/19 10:59 09/17/19 17:17 Furosemide (Lasix) 40 mg Q8HR IV 09/13/19 11:00 10/13/19 10:59 09/17/19 21:16 Insulin Aspart (NovoLOG) BEFORE MEALS AND HS SUBQ 09/07/19 16:30 10/07/19 06:29 09/18/19 06:41 Insulin Detemir (Levemir) 20 units Q12H SUBQ 09/13/19 20:00 10/07/19 15:59 09/17/19 21:10 Irbesartan (Avapro) 300 mg DAILY ORAL 09/10/19 09:00 10/10/19 08:59 09/17/19 08:59 Iron Sucrose 100 mg/Sodium Chloride 60 ml @ 240 mls/hr BEDTIME IV 09/15/19 21:00 09/19/19 21:14 09/17/19 21:09 Lactulose (Cephulac) 20 gm TIDPRN PRN ORAL Constipation 09/14/19 17:15 10/14/19 17:14 09/14/19 18:01 Levothyroxine Sodium (Synthroid) 150 mcg DAILY@0630 ORAL 09/08/19 06:30 10/08/19 06:29 09/18/19 05:32 Liothyronine Sodium (Cytomel) 5 mcg DAILY ORAL 09/10/19 09:00 10/10/19 08:59 09/17/19 08:58 Magnesium Oxide (Mag-Ox 400mg) 400 mg THREE TIMES A DAY ORAL 09/14/19 13:00 10/14/19 12:59 09/17/19 17:16 Metformin HCl (Glucophage) 500 mg TIAC ORAL 09/08/19 16:30 10/08/19 16:29 09/18/19 05:32 Metoprolol Succinate (Toprol XL) 50 mg DAILY ORAL 09/13/19 09:00 10/13/19 08:59 09/17/19 08:59 Nateglinide (Starlix) 120 mg TIAC ORAL 09/07/19 16:30 10/07/19 11:29 09/18/19 05:32 Nitroglycerin (Ntg) 0.4 mg Q5M PRN SL Prn Chest Pain 09/17/19 12:30 10/17/19 12:29 Piperacillin Sod/ Tazobactam Sod 3.375 gm/Sodium Chloride 110 ml @ 27.5 mls/hr EVERY 8 HOURS IVPB 09/11/19 22:00 09/21/19 21:59 09/18/19 05:32 Potassium Chloride (K-Dur) 40 meq TID ORAL 09/15/19 13:00 10/14/19 12:44 09/17/19 17:16 Sohail Aguirre MD Sep 18, 2019 08:46
[2019-09-18] MEDS ORDERED: Phospha 250 Neutral tab ORAL SCH (09:15)
[2019-09-18] MEDS: Magnesium Oxide 400mg tab ORAL SCH ×3 (09:20→17:22)
[2019-09-18] MEDS: Metoprolol Succinate XL 50mg tab ORAL SCH (09:20)
[2019-09-18] MEDS: Flonase Nasal Inhaler 16gm NASAL SCH ×2 (09:20→17:23)
[2019-09-18] MEDS: Aspirin EC 81mg tab ORAL SCH (09:21)
[2019-09-18] MEDS: Irbesartan 150mg tablet ORAL SCH (09:21)
[2019-09-18] MEDS: Liothyronine 5mcg tab ORAL SCH (09:21)
[2019-09-18] MEDS: Allopurinol 100mg Tab ORAL SCH (09:21)
[2019-09-18] MEDS: Docusate 250mg cap ORAL SCH ×3 (09:22→17:22)
[2019-09-18] MEDS: Enoxaparin 40mg Inj SUBQ SCH (09:33)
[2019-09-18] MEDS: Levemir Flexpen SUBQ SCH ×2 (09:43→21:06)
--- NOTE | 2019-09-18 10:08 | NUR ---
*-* INSURANCE *-* ALL CLINICALS AND REVIEWS HAVE BEEN FAXED TO: [employer] Ref# [id number] CM: Catalina #[phone] fax#[phone] also send to [employer] [facility] ref# or ANSON maradiaga #[phone] fax#[phone]
--- NOTE | 2019-09-18 10:42 | Nephrology Progress Note ---
Assessment/Plan Problem List: (1) Morbid obesity with BMI of 40.0-44.9, adult (2) Anemia (3) Hyperglycemia due to type 2 diabetes mellitus (4) Hypertension (5) Respiratory failure with hypoxia and hypercapnia Assessment Acute Respiratory Failure Morbid Obesity LAYO Anemia DM OOC HTN Plan no labs today now on Lasix K Supplement add metformin to starlix one dose diamox adjust Levemir to 20 Q12 add cytomel Respiratory support, BIPAP 2D Echo , BP and BS management monitor lytes Subjective ROS Limited/Unobtainable: No Constitutional: Reports: malaise Objective Objective Last 24 Hour Vital Signs Date Time Temp Pulse Resp B/P (MAP) Pulse Ox O2 Delivery O2 Flow Rate FiO2 09/18/19 09:21 129/64 09/18/19 09:20 89 129/64 09/18/19 08:09 94 Venturi Mask 12.0 50 09/18/19 08:08 89 20 94 Venturi Mask 12.0 50 09/18/19 08:00 97.9 87 20 129/64 (85) 93 09/18/19 04:00 97.8 84 20 135/64 (87) 98 09/18/19 04:00 15.0 40 09/18/19 04:00 91 09/18/19 00:00 98.2 89 20 150/63 (92) 98 09/18/19 00:00 88 09/17/19 21:00 15.0 09/17/19 21:00 Non-Rebreather 09/17/19 20:00 97.8 78 20 132/65 (87) 96 09/17/19 20:00 84 09/17/19 16:00 79 09/17/19 16:00 15.0 09/17/19 16:00 97.3 81 20 125/60 (81) 96 09/17/19 12:00 87 09/17/19 12:00 15.0 09/17/19 12:00 98.1 93 22 113/58 (76) 93 Intake and Output 09/17/19 09/18/19 19:00 07:00 Intake Total 360 ml Output Total 450 ml Balance -90 ml Intake Oral 360 ml Output Urine Total 450 ml # Voids 2 # Bowel Movements 3 1 Laboratory Tests 09/18/19 05:35: White Blood Count 11.6H, Red Blood Count 3.01L, Hemoglobin 8.7L, Hematocrit 28.2L, Mean Corpuscular Volume 94, Mean Corpuscular Hemoglobin 28.9, Mean Corpuscular Hemoglobin Concent 30.9L, Red Cell Distribution Width 16.0H, Platelet Count 402, Mean Platelet Volume 5.7L, Neutrophils (%) (Auto) , Lymphocytes (%) (Auto) , Monocytes (%) (Auto) , Eosinophils (%) (Auto) , Basophils (%) (Auto) , Sodium Level 143, Potassium Level 3.9, Chloride Level 99 , Carbon Dioxide Level 39H, Anion Gap 5, Blood Urea Nitrogen 27H, Creatinine 1.1 , Estimat Glomerular Filtration Rate > 60, Glucose Level 108H, Calcium Level 9.4 , Phosphorus Level 2.4L, Magnesium Level 2.4, Total Bilirubin 0.4, Aspartate Amino Transf (AST/SGOT) 14L, Alanine Aminotransferase (ALT/SGPT) 21, Alkaline Phosphatase 72, C-Reactive Protein, Quantitative 7.8H, Pro-B-Type Natriuretic Peptide 48, Total Protein 8.4H, Albumin 3.0L, Globulin 5.4, Albumin/Globulin Ratio 0.6L Height (Feet): 5 Height (Inches): 4.00 Weight (Pounds): 268 General Appearance: no apparent distress EENT: other - bipap Cardiovascular: tachycardia Respiratory/Chest: decreased breath sounds Gino Longoria MD Sep 18, 2019 10:42
[2019-09-18] MEDS ORDERED: NS 275ml ONE (10:58)
[2019-09-18 12:00] VITALS: BP 121/65
--- NOTE | 2019-09-18 13:16 | Infectious Diseases Prog Note ---
Assessment/Plan Problems: (1) Leukocytosis Assessment & Plan: with worsening lungs infiltrates , on zosyn empirically to cover for pneumonia , repeated blood culture is negative on 09/10 , monitor CXR . will treat with zosyn for 7-10 days (2) Community acquired pneumonia Assessment & Plan: with productive cough , now on zosyn empirically due to worsening right side lung infiltrates and WBC , continue nebulizer treatment , titrate oxygen , monitor CXR (3) Acute exacerbation of CHF (congestive heart failure) Assessment & Plan: continue dieuresis as per renal (4) Respiratory failure with hypoxia and hypercapnia Assessment & Plan: on high flow oxygen via mask , continue nebulizers and diuretics (5) Hyperglycemia due to type 2 diabetes mellitus Assessment & Plan: poorly controled, continue insulin to achieve tight glycemic control to keep blood glucose between 100-140 (6) Pleural effusion Assessment & Plan: R>L may benefit from thoracentesis Subjective Constitutional: Reports: no symptoms HEENT: Reports: no symptoms Respiratory: Reports: no symptoms Breasts: Reports: no symptoms Cardiovascular: Reports: no symptoms Gastrointestinal/Abdominal: Reports: no symptoms Genitourinary: Reports: no symptoms Neurologic: Reports: no symptoms Psychiatric: Reports: no symptoms Skin: Reports: no symptoms Endocrine: Reports: no symptoms Hematologic: Reports: no symptoms Musculoskeletal: Reports: no symptoms Allergies: Coded Allergies: MORPHINE (Verified Allergy, Intermediate, 09/09/19) Headach, Dizziness Objective Vital Signs Last 24 Hour Vital Signs Date Time Temp Pulse Resp B/P (MAP) Pulse Ox O2 Delivery O2 Flow Rate FiO2 09/18/19 09:21 129/64 09/18/19 09:20 89 129/64 09/18/19 09:00 Non-Rebreather 09/18/19 08:09 94 Venturi Mask 12.0 50 09/18/19 08:08 89 20 94 Venturi Mask 12.0 50 09/18/19 08:00 15.0 40 09/18/19 08:00 88 09/18/19 08:00 97.9 87 20 129/64 (85) 93 09/18/19 04:00 97.8 84 20 135/64 (87) 98 09/18/19 04:00 15.0 40 09/18/19 04:00 91 09/18/19 00:00 98.2 89 20 150/63 (92) 98 09/18/19 00:00 88 09/17/19 21:00 15.0 09/17/19 21:00 Non-Rebreather 09/17/19 20:00 97.8 78 20 132/65 (87) 96 09/17/19 20:00 84 09/17/19 16:00 79 09/17/19 16:00 15.0 09/17/19 16:00 97.3 81 20 125/60 (81) 96 Height (Feet): 5 Height (Inches): 4.00 Weight (Pounds): 268 General Appearance: WD/WN, no acute distress HEENT: normocephalic, atraumatic, anicteric, mucous membranes moist, PERRL Respiratory/Chest: chest wall non-tender, lungs clear, normal breath sounds, no respiratory distress, no accessory muscle use Cardiovascular: normal peripheral pulses, normal rate, regular rhythm, no gallop/murmur, no JVD Abdomen: normal bowel sounds, soft, non tender, no organomegaly, non distended , no mass, no scars Genitourinary: normal external genitalia Extremities: no cyanosis, no clubbing Skin: no rash, no lesions, no ulcers Neurologic/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: 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, no motor/sensory deficits, alert, oriented x 3, responsive Lymphatic: no neck adenopathy, no groin adenopathy Musculoskeletal: normal muscle bulk, no effusion Laboratory Tests Test 09/18/19 05:35 White Blood Count 11.6 K/UL (4.8-10.8) H Red Blood Count 3.01 M/UL (4.20-5.40) L Hemoglobin 8.7 G/DL (12.0-16.0) L Hematocrit 28.2 % (37.0-47.0) L Mean Corpuscular Volume 94 FL (80-99) Mean Corpuscular Hemoglobin 28.9 PG (27.0-31.0) Mean Corpuscular Hemoglobin Concent 30.9 G/DL (32.0-36.0) L Red Cell Distribution Width 16.0 % (11.6-14.8) H Platelet Count 402 K/UL (150-450) Mean Platelet Volume 5.7 FL (6.5-10.1) L Neutrophils (%) (Auto) % (45.0-75.0) Lymphocytes (%) (Auto) % (20.0-45.0) Monocytes (%) (Auto) % (1.0-10.0) Eosinophils (%) (Auto) % (0.0-3.0) Basophils (%) (Auto) % (0.0-2.0) Sodium Level 143 MMOL/L (136-145) Potassium Level 3.9 MMOL/L (3.5-5.1) Chloride Level 99 MMOL/L (98-107) Carbon Dioxide Level 39 MMOL/L (21-32) H Anion Gap 5 mmol/L (5-15) Blood Urea Nitrogen 27 mg/dL (7-18) H Creatinine 1.1 MG/DL (0.55-1.30) Estimat Glomerular Filtration Rate > 60 mL/min (>60) Glucose Level 108 MG/DL (74-106) H Calcium Level 9.4 MG/DL (8.5-10.1) Phosphorus Level 2.4 MG/DL (2.5-4.9) L Magnesium Level 2.4 MG/DL (1.8-2.4) Total Bilirubin 0.4 MG/DL (0.2-1.0) Aspartate Amino Transf (AST/SGOT) 14 U/L (15-37) L Alanine Aminotransferase (ALT/SGPT) 21 U/L (12-78) Alkaline Phosphatase 72 U/L (46-116) C-Reactive Protein, Quantitative 7.8 mg/dL (0.00-0.90) H Pro-B-Type Natriuretic Peptide 48 pg/mL (0-125) Total Protein 8.4 G/DL (6.4-8.2) H Albumin 3.0 G/DL (3.4-5.0) L Globulin 5.4 g/dL Albumin/Globulin Ratio 0.6 (1.0-2.7) L Current Medications Medications (Trade) Dose Ordered Sig/Yue Route PRN Reason Start Time Stop Time Status Last Admin Dose Admin Acetaminophen (Tylenol) 650 mg Q6H PRN ORAL Mild Pain/Temp > 100.5 09/07/19 15:30 10/07/19 15:29 09/18/19 04:13 Allopurinol (Zyloprim) 100 mg DAILY ORAL 09/09/19 09:00 10/09/19 08:59 09/18/19 09:21 Aspirin (Ecotrin) 81 mg DAILY ORAL 09/08/19 09:00 10/07/19 08:59 09/18/19 09:21 Dextrose (Dextrose 50%) 25 ml Q30M PRN IV Hypoglycemia 09/07/19 15:30 10/07/19 06:29 Dextrose (Dextrose 50%) 50 ml Q30M PRN IV Hypoglycemia 09/07/19 15:30 10/07/19 06:29 Docusate Sodium (Colace) 250 mg TID ORAL 09/12/19 09:00 10/12/19 08:59 09/18/19 12:13 Enoxaparin Sodium (Lovenox) 40 mg DAILY SUBQ 09/08/19 09:00 10/07/19 08:59 09/18/19 09:33 Fluticasone Propionate (Flonase) 1 spray TWICE A DAY NASAL 09/17/19 11:00 10/17/19 10:59 09/18/19 09:20 Furosemide (Lasix) 40 mg Q8HR IV 09/13/19 11:00 10/13/19 10:59 09/17/19 21:16 Insulin Aspart (NovoLOG) BEFORE MEALS AND HS SUBQ 09/07/19 16:30 10/07/19 06:29 09/18/19 12:20 Insulin Detemir (Levemir) 20 units Q12H SUBQ 09/13/19 20:00 10/07/19 15:59 09/18/19 09:43 Irbesartan (Avapro) 300 mg DAILY ORAL 09/10/19 09:00 10/10/19 08:59 09/18/19 09:21 Iron Sucrose 100 mg/Sodium Chloride 60 ml @ 240 mls/hr BEDTIME IV 09/15/19 21:00 09/19/19 21:14 09/17/19 21:09 Lactulose (Cephulac) 20 gm TIDPRN PRN ORAL Constipation 09/14/19 17:15 10/14/19 17:14 09/14/19 18:01 Levothyroxine Sodium (Synthroid) 150 mcg DAILY@0630 ORAL 09/08/19 06:30 10/08/19 06:29 09/18/19 05:32 Liothyronine Sodium (Cytomel) 5 mcg DAILY ORAL 09/10/19 09:00 10/10/19 08:59 09/18/19 09:21 Magnesium Oxide (Mag-Ox 400mg) 400 mg THREE TIMES A DAY ORAL 09/14/19 13:00 10/14/19 12:59 09/18/19 12:13 Metformin HCl (Glucophage) 500 mg TIAC ORAL 09/08/19 16:30 10/08/19 16:29 09/18/19 12:13 Metoprolol Succinate (Toprol XL) 50 mg DAILY ORAL 09/13/19 09:00 10/13/19 08:59 09/18/19 09:20 Nateglinide (Starlix) 120 mg TIAC ORAL 09/07/19 16:30 10/07/19 11:29 09/18/19 12:13 Nitroglycerin (Ntg) 0.4 mg Q5M PRN SL Prn Chest Pain 09/17/19 12:30 10/17/19 12:29 Piperacillin Sod/ Tazobactam Sod 3.375 gm/Sodium Chloride 110 ml @ 27.5 mls/hr EVERY 8 HOURS IVPB 09/11/19 22:00 09/21/19 21:59 09/18/19 05:32 Potassium Chloride (K-Dur) 40 meq TID ORAL 09/15/19 13:00 10/14/19 12:44 09/18/19 12:13 Katlyn Richard M.D. Sep 18, 2019 13:16
--- NOTE | 2019-09-18 14:16 | General Progress Note ---
Assessment/Plan Status: progressing Assessment/Plan: S: I am feeling the better O: on Non rebreather O2, denies chest pain . limited activity reported. Low threshold for exertional sob. Patient Son at the bedside PHYSICAL EXAMINATION:HEAD AND NECK: Atraumatic, normocephalic. CHEST: Clear to auscultation.HEART: S1, S2. Regular rate and rhythm. ABDOMEN: Soft. No organomegaly.MUSCULOSKELETAL: No gross focal deficit. NEUROLOGIC: The patient is awake, alert, oriented x3. LABORATORY and Imaging DATA: dated 09/16 reviewed ASSESSMENT: 1. Acute Asthma exacerbation 2. Pulmonary infiltrate, Atelectasis vs Community-acquired pneumonia. 3. CHF exacerbation. 4. Morbid obesity. 5. Asthma. 6. Severe pulmonary arterial hypertension. 7. DM 2- uncontrolled 8. GI and DVT prophylaxis. 9. Acute on chronic anemia. Plan: Poor overall physial performance, with limited ADLS Notes from Nephro and Pulmonary reviewed Negative culture as of yet On high rate Oxygen flow recheck Stool OB started Iron supplementation Once Ok from pulmonary stand point may followup as op, however given following REFUSAL's this is a barrier with HIGH risk for READMISSION patient refuses Rehab/SNIF at this time. patient refuses Down titration off the current NRB-Mask O2 Subjective Allergies: Coded Allergies: MORPHINE (Verified Allergy, Intermediate, 09/09/19) Headach, Dizziness Objective Last 24 Hour Vital Signs Date Time Temp Pulse Resp B/P (MAP) Pulse Ox O2 Delivery O2 Flow Rate FiO2 09/18/19 09:21 129/64 09/18/19 09:20 89 129/64 09/18/19 09:00 Non-Rebreather 09/18/19 08:09 94 Venturi Mask 12.0 50 09/18/19 08:08 89 20 94 Venturi Mask 12.0 50 09/18/19 08:00 15.0 40 09/18/19 08:00 88 09/18/19 08:00 97.9 87 20 129/64 (85) 93 09/18/19 04:00 97.8 84 20 135/64 (87) 98 09/18/19 04:00 15.0 40 09/18/19 04:00 91 09/18/19 00:00 98.2 89 20 150/63 (92) 98 09/18/19 00:00 88 09/17/19 21:00 15.0 09/17/19 21:00 Non-Rebreather 09/17/19 20:00 97.8 78 20 132/65 (87) 96 09/17/19 20:00 84 09/17/19 16:00 79 09/17/19 16:00 15.0 09/17/19 16:00 97.3 81 20 125/60 (81) 96 Intake and Output 09/17/19 09/18/19 19:00 07:00 Intake Total 360 ml Output Total 450 ml Balance -90 ml Intake Oral 360 ml Output Urine Total 450 ml # Voids 2 # Bowel Movements 3 1 Laboratory Tests 09/18/19 05:35: White Blood Count 11.6H, Red Blood Count 3.01L, Hemoglobin 8.7L, Hematocrit 28.2L, Mean Corpuscular Volume 94, Mean Corpuscular Hemoglobin 28.9, Mean Corpuscular Hemoglobin Concent 30.9L, Red Cell Distribution Width 16.0H, Platelet Count 402, Mean Platelet Volume 5.7L, Neutrophils (%) (Auto) , Lymphocytes (%) (Auto) , Monocytes (%) (Auto) , Eosinophils (%) (Auto) , Basophils (%) (Auto) , Sodium Level 143, Potassium Level 3.9, Chloride Level 99 , Carbon Dioxide Level 39H, Anion Gap 5, Blood Urea Nitrogen 27H, Creatinine 1.1 , Estimat Glomerular Filtration Rate > 60, Glucose Level 108H, Calcium Level 9.4 , Phosphorus Level 2.4L, Magnesium Level 2.4, Total Bilirubin 0.4, Aspartate Amino Transf (AST/SGOT) 14L, Alanine Aminotransferase (ALT/SGPT) 21, Alkaline Phosphatase 72, C-Reactive Protein, Quantitative 7.8H, Pro-B-Type Natriuretic Peptide 48, Total Protein 8.4H, Albumin 3.0L, Globulin 5.4, Albumin/Globulin Ratio 0.6L Height (Feet): 5 Height (Inches): 4.00 Weight (Pounds): 268 Marcela Jacobo MD Sep 18, 2019 14:16
[2019-09-18 16:00] VITALS: BP 119/67
--- NOTE | 2019-09-18 19:31 | NUR ---
HAND-OFF: Report given to Barbara/RN, Patient is in stable condition. Endorsed plan of care.
--- NOTE | 2019-09-18 19:39 | NUR ---
NURSE NOTES: Received patient from TEDDY Broussard, in stable condition, AOx4, denies pain at this time, sitting in chair, talkative in good mood, son at bedside. IV on R AC g20 asymptomatic, intact, patent, call light within reach will continue to monitor and reassess
[2019-09-18 20:00] VITALS: BP 120/60
[2019-09-18] MEDS: Iron Sucrose 100 MG in NS 55 ML IV SCH (21:05)
--- NOTE | 2019-09-18 22:18 | Cardiology Progress Note ---
Assessment/Plan Assessment/Plan 1. Severe pulmonary hypertension with right ventricular systolic pressure as high as 101 mmHg by echo. Discussed need of right heart cath as an outpatient. 2. Morbid obesity. 3. Normal LV systolic function with LVEF approximately 60%. 4. History of diabetes mellitus. 5. History of hypertension, well controlled, continue Irbesartan, chlorthalidone and metoprolol XL. Subjective Subjective Sinus rhythm at rate of 80. Objective Last 24 Hour Vital Signs Date Time Temp Pulse Resp B/P (MAP) Pulse Ox O2 Delivery O2 Flow Rate FiO2 09/18/19 16:00 15.0 40 09/18/19 16:00 80 09/18/19 16:00 97.9 80 18 119/67 (84) 98 09/18/19 12:00 97.2 86 19 121/65 (83) 95 09/18/19 12:00 15.0 40 09/18/19 12:00 84 09/18/19 09:21 129/64 09/18/19 09:20 89 129/64 09/18/19 09:00 Non-Rebreather 09/18/19 08:09 94 Venturi Mask 12.0 50 09/18/19 08:08 89 20 94 Venturi Mask 12.0 50 09/18/19 08:00 15.0 40 09/18/19 08:00 88 09/18/19 08:00 97.9 87 20 129/64 (85) 93 09/18/19 04:00 97.8 84 20 135/64 (87) 98 09/18/19 04:00 15.0 40 09/18/19 04:00 91 09/18/19 00:00 98.2 89 20 150/63 (92) 98 09/18/19 00:00 88 Intake and Output 09/17/19 09/18/19 19:00 07:00 Intake Total 360 ml Output Total 450 ml Balance -90 ml Intake Oral 360 ml Output Urine Total 450 ml # Voids 2 # Bowel Movements 3 1 2D Echo: LVEF 60%, Hi RAP at 15 mmHg, RVSP 101 mmHg, Normal LV diastolic Fxn Laboratory Tests Test 09/18/19 05:35 White Blood Count 11.6 K/UL (4.8-10.8) H Red Blood Count 3.01 M/UL (4.20-5.40) L Hemoglobin 8.7 G/DL (12.0-16.0) L Hematocrit 28.2 % (37.0-47.0) L Mean Corpuscular Volume 94 FL (80-99) Mean Corpuscular Hemoglobin 28.9 PG (27.0-31.0) Mean Corpuscular Hemoglobin Concent 30.9 G/DL (32.0-36.0) L Red Cell Distribution Width 16.0 % (11.6-14.8) H Platelet Count 402 K/UL (150-450) Mean Platelet Volume 5.7 FL (6.5-10.1) L Neutrophils (%) (Auto) % (45.0-75.0) Lymphocytes (%) (Auto) % (20.0-45.0) Monocytes (%) (Auto) % (1.0-10.0) Eosinophils (%) (Auto) % (0.0-3.0) Basophils (%) (Auto) % (0.0-2.0) Sodium Level 143 MMOL/L (136-145) Potassium Level 3.9 MMOL/L (3.5-5.1) Chloride Level 99 MMOL/L (98-107) Carbon Dioxide Level 39 MMOL/L (21-32) H Anion Gap 5 mmol/L (5-15) Blood Urea Nitrogen 27 mg/dL (7-18) H Creatinine 1.1 MG/DL (0.55-1.30) Estimat Glomerular Filtration Rate > 60 mL/min (>60) Glucose Level 108 MG/DL (74-106) H Calcium Level 9.4 MG/DL (8.5-10.1) Phosphorus Level 2.4 MG/DL (2.5-4.9) L Magnesium Level 2.4 MG/DL (1.8-2.4) Total Bilirubin 0.4 MG/DL (0.2-1.0) Aspartate Amino Transf (AST/SGOT) 14 U/L (15-37) L Alanine Aminotransferase (ALT/SGPT) 21 U/L (12-78) Alkaline Phosphatase 72 U/L (46-116) C-Reactive Protein, Quantitative 7.8 mg/dL (0.00-0.90) H Pro-B-Type Natriuretic Peptide 48 pg/mL (0-125) Total Protein 8.4 G/DL (6.4-8.2) H Albumin 3.0 G/DL (3.4-5.0) L Globulin 5.4 g/dL Albumin/Globulin Ratio 0.6 (1.0-2.7) L Objective HEENT: Atraumatic and normocephalic. Anicteric. Pupils are equal, round, and reactive to light and accommodation. Extraocular muscles intact. NECK: Cannot assess JVP due to morbid obesity and short neck. CARDIOVASCULAR: Normal S1, S2. Regular rate and rhythm. No murmurs, gallops, or rubs. PMI is at fourth intercostal space in the midclavicular line. LUNGS: Bilateral basal crackles. ABDOMEN: Soft, non-tender, non-distended, + BS. EXTREMITIES: 1+ bilateral lower extremity edema. Bryce Funez MD Sep 18, 2019 22:18
[2019-09-19] VITALS: BP 117/50
[2019-09-19 04:00] VITALS: BP 120/49
[2019-09-19] MEDS: metFORMIN 500mg tab ORAL SCH ×3 (06:07→17:08)
[2019-09-19] MEDS: Piperacillin/Tazobactam 3.375 GM in NS 110 ML IVPB SCH ×3 (06:07→21:17)
[2019-09-19] MEDS: NovoLOG Insulin Flexpen SUBQ SCH ×4 (06:40→21:20)
--- NOTE | 2019-09-19 07:36 | NUR ---
HAND-OFF: Report given to TEDDY Alcaraz, patient in stable condition, plan of care endorsed.
--- NOTE | 2019-09-19 07:41 | NUR ---
NURSE NOTES: Received report from TEDDY Zarate. Pt awake, talkative, sitting in chair at bedside eating breakfast, on Venturi mask, pt is A/oX4 ASKING ABOUT DC plan and ready to titrate down from mask to NC, RN will test today and seek Pulmonary clearance if pt can tolerate, no apparent distress noted, bed in lowest position, call light within reach.
[2019-09-19 08:00] VITALS: BP 114/51
[2019-09-19] MEDS: Levemir Flexpen SUBQ SCH ×2 (08:53→21:19)
[2019-09-19] MEDS: Flonase Nasal Inhaler 16gm NASAL SCH ×2 (08:56→17:14)
[2019-09-19] MEDS: Irbesartan 150mg tablet ORAL SCH (08:57)
[2019-09-19] MEDS: Docusate 250mg cap ORAL SCH ×3 (08:57→17:08)
[2019-09-19] MEDS: Metoprolol Succinate XL 50mg tab ORAL SCH (08:58)
[2019-09-19] MEDS: Aspirin EC 81mg tab ORAL SCH (08:58)
[2019-09-19] MEDS: Magnesium Oxide 400mg tab ORAL SCH ×3 (08:58→17:09)
[2019-09-19] MEDS: Allopurinol 100mg Tab ORAL SCH (08:58)
--- NOTE | 2019-09-19 09:00 | Pulmonology Progress Note ---
Assessment/Plan Assessment/Plan ASSESSMENT Pulmonary edema LAYO History of asthma Pulmonary hypertension DISCUSSION: Continue BiPAP q pm. Advised consistent use Continue diuresis, nitrates, breathing treatments. Consider heart cath per cardiology. Avoidance of nephrotoxic medications. Off Diamox now; HCO3 37-39 Antibiotics broadened but no clear source on infection Do not suspect new or active pneumonia I will follow carefully. Patient declines BiPAP uses consistently I/O inaccurate Will titrate FiO2 down as tolerated Currently on 4L/min o2 Will check CXR Begin dc planning home Sohail Aguirre M.D. Subjective Interval Events: None new reported Constitutional: Reports: no symptoms HEENT: Repors: no symptoms Respiratory: Reports: shortness of breath Cardiovascular: Reports: no symptoms Gastrointestinal/Abdominal: Reports: no symptoms Genitourinary: Reports: no symptoms Allergies: Coded Allergies: MORPHINE (Verified Allergy, Intermediate, 09/09/19) Headach, Dizziness Objective Last 24 Hour Vital Signs Date Time Temp Pulse Resp B/P (MAP) Pulse Ox O2 Delivery O2 Flow Rate FiO2 09/19/19 08:46 96 Nasal Cannula 4.0 36 09/19/19 08:44 94 20 96 Nasal Cannula 4.0 36 09/19/19 08:00 98.1 87 19 114/51 (72) 99 09/19/19 04:00 97.3 84 19 120/49 (72) 99 94 09/19/19 04:00 92 09/19/19 00:00 97.2 94 21 117/50 (72) 94 94 09/19/19 00:00 86 09/18/19 23:58 91 20 97 Venturi Mask 12.0 50 09/18/19 21:00 Non-Rebreather 09/18/19 20:00 85 09/18/19 20:00 15.0 40 09/18/19 20:00 97.4 87 17 120/60 (80) 97 09/18/19 19:36 97 Venturi Mask 12.0 50 09/18/19 16:00 15.0 40 09/18/19 16:00 80 09/18/19 16:00 97.9 80 18 119/67 (84) 98 09/18/19 12:00 97.2 86 19 121/65 (83) 95 09/18/19 12:00 15.0 40 09/18/19 12:00 84 09/18/19 09:21 129/64 09/18/19 09:20 89 129/64 09/18/19 09:00 Non-Rebreather Intake and Output 09/18/19 09/19/19 19:00 07:00 Intake Total 500 ml Balance 500 ml Intake Oral 500 ml # Voids 1 3 # Bowel Movements 1 3 General Appearance: no acute distress HEENT: normocephalic Respiratory/Chest: chest wall non-tender, decreased breath sounds Cardiovascular: normal peripheral pulses, normal rate Abdomen: normal bowel sounds Current Medications Medications (Trade) Dose Ordered Sig/Yue Route PRN Reason Start Time Stop Time Status Last Admin Dose Admin Acetaminophen (Tylenol) 650 mg Q6H PRN ORAL Mild Pain/Temp > 100.5 09/07/19 15:30 10/07/19 15:29 09/19/19 02:50 Allopurinol (Zyloprim) 100 mg DAILY ORAL 09/09/19 09:00 10/09/19 08:59 09/18/19 09:21 Aspirin (Ecotrin) 81 mg DAILY ORAL 09/08/19 09:00 10/07/19 08:59 09/18/19 09:21 Dextrose (Dextrose 50%) 25 ml Q30M PRN IV Hypoglycemia 09/07/19 15:30 10/07/19 06:29 Dextrose (Dextrose 50%) 50 ml Q30M PRN IV Hypoglycemia 09/07/19 15:30 10/07/19 06:29 Docusate Sodium (Colace) 250 mg TID ORAL 09/12/19 09:00 10/12/19 08:59 09/18/19 17:22 Enoxaparin Sodium (Lovenox) 40 mg DAILY SUBQ 09/08/19 09:00 10/07/19 08:59 09/18/19 09:33 Fluticasone Propionate (Flonase) 1 spray TWICE A DAY NASAL 09/17/19 11:00 10/17/19 10:59 09/18/19 17:23 Furosemide (Lasix) 40 mg Q8HR IV 09/13/19 11:00 10/13/19 10:59 09/19/19 06:06 Insulin Aspart (NovoLOG) BEFORE MEALS AND HS SUBQ 09/07/19 16:30 10/07/19 06:29 09/19/19 06:40 Insulin Detemir (Levemir) 20 units Q12H SUBQ 09/13/19 20:00 10/07/19 15:59 09/18/19 21:06 Irbesartan (Avapro) 300 mg DAILY ORAL 09/10/19 09:00 10/10/19 08:59 09/18/19 09:21 Iron Sucrose 100 mg/Sodium Chloride 60 ml @ 240 mls/hr BEDTIME IV 09/15/19 21:00 09/19/19 21:14 09/18/19 21:05 Lactulose (Cephulac) 20 gm TIDPRN PRN ORAL Constipation 09/14/19 17:15 10/14/19 17:14 09/14/19 18:01 Levothyroxine Sodium (Synthroid) 150 mcg DAILY@0630 ORAL 09/08/19 06:30 10/08/19 06:29 09/19/19 06:07 Liothyronine Sodium (Cytomel) 5 mcg DAILY ORAL 09/10/19 09:00 10/10/19 08:59 09/18/19 09:21 Magnesium Oxide (Mag-Ox 400mg) 400 mg THREE TIMES A DAY ORAL 09/14/19 13:00 10/14/19 12:59 09/18/19 17:22 Metformin HCl (Glucophage) 500 mg TIAC ORAL 09/08/19 16:30 10/08/19 16:29 09/19/19 06:07 Metoprolol Succinate (Toprol XL) 50 mg DAILY ORAL 09/13/19 09:00 10/13/19 08:59 09/18/19 09:20 Nateglinide (Starlix) 120 mg TIAC ORAL 09/07/19 16:30 10/07/19 11:29 09/19/19 06:07 Nitroglycerin (Ntg) 0.4 mg Q5M PRN SL Prn Chest Pain 09/17/19 12:30 10/17/19 12:29 Piperacillin Sod/ Tazobactam Sod 3.375 gm/Sodium Chloride 110 ml @ 27.5 mls/hr EVERY 8 HOURS IVPB 09/11/19 22:00 09/21/19 21:59 09/19/19 06:07 Potassium Chloride (K-Dur) 40 meq TID ORAL 09/15/19 13:00 10/14/19 12:44 09/18/19 17:23 Sohail Aguirre MD Sep 19, 2019 09:00
--- NOTE | 2019-09-19 09:00 | NUR ---
NURSE NOTES: Rn discussed titrating pt off oxygen Venturi mask, pt agreed, RN discussed with RT [place]. Pt placed on NC 2L, SpO2 at 96%
[2019-09-19] MEDS: Enoxaparin 40mg Inj SUBQ SCH (09:01)
[2019-09-19] MEDS ORDERED: Furosemide 80mg tab ORAL SCH (09:15)
--- NOTE | 2019-09-19 10:10 | NUR ---
RD ASSESSMENT & RECOMMENDATIONS SEE CARE ACTIVITY FOR COMPLETE ASSESSMENT DAILY ESTIMATED NEEDS: Needs based on Pulmonarym cardiac, obese 71kg abw 20-25 kcals/kg [id number] total kcals 1-1.5 g protein/kg 71-107 g total protein Fluid per MD, on diuretics mL/kg total fluid mLs NUTRITION DIAGNOSIS: Decreased fat and sodium needs r/t CHF and morbid obesity as evidenced by pt w/ edema, on diuretics, w/ severe pulmonary arterial hypertension per MD, BMI >40, @223% of [place] Body Weight CURRENT DIET:Cardiac/ CCHO Med PO DIET RECOMMENDATIONS: CARDIAC + CCHO LOW ADDITIONAL RECOMMENDATIONS: 1) Obtain daily weights on diuretics 2) Check lytes daily on diuretics/ replete as needed (low phos) .
--- NOTE | 2019-09-19 10:36 | NUR ---
NURSE NOTES: Left message for Dr. Miller regarding consult and asked about anti-seizure medications, none ordered at this time
[2019-09-19] MEDS ORDERED: Liothyronine 5mcg tab ORAL SCH (11:00)
--- NOTE | 2019-09-19 11:28 | Diagnostic Imaging Report ---
EXAM: XR Chest, 1 View CLINICAL HISTORY: ABN CHST TECHNIQUE: Frontal view of the chest. COMPARISON: Chest x-ray 09/10/19 FINDINGS: Lungs: Hypoventilatory lungs. Mild interstitial prominence, markedly improved from prior study. Pleural space: Small residual right pleural effusion. No pneumothorax. Heart: Mild cardiomegaly. Mediastinum: Unremarkable. Bones/joints: Unremarkable. IMPRESSION: 1. Hypoventilatory lungs. Mild interstitial prominence, markedly improved from prior study. 2. Small residual right pleural effusion.
[2019-09-19 11:46] VITALS: BP 130/64
--- NOTE | 2019-09-19 11:47 | NUR ---
NURSE NOTES: Called Dr. Aguirre regarding CXR results, notified that pt has been on NC 4l since 0900 and saturating in high 90's latest 95%, cleared pt from pulmonary standpoint, RN entered other nursing order
--- NOTE | 2019-09-19 12:07 | NUR ---
NURSE NOTES: Notified Dr. Jacobo of Pulmo MD kishan ordered DC of pt on 09/20/2019 in AM. Pharmacy updated in system. Hand-written Rx for abx in paper chart from Dr. Richard. Pt is asking for cough medications to be called into her pharmacy, RN explained to pt that cough medication is over the counter and can be picked up when she fill abx rx
[2019-09-19] MEDS: Furosemide 80mg tab ORAL SCH ×2 (14:06→21:16)
[2019-09-19 16:00] VITALS: BP 141/69
--- NOTE | 2019-09-19 17:15 | Nephrology Progress Note ---
Assessment/Plan Problem List: (1) Morbid obesity with BMI of 40.0-44.9, adult (2) Anemia (3) Hyperglycemia due to type 2 diabetes mellitus (4) Hypertension (5) Respiratory failure with hypoxia and hypercapnia Assessment Acute Respiratory Failure Morbid Obesity LAYO Anemia DM OOC HTN Plan no labs today now on Lasix K Supplement add metformin to starlix one dose diamox adjust Levemir to 20 Q12 add cytomel Respiratory support, BIPAP 2D Echo , BP and BS management monitor lytes Subjective ROS Limited/Unobtainable: No Objective Objective Last 24 Hour Vital Signs Date Time Temp Pulse Resp B/P (MAP) Pulse Ox O2 Delivery O2 Flow Rate FiO2 09/19/19 16:00 98.2 87 18 141/69 (93) 97 09/19/19 15:31 86 09/19/19 13:16 90 09/19/19 11:46 98.1 85 19 130/64 (86) 95 09/19/19 09:38 98.1 09/19/19 09:00 Nasal Cannula 4.0 09/19/19 08:58 94 114/51 09/19/19 08:57 114/51 09/19/19 08:46 96 Nasal Cannula 4.0 36 09/19/19 08:44 94 20 96 Nasal Cannula 4.0 36 09/19/19 08:00 98.1 87 19 114/51 (72) 99 09/19/19 07:58 88 09/19/19 04:00 97.3 84 19 120/49 (72) 99 94 09/19/19 04:00 92 09/19/19 00:00 97.2 94 21 117/50 (72) 94 94 09/19/19 00:00 86 09/18/19 23:58 91 20 97 Venturi Mask 12.0 50 09/18/19 21:00 Non-Rebreather 09/18/19 20:00 85 09/18/19 20:00 15.0 40 09/18/19 20:00 97.4 87 17 120/60 (80) 97 09/18/19 19:36 97 Venturi Mask 12.0 50 Intake and Output 09/18/19 09/19/19 19:00 07:00 Intake Total 500 ml Balance 500 ml Intake Oral 500 ml # Voids 1 3 # Bowel Movements 1 3 Height (Feet): 5 Height (Inches): 4.00 Weight (Pounds): 268 General Appearance: no apparent distress EENT: other - BIPAP Objective no change Gino Longoria MD Sep 19, 2019 17:15
--- NOTE | 2019-09-19 19:28 | NUR ---
HAND-OFF: Report given to TEDDY Zarate Endorsed care plan.
--- NOTE | 2019-09-19 19:43 | NUR ---
NURSE NOTES: Received patient from TEDDY Earl, in stable condition, AOx4, denies pain at this time, sitting in chair, talkative in good mood, son at bedside. IV on L wrist g22 asymptomatic, intact, patent, call light within reach will continue to monitor and reassess. Patient will be discharged in the morning
--- NOTE | 2019-09-19 19:46 | Infectious Diseases Prog Note ---
Assessment/Plan Problems: (1) Leukocytosis Assessment & Plan: with worsening lungs infiltrates and productive cough , while on ceftriaxone and zithromax , switch to zosyn empirically to broaden her coverage , with significant clinical improvement after she was switched , and improvement in her repeated CXR . will treat with zosyn for 7-10 days (2) Community acquired pneumonia Assessment & Plan: with productive cough , now on zosyn empirically due to worsening right side lung infiltrates and WBC with worsening productive cough , continue nebulizer treatment , titrate oxygen , monitor CXR (3) Acute exacerbation of CHF (congestive heart failure) Assessment & Plan: continue dieuresis as per renal (4) Respiratory failure with hypoxia and hypercapnia Assessment & Plan: on high flow oxygen via mask , continue nebulizers and diuretics (5) Hyperglycemia due to type 2 diabetes mellitus Assessment & Plan: poorly controled, continue insulin to achieve tight glycemic control to keep blood glucose between 100-140 (6) Pleural effusion Assessment & Plan: R>L may benefit from thoracentesis Subjective Constitutional: Reports: no symptoms HEENT: Reports: no symptoms Respiratory: Reports: no symptoms Breasts: Reports: no symptoms Cardiovascular: Reports: no symptoms Gastrointestinal/Abdominal: Reports: no symptoms Genitourinary: Reports: no symptoms Neurologic: Reports: no symptoms Psychiatric: Reports: no symptoms Skin: Reports: no symptoms Endocrine: Reports: no symptoms Hematologic: Reports: no symptoms Musculoskeletal: Reports: no symptoms Allergies: Coded Allergies: MORPHINE (Verified Allergy, Intermediate, 09/09/19) Headach, Dizziness Subjective she feels better with no productive cough or bloody sputum , no SOB , with improvement of her oxygenation after her antibiotics were broaden to zosyn Objective Vital Signs Last 24 Hour Vital Signs Date Time Temp Pulse Resp B/P (MAP) Pulse Ox O2 Delivery O2 Flow Rate FiO2 09/19/19 17:55 98.2 09/19/19 16:00 98.2 87 18 141/69 (93) 97 09/19/19 15:31 86 09/19/19 13:16 90 09/19/19 11:46 98.1 85 19 130/64 (86) 95 09/19/19 09:00 Nasal Cannula 4.0 09/19/19 08:58 94 114/51 09/19/19 08:57 114/51 09/19/19 08:46 96 Nasal Cannula 4.0 36 09/19/19 08:44 94 20 96 Nasal Cannula 4.0 36 09/19/19 08:00 98.1 87 19 114/51 (72) 99 09/19/19 07:58 88 09/19/19 04:00 97.3 84 19 120/49 (72) 99 94 09/19/19 04:00 92 09/19/19 00:00 97.2 94 21 117/50 (72) 94 94 09/19/19 00:00 86 09/18/19 23:58 91 20 97 Venturi Mask 12.0 50 09/18/19 21:00 Non-Rebreather 09/18/19 20:00 85 09/18/19 20:00 15.0 40 09/18/19 20:00 97.4 87 17 120/60 (80) 97 Height (Feet): 5 Height (Inches): 4.00 Weight (Pounds): 268 General Appearance: WD/WN, no acute distress HEENT: normocephalic, atraumatic, anicteric, mucous membranes moist, PERRL Respiratory/Chest: chest wall non-tender, normal breath sounds, no respiratory distress, no accessory muscle use, decreased breath sounds Cardiovascular: normal peripheral pulses, normal rate, no gallop/murmur, no JVD Abdomen: normal bowel sounds, soft, non tender, no organomegaly, non distended , no mass, no scars, guarding Extremities: no cyanosis, no clubbing Skin: no rash, no lesions, no ulcers Neurologic/Psychiatric: 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, no motor/sensory deficits, alert, oriented x 3 Lymphatic: no neck adenopathy, no groin adenopathy Musculoskeletal: normal muscle bulk, no effusion Current Medications Medications (Trade) Dose Ordered Sig/Yue Route PRN Reason Start Time Stop Time Status Last Admin Dose Admin Acetaminophen (Tylenol) 650 mg Q6H PRN ORAL Mild Pain/Temp > 100.5 09/07/19 15:30 10/07/19 15:29 09/19/19 17:25 Allopurinol (Zyloprim) 100 mg DAILY ORAL 09/09/19 09:00 10/09/19 08:59 09/19/19 08:58 Aspirin (Ecotrin) 81 mg DAILY ORAL 09/08/19 09:00 10/07/19 08:59 09/19/19 08:58 Dextrose (Dextrose 50%) 25 ml Q30M PRN IV Hypoglycemia 09/07/19 15:30 10/07/19 06:29 Dextrose (Dextrose 50%) 50 ml Q30M PRN IV Hypoglycemia 09/07/19 15:30 10/07/19 06:29 Docusate Sodium (Colace) 250 mg TID ORAL 09/12/19 09:00 10/12/19 08:59 09/19/19 17:08 Enoxaparin Sodium (Lovenox) 40 mg DAILY SUBQ 09/08/19 09:00 10/07/19 08:59 09/19/19 09:01 Fluticasone Propionate (Flonase) 1 spray TWICE A DAY NASAL 09/17/19 11:00 10/17/19 10:59 09/19/19 17:14 Furosemide (Lasix) 80 mg EVERY 12 HOURS ORAL 09/19/19 14:00 10/19/19 15:00 09/19/19 14:06 Insulin Aspart (NovoLOG) BEFORE MEALS AND HS SUBQ 09/07/19 16:30 10/07/19 06:29 09/19/19 17:11 Insulin Detemir (Levemir) 20 units Q12H SUBQ 09/13/19 20:00 10/07/19 15:59 09/19/19 08:53 Irbesartan (Avapro) 300 mg DAILY ORAL 09/10/19 09:00 10/10/19 08:59 09/19/19 08:57 Iron Sucrose 100 mg/Sodium Chloride 60 ml @ 240 mls/hr BEDTIME IV 09/15/19 21:00 09/19/19 21:14 09/18/19 21:05 Lactulose (Cephulac) 20 gm TIDPRN PRN ORAL Constipation 09/14/19 17:15 10/14/19 17:14 09/14/19 18:01 Levothyroxine Sodium (Synthroid) 150 mcg DAILY@0630 ORAL 09/20/19 06:30 10/20/19 06:29 Liothyronine Sodium (Cytomel) 5 mcg DAILY@0630 ORAL 09/20/19 06:30 10/20/19 06:29 Magnesium Oxide (Mag-Ox 400mg) 400 mg THREE TIMES A DAY ORAL 09/14/19 13:00 10/14/19 12:59 09/19/19 17:09 Metformin HCl (Glucophage) 500 mg TIAC ORAL 09/08/19 16:30 10/08/19 16:29 09/19/19 17:08 Metoprolol Succinate (Toprol XL) 50 mg DAILY ORAL 09/13/19 09:00 10/13/19 08:59 09/19/19 08:58 Multivitamins (Multivitamins) 1 tab DAILY ORAL 09/19/19 17:10 10/19/19 17:09 09/19/19 17:15 Nateglinide (Starlix) 120 mg TIAC ORAL 09/07/19 16:30 10/07/19 11:29 09/19/19 17:08 Nitroglycerin (Ntg) 0.4 mg Q5M PRN SL Prn Chest Pain 09/17/19 12:30 10/17/19 12:29 Piperacillin Sod/ Tazobactam Sod 3.375 gm/Sodium Chloride 110 ml @ 27.5 mls/hr EVERY 8 HOURS IVPB 09/11/19 22:00 09/21/19 21:59 09/19/19 13:08 Potassium Chloride (K-Dur) 40 meq TID ORAL 09/15/19 13:00 10/14/19 12:44 09/19/19 17:08 Katlyn Richard M.D. Sep 19, 2019 19:46
[2019-09-19 20:00] VITALS: BP 132/67
--- NOTE | 2019-09-19 21:15 | General Progress Note ---
Assessment/Plan Status: progressing Assessment/Plan: S: I am feeling the better O: on Non rebreather O2, denies chest pain . limited activity reported. Low threshold for exertional sob. Patient Son at the bedside PHYSICAL EXAMINATION:HEAD AND NECK: Atraumatic, normocephalic. CHEST: Clear to auscultation.HEART: S1, S2. Regular rate and rhythm. ABDOMEN: Soft. No organomegaly.MUSCULOSKELETAL: No gross focal deficit. NEUROLOGIC: The patient is awake, alert, oriented x3. LABORATORY and Imaging DATA: dated 09/16 reviewed ASSESSMENT: 1. Acute Asthma exacerbation 2. Pulmonary infiltrate, Atelectasis vs Community-acquired pneumonia. 3. CHF exacerbation. 4. Morbid obesity. 5. Asthma. 6. Severe pulmonary arterial hypertension. 7. DM 2- uncontrolled 8. GI and DVT prophylaxis. 9. Acute on chronic anemia. Plan: Poor overall physial performance, with limited ADLS Notes from Nephro and Pulmonary reviewed Negative culture as of yet On high rate Oxygen flow recheck Stool OB started Iron supplementation Once Ok from pulmonary stand point may followup as op, however given following REFUSAL's this is a barrier with HIGH risk for READMISSION patient refuses Rehab/SNIF at this time. Requested to hold discharge because of concerns over family support at time of arrival at home. Subjective Allergies: Coded Allergies: MORPHINE (Verified Allergy, Intermediate, 09/09/19) Headach, Dizziness Objective Last 24 Hour Vital Signs Date Time Temp Pulse Resp B/P (MAP) Pulse Ox O2 Delivery O2 Flow Rate FiO2 09/19/19 20:00 95 Venturi Mask 6.0 35 09/19/19 20:00 90 20 95 Venturi Mask 6.0 35 09/19/19 17:55 98.2 09/19/19 16:00 98.2 87 18 141/69 (93) 97 09/19/19 15:31 86 09/19/19 13:16 90 09/19/19 11:46 98.1 85 19 130/64 (86) 95 09/19/19 09:00 Nasal Cannula 4.0 09/19/19 08:58 94 114/51 09/19/19 08:57 114/51 09/19/19 08:46 96 Nasal Cannula 4.0 36 09/19/19 08:44 94 20 96 Nasal Cannula 4.0 36 09/19/19 08:00 98.1 87 19 114/51 (72) 99 09/19/19 07:58 88 09/19/19 04:00 97.3 84 19 120/49 (72) 99 94 09/19/19 04:00 92 09/19/19 00:00 97.2 94 21 117/50 (72) 94 94 09/19/19 00:00 86 09/18/19 23:58 91 20 97 Venturi Mask 12.0 50 Intake and Output 09/18/19 09/19/19 19:00 07:00 Intake Total 500 ml Balance 500 ml Intake Oral 500 ml # Voids 1 3 # Bowel Movements 1 3 Height (Feet): 5 Height (Inches): 4.00 Weight (Pounds): 268 Marcela Jacobo MD Sep 19, 2019 21:15
[2019-09-19] MEDS: Iron Sucrose 100 MG in NS 55 ML IV SCH (21:17)
[2019-09-20] VITALS: BP 124/63
[2019-09-20 04:00] VITALS: BP 133/48
[2019-09-20] MEDS: Piperacillin/Tazobactam 3.375 GM in NS 110 ML IVPB SCH (05:43)
[2019-09-20] MEDS: metFORMIN 500mg tab ORAL SCH (05:44)
[2019-09-20] MEDS: NovoLOG Insulin Flexpen SUBQ SCH (05:53)
--- NOTE | 2019-09-20 05:57 | NUR ---
NURSE NOTES: Patient wanted BS checked early and insulin . Plenty of snacks and orange juice provided . will continue to monitor
[2019-09-20] MEDS ORDERED: Liothyronine 5mcg tab ORAL SCH (06:30)
--- NOTE | 2019-09-20 07:18 | NUR ---
HAND-OFF: Report given to TEDDY Alcaraz,patient in stable condition, plan of care endorsed.
--- NOTE | 2019-09-20 07:23 | NUR ---
NURSE NOTES: Received report from TEDDY Zarate. Pt sitting in chair at bedside, son at bedside, pt is awake, talkative, no complaints of pain at this time, no apparent distress noted, pt on Venturi mask stating she "likes it better" plan is to be discharged this am at 0900, pt's family is aware and will take her home, RN notified Dr. Jacobo of moss picker time for 0900 and that DC Med recon needs to be done. stated he will be in [id number], but "I call her medication. . . so ok to leave before I get there." Call light within reach.
[2019-09-20 08:00] VITALS: BP 113/72
[2019-09-20] MEDS: Levemir Flexpen SUBQ SCH (08:00)
[2019-09-20] MEDS: Flonase Nasal Inhaler 16gm NASAL SCH (08:49)
[2019-09-20] MEDS: Furosemide 80mg tab ORAL SCH (08:50)
[2019-09-20] MEDS: Allopurinol 100mg Tab ORAL SCH (08:51)
[2019-09-20] MEDS: Docusate 250mg cap ORAL SCH (08:51)
[2019-09-20] MEDS: Aspirin EC 81mg tab ORAL SCH (08:51)
[2019-09-20] MEDS: Irbesartan 150mg tablet ORAL SCH (08:51)
[2019-09-20 08:52] VITALS: BP 133/48
[2019-09-20] MEDS: Metoprolol Succinate XL 50mg tab ORAL SCH (08:52)
[2019-09-20] MEDS: Enoxaparin 40mg Inj SUBQ SCH (08:52)
[2019-09-20] MEDS: Magnesium Oxide 400mg tab ORAL SCH (08:52)
--- NOTE | 2019-09-20 09:34 | Nephrology Progress Note ---
Assessment/Plan Problem List: (1) Morbid obesity with BMI of 40.0-44.9, adult (2) Anemia (3) Hyperglycemia due to type 2 diabetes mellitus (4) Hypertension (5) Respiratory failure with hypoxia and hypercapnia Assessment Acute Respiratory Failure Morbid Obesity LAYO Anemia DM OOC HTN Plan no labs today now on Lasix K Supplement add metformin to starlix one dose diamox adjust Levemir to 20 Q12 add cytomel Respiratory support, BIPAP 2D Echo , BP and BS management monitor lytes Subjective ROS Limited/Unobtainable: No Constitutional: Reports: malaise Objective Objective Last 24 Hour Vital Signs Date Time Temp Pulse Resp B/P (MAP) Pulse Ox O2 Delivery O2 Flow Rate FiO2 09/20/19 09:00 Nasal Cannula 4.0 09/20/19 08:52 84 133/48 09/20/19 08:51 133/48 09/20/19 08:00 98.7 86 20 113/72 (86) 94 09/20/19 07:41 84 09/20/19 07:20 84 21 93 Venturi Mask 6.0 35 09/20/19 07:20 93 Venturi Mask 6.0 35 09/20/19 05:04 95 6.0 35 09/20/19 04:00 97.4 89 16 133/48 (76) 95 09/20/19 04:00 74 09/20/19 00:00 97.9 86 20 124/63 (83) 97 09/20/19 00:00 85 09/19/19 22:05 6.0 35 09/19/19 22:00 15.0 40 09/19/19 21:00 Nasal Cannula 4.0 09/19/19 20:00 97.9 89 19 132/67 (88) 97 09/19/19 20:00 95 Venturi Mask 6.0 35 09/19/19 20:00 83 09/19/19 20:00 90 20 95 Venturi Mask 6.0 35 09/19/19 17:55 98.2 09/19/19 16:00 98.2 87 18 141/69 (93) 97 09/19/19 15:31 86 09/19/19 13:16 90 09/19/19 11:46 98.1 85 19 130/64 (86) 95 Intake and Output 09/19/19 09/20/19 19:00 07:00 Intake Total 1120.0 ml Balance 1120.0 ml Intake Oral 900 ml IV Total 220.0 ml # Voids 5 5 # Bowel Movements 1 2 Height (Feet): 5 Height (Inches): 4.00 Weight (Pounds): 268 General Appearance: no apparent distress Objective no change Gino Longoria MD Sep 20, 2019 09:34
[2019-09-20] MEDS ORDERED: FLONASE1 SPRAYS NASAL (09:57)
[2019-09-20] MEDS ORDERED: Metoprolol Succinate ORAL (09:57)
[2019-09-20] MEDS ORDERED: K-TAB ER20 MEQ ORAL (09:57)
[2019-09-20] MEDS ORDERED: AVAPRO150 MG ORAL (09:57)
[2019-09-20] MEDS ORDERED: STARLIX120 MG ORAL (09:57)
[2019-09-20] MEDS ORDERED: FUROSEMIDE80 MG ORAL (09:57)
--- NOTE | 2019-09-20 10:01 | General Progress Note ---
Assessment/Plan Status: progressing Assessment/Plan: S: I am feeling the better O: denies chest pain . limited activity reported. Low threshold for exertional sob. Patient Son at the bedside PHYSICAL EXAMINATION:HEAD AND NECK: Atraumatic, normocephalic. CHEST: Clear to auscultation.HEART: S1, S2. Regular rate and rhythm. ABDOMEN: Soft. No organomegaly.MUSCULOSKELETAL: No gross focal deficit. NEUROLOGIC: The patient is awake, alert, oriented x3. LABORATORY and Imaging DATA: dated 09/20 reviewed ASSESSMENT: 1. Acute Asthma exacerbation 2. Pulmonary infiltrate, Atelectasis vs Community-acquired pneumonia. 3. CHF exacerbation. 4. Morbid obesity. 5. Asthma. 6. Severe pulmonary arterial hypertension. 7. DM 2- uncontrolled 8. GI and DVT prophylaxis. 9. Acute on chronic anemia. Plan: Poor overall physial performance, with limited ADLS Notes from Nephro and Pulmonary reviewed Negative culture as of yet On high rate Oxygen flow recheck Stool OB started Iron supplementation Once Ok from pulmonary stand point may followup as op, however given following REFUSAL's this is a barrier with HIGH risk for READMISSION patient refuses Rehab/SNIF at this time. Requested to hold discharge to today because of concerns over family support at time of arrival at home. med recon completed. Prescriptions are written and provided to the RN Subjective Allergies: Coded Allergies: MORPHINE (Verified Allergy, Intermediate, 09/09/19) Headach, Dizziness Objective Last 24 Hour Vital Signs Date Time Temp Pulse Resp B/P (MAP) Pulse Ox O2 Delivery O2 Flow Rate FiO2 09/20/19 09:00 Nasal Cannula 4.0 09/20/19 08:52 84 133/48 09/20/19 08:51 133/48 09/20/19 08:00 98.7 86 20 113/72 (86) 94 09/20/19 07:41 84 09/20/19 07:20 84 21 93 Venturi Mask 6.0 35 09/20/19 07:20 93 Venturi Mask 6.0 35 09/20/19 05:04 95 6.0 35 09/20/19 04:00 97.4 89 16 133/48 (76) 95 09/20/19 04:00 74 09/20/19 00:00 97.9 86 20 124/63 (83) 97 09/20/19 00:00 85 09/19/19 22:05 6.0 35 09/19/19 22:00 15.0 40 09/19/19 21:00 Nasal Cannula 4.0 09/19/19 20:00 97.9 89 19 132/67 (88) 97 09/19/19 20:00 95 Venturi Mask 6.0 35 09/19/19 20:00 83 09/19/19 20:00 90 20 95 Venturi Mask 6.0 35 09/19/19 17:55 98.2 09/19/19 16:00 98.2 87 18 141/69 (93) 97 09/19/19 15:31 86 09/19/19 13:16 90 09/19/19 11:46 98.1 85 19 130/64 (86) 95 Intake and Output 09/19/19 09/20/19 19:00 07:00 Intake Total 1120.0 ml Balance 1120.0 ml Intake Oral 900 ml IV Total 220.0 ml # Voids 5 5 # Bowel Movements 1 2 Height (Feet): 5 Height (Inches): 4.00 Weight (Pounds): 268 Marcela Jacobo MD Sep 20, 2019 10:01
--- NOTE | 2019-09-20 10:45 | NUR ---
NURSE NOTES: Pt discharged home with all belongings. Accompanied by both sons, left in wheelchair, pt's walker and home O2 tank with son, IV removed intact, IV removed, Tele box returned, pt signed all DC paperwork, has all hand written prescriptions with DC paperwork, pt stable for discharge
--- NOTE | 2019-09-20 10:58 | Pulmonology Progress Note ---
Assessment/Plan Assessment/Plan ASSESSMENT Pulmonary edema LAYO History of asthma Pulmonary hypertension DISCUSSION: Continue BiPAP q pm. Advised consistent use Continue diuresis, nitrates, breathing treatments. Consider heart cath per cardiology. Avoidance of nephrotoxic medications. Off Diamox now; HCO3 37-39 OK to dc home Nasal o2 Sohail Aguirre M.D. Subjective Interval Events: Looking and feeling better Constitutional: Reports: no symptoms HEENT: Repors: no symptoms Respiratory: Reports: shortness of breath Cardiovascular: Reports: no symptoms Gastrointestinal/Abdominal: Reports: no symptoms Allergies: Coded Allergies: MORPHINE (Verified Allergy, Intermediate, 09/09/19) Headach, Dizziness Objective Last 24 Hour Vital Signs Date Time Temp Pulse Resp B/P (MAP) Pulse Ox O2 Delivery O2 Flow Rate FiO2 09/20/19 09:00 Nasal Cannula 4.0 09/20/19 08:52 84 133/48 09/20/19 08:51 133/48 09/20/19 08:00 98.7 86 20 113/72 (86) 94 09/20/19 07:41 84 09/20/19 07:20 84 21 93 Venturi Mask 6.0 35 09/20/19 07:20 93 Venturi Mask 6.0 35 09/20/19 05:04 95 6.0 35 09/20/19 04:00 97.4 89 16 133/48 (76) 95 09/20/19 04:00 74 09/20/19 00:00 97.9 86 20 124/63 (83) 97 09/20/19 00:00 85 09/19/19 22:05 6.0 35 09/19/19 22:00 15.0 40 09/19/19 21:00 Nasal Cannula 4.0 09/19/19 20:00 97.9 89 19 132/67 (88) 97 09/19/19 20:00 95 Venturi Mask 6.0 35 09/19/19 20:00 83 09/19/19 20:00 90 20 95 Venturi Mask 6.0 35 09/19/19 17:55 98.2 09/19/19 16:00 98.2 87 18 141/69 (93) 97 09/19/19 15:31 86 09/19/19 13:16 90 09/19/19 11:46 98.1 85 19 130/64 (86) 95 Intake and Output 09/19/19 09/20/19 19:00 07:00 Intake Total 1120.0 ml Balance 1120.0 ml Intake Oral 900 ml IV Total 220.0 ml # Voids 5 5 # Bowel Movements 1 2 General Appearance: no acute distress HEENT: normocephalic Respiratory/Chest: chest wall non-tender Cardiovascular: normal peripheral pulses Abdomen: normal bowel sounds Sohail Aguirre MD Sep 20, 2019 10:58
--- NOTE | 2019-09-21 08:46 | Discharge Summary ---
Discharge Summary Discharge Summary _ DATE OF ADMISSION: 09/07/2019 DATE OF DISCHARGE: 09/20/2019 DISCHARGED BY: Dr. Jacobo REASON FOR ADMISSION: 54 years old female with past medical history of diabetes mellitus, hypertension , congestive heart failure, morbidly obese, presented with complaint of shortness of breath. Patient had prior multiple admissions for shortness of breath and respiratory distress. Patient called paramedics because she could not breathe. Per paramedics, patient was hypoxic , was wheezing and had some rales on auscultation. Patient was placed on CPAP by paramedics , received nebulizing treatment with bronchodilator. Patient also received nitroglycerin spray. Afterwards patient reported feeling better . Patient denied fever or chills. Patient denied nausea or vomiting. Patient did report chest tightness. Upon evaluation vital signs revealed tachypnea with respiratory rate of 29 , pulse ox initially was 90% on 100% nonrebreathing mask. Laboratory work-up revealed mild leukocytosis WBC 12.4, hemoglobin 9.8, hematocrit 29.5, stable platelet count. CO2 39. Stable electrolytes and renal parameters. Glucose 358 . Stable LFT . Troponin negative. Pro BNP-121. ECG revealed no acute ischemic changes. Urinalysis revealed +2 glucose , no evidence of urinary tract infection. Urine toxicology screen was negative. Chest x-ray revealed cardiomegaly. Bilateral interstitial infiltrate versus edema. Bilateral right greater than left pleural effusion. Patient subsequently admitted to telemetry floor for further management. CONSULTANTS: street car mechanic Dr. Funez pulmonary Dr. Aguirre ID specialist hr internship Dr. Longoria [facility]SE: Patient admitted to telemetry floor. Framing Mill Operator and labor operator closely followed. Serial troponin negative. EKG revealed no acute ischemic changes. Patient was ruled out for acute myocardial infarction. Echocardiogram revealed preserved ejection fraction of 60% with no evidence of wall motion abnormality. Right ventricular systolic pressure of 101 , consistent with severe pulmonary hypertension. Framing Mill Operator discussed with patient need for right heart catheterization due to severe pulmonary hypertension , which can be done as outpatient. Antiplatelet therapy with aspirin continued. Blood pressure was managed with multiple antihypertensive medications. Antihypertensive regimen was optimized to keep blood pressure under control. Volumes were closely monitored. Pro BNP remained astable. Patient started on empiric antibiotic for probable pneumonia. Blood cultures initial and repeated on 09/10 were negative. Patient remained afebrile, mild leukocytosis. Patient completed treatment with antibiotics at the hospital. [employer] followed. Supplemental oxygen provided and titrated to keep pulse oximetry above 92%. Diuresis was continued along with bronchodilator therapy . Patient was followed-up with chest x-rays. Patient had obstructive sleep apnea. [employer] recommended BiPAP at nighttime and advised on consistent use. Patient was placed on the Diamox to reset CO2 when CO2 reached level above 45. CO2 trended down to baseline, and Diamox stopped. Last chest x-ray revealed significant improvement . DVT and GI prophylaxis provided. Patient was mobilized frequently. As patient clinically improved , she was able to be weaned from the BiPAP to Venturi mask and then to oxygen via nasal cannula. Pulse oximetry prior to discharge stable on oxygen via nasal cannula. Blood sugar was managed with long-acting insulin, metformin , Starlix and sliding scale insulin as needed. Hemoglobin A1c 8.1, not at goal . Patient was provided with diabetic diet. Patient received teaching regarding compliance with anti-glycemic regimen and diabetic diet. Blood sugar improved. Patient will need close monitoring of blood sugar as outpatient. Renal parameters and electrolytes were closely monitored. Electrolytes corrected as needed (potassium, magnesium, phosphorus), nephrotoxins were avoided. Thyroid function test revealed normal TSH, ow free T3. Cytomel was added to levothyroxine. Repeat thyroid function test in 1 month. Hemoglobin hematocrit were closely monitor Hemoglobin and hematocrit were closely monitored with goal to keep hemoglobin above 7. Stool for occult blood was negative. Anemia work-up was consistent with anemia of iron deficiency. Patient received IV Venofer for 5 days. Prior to discharge hemoglobin 9, hematocrit 29.5. Patient clinically stabilized and was ready for discharge. FINAL DIAGNOSES: Acute hypoxemic hypercapnic respiratory failure, requiring BiPAP Severe pulmonary hypertension Pulmonary edema CHF Obstructive sleep apnea Asthma Morbid obesity Hyperglycemia due to diabetes mellitus type 2/diabetes mellitus type 2 out of control Hypertension Community-acquired pneumonia Iron deficiency anemia Hypothyroidism Electrolyte abnormalities DISCHARGE MEDICATIONS: See Medication Reconciliation list. DISCHARGE INSTRUCTIONS: Patient was discharged home. Follow-up with a primary care provider in 1 week. I have been assigned to dictate discharge summary for this account. I was not involved in the patient's management. Kailee Antoine NP Sep 21, 2019 08:46
--- NOTE | 2019-09-21 19:33 | Cardiology Report ---
APPROVED REPORT EKG Measurement Heart [id number] Normal sinus rhythm Left anterior fascicular block Abnormal ECG
--- NOTE | 2019-09-22 15:50 | NUR ---
*-* INSURANCE *-* ALL CLINICALS AND REVIEWS HAVE BEEN FAXED TO: [employer] Ref# [id number] CM: [place] #[phone] fax#[phone] also send to [employer] ref# or ANSON maradiaga #[phone] fax#[phone]
== END 2019-09-20 10:47 | disposition home or self-care (01) | DRG 133 ==
LOC: EDBD 00:58 → EMR 01:15 → EDBEDREQ 02:08 → EDBEDREQSVC 02:09 → 2W 02:34 → EDBEDREQ 03:29 → 2E 15:21
PROC: 5A09457 Assistance with Respiratory Ventilation, 24-96 Consecutive Hours, Continuous Positive Airway Pressure (ICD-10-PCS; principal; 2019-09-07)
DX: J96.01 Acute respiratory failure with hypoxia (principal); J96.02 Acute respiratory failure with hypercapnia; J18.9 Pneumonia, unspecified organism; E11.65 Type 2 diabetes mellitus with hyperglycemia; I11.0 Hypertensive heart disease with heart failure; I50.23 Acute on chronic systolic (congestive) heart failure; E66.01 Morbid (severe) obesity due to excess calories; Z88.6 Allergy status to analgesic agent; E03.9 Hypothyroidism, unspecified; Z79.4 Long term (current) use of insulin; D50.9 Iron deficiency anemia, unspecified; I27.20 Pulmonary hypertension, unspecified; G47.33 Obstructive sleep apnea (adult) (pediatric); E87.8 Other disorders of electrolyte and fluid balance, not elsewhere classified; Z68.41 Body mass index [BMI] 40.0-44.9, adult
CPT/HCPCS: 36415; 71045; 80048; 80053; 80061; 80162; 80307; 81003; 82270; 82607; 82728; 82746; 82962; 82977; 83036; 83540; 83550; 83735; 83880; 84100; 84439; 84443; 84481; 84484; 84550; 85007; 85025; 86140; 87040; 93005; 93306; 94640; 94660; 94664; 96372; 96374; 99291; C9399; J1815; J8499; S5561